=== PATIENT | female | born 1965 | race Caucasian/White ===

== ENCOUNTER 2018-12-22 01:48 | Emergency (ER) | payer OTHER ==
[~2018-12-22] VITALS: Ht 162.6 cm; Wt 115.7 kg
[~2018-12-22 01:48] MED LIST: ALLOPURINOL300 MG PO; AMLODIPINE BESY10 MG PO; BACLOFEN10 MG PO; BUSPIRONE HCL30 MG PO; CLONAZEPAM0.5 MG PO; CLONIDINE HCL0.1 MG PO; COLCHICINE0.6 M1 PO; DOXEPIN HCL100 MG PO; ELIQUIS5 MG PO; ESCITALOPRAM OX10 MG PO; FOLIC ACID1 MG PO; FUROSEMIDE20 MG PO; FUROSEMIDE40 MG PO; GABAPENTIN100 MG PO; HYDROXYZINE HCL25 MG PO; INDOMETHACIN50 MG PO; LIPITOR40 MG PO; MAGNESIUM OXID400 MG PO; MECLIZINE HCL25 MG PO; METOPROLOL SUCC25 MG PO; METOPROLOL TART25 MG PO; MINIPRESS1 MG PO; MINIPRESS2 MG PO; MIRTAZAPINE15 MG PO; NEURONTIN300 MG PO; OMEPRAZOLE20 MG PO; POTASSIUM CHLO20 ME1 PO; REGLAN10 MG; ROBAXIN-750750 MG PO; SERTRALINE HCL100 MG PO; SERTRALINE HCL50 MG PO; SYNTHROID75 MCG PO; VENTOLIN HFA18 GM INH; ZYRTEC10 M3 PO; [UNRECOGNIZED DRUG - OTHER] PO
--- NOTE | 2018-12-22 08:01 | EKG ---
[facility] [address] [place] [address] Signed Normal sinus rhythm Possible Left atrial enlargement ST \T\ T wave abnormality, consider lateral ischemia Abnormal ECG When compared with ECG of 18-OCT-2018 23:33, Criteria for Septal infarct are no longer present ST no longer depressed in Inferior leads T wave inversion no longer evident in Inferior leads Confirmed by JEREMI VASQUEZ MD ([id number]) on 12/22/2018 8:01:42 AM Electronically Signed By: JEREMI VASQUEZ MD 12/22/18 0801 PATIENT NAME: WALTER CALVERT Electrocardiogram DATE OF : 63 PHYSICIAN: JEREMI VASQUEZ MD REPORT #: [id number] REPORT IS CONFIDENTIAL AND NOT TO BE RELEASED WITHOUT AUTHORIZATION
== END 2018-12-22 05:30 | disposition home or self-care (01) ==
LOC: ED 01:48
DX: R07.9 Chest pain, unspecified (principal); I48.91 Unspecified atrial fibrillation; I10 Essential (primary) hypertension; F32.9 Major depressive disorder, single episode, unspecified; F41.9 Anxiety disorder, unspecified; E78.00 Pure hypercholesterolemia, unspecified; E03.9 Hypothyroidism, unspecified; Z87.891 Personal history of nicotine dependence; Z88.0 Allergy status to penicillin; Z79.899 Other long term (current) drug therapy
CPT/HCPCS: 71045; 80053; 84484; 85025; 93005; 93010; 99285-25

== ENCOUNTER 2019-02-15 13:40 | Emergency (ER) | payer OTHER ==
[~2019-02-15] VITALS: Ht 162.6 cm; Wt 115.7 kg
--- OUTSIDE RECORDS SUMMARY | ~2019-02-15 | XMS | Encounter Summary ---
Demographics + + + | Address | [address] | | | [place] [address] | + + + | Home Phone | | + + + | Preferred Language | Unknown | + + + | Marital Status | Single | + + + | Shinto Affiliation | Unknown | + + + | Race | Unknown | + + + | Ethnic Group | Unknown | + + + Author + + + | Author | [facility] | | | and Saúlana | + + + | Organization | [facility] | | | and Saúlana | + + + | Address | Unknown | + + + | Phone | Unavailable | + + + Support + + +---------+ + | Name | Relationship | Address | Phone | + + +---------+ + | Raghu,Aaron | ECON | Unknown | | + + +---------+ + Care Team Providers + +------+ + | Care General Pediatrician Name | Role | Phone | + +------+ + | August Sanford | PCP | | + +------+ + Reason for Referral Diagnostic/Screening (Routine) + +--------+ + + + + | Status | Reason | Specialty | Diagnoses / | Referred By | Referred To | | | | | Procedures | Contact | Contact | + +--------+ + + + + | Authorized | | Radiology | Diagnoses | Rosy | [facility] | | | | | Chest pain, | MD Claudine | [address] | | | | | unspecified | [address] | [place], | | | | | type | [address] | [place] | | | | | Procedures | [place], | [address] | | | | | [place] | [place] [address] | Phone: | | | | | Stress Test | Phone: | [phone] | | | | | (Vasodilator | [phone] | Fax: | | | | | ) [place] | Fax: | [phone] | | | | | Nuclear | [phone] | | | | | | Stress Test | | | | | | | (Exercise) | | | + +--------+ + + + + Encounter Details +--------+ + + + + | Date | Type | Department | Care Team | Description | +--------+ + + + + | 12/26/ | Ancillary | [facility] [place] | Claudine Gallegos, | Chest pain, | | 2019 | Orders | CARDIOLOGY [address] | unspecified type | | | | [address] [place], | [place], | | | | | [place] [address] | [place] [address] | | | | | [phone] | [phone] | | | | | | | | +--------+ + + + + Social History + +-------+ +--------+------+ | Tobacco Use | Types | Packs/Day | Years | Date | | | | | Used | | + +-------+ +--------+------+ | Former Smoker | | | | | + +-------+ +--------+------+ + +---+---+---+ | Smokeless Tobacco: | | | | | Never Used | | | | + +---+---+---+ + + +---------+ + | Alcohol Use | Drinks/We | oz/Week | Comments | | | ek | | | + + +---------+ + | No | | | | + + +---------+ + + + + | Sex Assigned at | Date Recorded | | | | + + + | Not on file | | + + + as of this encounter Plan of Treatment +--------+---------+ + + + | Date | Type | Specialty | Care Team | Description | +--------+---------+ + + + | 06/23/ | Office | Cardiology | Claudine Gallegos, | | | 2018 | Visit | | [address] | | | | | | [place], | | | | | | [place] [address] | | | | | | [phone] | | | | | | | | +--------+---------+ + + + as of this encounter Results [place] Nuclear Stress Test (Vasodilator) (12/26/2018 1433) + +--------+ + + | Component | Value | Ref Range | Performed At | + +--------+ + + | BASELINE HEART RATE | 75 | bpm | [facility] | + +--------+ + + | BASELINE BLOOD | 192/87 | mmHg | [facility] | | PRESSURE | | | | + +--------+ + + | PEAK HEART RATE | 80 | | [facility] | + +--------+ + + | PEAK BLOOD PRESSURE | 192/87 | mmHG | [facility] | + +--------+ + + | Target HR | 141 | | [facility] | + +--------+ + + | Percent HR | 48 | | [facility] | + +--------+ + + | LVEF-SPECT NUCLEAR | 61 | % | [facility] | | STRESS/VIABILITY | | | | + +--------+ + + | ST Elevation (mm) | 0.0 | mm | [facility] | + +--------+ + + + + + | Narrative | Performed At | + + + | | [facility] | | 1. Persantine EKG is negative.2. Normal Persantine sestamibi | | | myocardial perfusion imaging study. Normal left ventricular size, | | | wall thickness and motion. Preserved left ventricular systolic | | | function. LVEF is 61%. Evidence of breast/anterior wall soft | | | tissue attenuation. | | + + + + +---------+ + + | Performing | Address | City/State/Zipcode | Phone Number | | Organization | | | | + +---------+ + + | [facility] | | | | + +---------+ + + in this encounter Visit Diagnoses + + | Diagnosis | + + | Chest pain, unspecified type | + +"
--- OUTSIDE RECORDS SUMMARY | ~2019-02-15 | XMS | Encounter Summary ---
Demographics + + + | Address | [address] | | | [place] [address] | + + + | Home Phone | | + + + | Preferred Language | Unknown | + + + | Marital Status | Single | + + + | Pentecostal Affiliation | Unknown | + + + | Race | Unknown | + + + | Ethnic Group | Unknown | + + + Author + + + | Author | [facility] | | | and Saúlana | + + + | Organization | [facility] | | | and Saúlana | [...] Team Providers + +------+ + | Care Purification Director Name | Role | Phone | + +------+ + | August Sanford | PCP | | + +------+ + Reason for Visit Evaluate & Treat (Routine) +--------+--------+ + + + + | Status | Reason | Specialty | Diagnoses / | Referred By | Referred To | | | | | Procedures | Contact | Contact | +--------+--------+ + + + + | Closed | | Cardiology | Diagnoses | Steve Sanford [place] | | | | | History of | FRANCO Koch | Cardiology | | | | | [place] | [address] | | | | | (myocardial | [place] | [place], | | | | | infarction) | [address] | [place] | | | | | Syncope | [place], | [address] | | | | | Presence of | [place] [address] | Phone: | | | | | other | Phone: | [phone] | | | | | cardiac | [phone] | Fax: | | | | | implants and | Fax: | [phone] | | | | | grafts | [phone] | | | | | | Procedures | | | | | | | CARE PROGRAM RESIDENT - NEEDS | | | | | | | IC/THR APPT | | | +--------+--------+ + + + + Encounter Details +--------+---------+ + + + | Date | Type | Department | Care Team | Description | +--------+---------+ + + + | 12/16/ | Office | [facility] | Dionisio Gallegos, | Encounter for loop | | 2019 | Visit | CARDIOLOGY [address] | [address] | recorder check | | | | [place], | [place], | (Primary Dx); S/P | | | | [place] [address] | [place] [address] | implantable loop | | | | [phone] | [phone] | recorder Medtronic | | | | | | 05/04/2016 Dr Duque | | | | | | Tommy; Syncope, | | | | | | unspecified syncope | | | | | | type; PVC (premature | | | | | | ventricular | | | | | | contraction) | +--------+---------+ + + + Social History + +-------+ [...] + + + as of this encounter Last Filed Vital Signs + + + + | Vital Sign | Reading | Time Taken | + + + + | Blood Pressure | 130/72 | 12/16/20181513 PST | + + + + | Pulse | 74 | 12/16/20181513 PST | + + + + | Temperature | - | - | + + + + | Respiratory Rate | 18 | 12/16/20181513 PST | + + + + | Oxygen Saturation | - | - | + + + + | Inhaled Oxygen | - | - | | Concentration | | | + + + + | Weight | 115.9 kg (255 lb 8.2 | 12/16/20181513 PST | | | oz) | | + + + + | Height | 162.6 cm (5' 4") | 12/16/20181513 PST | + + + + | Body Mass Index | 43.86 | 12/16/2018 1514 PST | + + + + in this encounter Progress Notes Dionisio Gallegos MD - 12/16/2018 1430 PSTFormatting of this note may be different from dev bell. PATIENT NAME: Gris Krishnamurthy : 1965: AGE: 53 y.o. REFERRED BY: August Sanford PRIMARY CARE: FRANCO Fernandes NEW PATIENT OFFICE VISIT Date of Service: 12/16/18 HISTORY OF PRESENT ILLNESS: Gris Krishnamurthy is a 53 y.o. female with a history of paroxysmal atrial fibrillation, PVD, hyp ertension, hyperlipidemia, and obstructive sleep apnea. She is being seen today for chest p ain and to establish care. She claims that she has a history of a heart attack back in 2004. On 07/2009, patient report s of having servere chest pains at her home in [place]. She mentions her nonexertional, no n-radiating sharp chest pains episode would happen constantly. Patient reports having cindy re chest pains on November 29, , and of this year. Patient describes her sharp chest pain as, " an arrow shooting right through her right sided shoulder" that usually happens when s he laid down the left side. Patient recently moved to [place] on 06/25/2018. Today, patient complains of occasional palpitations. Patient is physically inactive due kn ee pain. Patient denies breathlessness. There is no dizziness or lightheadedness. There is no ankle or leg swelling. Patient can sleep on one pillow at night without difficulty br eathing. CURRENT PROBLEMS Patient Active Problem List Diagnosis S/P implantable loop recorder Medtronic 05/04/2016 Dr Neto Sanders Syncope Encounter for loop recorder check Hypothyroid PVC (premature ventricular contraction) Past heart attack Hypertension Hyperlipidemia MEDICAL, SURGICAL, AND PERSONAL HISTORY Past Surgical History: Procedure Laterality Date LOOP RECORDER PLACEMENT Left 05/04/[address] Duque [facility] SYNCOPE Family History Problem Relation Age of Onset Pacemaker Father Family Status Relation Status Father (Not Specified) Social History Social History Marital status: Single Spouse name: N/A Number of children: N/A Years of education: N/A Social History Main Topics Smoking status: Former Smoker Smokeless tobacco: Never Used Alcohol use No Drug use: No Sexual activity: Not Asked Other Topics Concern None Social History Narrative None CURRENT MEDICATIONS Current Outpatient Prescriptions Medication Sig Dispense Refill albuterol (PROAIR HFA) 90 mcg/puff inhaler Inhale 2 puffs into the lungs every 6 hours as needed for Wheezing. allopurinol (ZYLOPRIM) 300 mg tablet Take 300 mg by mouth Daily. atorvaSTATin (LIPITOR) 40 mg tablet Take 40 mg by mouth nightly. busPIRone (BUSPAR) 30 MG tablet take 1 tablet by mouth twice a day 0 ELIQUIS 5 MG tablet 0 folic acid 1 mg tablet Take 1 mg by mouth Daily. furosemide (LASIX) 40 mg tablet take 1 tablet by mouth twice a day for HEART FAILURE; T O BE TAKEN... (REFER TO PRESCRIPTION NOTES). 0 gabapentin (NEURONTIN) 300 mg capsule Take 300 mg by mouth 2 times daily. levothyroxine (SYNTHROID) 75 MCG tablet take 1 tablet by mouth every morning ON AN EMPT Y STOMACH 0 magnesium oxide (MAG-OX) 400 mg tablet take 1 tablet by mouth once daily NO REFILLS FRO M THIS PROVIDER 0 MAPAP 500 MG tablet take 1 tablet by mouth every 3 to 6 hours 0 meclizine (ANTIVERT) 25 mg tablet Take 25 mg by mouth 3 times daily as needed. metoprolol tartrate (LOPRESSOR) 25 mg tablet 0 potassium chloride (KLOR-CON M20) 20 mEq ER tablet take 1 tablet by mouth twice a day w ith food 0 prazosin (MINIPRESS) 2 MG capsule take 1 capsule by mouth at bedtime MAY INCREASE TO 2 capsules at bedtime 0 sertraline (ZOLOFT) 100 mg tablet take 1 tablet by mouth once daily 0 zolpidem (AMBIEN) 5 mg tablet take 1 tablet by mouth at bedtime if needed for insomnia (USE SPARINGLY) 0 No current facility-administered medications for this visit. ALLERGIES No Known Allergies ROS Review of Systems Constitutional: Negative for chills, diaphoresis, fever, malaise/fatigue and weight loss. HENT: Negative for congestion, hearing loss, nosebleeds and tinnitus. Dental Problems = No Eyes: Negative for blurred vision and double vision. Respiratory: Positive for shortness of breath. Cardiovascular: Positive for chest pain, palpitations and leg swelling. Gastrointestinal: Negative for blood in stool, constipation, diarrhea, nausea and vomiting. Genitourinary: Negative for dysuria, frequency, hematuria and urgency. Musculoskeletal: Positive for back pain, joint pain and neck pain. Negative for falls and m yalgias. Gait Problems = No Skin: Negative for itching and rash. Neurological: Positive for dizziness. Negative for tingling, tremors, speech change, seizur es, loss of consciousness and weakness. Lightheaded = No Endo/Heme/Allergies: Bruises/bleeds easily. Psychiatric/Behavioral: Negative for memory loss. The patient is nervous/anxious and has in somnia. OBJECTIVE: PHYSICAL EXAM BP 130/72 | Pulse 74 | Resp 18 | Ht 1.626 m (5' 4") | Wt 115.9 kg (255 lb 8.2 oz) | BM I 43.86 kg/m Physical Exam Constitutional: She appears well-developed and well-nourished. No distress. Female individual, with no acute distress. Neck: Normal carotid pulses, no hepatojugular reflux and no JVD present. Carotid bruit is n ot present. Cardiovascular: Normal rate, regular rhythm, S1 normal, S2 normal, intact distal pulses and normal pulses. PMI is not displaced. Exam reveals no gallop, no S3, no S4 and no friction rub. Murmur heard. Systolic murmur is present with a grade of 2/6 at the upper left sternal border Pulses: Carotid pulses are 2+ on the right side, and 2+ on the left side. Dorsalis pedis pulses are 2+ on the right side, and 2+ on the left side. Pulmonary/Chest: Effort normal and breath sounds normal. No accessory muscle usage. No resp iratory distress. She has no wheezes. She has no rhonchi. She has no rales. Abdominal: Normal appearance, normal aorta and bowel sounds are normal. She exhibits no abd ominal bruit. There is no hepatosplenomegaly. There is no tenderness. Musculoskeletal: She exhibits no edema. Neurological: She is alert. Gait normal. Skin: Skin is warm and dry. Psychiatric: She has a normal mood and affect. Her mood appears not anxious. She does not e xhibit a depressed mood. ECG: Normal sinus rhythm. Possible left atrial enlargement. LAB RESULTS: LIPID Lab Results Component Value Date LDLEX 50 08/19/2018 HDLEX 44.1 08/19/2018 TRIGEX 252 08/19/2018 CHOLEX 246 08/19/2018 CHEMISTRY Lab Results Component Value Date NAEX 141 08/19/2018 KEX 4.7 08/19/2018 CLEX 102 08/19/2018 CO2EX 25 08/19/2018 ASTEX 14 08/19/2018 ALTEX 15 08/19/2018 EGFREX 63 08/19/2018 CREEX 0.93 08/19/2018 HEMATOLOGY Lab Results Component Value Date WBCEX 5.7 08/19/2018 HGBEX 14.5 08/19/2018 HCTEX 45.8 (A) 08/19/2018 PLTEX 169 08/19/2018 I reviewed records from August Sanford PA-C for office visit on 09/16/18. Referred to card iologist. ASSESSMENT: 1. History of atrial fibrillation, bradycardia A. 24 holter monitor on 05/02/16 shows, underlying rhythm is sinus rhythm with average heart rate of 55 beats per minute ( minimum heart rate was 44 beats per minutes and maximum heart rate 73 beats per minute), rare PVCs and PAcs were noted, no ventricular or supraventricula r dysrhythmias were noted, no pauses or bradyarrythmias were noted other than sinus bradycar samuel, no diary was submitted, clinical correlation is advised. By Tommy Duque MD B. Successful loop recorder implantation on 05/04/16 at [facility]. . Today, patient complains of occasional palpitations. Patient is physically inactive du e knee pain. There is no signs and symptoms of overt congestive heart failure. She is in a class I of [place] [employer] functional class. There is no fluid retention on phys ical examination. Loop recorder reveals a normal stable functioning device. Her risks for stroke include: 0, Congestive Heart Failure/LV dysfunction (1), Hx of HTN (1 ), Age >/= 75 y.o.(2), Diabetes (1), Stroke/TIA/Thrombo-embolism (2), Vascular disease (1 ), Age 65 to 74 (1) and Female Gender (1). Her [id number]-RWMk score is 0 risk of stroke per ye ar in atrial fibrillation. Her bleeding risks include: ETOH (1). Her HASBLED score is 0-1, which confers a low risk (1-3.4%) risk of bleed per year. She was put on Eliquis by her c ardiologist in [place]. I didn't think that she needs long-term use oral anticoagulant rob use she has no risk factors. Furthermore, there is no evidence of atrial fibrillation on to day's loop recorder implantation. 2. PVD A. Carotid imaging on 05/02/16 shows 0-39% stenosis of right ICA, 0-39% stenosis of left ICA . By Mike Downey MD. 3. Hypertension A. Patient is on metoprolol 25 mg once a day. 4. Hyperlipidemia A. Lipid panel on 08/19/18 shows high triglyceride. B. She is on atorvastatin 40 mg once a day. 5. Hypothyroid A. Patient is on levothyroxine 75 mcg once a day. 6. Obstructive sleep apnea A. Patient can not uses CPAP mask. She reports of feeling claustrophobic. PLAN: 1. I spend time at length talking about natural course, treatment and prognosis of history of paroxysmal atrial fibrillation. 2. I recommend a therapeutic lifestyle change including walking 30 minutes a day, choosing healthy choices of diet , including DASH diet, weight reduction and 7 hours of high quality sleep a night. 3. I recommend flu and pneumonia vaccine. Patient is up to date on flu vaccine. 4. Loop recorder shows a normal sinus rhythm with bradycardia. However, there was no sympt om reported during bradycardia episode. 5. Obtain echo report from [facility] in [place] which was done in September,. 6. Follow up in six months for OC/thresh to discuss stopping Eliquis if there is no eviden ce of further atrial fibrillation. I, Madelin Valera, am acting as a scribe on behalf of, and in the presence of Dionisio medina MD. I have reviewed and edited this note. Madelin Valera, Front Desk Person 12/16/2018 I, Dioniiso Gallegos MD, personally performed the services described in this documentation, as scribed in my presence and it is both accurate and complete. Madelin Valera, Front Desk Person 15:23 Electronically signed by: Dionisio Gallegos MD [facility] 12/16/2018 Portions of this chart may have been created with [employer] voice recognition software. Occasi onal wrong-word or sound-alike substitutions may have occurred due to the inherent ryan itations of voice recognition software. Please read the chart carefully and recognize, using context, where these substitutions have occurred. in this encounter Plan of Treatment +--------+---------+ + + + | Date | Type | Specialty | Care Team | Description | +--------+---------+ + + + | 06/23/ | Office | Cardiology | Dionisio Gallegos, | | | 2018 | Visit | | MD [address] | | | | | | [place], | | | | | | [place] [address] | | | | | | [phone] | | | | | | | | +--------+---------+ + + + as of this encounter Procedures + +--------+ + + + | Procedure Name | Priori | Date/Time | Associated Diagnosis | Comments | | | ty | | | | + +--------+ + + + | ECG 12 LEAD | Routin | 12/16/2018 | PVC (premature | Results for this | | | e | 1519 PST | ventricular | procedure are in the | | | | | contraction) | results section. | + +--------+ + + + | DEVICE INTERROGATION | Routin | 12/16/2018 | Encounter for loop | Results for this | | | e | 1430 PST | recorder check S/P | procedure are in the | | | | | implantable loop | results section. | | | | | recorder Medtronic | | | | | | 05/04/2016 Dr uDque | | | | | | Tommy Syncope, | | | | | | unspecified syncope | | | | | | type | | + +--------+ + + + in this encounter Results ECG 12 lead (12/16/2018 1519) + + + + + | Component | Value | Ref Range | Performed At | + + + + + | VENTRICULAR RATE EKG | 74 | BPM | [facility] | + + + + + | ATRIAL RATE | 74 | BPM | [facility] | + + + + + | P-R INTERVAL | 150 | ms | [facility] | + + + + + | QRS DURATION | 90 | ms | [facility] | + + + + + | Q-T INTERVAL | 388 | ms | [facility] | + + + + + | Q-T INTERVAL | 430 | ms | [facility] | | (CORRECTED) | | | | + + + + + | P WAVE AXIS | 67 | degrees | [facility] | + + + + + | QRS AXIS | 75 | degrees | [facility] | + + + + + | T AXIS | -135 | degrees | [facility] | + + + + + | INTERPRETATION TEXT | Normal sinus | | [facility] | | | rhythmPossible Left | | | | | atrial enlargementST & T | | | | | wave abnormality, | | | | | consider inferolateral | | | | | ischemiaAbnormal ECGNo | | | | | previous ECGs | | | | | availableConfirmed by | | | | | DIONISIO GALLEGOS MD | | | | | ([id number]) on 12/16/2018 | | | | | 4:37:50 PM | | | + + + + + + + + | Narrative | Performed At | + + + | | | + + + + +---------+ + + | Performing | Address | City/State/Zipcode | Phone Number | | Organization | | | | + +---------+ + + | [facility] | | | | + +---------+ + + Device Interrogation (12/16/2018 1430) + + + | Narrative | Performed At | + + + | Dionisio | REBEKAH | | MD Rosy 12/16/2018 16:12 PATIENT NAME: Gris | | | Krishnamurthy : 1965: AGE: 53 y.o. Loop Recorder | | | Evaluation Report December 16, 2018 Reason for evaluation: | | | routineIndication for loop recorder: Encounter for loop recorder check | | | (Z45.09, V53.39); Status post placement of implantable loop recorder | | | (Z95.818, V45.09); Syncope, unspecified syncope type (R55, 780.2) | | | Patient was seated and reclined and device was interrogated. Loop | | | recorder parameters, battery status and significant arrhythmias were | | | reviewed. Heart rate histograms were assessed for adequate heart rate | | | response and any alerts reviewed. Please see the scanned [facility] | | | report and device PDF for further details. Data collected by Manda Medina | | | BONNIE Seaman Presenting rhythm: sinus rhythm at 80 with PVCs.105 Symptom | | | Episodes 443 occurred 12-12-18 at 5:01 AM. EGM is consistent with | | | sinus rhythm 60-70 beats. Patient reports pain into Left arm. 442 | | | occurred 12-08-18 at 11:19 PM. EGM is consistent with sinus rhythm | | | 60-70 beats. 441 occurred 12-08-18 at 9:03 PM. EGM is consistent with | | | sinus rhythm in the 60s. 440 occurred 11-29-18 at 2:42 AM. EGM is | | | consistent with sinus rhythm in the 60s. 0 Tachy Episodes 1 Pause | | | Episodes #388 occurred 08/25/18 at 4:42 PM for 4 seconds. EGM is | | | consistent with sinus bradycardia 35-56 with a 4 second pause.0 Murphy | | | Episodes 0 AT Episodes 0 AF Episodes % of time in AT/AF 0.0 | | | %Histogram good with bradycardia noted . Battery ok.Apparent normal | | | and stable function.Device interrogation due in office in 1 year. | | |Presenting rhythm: sinus rhythm at 80 with PVCs. | | |105 Symptom Episodes | | |443 occurred 12-12-18 at 5:01 AM. EGM is consistent with sinus | | |rhythm 60-70 beats. Patient reports pain into Left arm. | | |442 occurred 12-08-18 at 11:19 PM. EGM is consistent with sinus | | |rhythm 60-70 beats. | | |441 occurred 12-08-18 at 9:03 PM. EGM is consistent with sinus | | |rhythm in the 60s. | | |440 occurred 11-29-18 at 2:42 AM. EGM is consistent with sinus | | |rhythm in the 60s. | | |0 Tachy Episodes | | |1 Pause Episodes | | |#388 occurred 08/25/18 at 4:42 PM for 4 seconds. EGM is consistent | | |with sinus bradycardia 35-56 with a 4 second pause. | | |0 Murphy Episodes | | |0 AT Episodes | | |0 AF Episodes | | |% of time in AT/AF 0.0 % | | |Histogram good with bradycardia noted . Battery ok. | | |Apparent normal and stable function. | | |Device interrogation due in office in 1 year. | | | | | + + + + +---------+ + + | Performing | Address | City/State/Zipcode | Phone Number | | Organization | | | | + +---------+ + + | [facility] | | | | + +---------+ + + in this encounter Visit Diagnoses + + | Diagnosis | + + | Encounter for loop recorder check - Primary | + + | S/P implantable loop recorder Medtronic 05/04/2016 Dr Neto Sanders | + + | Syncope, unspecified syncope type | + + | PVC (premature ventricular contraction) | + + | Other premature beats | + +
--- OUTSIDE RECORDS SUMMARY | ~2019-02-15 | XMS | Encounter Summary ---
Demographics + + + | Address | [address] | | | [place] [address] | + + + | Home Phone | | + + + | Preferred Language | Unknown | + + + | Marital Status | Single | + + + | Jainism Affiliation | Unknown | + + + | Race | Unknown | + + + | Ethnic Group | Unknown | + + + Author + + + | Author | [facility] | | | and Saúlana | + + + | Organization | [facility] | | | and [...] Team Providers + +------+ + | Care Lab Pack Chemist Name | Role | Phone | + +------+ + PCP | Unavailable | + +------+ + Reason for Visit + + + | Reason | Comments | + + + | Device Check | N/C | | (Remote) | | + + + Encounter Details +--------+ + + + + | Date | Type | Department | Care Team | Description | +--------+ + + + + | 01/22/ | Implant | [facility] | [facility]ig[facility], | Remote Device | | 2019 | Monitor | CARDIOLOGY [address] | Interrogation | | | | [place], | [place], | (Primary Dx); S/P | | | | [place] [address] | [place] [address] | implantable loop | | | | [phone] | recorder Medtronic | | | | [...] | | 2019 | Visit | | [address] | | | | | | [place], | | | | | | [place] [address] | | | | | | [phone] | | | | | | | | +--------+---------+ + + + as of this encounter Procedures + +--------+ + + + | Procedure Name | Priori | Date/Time | Associated Diagnosis | Comments | | | ty | | | | + +--------+ + + + | DEVICE | Routin | 01/22/2019 | Remote Device | Results for this | | INTERROGATION- | e | 2359 PST | Interrogation S/P | procedure are in the | | REMOTE | | | implantable loop | results section. | | | | | recorder Medtronic | | | | | | 05/04/2016 Dr Duque | | | | | | Tommy Syncope, | | | | | | unspecified syncope | | | | | | type | | + +--------+ + + + in this encounter Results Device Interrogation - Remote (01/22/2019 6259) + + + | Narrative | Performed At | + + + | Claudine | REBEKAH | | MD Rosy 01/15/2019 12:06Date of Remote Interrogation: | | | 01/05/2019 Refer to [employer] documentation and remote PDF scanned into | | | GoPro for remote interrogation results. Data collected by Harmony Nolen | | | BONNIE Padilla Presenting rhythm: sinus bradycardia with rate 51-52 | | | beats. 6 Symptom Episodes #451 occurred 01/01/2019 at 10:21 PM. EGM is | | | consistent with sinus bradycardia to sinus rhythm rate 52-62 beats | | | with occasional PACs and artifact. #449 occurred 12/31/2018 at 8:10 AM. | | | EGM is consistent with sinus bradycardia rate 47-61 with brief | | | paroxysmal atrial tachycardia rate 98-125 beats. #447 occurred | | | 12/23/2018 at 1:31 PM. EGM is consistent with sinus tachycardia rate | | | 140-165 beats with frequent PVCs. #446 occurred 12/22/2018 at 1:30 | | | AM. EGM is consistent with sinus rhythm rate 72-92 beats with rare | | | PVC.0 Tachy Episodes0 Pause Episodes 4 Murphy Episodes the longest | | | occurred 01/03/2019 at 7:59 AM for 1 minute 6 seconds. EGM is consistent | | | with sinus rhythm to sinus bradycardia rate 57-66 beats and under | | | sensing of the QRS. 0 AT Episodes 0 AF Episodes % of time in AT/AF | | | 0.0 %Histogram unavailable. Battery ok.Apparent normal and stable | | | function.Device interrogation done in office in 01/06/2019. | | |rhythm rate 72-92 beats with rare PVC. | | |0 Tachy Episodes | | |0 Pause Episodes | | |4 Murphy Episodes the longest occurred 01/03/2019 at 7:59 AM for 1 | | |minute 6 seconds. EGM is consistent with sinus rhythm to sinus | | |bradycardia rate 57-66 beats and under sensing of the QRS. | | |0 AT Episodes | | |0 AF Episodes | | |% of time in AT/AF 0.0 % | | |Histogram unavailable. Battery ok. | | |Apparent normal and stable function. | | |Device interrogation done in office in 01/06/2019. | | + + + + +---------+ [...] | Syncope, unspecified syncope type | + +"
--- OUTSIDE RECORDS SUMMARY | ~2019-02-15 | XMS | Encounter Summary ---
Demographics + + + | Address | [address] | | | [place] [address] | + + + | Home Phone | | + + + | Preferred Language | Unknown | + + + | Marital Status | Single | + + + | Nondenominational Affiliation | Unknown | + + + | Race | Unknown | + + + | Ethnic Group | Unknown | + + + Author + + + | Author | [facility] | | | and Saúlana | + + + | Organization | [facility] | | | and Saúlana [...] Team Providers + +------+ + | Care Diesel Retrofit Installer Name | Role | Phone | + +------+ + | August Sanford | PCP | | + +------+ + Reason for Visit +--------+ + | Reason | Comments | +--------+ + | Other | ED visit | +--------+ + Encounter Details +--------+ + + + + | Date | Type | Department | Care Team | Description | +--------+ + + + + | 12/23/ | Telephone | [facility] | Claudine Gallegos, | Other (ED visit) | | 2019 | | CARDIOLOGY [address] | MD [address] | | | | | [place], | [place], | | | | | [place] [address] | [place] [address] | | | | | [phone] | [phone] | | | | | | | [...] [place], | | | | | | [place] [address] | | | | | | [phone] | | | | | | | | +--------+---------+ + + + as of this encounter Visit Diagnoses + + | Diagnosis | + + | Chest pain, unspecified type - Primary | + +"
--- OUTSIDE RECORDS SUMMARY | ~2019-02-15 | XMS | Clinical Summary ---
Demographics + + + | Address | [address] | | | [place] [address] | + + + | Home Phone | | + + + | Preferred Language | Unknown | + + + | Marital Status | Single | + + + | Quaker Affiliation | Unknown | + + + | Race | Unknown | + + + | Ethnic Group | Unknown | + + + Author + + + | Author | [facility] | | | and Saúlana | + + + | Organization | [facility] | | | and Saúlana [...] Team Providers + +------+ + | Care Surveying Or Spatial Science Technician Name | Role | Phone | + +------+ + | August Sanford | PP | | + +------+ + Allergies No Known Allergies Current Medications + + +--------+---------+------+------+-------+ | Prescription | Sig. | Disp. | Refills | Star | End | Statu | | | | | | t | Date | s | | | | | | Date | | | + + +--------+---------+------+------+-------+ | allopurinol | Take 300 mg by mouth | | | | | Activ | | (ZYLOPRIM) 300 mg | Daily. | | | | | e | | tablet | | | | | | | + + +--------+---------+------+------+-------+ | atorvaSTATin | Take 40 mg by mouth | | | | | Activ | | (LIPITOR) 40 mg | nightly. | | | | | e | | tablet | | | | | | | + + +--------+---------+------+------+-------+ | folic acid 1 mg | Take 1 mg by mouth | | | | | Activ | | tablet | Daily. | | | | | e | + + +--------+---------+------+------+-------+ | meclizine | Take 25 mg by mouth | | | | | Activ | | (ANTIVERT) 25 mg | 3 times daily as | | | | | e | | tablet | needed. | | | | | | + + +--------+---------+------+------+-------+ | albuterol (PROAIR | Inhale 2 puffs into | | | | | Activ | | HFA) 90 mcg/puff | the lungs every 6 | | | | | e | | inhaler | hours as needed for | | | | | | | | Wheezing. | | | | | | + + +--------+---------+------+------+-------+ | gabapentin | Take 300 mg by mouth | | | | | Activ | | (NEURONTIN) 300 mg | 2 times daily. | | | | | e | | capsule | | | | | | | + + +--------+---------+------+------+-------+ | metoprolol | | | 0 | 01/1 | | Activ | | tartrate (LOPRESSOR) | | | | 05/14 | | e | | 25 mg tablet | | | | 19 | | | + + +--------+---------+------+------+-------+ | sertraline | take 1 tablet by | | 0 | 12/2 | | Activ | | (ZOLOFT) 100 mg | mouth once daily | | | 06/13 | | e | | tablet | | | | 18 | | | + + +--------+---------+------+------+-------+ | levothyroxine | take 1 tablet by | | 0 | 01/2 | | Activ | | (SYNTHROID) 75 MCG | mouth every morning | | | 12/14 | | e | | tablet | ON AN EMPTY STOMACH | | | 19 | | | + + +--------+---------+------+------+-------+ | ELIQUIS 5 MG | | | 0 | /2 | | Activ | | tablet | | | | 020 | | e | | | | | | 19 | | | + + +--------+---------+------+------+-------+ | furosemide (LASIX) | take 1 tablet by | | 0 | /2 | | Activ | | 40 mg tablet | mouth twice a day | | | 06/13 | | e | | | for HEART FAILURE; | | | 18 | | | | | TO BE TAKEN... | | | | | | | | (REFER TO | | | | | | | | PRESCRIPTION NOTES). | | | | | | + + +--------+---------+------+------+-------+ | busPIRone (BUSPAR) | take 1 tablet by | | 0 | 12/2 | | Activ | | 30 MG tablet | mouth twice a day | | | 7/20 | | e | | | | | | 18 | | | + + +--------+---------+------+------+-------+ | prazosin | take 1 capsule by | | 0 | 12/2 | | Activ | | (MINIPRESS) 2 MG | mouth at bedtime MAY | | | 06/13 | | e | | capsule | INCREASE TO 2 | | | 18 | | | | | capsules at bedtime | | | | | | + + +--------+---------+------+------+-------+ | potassium chloride | take 1 tablet by | | 0 | 12/2 | | Activ | | (KLOR-CON M20) 20 | mouth twice a day | | | 06/13 | | e | | mEq ER tablet | with food | | | 18 | | | + + +--------+---------+------+------+-------+ | magnesium oxide | take 1 tablet by | | 0 | 11/2 | | Activ | | (MAG-OX) 400 mg | mouth once daily NO | | | 06/13 | | e | | tablet | REFILLS FROM THIS | | | 18 | | | | | PROVIDER | | | | | | + + +--------+---------+------+------+-------+ | zolpidem (AMBIEN) | take 1 tablet by | | 0 | 12/2 | | Activ | | 5 mg tablet | mouth at bedtime if | | | 7/20 | | e | | | needed for insomnia | | | 18 | | | | | (USE SPARINGLY) | | | | | | + + +--------+---------+------+------+-------+ | MAPAP 500 MG | take 1 tablet by | | 0 | 12/2 | | Activ | | tablet | mouth every 3 to 6 | | | 7/20 | | e | | | hours | | | 18 | | | + + +--------+---------+------+------+-------+ | nitroglycerin | Place 1 tablet under | 25 | 5 | 01/2 | | Activ | | (NITROSTAT) 0.4 mg | the tongue every 5 | tablet | | 9/20 | | e | | SL tablet | minutes as needed | | | 19 | | | | | for Chest pain. | | | | | | + + +--------+---------+------+------+-------+ Active Problems + + + | Problem | Noted Date | + + + | Chest pain, unspecified | 12/23/2018 | + + + + + | Overview: Normal Persantine Sestamibi myocardial perfusion | | imaging study on 12/26/18 showing normal left ventricular size, | | wall thickness and motion. Preserved left ventricular systolic | | function. LVEF is 61%. Evidence of breast/anterior wall soft | | tissue attenuation. | + + + + + | Paroxysmal atrial fibrillation (HCC) | 12/18/2018 | + + + + + | Overview: Echocardiogram on 10/20/18 shows, left ventricular | | systolic function is hyperdynamic with an estimated EF of >70%, | | pseudonormal LV diastolic filling pattern, consistent with | | elevated LA pressure and moderate dysfunction ( Grade II), the | | right ventricle is normal in size and function, there is mild | | bi-atrial enlargement, moderate to severe mitral regurgitation is | | present, there is mild pulmonary hypertension, the right | | ventricular systolic pressure ( pulmonary artery systolic | | pressure) as measured by Doppler, is 43 mmHg. By Joe Amaya, | | MD. | + + + + + | Hypothyroid | 12/15/2018 | + + + | PVC (premature ventricular contraction) | 12/15/2018 | + + + | Past heart attack | 12/15/2018 | + + + | Essential hypertension | 12/15/2018 | + + + | Mixed hyperlipidemia | 12/15/2018 | + + + | S/P implantable loop recorder Medtronic 05/04/2016 Dr Duque | 09/30/2018 | | Tommy | | + + + + + | Overview: Medtronic Reveal LINQ Model # [id number] Serial # | | [id number]: syncope | + + +---------+ + | Syncope | 09/30/2018 | +---------+ + + + | Overview: 24 holter monitor on 05/02/16 shows, underlying | | rhythm is sinus rhythm with average heart rate of 55 beats per | | minute ( minimum heart rate was 44 beats per minutes and maximum | | heart rate 73 beats per minute), rare PVCs and PAcs were noted, | | no ventricular or supraventricular dysrhythmias were noted, no | | pauses or bradyarrythmias were noted other than sinus | | bradycardia, no diary was submitted, clinical correlation is | | advised. By Tommy Duque MD Carotid imaging on 05/02/16 shows | | 0-39% stenosis of right ICA, 0-39% stenosis of left ICA. By | | Mike Downey MD. Successful pacemaker implantation on | | 05/04/16. | + + + + + | Encounter for loop recorder check | 09/30/2018 | + + + Encounters +--------+ + + + + | Date | Type | Specialty | Care Team | Description | +--------+ + + + + | 01/22/ | Implant | | Dionisio Gallegos, | Remote Device | | 2018 | Monitor | | MD | Interrogation | | | | | | (Primary Dx); S/P | | | | | | implantable loop | | | | | | recorder Medtronic | | | | | | 05/04/2016 Dr Duque | | | | | | Tommy; Syncope, | | | | | | unspecified syncope | | | | | | type | +--------+ + + + + | 01/06/ | Office | | Jenna Samaniego, | Paroxysmal atrial | | 2019 | Visit | | MICROSCOPIST | fibrillation (HCC) | | | | | | (Primary Dx); PVC | | | | | | (premature | | | | | | ventricular | | | | | | contraction); S/P | | | | | | implantable loop | | | | | | recorder Medtronic | | | | | | 05/04/2016 Dr Duque | | | | | | Tommy; Encounter | | | | | | for loop recorder | | | | | | check; FANG | | | | | | (obstructive sleep | | | | | | apnea) | +--------+ + + + + | 12/31/ | Abstract | | Jenna Samaniego, | | | 2018 | | | MICROSCOPIST | | +--------+ + + + + | 12/26/ | Hospital | | Dionisio Gallegos, | Chest pain, | 2018 | Encounter | | Machine Mover, | unspecified type | | | | | [facility] | | +--------+ + + + + | 12/26/ | Hospital | | Dionisio Gallegos, | Chest pain, | 2018 | Encounter | | | unspecified type | +--------+ + + + + | 12/26/ | Ancillary | | Dionisio Gallegos, | Chest pain, | | 2018 | Orders | | | unspecified type | +--------+ + + + + | 12/23/ | Telephone | | Dionisio Gallegos, | Other (ED visit) | | 2018 | | | MD | | +--------+ + + + + | 12/18/ | Abstract | | Provider, | Paroxysmal atrial | | 2018 | | | MD Jenny | fibrillation (HCC) | +--------+ + + + + | 12/16/ | Office | | Dionisio Gallegos, | Encounter for loop | | 2018 | Visit | | MD | recorder check | | | | | | (Primary Dx); S/P | | | | | | implantable loop | | | | | | recorder Medtronic | | | | | | 05/04/2016 Dr Duque | | | | | | Tommy; Syncope, | | | | | | unspecified syncope | | | | | | type; PVC (premature | | | | | | ventricular | | | | | | contraction) | +--------+ + + + + | 12/16/ | Abstract | | Provider, | | | 2018 | | | MD Jenny | | +--------+ + + + + | 12/15/ | Abstract | | Provider, | Hypothyroidism, | | 2018 | | | MD Jenny | unspecified type; | | | | | | PVC (premature | | | | | | ventricular | | | | | | contraction); Past | | | | | | heart attack; | | | | | | Syncope, unspecified | | | | | | syncope type; | | | | | | Hypertension, | | | | | | unspecified type; | | | | | | Hyperlipidemia, | | | | | | unspecified | | | | | | hyperlipidemia type | +--------+ + + + + | 12/15/ | Abstract | | Dionisio Gallegos, | | | 2018 | | | MD | | +--------+ + + + + from Last 3 Months Family History + + +------+ + | Medical History | Relation | Name | Comments | + + +------+ + | Pacemaker | Father | | | + + +------+ + | Heart disease | Mother | | | + + +------+ + + +------+ + + | Relation | Name | Status | Comments | + +------+ + + | Brother | | Alive | | + +------+ + + | Brother | | Alive | | + +------+ + + | Father | | | | + +------+ + + | Mother | | | | + +------+ + + | Sister | | Alive | | + +------+ + + Social History + +-------+ +--------+------+ [...] on file | | + + + Last Filed Vital Signs + + + + | Vital Sign | Reading | Time Taken | + + + + | Blood Pressure | 106/64 | 01/06/2019 1051 PST | + + + + | Pulse | 64 | 01/06/20191050 PST | + + + + | Temperature | - | - | + + + + | Respiratory Rate | 18 | 01/06/20191050 PST | + + + + | Oxygen Saturation | - | - | + + + + | Inhaled Oxygen | - | - | | Concentration | | | + + + + | Weight | 119.9 kg (264 lb 5.3 | 01/06/20191050 PST | | | oz) | | + + + + | Height | 162.6 cm (5' 4") | 01/06/20191050 PST | + + + + | Body Mass Index | 45.37 | 01/06/20191050 PST | + + + + Plan of Treatment +--------+---------+ + + + | Date | Type | Specialty | Care Team | Description | +--------+---------+ + + + | 06/23/ | Office | | Dionisio Gallegos, | | | 2019 | Visit | | [address] | | | | | | [place], | | | | | | [place] [address] | | | | | | [phone] | | | | | | | | +--------+---------+ + + + + + + + + | Health Maintenance | Due Date | Last Done | Comments | + + + + + | Hepatitis C | | | | | Screening | 4 | | | + + + + + | Vaccine: | | | | | Dtap/Tdap/Td (1 - | 3 | | | | Tdap) | | | | + + + + + | Vaccine: | | | | | Pneumococcal 19-64 | 3 | | | | (PPSV23 only) Medium | | | | | Risk (1 of 1 - | | | | | PPSV23) | | | | + + + + + | Cervical Cancer | | | | | Screening (Pap) | 4 | | | + + + + + | BREAST CANCER | | | | | SCREENING (MAMM Q2 | 4 | | | | YEARS 50-74) | | | | + + + + + | Colorectal Cancer | | | | | Screening | 4 | | | | (Colonoscopy) | | | | + + + + + | Vaccine: Zoster (1 | | | | | of 2) | 4 | | | + + + + + | Vaccine: Influenza | Completed | 08/27/2018 | | + + + + + Implants + +--------+--------+ +--------+--------+--------+ | Implanted | Type | Area | Manufacture | Device | Expira | Model | | | | | r | | tion | / | | | | | | Identi | Date | Serial | | | | | | fier | | / Lot | + +--------+--------+ +--------+--------+--------+ | Implantable Loop | Implan | Left: | MEDTRONIC - | | | [id number] | | Recorder-05/04/2016Implanted: | table | Chest | MEDT | | | | | Qty: 1 on 05/04/2016 | Loop | Wall | | | | REVEAL | | | Record | | | | | LINQ | | | er | | | | | [id number] | | | | | | | | [id number] | | | | | | | | / | + +--------+--------+ +--------+--------+--------+ Procedures + +--------+ + + + | [...] Duque | | | | | | Salman Syncope, | | | | | | unspecified syncope | | | | | | type | | + +--------+ + + + | DEVICE INTERROGATION | Routin | 01/06/2019 | Paroxysmal atrial | Results for this | | | e | 0000 PST | fibrillation (HCC) | procedure are in the | | | | | S/P implantable loop | results section. | | | | | recorder Medtronic | | | | | | 05/04/2016 Dr Duque | | | | | | Tommy Encounter | | | | | | for loop recorder | | | | | | check | | + +--------+ + + + | NM NUCLEAR STRESS | Routin | 12/26/2018 | Chest pain, | Results for this | | TEST (PHARMACOLOGIC | e | 1433 PST | unspecified type | procedure are in the | | - VASODILATOR) | | | | results section. | + +--------+ + + + | LABS - EXTERNAL SCAN | | 12/22/2018 | | Results for this | | | | 0000 PST | | procedure are in the | | | | | | results section. | + +--------+ + + + | COMPREHENSIVE | Routin | 12/22/2018 | | Results for this | | METABOLIC PANEL | e | 0000 PST | | procedure are in the | | | | | | results section. | + +--------+ + + + | EXTERNAL LAB: | Routin | 12/22/2018 | | Results for this | | GLUCOSE | e | 0000 PST | | procedure are in the | | | | | | results section. | + +--------+ + + + | EXTERNAL LAB: ALT | Routin | 12/22/2018 | | Results for this | | | e | 0000 PST | | procedure are in the | | | | | | results section. | + +--------+ + + + | EXTERNAL LAB: AST | Routin | 12/22/2018 | | Results for this | | | e | 0000 PST | | procedure are in the | | | | | | results section. | + +--------+ + + + | EXTERNAL LAB: | Routin | 12/22/2018 | | Results for this | | ALKALINE PHOSPHATASE | e | 0000 PST | | procedure are in the | | | | | | results section. | + +--------+ + + + | EXTERNAL LAB: | Routin | 12/22/2018 | | Results for this | | BILIRUBIN, TOTAL | e | 0000 PST | | procedure are in the | | | | | | results section. | + +--------+ + + + | EXTERNAL LAB: | Routin | 12/22/2018 | | Results for this | | ALBUMIN | e | 0000 PST | | procedure are in the | | | | | | results section. | + +--------+ + + + | EXTERNAL LAB: | Routin | 12/22/2018 | | Results for this | | PROTEIN, TOTAL | e | 0000 PST | | procedure are in the | | | | | | results section. | + +--------+ + + + | EXTERNAL LAB: | Routin | 12/22/2018 | | Results for this | | CALCIUM | e | 0000 PST | | procedure are in the | | | | | | results section. | + +--------+ + + + | EXTERNAL LAB: CARBON | Routin | 12/22/2018 | | Results for this | | DIOXIDE | e | 0000 PST | | procedure are in the | | | | | | results section. | + +--------+ + + + | EXTERNAL LAB: | Routin | 12/22/2018 | | Results for this | | CHLORIDE | e | 0000 PST | | procedure are in the | | | | | | results section. | + +--------+ + + + | EXTERNAL LAB: CBC | Routin | 12/22/2018 | | Results for this | | | e | 0000 PST | | procedure are in the | | | | | | results section. | + +--------+ + + + | EXTERNAL LAB: EGFR | Routin | 12/22/2018 | | Results for this | | | e | 0000 PST | | procedure are in the | | | | | | results section. | + +--------+ + + + | EXTERNAL LAB: | Routin | 12/22/2018 | | Results for this | | CREATININE | e | 0000 PST | | procedure are in the | | | | | | results section. | + +--------+ + + + | EXTERNAL LAB: | Routin | 12/22/2018 | | Results for this | | POTASSIUM | e | 0000 PST | | procedure are in the | | | | | | results section. | + +--------+ + + + | EXTERNAL LAB: SODIUM | Routin | 12/22/2018 | | Results for this | | | e | 0000 PST | | procedure are in the | | | | | | results section. | + +--------+ + [...] Duque | | | | | | Salman Syncope, | | | | | | unspecified syncope | | | | | | type | | + +--------+ + + + from Last 3 Months Results Device Interrogation - Remote (01/22/2019 2692) + + + | Narrative | Performed At | + + + | Dionisio | [facility] | | MD Rosy 01/15/2019 12:06Date of Remote Interrogation: | | | 01/05/2019 Refer to [facility] documentation and remote PDF scanned into | | | [facility] for remote interrogation results. Data collected by [...] | + +---------+ + + Device Interrogation (01/06/2019)Only the most recent of 2 results within the time period i s included. + + + | Narrative | Performed At | + + + | Jenna Samaniego, | [facility] | | MICROSCOPIST 01/06/2019 12:00 PATIENT NAME: Gris Calvert : | | | 1965: AGE: 53 y.o. Device In-office Evaluation | | | Report 01/06/2019 Reason for evaluation: routineIndication for | | | device:Paroxysmal atrial fibrillation (HCC) (I48.0, 427.31); Encounter | | | for loop recorder check (Z45.09, V53.39); Status post placement of | | | implantable loop recorder (Z95.818, V45.09) Patient was seated and | | | device was interrogated (with programming changes made). Test was | | | performed and interpreted by me. Device parameters, battery status, | | | percentages pacing and significant arrhythmias were reviewed. Heart | | | rate histograms were assessed for adequate heart rate response and any | | | alerts reviewed. Appropriate lead impedance testing was performed. | | | Pacing impedances were reviewed for any significant changes. Sensing | | | tests were performed by decreasing LRL. Adequacy of pacing thresholds | | | were tested by increasing LRL for each lead and recorded for loss of | | | capture. Final outputs were assessed for adequate safety margins. | | | Summary of findings:Events: No new events since last [facility] download | | | 01/05/19. 6 symptom recording is with most recent on 01/01/19 showing | | | sinus rhythm with premature atrial contractions and runs of premature | | | atrial contractions. The longest episode was 12/23/18 at 1331 | | | showing sinus tachycardia with rate of 135 bpm with premature | | | ventricular contractions.4 bradycardia episodes with recent longest | | | event on 01/03/19 lasting 1 minute and 6 seconds showing under sensing, | | | which is consistent with all of the bradycardia events.Heart rate | | | histogram shows good distribution. Battery status: "Good"Current | | | underlying rhythm: Sinus bradycardia 54-56 beats per minute. Please | | | see the scanned [facility] report and device PDF for further details. | | | | | |Summary of findings: | | |Events: No new events since last [facility] download 01/05/19. 6 | | |symptom recording is with most recent on 01/01/19 showing sinus | | |rhythm with premature atrial contractions and runs of premature | | |atrial contractions. The longest episode was 12/23/18 at 1331 | | |showing sinus tachycardia with rate of 135 bpm with premature | | |ventricular contractions. | | |4 bradycardia episodes with recent longest event on 01/03/19 | | |lasting 1 minute and 6 seconds showing under sensing, which is | | |consistent with all of the bradycardia events. | | |Heart rate histogram shows good distribution. | | |Battery status: "Good" | | |Current underlying rhythm: Sinus bradycardia 54-56 beats per | | |minute. | | |Please see the scanned [facility] report and device PDF for further | | |details. | | + + + + + | Procedure Note | + + | Jenna SamaniegoTOOTIE - 01/06/2019 1030 PST PATIENT NAME: Gris Calvert : | | 1965: AGE: 53 y.o.Device In-office Evaluation Report01/06/2019 Reason for | | evaluation: routineIndication for device:Paroxysmal atrial fibrillation (HCC) (I48.0, | | 427.31); Encounter for loop recorder check (Z45.09, V53.39); Status post placement of | | implantable loop recorder (Z95.818, V45.09) Patient was seated and device was | | interrogated (with programming changes made). Test was performed and interpreted by me. | | Device parameters, battery status, percentages pacing and significant arrhythmias were | | reviewed. Heart rate histograms were assessed for adequate heart rate response and any | | alerts reviewed. Appropriate lead impedance testing was performed. Pacing impedances | | were reviewed for any significant changes. Sensing tests were performed by decreasing | | LRL. Adequacy of pacing thresholds were tested by increasing LRL for each lead and | | recorded for loss of capture. Final outputs were assessed for adequate safety | | margins.Summary of findings:Events: No new events since last [facility] download 01/05/19. | | 6 symptom recording is with most recent on 01/01/19 showing sinus rhythm with premature | | atrial contractions and runs of premature atrial contractions. The longest episode was | | 12/23/18 at 1331 showing sinus tachycardia with rate of 135 bpm with premature | | ventricular contractions.4 bradycardia episodes with recent longest event on 01/03/19 | | lasting 1 minute and 6 seconds showing under sensing, which is consistent with all of | | the bradycardia events.Heart rate histogram shows good distribution. Battery status: | | "Good"Current underlying rhythm: Sinus bradycardia 54-56 beats per minute. Please see | | the scanned [facility] report and device PDF for further details. | |Heart rate histogram shows good distribution. | |Battery status: "Good" | |Current underlying rhythm: Sinus bradycardia 54-56 beats per minute. | |Please see the scanned [facility] report and device PDF for further details. | + + + +---------+ + + | Performing | Address | City/State/Zipcode | Phone Number | | Organization | | | | + +---------+ + + | [facility] | | | | + +---------+ + + [place] Nuclear Stress Test (Vasodilator) (12/26/2018 1433) [...] | | | + +---------+ + + External Lab: Glucose (12/22/2018) + +---------+ + + | Component | Value | Ref Range | Performed At | + +---------+ + + | Glucose, External | 124 (A) | 70 - 100 | | + +---------+ + + External Lab: ALT (12/22/2018) + +-------+ + + | Component | Value | Ref Range | Performed At | + +-------+ + + | ALT, External | 21 | 7 - 52 | | + +-------+ + + External Lab: AST (12/22/2018) + +-------+ + + | Component | Value | Ref Range | Performed At | + +-------+ + + | AST, External | 17 | 13 - 39 | | + +-------+ + + External Lab: Alkaline Phosphatase (12/22/2018) + +-------+ + + | Component | Value | Ref Range | Performed At | + +-------+ + + | ALP, External | 113 | 31 - 130 | | + +-------+ + + External Lab: Bilirubin, Total (12/22/2018) + +-------+ + + | Component | Value | Ref Range | Performed At | + +-------+ + + | Bilirubin, Total, | 0.3 | 0 - 1.2 | | | External | | | | + +-------+ + + External Lab: Albumin (12/22/2018) + +-------+ + + | Component | Value | Ref Range | Performed At | + +-------+ + + | Albumin, External | 4.1 | 3.5 - 5 | | + +-------+ + + External Lab: Protein, Total (12/22/2018) + +---------+ + + | Component | Value | Ref Range | Performed At | + +---------+ + + | Protein, Total, | 6.6 (A) | 6 - 6.3 | | | External | | | | + +---------+ + + External Lab: Calcium (12/22/2018) + +-------+ + + | Component | Value | Ref Range | Performed At | + +-------+ + + | Calcium, External | 9.2 | 6.5 - 10.3 | | + +-------+ + + External Lab: Carbon Dioxide (12/22/2018) + +-------+ + + | Component | Value | Ref Range | Performed At | + +-------+ + + | Carbon Dioxide, | 24 | 19 - 31 | | | External | | | | + +-------+ + + External Lab: Chloride (12/22/2018) + +-------+ + + | Component | Value | Ref Range | Performed At | + +-------+ + + | Chloride, External | 104 | 95 - 112 | | + +-------+ + + External Lab: Potassium (12/22/2018) + +-------+ + + | Component | Value | Ref Range | Performed At | + +-------+ + + | Potassium, External | 3.8 | 3.6 - 5.1 | | + +-------+ + + External Lab: Sodium (12/22/2018) + +-------+ + + | Component | Value | Ref Range | Performed At | + +-------+ + + | Sodium, External | 136 | 132 - 143 | | + +-------+ + + External Lab: CBC (12/22/2018) + + + + + | Component | Value | Ref Range | Performed At | + + + + + | WBC, External | 6.8 | 4.5 - 11 | | + + + + + | HGB, External | 11.2 (A) | 12 - 16 | | + + + + + | HCT, External | 36.7 | 35 - 45 | | + + + + + | PLT, External | 238 | 140 - 440 | | + + + + + | Neutrophils, | 55.0 | 39 - 80 | | | Absolute, External | | | | + + + + + | Lymphocytes, | 33.3 | 24 - 44 | | | Absolute, External | | | | + + + + + | Monocytes, Absolute, | 8.5 | 0 - 12 | | | External | | | | + + + + + | Eosinophils, | 1.8 | 0 - 8 | | | Absolute | | | | + + + + + | Basophils, Absolute | 1.4 | 0 - 2 | | + + + + + | RBC, External | 4.42 | 3.6 - 5.1 | | + + + + + | MCV, External | 83 (A) | 91 - 99 | | + + + + + | RDW, External | 16.4 (A) | 10.5 - 15 | | + + + + + External Lab: eGFR (12/22/2018) + +-------+ + + | Component | Value | Ref Range | Performed At | + +-------+ + + | eGFR, External | 67 | | | + +-------+ + + + + | Specimen | + + | Blood | + + External Lab: Creatinine (12/22/2018) + +-------+ + + | Component | Value | Ref Range | Performed At | + +-------+ + + | Creatinine, External | 0.88 | 0.7 - 1.33 | | + +-------+ + + + + | Specimen | + + | Blood | + + LABS - EXTERNAL SCAN (12/22/2018) + + + | Narrative | Performed At | + + + | Ordered by an | | | unspecified provider. | | + + + Comprehensive Metabolic Panel (12/22/2018) + + + + + | Component | Value | Ref Range | Performed At | + + + + + | BUN/Creatinine Ratio | 17.0 | 6.0 - 26.6 | | + + + + + | Globulin | 2.7 | 1.8 - 3.5 | | + + + + + | MCH | 25.0 (A) | 27.0 - 33.0 pg | | + + + + + | MCHC | 31.0 | 30.0 - 36.0 % | | + + + + + + + | Specimen | + + | Blood | + + ECG 12 lead (12/16/2018 1519) + + + + + | Component | Value | Ref Range | Performed At | + + + + + | VENTRICULAR RATE EKG | 74 | BPM | [facility] | + + + + + | ATRIAL RATE | 74 | BPM | [facility] | + + + + + | P-R INTERVAL | 150 | ms | [facility] | + + + + + | QRS DURATION | 90 | ms | [facility] | + + + + + [...] GALLEGOS MD | | | | | ([id number]) on 12/16/2018 | | | | | [...] | | | + +---------+ + + from Last 3 Months Insurance + +--------+ +--------+ +---------+ | Payer | Benefi | Subscriber | Type | Phone | Address | | | t Plan | ID | | | | | | / | | | | | | | Group | | | | | + +--------+ +--------+ +---------+ | [employer] | [employer] | [id number] | Medica | [phone] | | MEDICAID HMO | HEALTH | | id | [id number] | | | | MDCD | | | | | | | [place]MO [place] | | | | | + +--------+ +--------+ +---------+ + +--------+ +--------+ + + | Guarantor Name | Accoun | Relation to | Date | Phone | Billing Address | | | t Type | Patient | of | | | | | | | | | | + +--------+ +--------+ + + | GRIS CALVERT | Person | Self [birth year] Home: | [address] | | | al/Fam | | 1965 | [phone] [place] | | | deepak | | | [phone] | + +--------+ +--------+ + +
--- OUTSIDE RECORDS SUMMARY | ~2019-02-15 | XMS | Encounter Summary ---
Demographics + + + | Address | [address] | | | [place] [address] | + + + | Home Phone | | + + + | Preferred Language | Unknown | + + + | Marital Status | Single | + + + | Presybeterian Affiliation | Unknown | + + + | Race | Unknown | + + + | Ethnic Group | Unknown | + + + Author + + + | Author | [facility] | | | and Saúlana | + + + | Organization | [facility] | | | and Saúlana [...] Team Providers + +------+ + | Care Manufacturing Operator Name | Role | Phone | + [...] | CARDIOLOGY [address] | Interrogation | | | | [place], | [place], | (Primary Dx); S/P | | | | [place] [id number] | [place] [address] | implantable loop | | | | [phone] | [phone] | recorder Med[employer] | | | | [...] | 2019 | Visit | | [address] | | | | | | [place], | | | | | | [place] [address] | | | | | | [phone] | | | | | | | [...] encounter Results Device Interrogation - Remote (01/22/2019 8399) + + + | Narrative | Performed At | + + + | Claudine | REBEKAH | | MD Rosy 01/15/2019 12:06Date of Remote Interrogation: | | | 01/05/2019 Refer to Paceart documentation and remote PDF scanned into | | | [facility] for remote interrogation results. Data collected by [...]
--- OUTSIDE RECORDS SUMMARY | ~2019-02-15 | XMS | Encounter Summary ---
Demographics + + + | Address | [address] | | | [place] [address] | + + + | Home Phone | | + + + | Preferred Language | Unknown | + + + | Marital Status | Single | + + + | Roman Catholic Affiliation | Unknown | + + + | Race | Unknown | + + + | Ethnic Group | Unknown | + + + Author + + + | Author | [facility] | | | and Saúlana | + + + | Organization | [facility] | | | and Saúlana [...] Team Providers + +------+ + | Care Manager Research Name | Role | Phone | + +------+ + | August Sanford | PCP | | + +------+ + Encounter Details +--------+ + + + + | Date | Type | Department | Care Team | Description | +--------+ + + + + | 12/16/ | Abstract | [facility] | Provider, | | | 2019 | | CARDIOLOGY [address] | [address] | | | | | [place] | [place] | | | | | [place] [address] | [place] [address] | | | | | [phone] | | | +--------+ + + + [...] [place], | | | | | | [place] [address] | | | | | | [phone] | | | | | | | | +--------+---------+ + + + as of this encounter Procedures + +--------+ + + + | Procedure Name | Priori | Date/Time | Associated Diagnosis | Comments | | | ty | | | | + +--------+ + + + | EXTERNAL LAB: KIRK | Routin | 08/19/2018 | | Results for this | | | e | 0000 PDT | | procedure are in the | | | | | | results section. | + +--------+ + + + | EXTERNAL LAB: [facility] | Routin | 08/19/2018 | | Results for this | | | e | 0000 PDT | | procedure are in the | | | | | | results section. | + +--------+ + + + | EXTERNAL LAB: [facility] | Routin | 08/19/2018 | | Results for this | | | e | 0000 PDT | | procedure are in the | | | | | | results section. | + +--------+ + + + | EXTERNAL LAB: | Routin | 08/19/2018 | | Results for this | | ALKALINE PHOSPHATASE | e | 0000 PDT | | procedure are in the | | | | | | results section. | + +--------+ + + + | EXTERNAL LAB: | Routin | 08/19/2018 | | Results for this | | BILIRUBIN, TOTAL | e | 0000 PDT | | procedure are in the | | | | | | results section. | + +--------+ + + + | EXTERNAL LAB: | Routin | 08/19/2018 | | Results for this | | ALBUMIN | e | 0000 PDT | | procedure are in the | | | | | | results section. | + +--------+ + + + | EXTERNAL LAB: | Routin | 08/19/2018 | | Results for this | | PROTEIN, TOTAL | e | 0000 PDT | | procedure are in the | | | | | | results section. | + +--------+ + + + | EXTERNAL LAB: | Routin | 08/19/2018 | | Results for this | | CALCIUM | e | 0000 PDT | | procedure are in the | | | | | | results section. | + +--------+ + + + | EXTERNAL LAB: CARBON | Routin | 08/19/2018 | | Results for this | | DIOXIDE | e | 0000 PDT | | procedure are in the | | | | | | results section. | + +--------+ + + + | EXTERNAL LAB: | Routin | 08/19/2018 | | Results for this | | CHLORIDE | e | 0000 PDT | | procedure are in the | | | | | | results section. | + +--------+ + + + | EXTERNAL LAB: | Routin | 08/19/2018 | | Results for this | | POTASSIUM | e | 0000 PDT | | procedure are in the | | | | | | results section. | + +--------+ + + + | EXTERNAL LAB: SODIUM | Routin | 08/19/2018 | | Results for this | | | e | 0000 PDT | | procedure are in the | | | | | | results section. | + +--------+ + + + | EXTERNAL LAB: CBC | Routin | 08/19/2018 | | Results for this | | | e | 0000 PDT | | procedure are in the | | | | | | results section. | + +--------+ + + + | EXTERNAL LAB: | Routin | 08/19/2018 | | Results for this | | TRIGLYCERIDES | e | 0000 PDT | | procedure are in the | | | | | | results section. | + +--------+ + + + | EXTERNAL LAB: | Routin | 08/19/2018 | | Results for this | | CHOLESTEROL, HDL | e | 0000 PDT | | procedure are in the | | | | | | results section. | + +--------+ + + + | EXTERNAL LAB: | Routin | 08/19/2018 | | Results for this | | CHOLESTEROL, TOTAL | e | 0000 PDT | | procedure are in the | | | | | | results section. | + +--------+ + + + | EXTERNAL LAB: | Routin | 08/19/2018 | | Results for this | | CHOLESTEROL, LDL | e | 0000 PDT | | procedure are in the | | | | | | results section. | + +--------+ + + + | EXTERNAL LAB: EGFR | Routin | 08/19/2018 | | Results for this | | | e | 0000 PDT | | procedure are in the | | | | | | results section. | + +--------+ + + + | EXTERNAL LAB: | Routin | 08/19/2018 | | Results for this | | CREATININE | e | 0000 PDT | | procedure are in the | | | | | | results section. | + +--------+ + + + in this encounter Results External Lab: BUN (08/19/2018) + +-------+ + + | Component | Value | Ref Range | Performed At | + +-------+ + + | KIRK External | 20 | 6 - 23 | | + +-------+ + + External Lab: ALT (08/19/2018) + +-------+ + + | Component | Value | Ref Range | Performed At | + +-------+ + + | ALT, External | 15 | 7 - 52 | | + +-------+ + + External Lab: AST (08/19/2018) + +-------+ + + | Component | Value | Ref Range | Performed At | + +-------+ + + | AST, External | 14 | 13 - 39 | | + +-------+ + + External Lab: Alkaline Phosphatase (08/19/2018) + +-------+ + + | Component | Value | Ref Range | Performed At | + +-------+ + + | ALP, External | 110 | 31 - 130 | | + +-------+ + + External Lab: Bilirubin, Total (08/19/2018) + +-------+ + + | Component | Value | Ref Range | Performed At | + +-------+ + + | Bilirubin, Total, | 0.4 | 0 - 1.2 | | | External | | | | + +-------+ + + External Lab: Albumin (08/19/2018) + +-------+ + + | Component | Value | Ref Range | Performed At | + +-------+ + + | Albumin, External | 4.1 | 3.5 - 5 | | + +-------+ + + External Lab: Protein, Total (08/19/2018) + +-------+ + + | Component | Value | Ref Range | Performed At | + +-------+ + + | Protein, Total, | 6.7 | 6 - 8.3 | | | External | | | | + +-------+ + + External Lab: Calcium (08/19/2018) + +-------+ + + | Component | Value | Ref Range | Performed At | + +-------+ + + | Calcium, External | 9.7 | 8.5 - 10.3 | | + +-------+ + + External Lab: Carbon Dioxide (08/19/2018) + +-------+ + + | Component | Value | Ref Range | Performed At | + +-------+ + + | Carbon Dioxide, | 25 | 19 - 31 | | | External | | | | + +-------+ + + External Lab: Chloride (08/19/2018) + +-------+ + + | Component | Value | Ref Range | Performed At | + +-------+ + + | Chloride, External | 102 | 95 - 112 | | + +-------+ + + External Lab: Potassium (08/19/2018) + +-------+ + + | Component | Value | Ref Range | Performed At | + +-------+ + + | Potassium, External | 4.7 | 3.6 - 5.1 | | + +-------+ + + External Lab: Sodium (08/19/2018) + +-------+ + + | Component | Value | Ref Range | Performed At | + +-------+ + + | Sodium, External | 141 | 132 - 143 | | + +-------+ + + External Lab: CBC (08/19/2018) + + + + + | Component | Value | Ref Range | Performed At | + + + + + | WBC, External | 5.7 | 4.5 - 11 | | + + + + + | HGB, External | 14.5 | 12 - 16 | | + + + + + | HCT, External | 45.8 (A) | 35 - 45 | | + + + + + | PLT, External | 169 | 140 - 440 | | + + + + + | RBC, External | 5.02 | 3.8 - 5.1 | | + + + + + | MCV, External | 91 | 81 - 99 | | + + + + + | RDW, External | 14.8 | 10.5 - 15 | | + + + + + External Lab: Triglycerides (08/19/2018) + +-------+ + + | Component | Value | Ref Range | Performed At | + +-------+ + + | Triglycerides, | 252 | | | | External | | | | + +-------+ + + + + | Specimen | + + | Blood | + + External Lab: Cholesterol, HDL (08/19/2018) + +-------+ + + | Component | Value | Ref Range | Performed At | + +-------+ + + | HDL Cholesterol, | 44.1 | mg/dl | | | External | | | | + +-------+ + + + + | Specimen | + + | Blood | + + External Lab: Cholesterol, Total (08/19/2018) + +-------+ + + | Component | Value | Ref Range | Performed At | + +-------+ + + | Cholesterol, Total, | 246 | mg/dl | | | External | | | | + +-------+ + + + + | Specimen | + + | Blood | + + External Lab: Cholesterol, LDL (08/19/2018) + +-------+ + + | Component | Value | Ref Range | Performed At | + +-------+ + + | LDL Cholesterol, | 50 | | | | External | | | | + +-------+ + + + + | Specimen | + + | Blood | + + External Lab: eGFR (08/19/2018) + +-------+ + + | Component | Value | Ref Range | Performed At | + +-------+ + + | eGFR, External | 63 | | | + +-------+ + + + + | Specimen | + + | Blood | + + External Lab: Creatinine (08/19/2018) + +-------+ + + | Component | Value | Ref Range | Performed At | + +-------+ + + | Creatinine, External | 0.93 | 0.7 - 1.33 | | + +-------+ + + + + | Specimen | + + | Blood | + + in this encounter Visit Diagnoses Not on filein this encounter"
--- OUTSIDE RECORDS SUMMARY | ~2019-02-15 | XMS | Encounter Summary ---
Demographics + + + | Address | [address] | | | [place] [address] | + + + | Home Phone | | + + + | Preferred Language | Unknown | + + + | Marital Status | Single | + + + | Jewish Affiliation | Unknown | + + + | Race | Unknown | + + + | Ethnic Group | Unknown | + + + Author + + + | Author | [facility] | | | and Saúlana | + + + | Organization | [facility] | | | and Saúlana [...] Team Providers + +------+ + | Care Self Contained Behavior Unit Teacher Name | Role | Phone | + +------+ + | August Sanford | PCP | | + +------+ + Encounter Details +--------+ + + + + | Date | Type | Department | Care Team | Description | +--------+ + + + + | 12/15/ | Abstract | [facility] | Provider, | Hypothyroidism, | | 2019 | | CARDIOLOGY [address] | [address] | unspecified type; | | | | [place], | [address] | PVC (premature | | | | [place] [address] | [place] [address] | ventricular | | | | [phone] | | contraction); Past | | | [...] Used | | + +-------+ +--------+------+ | Never Assessed | | | | | + +-------+ +--------+------+ + + + | Sex Assigned at [...] | | | | | | [place] [address] | | | | | | [phone] | | | | | | | | +--------+---------+ + + + as of this encounter Visit Diagnoses + + | Diagnosis | + + | Hypothyroidism, unspecified type | + + | PVC (premature ventricular contraction) | + + | Other premature beats | + + | Past heart attack | + + | Old myocardial infarction | + + | Syncope, unspecified syncope type | + + | Hypertension, unspecified type | + + | Hyperlipidemia, unspecified hyperlipidemia type | + +"
--- OUTSIDE RECORDS SUMMARY | ~2019-02-15 | XMS | Encounter Summary ---
Demographics + + + | Address | [address] | | | [place] [address] | + + + | Home Phone | | + + + | Preferred Language | Unknown | + + + | Marital Status | Single | + + + | Congregation Affiliation | Unknown | + + + | Race | Unknown | + + + | Ethnic Group | Unknown | + + + Author + + + | Author | [facility] | | | and Saúlana | + + + | Organization | [facility] | | [...] Team Providers + +------+ + | Care Top Cleaner Name | Role | Phone | + +------+ + | August Sanford | PCP | | + +------+ + Encounter Details +--------+ + + + + | Date | Type | Department | Care Team | Description | +--------+ + + + + | 12/18/ | Abstract | [facility] | Provider, | Paroxysmal atrial | | 2019 | | CARDIOLOGY [address] | [address] | fibrillation (HCC) | | | | [place], | [place] | | | | | [place] [address] | [place] [address] | | | | | [phone] | | | +--------+ + + + [...] | | | | | | [place] [address] | | | | | | [phone] | | | | | | | | +--------+---------+ + + + as of this encounter Visit Diagnoses + + | Diagnosis | + + | Paroxysmal atrial fibrillation (HCC) | + + | Atrial fibrillation | + +"
--- OUTSIDE RECORDS SUMMARY | ~2019-02-15 | XMS | Encounter Summary ---
Demographics + + + | Address | [address] | | | [place] [address] | + + + | Home Phone | | + + + | Preferred Language | Unknown | + + + | Marital Status | Single | + + + | Mormonism Affiliation | Unknown | + + + | Race | Unknown | + + + | Ethnic Group | Unknown | + + + Author + + + | Author | [facility] | | | and Saúlana | + + + | Organization | [facility] | | | and [...] Team Providers + +------+ + | Care Storeroom Attendant Name | Role | Phone | + [...] | CARDIOLOGY [address] | [address] | unspecified type; | | | | [place], | [address] | PVC (premature | | | | [place] [address] | [place] [address] | ventricular | | | | [phone] | | contraction); Past | | | [...] | | | | | | [place] [address] | | | | | | [phone] | | | | | | | [...]
--- OUTSIDE RECORDS SUMMARY | ~2019-02-15 | XMS | Encounter Summary ---
Demographics + + + | Address | [address] | | | [place] [address] | + + + | Home Phone | | + + + | Preferred Language | Unknown | + + + | Marital Status | Single | + + + | Anabaptism Affiliation | Unknown | + + + | Race | Unknown | + + + | Ethnic Group | Unknown | + + + Author + + + | Author | [facility] | | | and Saúlana | + + + | Organization | [facility] | | | and Saúlana [...] Team Providers + +------+ + | Care R D Internship Name | Role | Phone | + [...] + + | 12/26/ | Hospital | [facility] | Claudine Gallegos, | Chest pain, | | 2019 | Encounter | [facility] | [place] [address] [place] | unspecified type | | | | MEDICINE [address] | [place], | | | | | [place], | [place] [address] | | | | | [place] [address] | [phone] | | | | | [phone] | | | +--------+ + + + [...] + + + as of this encounter Medications at Time of Discharge + + +--------+---------+ + + | Medication | Sig. | Disp. | Refills | Start | End Date | | | | | | Date | | + + +--------+---------+ + + | albuterol (PROAIR | Inhale 2 puffs into | | | | | | HFA) 90 mcg/puff | the lungs every 6 | | | | | | inhaler | hours as needed for | | | | | | | Wheezing. | | | | | + + +--------+---------+ + + | allopurinol | Take 300 mg by mouth | | | | | | (ZYLOPRIM) 300 mg | Daily. | | | | | | tablet | | | | | | + + +--------+---------+ + + | atorvaSTATin | Take 40 mg by mouth | | | | | | (LIPITOR) 40 mg | nightly. | | | | | | tablet | | | | | | + + +--------+---------+ + + | busPIRone (BUSPAR) | take 1 tablet by | | 0 | 11/20/20 | | | 30 MG tablet | mouth twice a day | | | 18 | | + + +--------+---------+ + + | ELIQUIS 5 MG | | | 0 | 12/14/19 | | | tablet | | | | 19 | | + + +--------+---------+ + + | folic acid 1 mg | Take 1 mg by mouth | | | | | | tablet | Daily. | | | | | + + +--------+---------+ + + | furosemide (LASIX) | take [...] | | | | | + + +--------+---------+ + + | gabapentin | Take 300 mg by mouth | | | | | | (NEURONTIN) 300 mg | 2 times daily. | | | | | | capsule | | | | | | + + +--------+---------+ + + | levothyroxine | take 1 tablet by | | 0 | 12/15/19 | | | (SYNTHROID) 75 MCG | mouth every morning | | | 19 | | | tablet | ON AN EMPTY STOMACH | | | | | + + +--------+---------+ + + | magnesium oxide | take 1 tablet by | | 0 | 10/21/20 | | | (MAG-OX) 400 mg | mouth once daily NO | | | 18 | | | tablet | REFILLS FROM THIS | | | | | | | PROVIDER | | | | | + + +--------+---------+ + + | MAPAP 500 MG | take 1 tablet by | | 0 | 11/20/20 | | | tablet | mouth every 3 to 6 | | | 18 | | | | hours | | | | | + + +--------+---------+ + + | meclizine | Take 25 mg by mouth | | | | | | (ANTIVERT) 25 mg | 3 times daily as | | | | | | tablet | needed. | | | | | + + +--------+---------+ + + | metoprolol | | | 0 | 12/10/19 | | | tartrate (LOPRESSOR) | | | | 19 | | | 25 mg tablet | | | | | | + + +--------+---------+ + + | nitroglycerin | Place 1 tablet under | 25 | 5 | 12/23/19 | | | (NITROSTAT) 0.4 mg | the tongue every 5 | tablet | | 19 | | | SL tablet | minutes as needed | | | | | | | for Chest pain. | | | | | + + +--------+---------+ + + | potassium chloride | take 1 tablet by | | 0 | 11/20/20 | | | (KLOR-CON M20) 20 | mouth twice a day | | | 18 | | | mEq ER tablet | with food | | | | | + + +--------+---------+ + + | prazosin | take 1 capsule by | | 0 | 11/20/20 | | | (MINIPRESS) 2 MG | mouth at bedtime MAY | | | 18 | | | capsule | INCREASE TO 2 | | | | | | | capsules at bedtime | | | | | + + +--------+---------+ + + | sertraline | take 1 tablet by | | 0 | 11/20/20 | | | (ZOLOFT) 100 mg | mouth once daily | | | 18 | | | tablet | | | | | | + + +--------+---------+ + + | zolpidem (AMBIEN) | take 1 tablet by | | 0 | 11/20/20 | | | 5 mg tablet | mouth at bedtime if | | | 18 | | | | needed for insomnia | | | | | | | (USE SPARINGLY) | | | | | + + +--------+---------+ + + as of this encounter Plan of Treatment +--------+---------+ + + + | Date | Type | Specialty | Care Team | Description | +--------+---------+ + + + | 06/23/ | Office | Cardiology | Claudine Gallegos, | | | 2018 | Visit | | [address] [facility] [address] [facility] | | | | | | [place], | | | | | | [place] [address] | | | | | | [phone] | | | | | | | [...] +--------+ + + + in this encounter Visit Diagnoses + + | Diagnosis | + + | Chest pain, unspecified type | + + Administered Medications + +--------+ + +------+------+ | Medication Order | MAR | Action | Dose | Rate | Site | | | Action | Date | | | | + +--------+ + +------+------+ | technetium TC-99M sestamibi | Given | 12/26/2018 | 10.7 | | | | (CARDIOLITE) injection 10.7 | | 9:27 | millicur | | | | millicurie 10.7 millicurie, | | PST | ies | | | | Intravenous, ONCE PRN, Other, | | | | | | | Starting 12/26/18 at 0927, For | | | | | | | 1 dose, Nuclear Medicine | | | | | | + +--------+ + +------+------+ +---+---+ | | | +---+---+ in this encounter"
--- OUTSIDE RECORDS SUMMARY | ~2019-02-15 | XMS | Encounter Summary ---
Demographics + + + | Address | [address] | | | [place] [address] | + + + | Home Phone | | + + + | Preferred Language | Unknown | + + + | Marital Status | Single | + + + | Islam Affiliation | Unknown | + + + | Race | Unknown | + + + | Ethnic Group | Unknown | + + + Author + + + | Author | [facility] | | | and Saúlana | + + + | Organization | [facility] | | | and Saúlana [...] Team Providers + +------+ + | Care Leak Detection Engineer Name | Role | Phone | + +------+ + | August Sanford | PCP | | + +------+ + Reason for Referral Evaluate & Treat (Routine) +--------+ + + + + + | Status | Reason | Specialty | Diagnoses / | Referred By | Referred To | | | | | Procedures | Contact | Contact | +--------+ + + + + + | Closed | Specialty | Sleep | Diagnoses | [place], | [facility] | | | Services | Medicine | Paroxysmal | Jenna, MANAGER OCCUPATIONAL | [facility] | | | Required | | atrial | [address] | Disorder [address] | | | | | fibrillation | [address] [place] | [address] | | | | | ([facility]) PVC | [place], [place] | [place], | | | | | (premature | [address] | [place] [address] | | | | | ventricular | Phone: | Phone: | | | | | contraction) | [phone] | [phone] | | | | | Status | Fax: | Fax: | | | | | post | [phone] | [phone] | | | | | placement of | | | | | | | implantable | | | | | | | loop | | | | | | | recorder | | | | | | | Encounter | | | | | | | for loop | | | | | | | recorder | | | | | | | check FANG | | | | | | | (obstructive | | | | | | | sleep | | | | | | | apnea) | | | +--------+ + + + + + Reason for Visit + + + | Reason | Comments | + + + | Follow-up | | + + + | Bradycardia | | + + + | Atrial Fibrillation | | + + + Evaluate & Treat (Routine) +--------+--------+ + + + + | Status | Reason | Specialty | Diagnoses / | Referred By | Referred To | | | | | Procedures | Contact | Contact | +--------+--------+ + + + + | Closed | | Cardiology | Diagnoses | Juvenal, | [facility] | | | | | History of | [facility]AN[facility] Koch | Cardiology | | | | | [place] | [address] | [address] | | | | | (myocardial | [place] | [place], | | | | | infarction) | [address] | [place] | | | | | Syncope | [place], | [address] | | | | | Presence of | [place] [address] | Phone: | | | | | other | Phone: | [phone] | | | | | cardiac | [phone] | Fax: | | | | | implants and | Fax: | [phone] | | | | | grafts | [phone] | | | | | | Procedures | | | | | | | DREDGE DECKHAND - NEEDS | | | | | | | IC/THR APPT | | | +--------+--------+ + + + + Encounter Details +--------+---------+ + + + | Date | Type | Department | Care Team | Description | +--------+---------+ + + + | 01/06/ | Office | [facility] | Jenna Samaniego, | Paroxysmal atrial | | 2019 | Visit | CARDIOLOGY [address] | MANAGER OCCUPATIONAL [address] | fibrillation (HCC) | | | | [address] [place], | [place] | (Primary Dx); PVC | | | | [place] [address] | [address] | (premature | | | | [phone] | | ventricular | | | | [...] | | | | | apnea) | +--------+---------+ + + + Social History [...] + + | Pulse | 64 | 01/06/2019 1051 PST | + + + + | Temperature | - | - | + + + + | Respiratory Rate | 18 | 01/06/2019 1051 PST | + + + + | Oxygen Saturation | - | - | + + + + | Inhaled Oxygen | - | - | | Concentration | | | + + + + | Weight | 119.9 kg (264 lb 5.3 | 01/06/2019 1051 PST | | | oz) | | + + + + | Height | 162.6 cm (5' 4") | 01/06/2019 1051 PST | + + + + | Body Mass Index | 45.37 | 01/06/2019 1051 PST | + + + + in this encounter Instructions Patient Instructions - Jenna Samaniego ARNP - 01/06/2019 1030 PST 1. We will refer you to sleep center for consultation. 2. Let us know when you find out what facility your last sleep study was done in. 3. Please follow up in May as scheduled for office visit, or sooner with concerns. Lifestyle changes to improve your overall health and cardiovascular risk: 1. Work on increasing activity with a goal of at least 150 minutes per week (300 minutes is better) of moderate aerobic exercise (moderate exercise would generally make you a little s weaty, and a little winded, but you should still be able to talk). You can break up the daniel e into as small as 10 minute increments and still get the health benefits. 2. Add in strengthening exercises for about 20 minutes 2 to 3 times per week, such as resis tance or weight training, as well as stretching exercises. Yoga can be helpful in meeting t his goal. If you are not interested in a class, there are free resources online, such as You Tube channels like "Yoga with Cici" (https://www.[employer].com/user/yogawithadriene). 3. Try to incorporate healthful eating habits, such as the principles of the Mediterranean Diet or plant based diet into your meals - it is effective at improving blood pressure and c holesterol and reducing the risk of heart disease, and are the only styles of eating that grande ve been consistently proven to provide this benefit. A good resource for this is www.nutrit ionfacts.org.You do NOT need to buy a Mediterranean Diet cookbook, just try to make sure y our meals incorporate some of the basic components: - Eating primarily plant-based foods, such as fruits and vegetables, legumes and nuts ( ~1 handful of unsalted, uncandied nuts several days per week) - Aim for at least 1-2 servings of seafood per week (ideally fish not shellfish) - use olive oil instead of butter, and limit use of oil overall - limit cheese/butter/red meat/processed foods/fast foods - limit wine to no more than 5 ounces daily for women of all ages and men older than age 6 5 and no more than 10 ounces daily for younger men. More than this may increase the risk of health problems, including increased risk of certain types of cancer. If you have a persona l or family history of alcohol abuse, or if you have heart or liver disease, refrain from dr inking wine or any other alcohol. in this encounter Progress Notes Jenna Samaniego ARNP - 01/06/2019 1030 PSTFormatting of this note may be different from the original. PATIENT NAME: Gris Krishnamurthy : 1965: AGE: 53 y.o. PRIMARY CARE: FRANCO Fernandes CC: OUTPATIENT FOLLOW UP VISIT Date of Service: 01/06/2019 HISTORY OF PRESENT ILLNESS: Gris Krishnamurthy is a 53 y.o. female with a history of paroxysmal atrial fibrillation, PVD, hyp ertension, hyperlipidemia, and obstructive sleep apnea. She is being seen today for follow up and device interrogation. She was last seen 12/16/18 at which time she was recommended therapeutic lifestyle changes a nd to follow-up in 6 months to discuss option of stopping Eliquis if there was no evidence o f recurrent atrial fibrillation. Since that time, she was seen in the emergency department at [facility] on 12/22/18 for chest pain, shortness of breath. She started to have chest pain symptoms on 12/18/18. They gave her nitroglycerin sublingual and the emergency departme nt and her chest pain resolved. She was given a prescription for this and asked her to foll ow-up with cardiology. They did not want to let her leave the emergency department until gaby scheduled a stress test. This was done on 12/26/18 at [facility] sh[facility] a normal myocardial perfusion imaging study. She has had a poor energy level. She tries to stay active. [facility] [place] for PT for her knee, and she does walking, and the seated stepper and does 1500 steps in 15 minutes. She has no symptoms other than right knee pain during that activity. She enjoys drawing, word puzzles and crocheting in her spare time. She has had chest discomfort that feels like a "Zig Zag" feeling in her chest. When she was in the emergency department it wa s a sharp pain, "like being poked with a dagger", constantly. She eventually went to the [facility] department as she was having numbness down her left arm. Since she has been home, she hasn't had that time of discomfort again. She still has the "zig zag lightening discomfort" that lasts just one or two seconds, which she has had for a long time, and it hasn't change d. This can happen any time and was not related to activity. She has had shortness of breath with exertion of just walking or doing stairs, her breath will return to normal within ishaan shanthi after resting. She has lightheadedness with standing or walking, she took her blood pres sure and it read 84/50 at 3 AM this morning. She has noticed brief palpitations that have no associated symptoms and are unchanged in frequency and duration from her norm. She has not had leg swelling. She sleeps with head elevated with 4 pillows to help her breath at night . She is suppose to sleep with CPAP machine, she states that with her clostephobia , she co uld not find a mask that would work, this was at least a year ago. MEDICAL, SURGICAL, AND PERSONAL HISTORY Past Medical, Surgical, Family, and Social History are reviewed in EPIC. CURRENT PROBLEMS Patient Active Problem List Diagnosis S/P implantable loop recorder Medtronic 05/04/2016 Dr Neto Sanders Syncope Encounter for loop recorder check Hypothyroid PVC (premature ventricular contraction) Past heart attack Essential hypertension Mixed hyperlipidemia Paroxysmal atrial fibrillation Chest pain, unspecified CURRENT MEDICATIONS Current Outpatient Prescriptions Medication Sig [...] metoprolol tartrate (LOPRESSOR) 25 mg tablet 0 nitroglycerin (NITROSTAT) 0.[address] 1 tablet under the tongue every 5 ishaan shanthi as needed for Chest pain. 25 tablet 5 potassium chloride (KLOR-CON M20) 20 mEq ER [...] Known Allergies ROS Review of Systems Constitutional: Positive for malaise/fatigue. HENT: Negative for nosebleeds. Respiratory: Positive for shortness of breath. Cardiovascular: Positive for chest pain, palpitations and leg swelling. Gastrointestinal: Positive for heartburn. Neurological: Positive for dizziness and weakness. Endo/Heme/Allergies: Bruises/bleeds easily. Psychiatric/Behavioral: The patient is nervous/anxious. OBJECTIVE: PHYSICAL EXAM BP 106/64 | Pulse 64 Comment: regular | Resp 18 | Ht 1.626 m (5' 4") | Wt 119.9 kg (264 lb 5.3 oz) | BMI 45.37 kg/m Physical Exam Constitutional: She is oriented to person, place, and time. She appears well-developed and well-nourished. Adult female in no acute distress, arrives alone Neck: Normal carotid pulses and no JVD present. Carotid bruit is not present. Cardiovascular: Normal rate, regular rhythm, S1 normal, S2 normal and intact distal pulses. PMI is not displaced. Exam reveals no gallop and no friction rub. Murmur heard. Holosystolic murmur is present with a grade of 1/6 at the apex Pulses: Carotid pulses are 2+ on the right side, and 2+ on the left side. Posterior tibial pulses are 2+ on the right side, and 2+ on the left side. Pulmonary/Chest: Effort normal and breath sounds normal. No accessory muscle usage. No resp iratory distress. She has no wheezes. She has no rhonchi. She has no rales. Abdominal: Soft. Normal appearance and normal aorta. She exhibits no abdominal bruit. There is no hepatosplenomegaly. There is no tenderness. Musculoskeletal: She exhibits edema (trace bilaterally at sock line). Neurological: She is alert and oriented to person, place, and time. Gait normal. Skin: Skin is warm and dry. No cyanosis. Nails show no clubbing. Psychiatric: She has a normal mood and affect. Her mood appears not anxious. She does not e xhibit a depressed mood. ECG: I personally independently reviewed ECG tracing during this visit (interpreted and aki led by another provider): Results for orders placed or performed in visit on 12/16/18 ECG 12 lead Result Value Ref Range INTERPRETATION TEXT Normal sinus rhythm Possible Left atrial enlargement ST & T wave abnormality, consider inferolateral ischemia Abnormal ECG No previous ECGs available Confirmed by DIONISIO GALLEGOS MD ([id number]) on 12/16/2018 4:37:50 PM LAB RESULTS reviewed during visit today primarily from [facility]: LIPID Lab Results Component Value Date LDLEX 50 08/19/2018 HDLEX 44.1 08/19/2018 TRIGEX 252 08/19/2018 CHOLEX 246 08/19/2018 CHEMISTRY Lab Results Component Value Date GLUEX 124 (A) 12/22/2018 NAEX 136 12/22/2018 KEX 3.8 12/22/2018 CLEX 104 12/22/2018 CO2EX 24 12/22/2018 ASTEX 17 12/22/2018 ALTEX 21 12/22/2018 EGFREX 67 12/22/2018 CREEX 0.88 12/22/2018 HEMATOLOGY Lab Results Component Value Date WBCEX 6.8 12/22/2018 HGBEX 11.2 (A) 12/22/2018 HCTEX 36.7 12/22/2018 PLTEX 238 12/22/2018 No results found for: TSH, TSHEX, BNP, BNPEX, NTPROBNP Will obtain records from [facility] hospital emergency department visit from 12/22/18 . RESULTS- I reviewed reports from [facility]: Persantine nuclear medicine stress test 12/26/18 shows Persantine EKG is negative. Normal Per santine sestamibi myocardial perfusion imaging study. Normal left ventricular size, wall th ickness and motion. Preserved left ventricular systolic function. LVEF is 61%. Evidence o f breast/anterior wall soft tissue attenuation. Also reviewed echocardiogram from [facility] read by [facility] on 10/20/18 showing left ventricular systolic function is hyperdynamic with estimated EF of >7 0%. Pseudo-normal LV diastolic filling pattern, consistent with elevated left atrial pressu re and moderate dysfunction (grade 2). The right ventricle is normal in size and function. There is some mild biatrial enlargement. Moderate to severe mitral regurgitation is presen t. There is mild pulmonary hypertension. The right ventricular systolic pressure (pulmonar y artery systolic pressure), as measured by doppler is 43 mmHg. DEVICE INTERROGATION Device interrogation is ordered and performed during this visit. Refer to scanned [employer] documentation and device PDF in [employer] for interrogation (without programming changes) perform ed during visit today. Events: No new events since last [facility] download 01/05/19. 6 symptom recording is with mo st recent on 01/01/19 showing sinus rhythm with premature atrial contractions and runs of kyleigh ature atrial contractions. The longest episode was 12/23/18 at 1331 showing sinus tachycardi a with rate of 135 bpm with premature ventricular contractions. 4 bradycardia episodes with recent longest event on 01/03/19 lasting 1 minute and 6 seconds s howing under sensing, which is consistent with all of the bradycardia events. Heart rate histogram shows good distribution. Battery status: "Good" Current underlying rhythm: Sinus bradycardia 54-56 beats per minute. Above data and testing is reviewed this visit; testing below is historical data unless othe rwise specified. ASSESSMENT: 1. Chest pain: A. She was seen in the emergency department at [facility] on 12/22/18 for chest pain, sh ortness of breath. She started to have chest pain symptoms on 12/18/18. They gave her nitro glycerin sublingual and the emergency department and her chest pain resolved. She was given a prescription for this and asked her to follow-up with cardiology. They did not want to l et her leave the emergency department until she scheduled a stress test. This was done on at [facility] showing a normal myocardial perfusion imaging study. B. Persantine nuclear medicine stress test 12/26/18 shows Persantine EKG is negative. Normal Persantine sestamibi myocardial perfusion imaging study. Normal left ventricular size, wal l thickness and motion. Preserved left ventricular systolic function. LVEF is 61%. Eviden ce of breast/anterior wall soft tissue attenuation. C. Today, 01/06/2019, she denies recurrent discomfort like that. She still has her atypica l symptoms that have been a time and can last 1-2 seconds and feel like a "lightening zigzag " discomfort. She has had that for a long time and hasn't changed. No recurrent discomfort like she had in the emergency department. She also is able to exert herself at the gym wit hout any symptoms of discomfort. 2. Paroxysmal atrial fibrillation, bradycardia: A. 24 Holter monitor on 05/02/16 shows, underlying rhythm is sinus rhythm with av erage heart rate of 55 beats per minute ( minimum heart rate was 44 beats per minutes and ma ximum heart rate 73 beats per minute), rare PVCs and PACs were noted, no ventricular or supr aventricular dysrhythmias were noted, no pauses or bradyarrhythmias were noted other than si nus bradycardia, no diary was submitted, clinical correlation is advised. By Tommy Duque MD B. Successful loop recorder implantation on 05/04/[address] [facility]. Her risks for stroke include: 0, Congestive Heart Failure/LV dysfunction (1) , Hx of HTN (1), Age >/= 75 Y.O.(2), Diabetes (1), Stroke/TIA/Thrombo-embolism (2), Vascular disease (1), Age 65 to 74 (1) and Female Gender (1). Her [id number] score is [address] roke per year in atrial fibrillation. Her bleeding risks include: ETOH (1). Her HASBLED sc ore is 0-1, which confers a low risk (1-3.4%) risk of bleed per year. She was put on Eliqu is by her systems architecture analyst in [place]. I didn't think that she needs long-term use oral anticoa gulant because she has no risk factors. Furthermore, there is no evidence of atrial fibrill ation on today's loop recorder implantation. Today, 01/06/2019, she is on rate control with metoprolol. Her atrial fibrillation is well controlled and does not require medication adjustment. No true atrial fibrillation is noted on her device. 3. Hypertension, essential: A. Today, 01/06/2019, her blood pressure is well controlled. She does not requir e medication adjustment.. 4. Hyperlipidemia, mixed: A. Lipid panel on 08/19/18 shows high triglyceride. B. Today, 01/06/2019, she remains on atorvastatin. 5. Pulmonary hypertension, and mitral regurgitation: A. Echocardiogram from [facility]' read by [facility] on 10/20/18 denise wing left ventricular systolic function is hyperdynamic with estimated EF of >70%. Pseudo-n ormal LV diastolic filling pattern, consistent with elevated left atrial pressure and modera te dysfunction (grade 2). The right ventricle is normal in size and function. There is joselito e mild biatrial enlargement. Moderate to severe mitral regurgitation is present. There is mild pulmonary hypertension. The right ventricular systolic pressure (pulmonary artery syst olic pressure), as measured by doppler is 43 mmHg. B. Today, 01/06/2019, discussed with her that she should follow up on re-evaluation of her obstructive sleep apnea and treatment options. 6. PAD, carotid stenosis: Not otherwise addressed today 01/06/2019. A. Carotid imaging on 05/02/16 shows 0-39% stenosis of right ICA, 0-39% stenosis of left ICA. By Mike Downey MD. 6. Hypothyroid. Not otherwise addressed today 01/06/2019. A. Patient is on levothyroxine 75 mcg once a day. 7. Obstructive sleep apnea. Not otherwise addressed today 01/06/2019. A. Diagnosed in [place] in 2017. She tried 3 different masks, at least a m onth each. She believes she only had 90 minutes of sleep. Patient can not uses CPAP mask. Sh e reports of feeling claustrophobic. PLAN: 1. She will be referred to sleep medicine for consultation evaluation and treatment of her obstructive sleep apnea. 2. She will let us know the name of the facility she had her 2017 sleep study so we can obt ain a copy. 3. She will follow up in May as scheduled for office visit, or sooner with concerns. LAURA Berry CMA am acting as a scribe on behalf of, and in the presence of TOOTIE Rubalcava. - LAURA DUONG CMA 01/06/2019 11:02 Jenna Berry ARNP, personally performed the services described in this documentation, as scribed in my presence and it is both accurate and complete. JennaTOOTIE Morton 9 Portions of this chart may have been created with [employer] voice recognition software. Occasi onal wrong-word or [...] [place], | | | | | | [place] [address] | | | | | | [phone] | | | | | | | | +--------+---------+ + + + + +--------+ + + | Name | Priori | Associated Diagnoses | Order Schedule | | | ty | | | + +--------+ + + | Device Interrogation | Routin | Paroxysmal atrial | 10 Occurrences | | | e | fibrillation (HCC) | starting 01/06/2019 | | | | S/P implantable loop | until 01/06/2020, 1 | | | | recorder Medtronic | completed | | | | 05/04/2016 Dr Duque | | | | | Tommy Encounter | | | | | for loop recorder | | | | | check | | + +--------+ + + + +--------+ + + | Name | Priori | Associated Diagnoses | Order Schedule | | | ty | | | + +--------+ + + | Sleep medicine consultation | Routin | Paroxysmal atrial | Ordered: 01/06/2019 | | | e | fibrillation (HCC) | | | | | PVC (premature | | | | | ventricular | | | | | contraction) S/P | | | | | implantable loop | | | | | recorder Medtronic | | | | | 05/04/2016 Dr Duque | | | | | Tommy Encounter | | | | | for loop recorder | | | | | check FANG | | | | | (obstructive sleep | | | | | apnea) | | + +--------+ + + as of this encounter Procedures [...] + in this encounter Results Device Interrogation (01/06/2019) + + + | Narrative | Performed At | + + + | Jenna Samaniego, | [facility] | | MANAGER OCCUPATIONAL 01/06/2019 12:00 PATIENT NAME: Gris Krishnamurthy : | | | 1965: AGE: 53 [...] Procedure Note | + + | Jenna Samaniego ARNP - 01/06/2019 1030 PST PATIENT NAME: Gris Krishnamurthy : | | 1965: AGE: 53 y.o.Device [...] + + | Paroxysmal atrial fibrillation (HCC) - Primary | + + | Atrial fibrillation | + + | PVC (premature ventricular contraction) | + + | Other premature beats | + + | S/P implantable loop recorder Medtronic 05/04/2016 Dr Neto Sanders | + + | Encounter for loop recorder check | + + | FANG (obstructive sleep apnea) | + + | Obstructive sleep apnea (adult) (pediatric) | + +
--- OUTSIDE RECORDS SUMMARY | ~2019-02-15 | XMS | Encounter Summary ---
Demographics + + + | Address | [address] | | | [place] [address] | + + + | Home Phone | | + + + | Preferred Language | Unknown | + + + | Marital Status | Single | + + + | Anabaptism Affiliation | Unknown | + + + | Race | Unknown | + + + | Ethnic Group | Unknown | + + + Author + + + | Author | [facility] | | | and Salúana | + + + | Organization | [facility] | | | and Saúlana [...] Team Providers + +------+ + | Care Powerhouse Operator Name | Role | Phone | [...] + + | 12/26/ | Hospital | [facility] | Claudine Gallegos, | Chest pain, | | 2019 | Encounter | MED CTR NUCLEAR | [place] [address] [facility] | unspecified type | | | | MEDICINE [address] [place], | | | | | [place] | [place] [address] | | | | | [place] [address] | [phone] | | | | | [phone] | | | | | | | [place] | | +--------+ + + + + [...] + + + | Blood Pressure | - | - | + + + + | Pulse | - | - | + + + + | Temperature | - | - | + + + + | Respiratory Rate | - | - | + + + + | Oxygen Saturation | - | - | + + + + | Inhaled Oxygen | - | - | | Concentration | | | + + + + | Weight | 115.7 kg (255 lb) | 12/26/20181399 PST | + + + + | Height | - | - | + + + + | Body Mass Index | 43.77 | 12/26/20181399 PST | + + + + in this encounter Medications at Time of Discharge [...] | | | | | | [place] [address] | | | | | | [phone] | | | | | | | [...] + + + in this encounter Results [place] Nuclear Stress Test (Vasodilator) (12/26/20181432) + +--------+ + + | Component | [...] | + + Administered Medications + +--------+ +-------+------+------+ | Medication Order | MAR | Action | Dose | Rate | Site | | | Action | Date | | | | + +--------+ +-------+------+------+ | aminophylline injection 75 mg | Given | 12/26/2018 | 75 mg | | | | 75 mg, Intravenous, ONCE PRN, | | 14:01 | | | | | protocol, Starting 12/26/18 at | | PST | | | | | 1400, For 1 dose, Nuclear | | | | | | | Medicine | | | | | | + +--------+ +-------+------+------+ +---+---+ | | | +---+---+ + +-------+ + +--------+---+ | dipyridamole (PERSANTINE) 60mg | Given | 12/26/2018 | 16.4294 | 657.2 | | | in 40 mL NS syringe 0.142 | | 14:30 | mg/min | mL/hr | | | mg/kg/min | | PST | | | | | 115.7 kg (657.176 mL/hr, rounded | | | | | | | to 657.2 mL/hr), Intravenous, | | | | | | | Administer over 4 Minutes, ONCE, | | | | | | | 12/26/18 at 1430, For 1 dose, | | | | | | | Nuclear Medicine | | | | | | + +-------+ + +--------+---+ +---+---+ | | | +---+---+ + +-------+ + +---+---+ | technetium TC-99M sestamibi | Given | 12/26/2018 | 32.3 | | | | (CARDIOLITE) injection 32.3 | | 14:01 | millicur | | | | millicurie 32.3 millicurie, | | PST | ies | | | | Intravenous, ONCE PRN, Other, | | | | | | | Starting 12/26/18 at 1400, For | | | | | | | 1 dose, Nuclear Medicine | | | | | | + +-------+ + +---+---+ +---+---+ | | | +---+---+ in this encounter"
--- OUTSIDE RECORDS SUMMARY | ~2019-02-15 | XMS | Encounter Summary ---
Demographics + + + | Address | [address] | | | [place] [address] | + + + | Home Phone | | + + + | Preferred Language | Unknown | + + + | Marital Status | Single | + + + | Restorationism Affiliation | Unknown | + + + | Race | Unknown | + + + | Ethnic Group | Unknown | + + + Author + + + | Author | [facility] | | | and Saúlana | + + + | Organization | [facility] | | | and Saúlana [...] Team Providers + +------+ + | Care Child Nutrition Manager Name | Role | Phone | + [...] Services | Medicine | Paroxysmal | Jenna, INVESTIGATIVE AGENT | [facility] | | | Required | | atrial | [address] | Disorder [address] | | | | | fibrillation | [address] [place] | [address] | | | | | ([facility]) PVC | [place], [place] | [place], | | | | | (premature | [address] | [place] [address] | | | | | ventricular | Phone: | Phone: | | | | | contraction) | [phone] | [phone] | | | | | Status | Fax: | Fax: | | | | | post | [phone] | [phone] | | | | | placement of [...] | Cardiology | | | | | [place] | [address] | [address] | | | | | (myocardial | [place] | [place], | | | | | infarction) | [address] | [place] | | | | | Syncope | [place], | [address] | | | | | Presence [place] | [place] [address] | Phone: | | | | | other | Phone: | [phone] | | | | | cardiac | [phone] | Fax: | | | | | implants and | Fax: | [phone] | | | | | grafts | [phone] | | | | | | Procedures | | | | | | | APPRENTICE MACHINIST OUTSIDE - NEEDS | | | | | [...] | Visit | CARDIOLOGY [address] | INVESTIGATIVE AGENT [address] | fibrillation (HCC) | | | | [place], | [place] | (Primary Dx); PVC | | | | [place] [address] | [address] | (premature | | | | [phone] | | ventricular | | | | [...] to talk). You can break up the dainel e into as small as 10 minute [...] You Tube channels like "Yoga with Cici" (https://[email or web address].[email or web address]). 3. Try to incorporate healthful eating habits, [...] was seen in the emergency department at [facility] on 12/22/18 for chest pain, shortness of [...] test. This was done on 12/26/18 at [facility] a normal myocardial perfusion imaging study. She has had a poor energy level. She tries to stay active. [facility] for PT for her knee, and she [...] dagger", constantly. She eventually [facility] department as she was having numbness down [...] ECGs available Confirmed by DIONISIO GALLEGOS MD ([id number]) on 12/16/2018 4:37:50 PM LAB RESULTS reviewed during visit today primarily from [facility]: LIPID Lab Results Component Value Date LDLEX [...] BNP, BNPEX, NTPROBNP Will obtain records from [facility] emergency department visit from 12/22/18 . RESULTS- I reviewed reports from [facility]: Persantine nuclear medicine stress test 12/26/18 shows Persantine EKG is negative. Normal Per santine sestamibi myocardial perfusion imaging study. Normal left ventricular size, wall th ickness and motion. Preserved left ventricular systolic function. LVEF is 61%. Evidence o f breast/anterior wall soft tissue attenuation. Also reviewed echocardiogram from [facility] read by [facility] on 10/20/18 showing left ventricular systolic [...] scanned Paceart documentation and device PDF in [email or web address] for interrogation (without programming changes) perform ed [...] was seen in the emergency department at [facility] on 12/22/18 for chest pain, sh ortness [...] stress test. This was done on at [facility] showing a normal myocardial perfusion imaging [...] recorder implantation on 05/04/16 at [facility]. Her risks for stroke include: 0, Congestive Heart Failure/LV dysfunction (1) , Hx of HTN (1), Age >/= 75 Y.O.(2), Diabetes (1), Stroke/TIA/Thrombo-embolism (2), Vascular disease (1), Age 65 to 74 (1) and Female Gender (1). Her SIK9CH6-LRYm score is [address] per year in atrial fibrillation. Her bleeding risks include: ETOH (1). Her HASBLED sc ore is 0-1, which confers a low risk (1-3.4%) risk of bleed per year. She was put on Eliqu is by her mortician supplies sales representative in [place]. I didn't think that she needs long-term [...] hypertension, and mitral regurgitation: A. Echocardiogram from [facility] read by [facility] on 10/20/18 denise wing left ventricular [...] otherwise addressed today 01/06/2019. A. Diagnosed in [place] in 2017. She tried 3 different masks, [...] it is both accurate and complete. JennaTOOTIE Mortno 9 Portions of this chart may have been created with Dibspace voice recognition software. Occasi onal wrong-word or [...] [place], | | | | | | [place] [address] | | | | | | [phone] | | | | | | | [...] recorder | | | | | check FAGN | | | | | (obstructive sleep [...] | Jenna Samaniego, | PACEART | | INVESTIGATIVE AGENT 01/06/2019 12:00 PATIENT NAME: Gris Krishnamurthy : [...] | Procedure Note | + + | Jenan Samaniego ARNP - 01/06/2019 1030 PST PATIENT [...]
--- OUTSIDE RECORDS SUMMARY | ~2019-02-15 | XMS | Encounter Summary ---
Demographics + + + | Address | [address] | | | [place] [address] | + + + | Home Phone | | + + + | Preferred Language | Unknown | + + + | Marital Status | Single | + + + | Anglican Affiliation | Unknown | + + + | Race | Unknown | + + + | Ethnic Group | Unknown | + + + Author + + + | Author | [facility] | | | and Saúlana | + + + | Organization | [facility] | | | and Saúlana | + + + | Address | Unknown | + + + | Phone | Unavailable | + + + Support + + +---------+ + | Name | Relationship | Address | Phone | + + +---------+ + | Raghu,Aaorn | ECON | Unknown | | + + +---------+ + Care Team Providers + +------+ + | Care Corn Press Operator Name | Role | Phone | + +------+ + | August Sanford | PCP | | + +------+ + Encounter Details +--------+ + + + + | Date | Type | Department | Care Team | Description | +--------+ + + + + | 12/31/ | Abstract | [facility] [place] | Jenna Samaniego, | | | 2019 | | CARDIOLOGY [address] | GENERATING STATION MECHANIC [address] | | | | | [place], | [place] | | | | | [place] [address] | [address] | | | | | [phone] | | | +--------+ + + + [...] | | | | | | [place] [address] | | | | | | [phone] | | | | | | | [...] + + + in this encounter Results Comprehensive Metabolic Panel [...] 143 | | + +-------+ + + in this encounter Visit Diagnoses Not on filein this encounter"
--- OUTSIDE RECORDS SUMMARY | ~2019-02-15 | XMS | Encounter Summary ---
Demographics + + + | Address | [address] | | | [place] [address] | + + + | Home Phone | | + + + | Preferred Language | Unknown | + + + | Marital Status | Single | + + + | Sikhism Affiliation | Unknown | + + + | Race | Unknown | + + + | Ethnic Group | Unknown | + + + Author + + + | Author | [facility] | | | and Saúlana | + + + | Organization | [facility] | | | and Saúlana [...] Team Providers + +------+ + | Care Personal Counselor Name | Role | Phone | + +------+ + | August Sanford | PCP | | + +------+ + Encounter Details +--------+ + + + + | Date | Type | Department | Care Team | Description | +--------+ + + + + | 12/15/ | Abstract | [facility] [place] | Claudine Gallegos, | | | 2018 | | CARDIOLOGY [address] | [address] | | | | | [place], | [place], | | | | | [place] [address] | [place] [address] | | | | | [phone] | [phone] | | | | | | | [...] [place], | | | | | | [place] [address] | | | | | | [phone] | | | | | | | | +--------+---------+ + + + as of this encounter Visit Diagnoses Not on filein this encounter"
--- OUTSIDE RECORDS SUMMARY | ~2019-02-15 | XMS | Encounter Summary ---
Demographics + + + | Address | [address] | | | [place] [address] | + + + | Home Phone | | + + + | Preferred Language | Unknown | + + + | Marital Status | Single | + + + | Latter Day Affiliation | Unknown | + + + | Race | Unknown | + + + | Ethnic Group | Unknown | + + + Author + + + | Author | [facility] | | | and Saúlana | + + + | Organization | [facility] | | | and Saúlana [...] Team Providers + +------+ + | Care Bellows Charger Assembler Name | Role | Phone | [...] pain, | MD Claudine | [address] | | | | | unspecified | [address] | [place], | | | | | type | [address] | [place] | | | | | Procedures | [place], | [address] | | | | | [place] Nuclear | [place] [address] | Phone: | | | | | Stress Test | Phone: | [phone] | | | | | (Vasodilator | [phone] | Fax: | | | | | ) [place] | Fax: | [phone] | | | | | Nuclear | [phone] | | | | | | Stress [...] | CARDIOLOGY [address] | [address] | unspecified type | | | | [place], | [place], | | | | | [place] [address] | [place] [address] | | | | | [phone] | [phone] | | | | | | | [...] | | | | | | [place] [address] | | | | | | [phone] | | | | | | | [...]
--- OUTSIDE RECORDS SUMMARY | ~2019-02-15 | XMS | Encounter Summary ---
Demographics + + + | Address | [address] | | | [place] [address] | + + + | Home Phone | | + + + | Preferred Language | Unknown | + + + | Marital Status | Single | + + + | Mosque Affiliation | Unknown | + + + | Race | Unknown | + + + | Ethnic Group | Unknown | + + + Author + + + | Author | [facility] | | | and Saúlana | + + + | Organization | [facility] | | | and Saúlana [...] Team Providers + +------+ + | Care Contract Coordinator Name | Role | Phone | + [...] | CARDIOLOGY [address] | MD [address] [place] | | | | | [place], | [place], | | | | | [place] [address] | [place] [address] | | | | | [phone] | [phone] | | | | | | | [...] | | | | | | [place] [address] | | | | | | [phone] | | | | | | | | +--------+---------+ + + + as of this encounter Visit Diagnoses + + | Diagnosis | + + | Chest pain, unspecified type - Primary | + +"
--- OUTSIDE RECORDS SUMMARY | ~2019-02-15 | XMS | Encounter Summary ---
Demographics + + + | Address | [address] | | | [place] [address] | + + + | Home Phone | | + + + | Preferred Language | Unknown | + + + | Marital Status | Single | + + + | Confucianism Affiliation | Unknown | + + + | Race | Unknown | + + + | Ethnic Group | Unknown | + + + Author + + + | Author | [facility] | | | and Saúlana | + + + | Organization | [facility] | | | and Saúlana [...] Team Providers + +------+ + | Care Engine Generator Assembler Name | Role | Phone | [...] + + | 12/26/ | Hospital | [facility] | Claudine Gallegos, | Chest pain, | | 2019 | Encounter | MED CTR NUCLEAR | [place] [address] [place] | unspecified type | | | | MEDICINE [address] [place], | | | | | [place], | [place] [address] | | | | | [place] [address] | [phone] | | | | | [phone] | | | +--------+ + + + [...] | 2018 | Visit | | [address] [facility] | | | | | | [address], | | | | | | [place] [address] | | | | | | [phone] | | | | | | | [...]
--- OUTSIDE RECORDS SUMMARY | ~2019-02-15 | XMS | Encounter Summary ---
Demographics + + + | Address | [address] | | | [place] [address] | + + + | Home Phone | | + + + | Preferred Language | Unknown | + + + | Marital Status | Single | + + + | Holiness Affiliation | Unknown | + + + | Race | Unknown | + + + | Ethnic Group | Unknown | + + + Author + + + | Author | [facility] | | | and Saúlana | + + + | Organization | [facility] | | | and Saúlana | [...] Team Providers + +------+ + | Care Improvement Spec Name | Role | Phone | + [...] 2019 | | CARDIOLOGY [address] | CELL TESTER [address] | | | | | [place], | [place] | | | | | [place] [address] | [address] | | | | | [phone] | | | +--------+ + + + [...] | | | | | | [place] [address] | | | | | | [phone] | | | | | | | [...]
--- OUTSIDE RECORDS SUMMARY | ~2019-02-15 | XMS | Encounter Summary ---
Demographics + + + | Address | [address] | | | [place] [address] | + + + | Home Phone | | + + + | Preferred Language | Unknown | + + + | Marital Status | Single | + + + | Yarsanism Affiliation | Unknown | + + + | Race | Unknown | + + + | Ethnic Group | Unknown | + + + Author + + + | Author | [facility] | | | and Saúlana | + + + | Organization | [facility] | | [...] Team Providers + +------+ + | Care Job Coach Name | Role | Phone | + [...] [place] | | | | | [place] [address] | [place] [address] | | | | | [phone] | | | +--------+ + + + [...] [place], | | | | | | [place] [address] | | | | | | [phone] | | | | | | | [...]
--- OUTSIDE RECORDS SUMMARY | ~2019-02-15 | XMS | Encounter Summary ---
Demographics + + + | Address | [address] | | | [place] [address] | + + + | Home Phone | | + + + | Preferred Language | Unknown | + + + | Marital Status | Single | + + + | Anabaptist Affiliation | Unknown | + + + | Race | Unknown | + + + | Ethnic Group | Unknown | + + + Author + + + | Author | [facility] | | | and Saúlana | + + + | Organization | [facility] | | | and Saúlana [...] Team Providers + +------+ + | Care Pipe Coverer Name | Role | Phone | + [...] | CARDIOLOGY [address] | MD [address] | fibrillation (HCC) | | | | [place], | [place] | | | | | [place] [address] | [place] [address] | | | | | [phone] | | | +--------+ + + + [...] | | | | | | [place] [address] | | | | | | [phone] | | | | | | | | +--------+---------+ + + + as of this encounter Visit Diagnoses + + | Diagnosis | + + | Paroxysmal atrial fibrillation (HCC) | + + | Atrial fibrillation | + +"
--- OUTSIDE RECORDS SUMMARY | ~2019-02-15 | XMS | Clinical Summary ---
Demographics + + + | Address | [address] | | | [place] [address] | + + + | Home Phone | | + + + | Preferred Language | Unknown | + + + | Marital Status | Single | + + + | Scientology Affiliation | Unknown | + + + | Race | Unknown | + + + | Ethnic Group | Unknown | + + + Author + + + | Author | [facility] | | | and Saúlana | + + + | Organization | [facility] | | | and Saúlana [...] Providers + +------+ + | Care Sap Ppm Consultant Name | Role | Phone | [...] Model # [id number] Serial # | | [id number]: syncope | + + +---------+ + | [...] | | 2019 | Visit | | HANDICAPPED TEACHER | fibrillation (HCC) | | | | [...] | | | 2018 | | | HANDICAPPED TEACHER | | +--------+ + + + + | 12/26/ | Hospital | | Dionisio Gallegos, | Chest pain, | 2018 | Encounter | | Punch Operator, | unspecified type | | | | [...] [address] | | | | | | [place], | | | | | | [place] [address] | | | | | | [phone] | | | | | | | [...] | | | | | | | [id number] | | | | | | | [...] Months Results Device Interrogation - Remote (01/22/2019 7064) + + + | Narrative | Performed At | + + + | Dionisio | [facility] | | MD Rosy 01/15/2019 12:06Date of Remote Interrogation: | | | 01/05/2019 Refer to Paceart documentation and remote PDF scanned into | | | Jampp for remote interrogation results. Data collected by [...] | Jenna Samaniego, | PACEART | | HANDICAPPED TEACHER 01/06/2019 12:00 PATIENT NAME: Gris Calvert : [...] GALLEGOS MD | | | | | ([id number]) on 12/16/2018 | | | | | [...] | [employer] | MOD[employer] | [id number] | Medica | [phone] | | | MEDICAID HMO | HEALTH [...] | | al/Fam | | 1965 | [phone] | [place] | | | deepak | | | [birth year] | [address] | + +--------+ +--------+ + +
--- OUTSIDE RECORDS SUMMARY | ~2019-02-15 | XMS | Encounter Summary ---
Demographics + + + | Address | [address] | | | [place] [address] | + + + | Home Phone | | + + + | Preferred Language | Unknown | + + + | Marital Status | Single | + + + | Confucianism Affiliation | Unknown | + + + | Race | Unknown | + + + | Ethnic Group | Unknown | + + + Author + + + | Author | [facility] | | | and Saúlana | + + + | Organization | [facility] | | | and Saúlana | [...] Team Providers + +------+ + | Care Industrial Custodian Name | Role | Phone | + [...] | Cardiology | | | | | [place] | [address] | | | | | (myocardial | [place] | [place], | | | | | infarction) | [address] | [place] | | | | | Syncope | [place], | [address] | | | | | Presence of | [place] [address] | Phone: | | | | | other | Phone: | [phone] | | | | | cardiac | [phone] | Fax: | | | | | implants and | Fax: | [phone] | | | | | grafts | [phone] | | | | | | Procedures | | | | | | | DATA WAREHOUSING MANAGER - NEEDS | | | | | | | IC/THR APPT | | | +--------+--------+ + + + + Encounter Details +--------+---------+ + + + | Date | Type | Department | Care Team | Description | +--------+---------+ + + + | 12/16/ | Office | [facility] | Dionisio Gallegos, | Encounter for loop | | 2019 | Visit | CARDIOLOGY [address] | [address] | recorder check | | | | [place], | [place], | (Primary Dx); [place]/P | | | | [place] [address] | [place] [address] | implantable loop | | | | [phone] | [phone] | recorder Medtronic | | | | [...] servere chest pains at her home in [place]. She mentions her nonexertional, no n-radiating sharp chest pains episode would happen constantly. Patient reports having cindy re chest pains on November 29, , and of this year. Patient describes her sharp chest pain as, " an arrow shooting right through her right sided shoulder" that usually happens when s he laid down the left side. Patient recently moved to [place] on 06/25/2018. Today, patient complains of occasional [...] 05/04/[address] [facility] SYNCOPE Family History Problem Relation Age of [...] Successful loop recorder implantation on 05/04/[address] [facility]. . Today, patient complains of occasional palpitations. [...] 73 (1) and Female Gender (1). Her JYO5PM2-BMIj score is 0 risk of stroke per ye ar in atrial fibrillation. Her bleeding risks include: ETOH (1). Her HASBLED score is 0-1, which confers a low risk (1-3.4%) risk of bleed per year. She was put on Eliquis by her c ardiologist in [place]. I didn't think that she needs long-term [...] bradycardia episode. 5. Obtain echo report from [facility] in [place] which was done in September,. 6. Follow up in six months for OC/thresh to discuss stopping Eliquis if there is no eviden ce of further atrial fibrillation. I, Madelin Valera, am acting as a scribe on behalf of, and in the presence of Dionisio medina MD. I have reviewed and edited this note. Madelin Valera, Steak Sauce Maker 12/16/2018 I, Dionisio Gallegos MD, personally performed the services described in this documentation, as scribed in my presence and it is both accurate and complete. Madelin Valera, Steak Sauce Maker 15:23 Electronically signed by: Dionisio Gallegos MD [facility] 12/16/2018 Portions of this chart may have been created with FlatClub voice recognition software. Occasi onal wrong-word or [...] | | | | | | [place] [address] | | | | | | [phone] | | | | | | | [...] GALLEGOS MD | | | | | ([id number]) on 12/16/2018 | | | | | [...]
--- OUTSIDE RECORDS SUMMARY | ~2019-02-15 | XMS | Encounter Summary ---
Demographics + + + | Address | [address] | | | [place] [address] | + + + | Home Phone | | + + + | Preferred Language | Unknown | + + + | Marital Status | Single | + + + | Cheondoism Affiliation | Unknown | + + + | Race | Unknown | + + + | Ethnic Group | Unknown | + + + Author + + + | Author | [facility] | | | and Saúlana | + + + | Organization | [facility] | | | and [...] Team Providers + +------+ + | Care Energy Economist Name | Role | Phone | + [...] | | CARDIOLOGY [address] | | | | | [place], | [place], | | | | | [place] [address] | [place] [address] | | | | | [phone] | [phone] | | | | | | | [...] | | | | | | [place] [address] | | | | | | [phone] | | | | | | | | +--------+---------+ + + + as of this encounter Visit Diagnoses Not on filein this encounter"
--- OUTSIDE RECORDS SUMMARY | ~2019-02-15 | XMS | Encounter Summary ---
Demographics + + + | Address | [address] | | | [place] [address] | + + + | Home Phone | | + + + | Preferred Language | Unknown | + + + | Marital Status | Single | + + + | Uatsdin Affiliation | Unknown | + + + | Race | Unknown | + + + | Ethnic Group | Unknown | + + + Author + + + | Author | [facility] | | | and Saúlana | + + + | Organization | [facility] | | | and Saúlana [...] Team Providers + +------+ + | Care It Business Process Architect Name | Role | Phone | + [...] + + | 12/26/ | Hospital | [facility] | Claudine Gallegos, | Chest pain, | | 2019 | Encounter | MED CTR NUCLEAR | [place] [address] [facility] | unspecified type | | | | MEDICINE [address] [place], | | | | | [place], | [place] [address] | | | | | [place] [address] | [phone] | | | | | [phone] | | | | | | | Manager [employer] | | +--------+ + + + + [...] [place], | | | | | | [place] [address] | | | | | | [phone] | | | | | | | [...]
[2019-02-15] MEDS ORDERED: CLONAZEPAM0.5 MG PO (15:09)
[2019-02-15] MEDS ORDERED: ZOLPIDEM TARTRAT5 MG PO (15:12)
[2019-02-15] MEDS ORDERED: NITROGLYCERIN0.4 MG SL (15:14)
[2019-02-15] MEDS ORDERED: ZALEPLON10 MG PO (15:15)
--- NOTE | 2019-02-16 23:22 | EKG ---
[facility] [address] [facility] [place] [address] \T\ T wave abnormality, consider lateral ischemia Abnormal ECG When compared with ECG of 22-DEC-2018 01:54, Vent. rate has decreased BY 44 BPM T wave inversion more evident in Lateral leads Confirmed by IVELISSE KELLY MD ([id number]) on 02/16/2019 11:22:02 PM Electronically Signed By: IVELISSE KELLY MD 02/16/19 2322 PATIENT NAME: WALTER CALVERT Electrocardiogram DATE OF : 63 PHYSICIAN: IVELISSE KELLY MD REPORT #: [id number] REPORT IS CONFIDENTIAL AND NOT TO BE RELEASED WITHOUT AUTHORIZATION
== END 2019-02-15 16:15 | disposition home or self-care (01) ==
LOC: ED 13:40
DX: I49.3 Ventricular premature depolarization (principal); I42.9 Cardiomyopathy, unspecified; I48.91 Unspecified atrial fibrillation; I10 Essential (primary) hypertension; F41.9 Anxiety disorder, unspecified; F32.9 Major depressive disorder, single episode, unspecified; E78.00 Pure hypercholesterolemia, unspecified; E03.9 Hypothyroidism, unspecified; Z88.0 Allergy status to penicillin; Z79.899 Other long term (current) drug therapy
CPT/HCPCS: 80053; 84484; 85025; 93005; 93010; 99285-25

== ENCOUNTER 2020-03-13 00:26 | Emergency (ER) | payer OTHER ==
[~2020-03-13] VITALS: Ht 162.6 cm; Wt 94.3 kg
[~2020-03-13 00:26] MED LIST changes: +GABAPENTIN300 MG PO; +NITROGLYCERIN0.4 MG SL; +OXYCODONE HCL5 MG PO; +SENNA LAX8.6 MG PO; +ZALEPLON10 MG PO; +ZOLPIDEM TARTRAT5 MG PO
--- OUTSIDE RECORDS SUMMARY | 2020-03-13 00:28 | XMS ---
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 No recent Security Events currently on file CRITERIA MET - [facility] - Has Care Guidelines - PDMP CARE PROVIDERS JoelMercy Jewelry Manager/Tool Machinist 07/26/2019-Current PHONE: [phone] VANIA LEE Physician Program Attendant 06/15/2019-Current PHONE: [phone] Guidelines Source[facility] Guidelines Date: 06/12/2019 Care Coordination: Mental health services are being provided by [employer].\T\nbsp; Please contact [employer] with mental health concerns.\T\nbsp; Pamela/Curt Cummings: [phone]\T\nbsp; Rut: [phone]. Care History Medical/Surgical 07/08/2019 [facility] RECEIVING HOME HEALTH THROUGH [facility].\T\nbsp; [phone]. 06/15/2019 [facility] - [place] REFERRAL MADE- DUE TO CONCERNS OF FALLS AT HOME. Jerome VISIT COUNT (12 MO.) 3 ZOEY Estes TOTAL 3 NOTE: Visits indicate total known visits. ED/UCC VISIT TRACKING (12 MO.) 03/13/2020 00:26 [facility] Baker [place] TYPE: Emergency COMPLAINT: - FALL 06/13/2019 08:18 [facility] [place] TYPE: Emergency COMPLAINT: - RIGHT ANKLE INJURY DIAGNOSES: - Allergy status to penicillin - Anxiety disorder, unspecified - Major depressive disorder, single episode, unspecified - Other care home (current) drug therapy - Unspecified atrial fibrillation - Unspecified injury of right ankle, initial encounter - Displaced trimalleolar fracture of right lower leg, initial e - Hypothyroidism, unspecified - Fall on same level, unspecified, initial encounter - Essential (primary) hypertension 06/10/2019 03:03 [facility] Baker [place] TYPE: Emergency COMPLAINT: - INJURIES FROM FALL DIAGNOSES: - Contusion of unspecified part of head, initial encounter - Unspecified atrial fibrillation - Hypothyroidism, unspecified - Major depressive disorder, single episode, unspecified - Essential (primary) hypertension - Fall on same level from slipping, tripping and stumbling with - Dizziness and giddiness - Allergy status to penicillin - Repeated falls - Anxiety disorder, unspecified - Other care home (current) drug therapy INPATIENT VISIT TRACKING (12 MO.) 09/30/2019 07:[address] Nadine MAN TYPE: Surgical Services DIAGNOSES: - Sick sinus syndrome - Conduction disorder, unspecified - tachybrady syndrome, loop recorder explantation, Dual chamber St Jerry PM implantation, Mateo (REP) [email or web address]
[2020-03-13] MEDS ORDERED: LORAZEPAM0.5 MG PO (00:36)
[2020-03-13] MEDS ORDERED: DICLOFENAC SODI75 MG PO (00:36)
[2020-03-13] MEDS ORDERED: MELOXICAM7.5 MG PO (00:37)
[2020-03-13] MEDS ORDERED: DOXEPIN HCL3 MG PO (00:39)
[2020-03-13] MEDS ORDERED: NORCO 5-325 TA1 EACH PO (01:01)
--- NOTE | 2020-03-13 13:30 | EKG ---
[facility] [address] [facility] [place] [address] Signed Sinus rhythm with premature supraventricular complexes Marked ST abnormality, possible lateral subendocardial injury Abnormal ECG When compared with ECG of 06-JUL-2019 09:54, premature supraventricular complexes are now present T wave inversion no longer evident in Inferior leads T wave inversion more evident in Lateral leads Confirmed by FRANKIE PILLAI DO ([id number]) on 03/13/2020 1:30:13 PM Electronically Signed By: FRANKIE PILLAI DO 03/13/20 1330 PATIENT NAME: WALTER CALVERT Electrocardiogram DATE OF : 63 PHYSICIAN: FRANKIE PILLAI DO REPORT #: [id number] REPORT IS CONFIDENTIAL AND NOT TO BE RELEASED WITHOUT AUTHORIZATION
== END 2020-03-13 01:24 | disposition home or self-care (01) ==
LOC: ED 00:26
DX: S82.52XA Displaced fracture of medial malleolus of left tibia, initial encounter for closed fracture (principal); I48.91 Unspecified atrial fibrillation; I10 Essential (primary) hypertension; F41.9 Anxiety disorder, unspecified; F32.9 Major depressive disorder, single episode, unspecified; E78.00 Pure hypercholesterolemia, unspecified; E03.9 Hypothyroidism, unspecified; Z88.0 Allergy status to penicillin; Z79.899 Other long term (current) drug therapy; W18.30XA Fall on same level, unspecified, initial encounter
CPT/HCPCS: 73610; 93005; 93010; 99284-25

== ENCOUNTER 2020-05-04 14:40 | Emergency (ER) | payer OTHER ==
[~2020-05-04] VITALS: Ht 162.6 cm; Wt 94.3 kg
[~2020-05-04 14:40] MED LIST changes: +DICLOFENAC SODI75 MG PO; +DOXEPIN HCL3 MG PO; +LORAZEPAM0.5 MG PO; +MELOXICAM7.5 MG PO; +NORCO 5-325 TA1 EACH PO
--- OUTSIDE RECORDS SUMMARY | 2020-05-04 14:44 | XMS ---
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 No recent Security Events currently on file CRITERIA MET - [facility] - Has Care Guidelines - PDMP CARE PROVIDERS [employer]cy Flow Coordinator/Cigarette Filter Inspector 07/26/2019-Current PHONE: [phone] VANIA LEE Physician Cyanide Pot Hardener 06/15/2019-Current PHONE: [phone] Guidelines [facility]: [facility] Guidelines Date: 06/12/2019 Care Coordination: Mental health services are being provided by [employer].\T\nbsp; Please contact [employer] with mental health concerns.\T\nbsp; Pamela/Curt Cummings: [phone]\T\nbsp; Rut: [phone]. Care History Medical/Surgical 03/14/2020 [facility] - PATIENT HAS A NEUROLOGIST DR MATTHEW INGRAM-NEUROLOGIST AT [facility]- - PATIENT WAS LAST SEEN BY NEUROLOGIST ON 01/27/2020 AND FOLLOW UP APT WILL BE ON 04/04/2020. 07/08/2019 [facility] RECEIVING HOME HEALTH THROUGH [facility].\T\[facility]; [phone]. 06/15/2019 [facility] - [place] REFERRAL MADE- DUE TO CONCERNS OF FALLS AT HOME. [place] VISIT COUNT (12 MO.) [facility] T[facility] NOTE: Visits indicate total known visits. ED/UCC VISIT TRACKING (12 MO.) 05/04/2020 14:41 [facility] [place] [facility]: Emergency COMPLAINT: - FELL, HURT BOTH LEGS 03/13/2020 00:26 [facility] Baker [place] TYPE: Emergency COMPLAINT: - FALL DIAGNOSES: - Essential (primary) hypertension - Pure hypercholesterolemia, unspecified - Unspecified atrial fibrillation - Anxiety disorder, unspecified - Hypothyroidism, unspecified - Pain in left ankle and joints of left foot - Fall on same level, unspecified, initial encounter - Allergy status to penicillin - Displaced fracture of medial malleolus of left tibia, initial - Other emt intermediate (current) drug therapy - Major depressive disorder, single episode, unspecified 06/13/2019 08:18 [facility]OE[facility] Baker [place] TYPE: Emergency COMPLAINT: - RIGHT ANKLE INJURY DIAGNOSES: - Allergy status to penicillin - Anxiety disorder, unspecified - Major depressive disorder, single episode, unspecified - Other retirement (current) drug therapy - Unspecified atrial fibrillation [...] falls - Anxiety disorder, unspecified - Other retirement (current) drug therapy INPATIENT VISIT TRACKING (12 MO.) 04[facility]26/2020 [facility] DIAGNOSES: - flecainide initiation 09/30/2019 07:35 [facility] DIAGNOSES: - Sick sinus syndrome - Conduction disorder, unspecified - tachybrady syndrome, loop recorder explantation, Dual chamber St Jerry PM implantationMateo (REP) [email or web address]
== END 2020-05-04 16:03 | disposition home or self-care (01) ==
LOC: ED 14:40
DX: S93.402A Sprain of unspecified ligament of left ankle, initial encounter (principal); S70.311A Abrasion, right thigh, initial encounter; I48.91 Unspecified atrial fibrillation; I10 Essential (primary) hypertension; F41.9 Anxiety disorder, unspecified; F32.9 Major depressive disorder, single episode, unspecified; E03.9 Hypothyroidism, unspecified; Z87.891 Personal history of nicotine dependence; Z88.0 Allergy status to penicillin; Z79.899 Other long term (current) drug therapy; Z79.01 Long term (current) use of anticoagulants; W19.XXXA Unspecified fall, initial encounter
CPT/HCPCS: 73552; 73610; 99283-25; A9270

== ENCOUNTER 2020-09-13 21:04 | Emergency (ER) | payer OTHER ==
[~2020-09-13] VITALS: Ht 162.6 cm; Wt 99.8 kg
--- OUTSIDE RECORDS SUMMARY | ~2020-09-13 | XMS | Encounter Summary ---
Demographics + + + | Address | [address] | | | [place] [address] | + + + | Home Phone | | + + + | Preferred Language | Unknown | + + + | Marital Status | Single | + + + | Restorationist Affiliation | [id number] | + + + | Race | White | + + + | Ethnic Group | Not or | + + + Author + + + | Author | [facility] | | | and [place] | + + + | Organization | [facility] | | | and [place] | + + + | Address | Unknown | + + + | Phone | Unavailable | + + + Support + + +---------+ + | Name | Relationship | Address | Phone | + + +---------+ + | Aaron Krishnamurthy | ECON | Unknown | | + + +---------+ + Care Team Providers + +------+ + | Care Distribution Dispatcher Name | Role | Phone | + +------+ + | August Sanford | PCP | | + +------+ + Reason for Visit + + + | Reason | Comments | + + + | Device Check | Monthly | | (Remote) | | + + + Encounter Details +--------+ + + + + | Date | Type | Department | Care Team | Description | +--------+ + + + + | 02/22/ | Implant | [facility] [place] | Claudine Gallegos, | Remote Device | | 2019 | Monitor | CARDIOLOGY [address] | MD [address] | Interrogation | | | | [place], | [place], | (Primary Dx); S/P | | | | [place] [address] | [place] [address] | implantable loop | | | | [phone] | [phone] | recorder Medtronic | | | | | | 05/04/2016 Dr Duque | | | | | | Tommy; Syncope, | | | | | | unspecified syncope | | | | | | type | +--------+ + + + + Social [...] + +---------+ + | Alcohol Use | Drinks/Week | oz/Week | Comments | + + +---------+ + | No | | | | + + +---------+ + + + + | Sex Assigned at | Date Recorded | | | | + + + | Not on file | | + + + documented as of this encounter Procedure Notes Claudine Gallegos MD - 02/22/2019 11:59 PM PDTAssociated Order(s): DEVICE INTERROGATION- R EMOTEProcedure(s): DEVICE INTERROGATION- REMOTEPre-Procedure Diagnose(s): Encounter for loop recorder check; Status post placement of implantable loop recorder; Syncope, unspecified sy ncope typeDate of Remote Interrogation: 02/15/19 Refer to [facility] documentation and remote PDF scanned into [email or web address] for remote interrogation re sults. Data collected by Manda N Repoff, RN Presenting rhythm: sinus bradycardia 53-58 beats. 7 Symptom Episodes #468 occurred 02/15/19 at 8:04 AM. EGM is consistent with sinus bradycardia to sinus rhythm with frequent PVCs 57-80 beats. Patient reports she went to be seen at [facility] ED afte r this episode due to double vision, nausea, and a sinking or slowing feeling in her chest f ollowed by a pounding burst. She was up all night with this between 02/14 and 02/15. #467 occurred 02/12/19 at 11:21 AM. EGM is consistent with sinus rhythm 62-72 beats with slava quent PVCs and PACs. #466 occurred 02/10/19 at 11:39 AM. EGM is consistent with sinus bradycardia to sinus tachyc ardia then back to sinus bradycardia with rate 36-125 beats. Patient reports feeling palpita tions. #465 occurred 02/09/19 at 11:15 AM. EGM is consistent with sinus bradycardia to sinus rhythm 54-70 beats. #464 occurred 01/29/19 at 7:02 Am. No available EGM. Patient reports a sharp zig zag pain thr ough her chest. #463 occurred 01/28/19 at 2:17 PM. No available EGM. Patient reports being dizzy with weak le gs and nearly passing out. #456 occurred 01/09/19 at 9:06 AM. No available EGM. Patient reports chest tightness and denise rtness of breath. 0 Tachy Episodes 1 Pause Episodes the longest occurred 01/12/19 at 9:54 PM for 4 seconds. EGM is consistent w ith sinus rhythm in the 70s to 90s with intermittent and sustained loss of sensing noted. No true pause. 7 Murphy Episodes the longest occurred 01/07/19 at 11:33 for 34 seconds. All available EGMs a re consistent with sinus rhythm with loss of sensing noted. 0 AT Episodes 0 AF Episodes % of time in AT/AF 0.0% Histogram unavailable. Battery ok. Loss of sensing noted intermittently on most EGMs. Device interrogation due in office in May 2019. Patient notified and advised to contact office with acute symptoms such as chest pain or pa ssing out rather than waiting for scheduled reports to be sent. Patient is further advised t o contact our office if she is symptomatic again and we will move up her May visit. documented in this encounter Plan of Treatment +--------+ + + + + | Date | Type | Specialty | Care Team | Description | +--------+ + + + + | 10/10/ | Office | Cardiology | Claudine Gallegos, | | | 2019 | Visit | | MD Mark Garcia | | | | | | [facility] [place], | | | | | | [place] [address] | | | | | | [phone] | | | | | | | | +--------+ + + + + | 11/23/ | Implant | Cardiology | Claudine Gallegos, | Pacemaker | | 2019 | Monitor | | MD Mark Garcia | reprogramming/check | | | | | [place], | (Primary Dx); | | | | | [place] [address] | Tachycardia-bradycar | | | | | [phone] | samuel (HCC); | | | | | | Pacemaker, Dual | | | | | | Chamber, St Jerry, | | | | | | MRI Capable, 09/30/19 | | | | | | Jacquiadam | +--------+ + + + + | 03/08/ | Office | Neurology | Amarjit Fisher MD [address] | | | 2020 | Visit | | [address] | | | | | | [address] [place], | | | | | | [place] [address] | | | | | | [phone] | | | | | | | | +--------+ + + + + documented as of this encounter Procedures + +--------+ + + + | Procedure Name | Priori | Date/Time | Associated Diagnosis | Comments | | | ty | | | | + +--------+ + + + | DEVICE | Routin | 02/16/2019 | Remote Device | Results for this | | INTERROGATION- | e | 12:00 AM | Interrogation S/P | procedure are in the | | REMOTE | | PDT | implantable loop | results section. | | | | | recorder Medtronic | | | | | | 05/04/2016 Dr Duque | | | | | | Mikiman Syncope, | | | | | | unspecified syncope | | | | | | type | | + +--------+ + + + documented in this encounter Results Device Interrogation - Remote (02/16/2019 12:00 AM PDT) + + + | Narrative | Performed At | + + + | Claudine | REBEKAH | | MD Rosy 02/16/2019 15:38Date of Remote Interrogation: | | | 02/15/19 Refer to [facility] documentation and remote PDF scanned into | | | [email or web address] for remote interrogation results. Data collected by Manda Segundo | | | BONNIE Seaman Presenting rhythm: sinus bradycardia 53-58 beats.7 Symptom | | | Episodes #468 occurred 02/15/19 at 8:04 AM. EGM is consistent with | | | sinus bradycardia to sinus rhythm with frequent PVCs 57-80 beats. | | | Patient reports she went to be seen at [facility] ED after this | | | episode due to double vision, nausea, and a sinking or slowing feeling | | | in her chest followed by a pounding burst. She was up all night with | | | this between 02/14 and 02/15.#467 occurred 02/12/19 at 11:21 AM. EGM is | | | consistent with sinus rhythm 62-72 beats with frequent PVCs and PACs. | | | #466 occurred 02/10/19 at 11:39 AM. EGM is consistent with sinus | | | bradycardia to sinus tachycardia then back to sinus bradycardia with | | | rate 36-125 beats. Patient reports feeling palpitations.#465 occurred | | | 02/09/19 at 11:15 AM. EGM is consistent with sinus bradycardia to sinus | | | rhythm 54-70 beats. #464 occurred 01/29/19 at 7:02 Am. No available | | | EGM. Patient reports a sharp zig zag pain through her chest. #463 | | | occurred 01/28/19 at 2:17 PM. No available EGM. Patient reports being | | | dizzy with weak legs and nearly passing out.#456 occurred 01/09/19 at | | | 9:06 AM. No available EGM. Patient reports chest tightness and | | | shortness of breath.0 Tachy Episodes 1 Pause Episodes the longest | | | occurred 01/12/19 at 9:54 PM for 4 seconds. EGM is consistent with | | | sinus rhythm in the 70s to 90s with intermittent and sustained loss of | | | sensing noted. No true pause.7 Murphy Episodes the longest occurred | | | 01/07/19 at 11:33 for 34 seconds. All available EGMs are consistent | | | with sinus rhythm with loss of sensing noted.0 AT Episodes 0 AF | | | Episodes % of time in AT/AF 0.0%Histogram unavailable. Battery | | | ok.Loss of sensing noted intermittently on most EGMs.Device | | | interrogation due in office in May 2019.Patient notified and advised | | | to contact office with acute symptoms such as chest pain or passing | | | out rather than waiting for scheduled reports to be sent. Patient is | | | further advised to contact our office if she is symptomatic again and | | | we will move up her Sabi visit. | | |seconds. All available EGMs are consistent with sinus rhythm with | | |loss of sensing noted. | | |0 AT Episodes | | |0 AF Episodes | | |% of time in AT/AF 0.0% | | |Histogram unavailable. Battery ok. | | |Loss of sensing noted intermittently on most EGMs. | | |Device interrogation due in office in May 2019. | | |Patient notified and advised to contact office with acute | | |symptoms such as chest pain or passing out rather than waiting | | |for scheduled reports to be sent. Patient is further advised to | | |contact our office if she is symptomatic again and we will move | | |up her May visit. | | | | | + + + + + | Procedure Note | + + | Claudine Gallegos MD - 02/22/2019 11:59 PM PDT Date of Remote Interrogation: | | 02/15/19Refer to [employer] documentation and remote PDF scanned into [email or web address] for remote | | interrogation results. Data collected by JL Newmanresenting rhythm: sinus | | bradycardia 53-58 beats.7 Symptom Episodes #468 occurred 02/15/19 at 8:04 AM. EGM is | | consistent with sinus bradycardia to sinus rhythm with frequent PVCs 57-80 beats. | | Patient reports she went to be seen at [facility] ED after this episode due to double | | vision, nausea, and a sinking or slowing feeling in her chest followed by a pounding | | burst. She was up all night with this between 02/14 and 02/15.#467 occurred 02/12/19 at | | 11:21 AM. EGM is consistent with sinus rhythm 62-72 beats with frequent PVCs and PACs. | | #466 occurred 02/10/19 at 11:39 AM. EGM is consistent with sinus bradycardia to sinus | | tachycardia then back to sinus bradycardia with rate 36-125 beats. Patient reports | | feeling palpitations.#465 occurred 02/09/19 at 11:15 AM. EGM is consistent with sinus | | bradycardia to sinus rhythm 54-70 beats. #464 occurred 01/29/19 at 7:02 Am. No available | | EGM. Patient reports a sharp zig zag pain through her chest. #463 occurred 01/28/19 at | | 2:17 PM. No available EGM. Patient reports being dizzy with weak legs and nearly passing | | out.#456 occurred 01/09/19 at 9:06 AM. No available EGM. Patient reports chest tightness | | and shortness of breath.0 Tachy Episodes 1 Pause Episodes the longest occurred 01/12/19 | | at 9:54 PM for 4 seconds. EGM is consistent with sinus rhythm in the 70s to 90s with | | intermittent and sustained loss of sensing noted. No true pause.7 Murphy Episodes the | | longest occurred 01/07/19 at 11:33 for 34 seconds. All available EGMs are consistent with | | sinus rhythm with loss of sensing noted.0 AT Episodes 0 AF Episodes % of time in | | AT/AF 0.0%Histogram unavailable. Battery ok.Loss of sensing noted intermittently on | | most EGMs.Device interrogation due in office in May 2019.Patient notified and advised | | to contact office with acute symptoms such as chest pain or passing out rather than | | waiting for scheduled reports to be sent. Patient is further advised to contact our | | office if she is symptomatic again and we will move up her May visit. | + + + +---------+ + + | Performing | Address | City/State/Zipcode | Phone Number | | Organization | | | | + +---------+ + + | [facility] | | | | + +---------+ + + documented in this encounter Visit Diagnoses + + | Diagnosis | + + | Remote Device Interrogation - Primary | + + | S/P implantable loop recorder Medtronic 05/04/2016 Dr Neto Sanders | + + | Syncope, unspecified syncope type | + + | Pacemaker reprogramming/check - Primary Fitting and adjustment of cardiac pacemaker | + + | Tachycardia-bradycardia (HCC) Sinoatrial node dysfunction | + + | Pacemaker, Dual Chamber, St Jerry, MRI Capable, 09/30/19 Rosy Cardiac pacemaker in | | situ | + + documented in this encounter"
--- OUTSIDE RECORDS SUMMARY | ~2020-09-13 | XMS | Encounter Summary ---
Demographics + + + | Address | [address] | | | [place] [address] | + + + | Home Phone | | + + + | Preferred Language | Unknown | + + + | Marital Status | Single | + + + | Episcopal Affiliation | 1073 | + + + | Race | White | + + + | Ethnic Group | Not or | + + + Author + + + | Author | [facility] | | | and [place] | + + + | Organization | [facility] | | | and [...] Team Providers + +------+ + | Care First Grade Teacher Name | Role | Phone | + +------+ + | August Sanford | PCP | | + +------+ + Reason for Visit +---------+--------+ + | Reason | Onset | Comments | | | Date | | +---------+--------+ + | Results | 09/02/ | Aamir | | | 2020 | | +---------+--------+ + Encounter Details +--------+ + + + + | Date | Type | Department | Care Team | Description | +--------+ + + + + | 09/02/ | Telephone | [facility] | Eddiegelaadam[place]an[place], | Results ([place]) | | 2020 | | CARDIOLOGY [address] | MD [address] | | | | | [place], | [place], | | | | | [place] [address] | [place] [address] | | | | | [phone] | [phone] | | | | | | | | +--------+ + + + + Social History + +-------+ +--------+ + | Tobacco Use | Types | Packs/Day | Years | Date | | | | | Used | | + +-------+ +--------+ + | Former Smoker | | | | Quit: 11/25/2015 | + +-------+ +--------+ + + +---+---+---+ | Smokeless Tobacco: | | | | | Never Used | | | | + +---+---+---+ + + +---------+ + | Alcohol Use | Drinks/Week | oz/Week | Comments | + + +---------+ + | Not Currently | | | | + + +---------+ + + + + | Sex Assigned at | Date Recorded | | | | + + + | Not on file | | + + + documented as of this encounter Functional Status + + + + | Functional Status | Response | Date of Assessment | + + + + | Are you deaf or do you have serious | No | 04/27/2020 | | difficulty hearing? | | | + + + + | Are you blind or do you have serious | No | 04/27/2020 | | difficulty seeing, even when wearing | | | | glasses? | | | + + + + | Do you have serious difficulty walking or | Yes | 04/27/2020 | | climbing stairs? (5 years old or older) | | | + + + + | Do you have difficulty dressing or bathing? | No | 04/27/2020 | | (5 years old or older) | | | + + + + | Because of a physical, mental, or emotional | No | 04/27/2020 | | condition, do you have difficulty doing | | | | errands alone such as visiting a doctor's | | | | office or shopping? [15 years old or | | | | older)] | | | + + + + + + + + | Cognitive Status | Response | Date of Assessment | + + + + | Because of a physical, mental, or emotional | No | 04/27/2020 | | condition, do you have serious difficulty | | | | concentrating, remembering, or making | | | | decisions? (5 years old or older) | | | + + + + documented as of this encounter Miscellaneous Notes Telephone Encounter - Manda Seaman RN - 09/06/2020 3:34 PM PDTPatient is scheduled for 12/10/2019. Electronically signed by: Manda Seaman RN 09/06/2020 3:35 PM PDTElectronically s igned by Manda Seaman RN at 09/06/2020 3:35 PM PDTTelephone Encounter - Manda Seaman RN - 09/02/2020 12:03 PM PDTCalled patient to give her results of Aamir report 08/30/2020. She advised she has been having trouble with shortness of breath and fatigue with walking to the bathroom about 15 feet. She does not currently have rate response but histogram looks good. Advised her we could trial adding rate response but she would need to come in for a visit f or reprogramming. Will ask PSRs to call patient to reschedule Wang OC/THR visit sooner. Elec tronically signed by: Manda Seaman RN 09/02/2020 12:05 PM PDT documented in this encounter Plan of Treatment +--------+ + + + + | Date | Type | Specialty | Care Team | Description | +--------+ + + + + | 10/10/ | Office | Cardiology | Claudine Gallegos, | | 2019 | Visit | | MD Mark Garcia | | | | | | [place], | | | | | | [place] [address] | | | | | | [phone] | | | | | | | | +--------+ + + + + | 11/23/ | Implant | Cardiology | Claudine Gallegos, | Pacemaker | | 2019 | Monitor | | [address] [facility] | reprogramming/check | | | | | [place], | (Primary Dx); | | | | | [place] [address] | Tachycardia-bradycar | | | | | [phone] | samuel (HCC); | | | | | | Pacemaker, Dual | | | | | | Chamber, [address], | | | | | | MRI Capable, 09/30/19 | | | | | | Rosy | +--------+ + + + + | 03/08/ | Office | Neurology | Amarjit Fisher MD [address] | | | 2020 | Visit | | [address] | | | | | | [place], | | | | | | [place] [address] | | | | | | [phone] | | | | | | | | +--------+ + + + + documented as of this encounter Visit Diagnoses Not on filedocumented in this encounter"
--- OUTSIDE RECORDS SUMMARY | ~2020-09-13 | XMS | Encounter Summary ---
Demographics + + + | Address | [address] | | | [place] [address] | + + + | Home Phone | | + + + | Preferred Language | Unknown | + + + | Marital Status | Single | + + + | Oriental Orthodox Affiliation | 1073 | + + + | Race | White | + + + | Ethnic Group | Not or | + + + Author + + + | Author | [facility] | | | and [place] | + + + | Organization | [facility] | | | and [...] Team Providers + +------+ + | Care Forming Fixer Name | Role | Phone | + +------+ + | August Sanford | PCP | | + +------+ + Encounter Details +--------+ + + + + | Date | Type | Department | Care Team | Description | +--------+ + + + + | 08/31/ | Abstract | [facility] | Yazmin, | | | 2019 | | CARDIOLOGY [address] | MD [address] | | | | | [place], | [place] | | | | | [place] [address] | [place] [address] | | | | | [phone] | | | +--------+ + + + [...] do you have serious | No | 06/14/2019 | | difficulty hearing? | | | + + + + | Are you blind or do you have serious | No | 06/14/2019 | | difficulty seeing, even when wearing | | | | glasses? | | | + + + + | Do you have serious difficulty walking or | Yes | 06/14/2019 | | climbing stairs? (5 years old or older) | | | + + + + | Do you have difficulty dressing or bathing? | No | 06/14/2019 | | (5 years old or older) | | | + + + + | Because of a physical, mental, or emotional | No | 06/14/2019 | | condition, do you have difficulty [...] physical, mental, or emotional | No | 06/14/2019 | | condition, do you have serious difficulty | | | | concentrating, remembering, or making | | | | decisions? (5 years old or older) | | | + + + + documented as of this encounter Plan of Treatment +--------+ + + + + | Date | Type | Specialty | Care Team | Description | +--------+ + + + + | 10/10/ | Office | Cardiology | Claudine Gallegos, | | | 2019 | Visit | | MD Mark Garcia | | | | | | [place], | | | | | | [place] [address] | | | | | | [phone] | | | | | | | | +--------+ + + + + | 11/23/ | Implant | Cardiology | Claudine Gallegos, | Pacemaker | | 2019 | Monitor | | [address] [facility] | reprogramming/check | | | | | [place], | (Primary Dx); | | | | | [place] [address] | Tachycardia-bradycar | | | | | [phone] | samuel (HCC); | | | | | | Pacemaker, Dual | | | | | | Chamber, [address], | | | | | | MRI Capable, 09/30/19 | | | | | | Rosy | +--------+ + + + + | 03/08/ | Office | Neurology | Amarjit Fisher MD [address] | | | 2020 | Visit | | [address] | | | | | | [address] [place], | | | | | | [place] [address] | | | | | | [phone] | | | | | | | | +--------+ + + + + documented as of this encounter Procedures + +--------+ + + + | Procedure Name | Priori | Date/Time | Associated Diagnosis | Comments | | | ty | | | | + +--------+ + + + | EXTERNAL LAB: | Routin | 08/27/2019 | | Results for this | | TRIGLYCERIDES | e | | | procedure are in the | | | | | | results section. | + +--------+ + + + | EXTERNAL LAB: | Routin | 08/27/2019 | | Results for this | | CHOLESTEROL, HDL | e | | | procedure are in the | | | | | | results section. | + +--------+ + + + | EXTERNAL LAB: | Routin | 08/27/2019 | | Results for this | | CHOLESTEROL, TOTAL | e | | | procedure are in the | | | | | | results section. | + +--------+ + + + | EXTERNAL LAB: | Routin | 08/27/2019 | | Results for this | | CHOLESTEROL, LDL | e | | | procedure are in the | | DIRECT | | | | results section. | + +--------+ + + + | LIPID PANEL | Routin | 08/27/2019 | | Results for this | | | e | | | procedure are in the | | | | | | results section. | + +--------+ + + + | LIPID PANEL | Routin | 08/27/2019 | | | | | e | | | | + +--------+ + + + documented in this encounter Results Lipid Panel (08/27/2019) + +-------+ + + + | Component | Value | Ref Range | Performed | Pathologist | | | | | At | Signature | + +-------+ + + + | VLDL | 18 | 4 - 40 | | | | Cholesterol | | | | | | Stephen | | | | | + +-------+ + + + | Chol/HDL | 3.0 | 4.4 | | | | Ratio | | | | | + +-------+ + + + | Non HDL | 91 | 130 | | | | Chol. | | | | | | (LDL+VLDL) | | | | | + +-------+ + + + + + | Specimen | + + | Blood | + + Lipid Panel (08/27/2019) + + | Specimen | + + | Blood | + + External Lab: Triglycerides (08/27/2019) + +-------+ + + + | Component | Value | Ref Range | Performed | Pathologist | | | | | At | Signature | + +-------+ + + + | Triglycerid | 90 | 30 - 150 | EXTERNAL | | | es, | | | LAB | | | External | | | | | + +-------+ + + + + + | Specimen | + + | Blood | + + + + | Resulting Agency Comment | + + | [facility] | + + + +---------+ + + | Performing | Address | City/State/Zipcode | Phone Number | | Organization | | | | + +---------+ + + | EXTERNAL LAB | | | | + +---------+ + + External Lab: Cholesterol, HDL (08/27/2019) + +-------+ + + + | Component | Value | Ref Range | Performed | Pathologist | | | | | At | Signature | + +-------+ + + + | HDL | 45.7 | 40 mg/dl | EXTERNAL | | | Cholesterol | | | LAB | | | , External | | | | | + +-------+ + + + + + | Specimen | + + | Blood | + + + + | Resulting Agency Comment | + + | [facility] | + + + +---------+ + + | Performing | Address | City/State/Zipcode | Phone Number | | Organization | | | | + +---------+ + + | EXTERNAL LAB | | | | + +---------+ + + External Lab: Cholesterol, Total (08/27/2019) + +-------+ + + + | Component | Value | Ref Range | Performed | Pathologist | | | | | At | Signature | + +-------+ + + + | Cholesterol | 137 | 200 mg/dl | EXTERNAL | | | , Total, | | | LAB | | | External | | | | | + +-------+ + + + + + | Specimen | + + | Blood | + + + + | Resulting Agency Comment | + + | [facility] | + + + +---------+ + + | Performing | Address | City/State/Zipcode | Phone Number | | Organization | | | | + +---------+ + + | EXTERNAL LAB | | | | + +---------+ + + External Lab: Cholesterol, LDL Direct (08/27/2019) + +-------+ + + + | Component | Value | Ref Range | Performed | Pathologist | | | | | At | Signature | + +-------+ + + + | LDL | 73 | 100 | EXTERNAL | | | Cholesterol | | | LAB | | | , Direct, | | | | | | External | | | | | + +-------+ + + + + + | Specimen | + + | Blood | + + + + | Resulting Agency Comment | + + | [facility] | + + + +---------+ + + | Performing | Address | City/State/Zipcode | Phone Number | | Organization | | | | + +---------+ + + | EXTERNAL LAB | | | | + +---------+ + + documented in this encounter Visit Diagnoses Not on filedocumented in this encounter"
--- OUTSIDE RECORDS SUMMARY | ~2020-09-13 | XMS | Encounter Summary ---
Demographics + + + | Address | [address] | | | [place] [address] | + + + | Home Phone | | + + + | Preferred Language | Unknown | + + + | Marital Status | Single | + + + | Baptist Affiliation | 1073 | + + + | Race | White | + + + | Ethnic Group | Not or | + + + Author + + + | Author | [facility] | | | and [place] | + + + | Organization | [facility] | | | [...] Team Providers + +------+ + | Care Gun Examiner Name | Role | Phone | + +------+ + | August Sanford | PCP | | + +------+ + Encounter Details +--------+ + + + + | Date | Type | Department | Care Team | Description | +--------+ + + + + | 06/30/ | Imaging | [facility] | Provider, | | | 2019 | Exam | [facility] | MD [address] | | | | | IMAGING [address] | [place] | | | | | [address] | [place] [address] | | | | | [place] [address] | | | | | | [phone] | | | +--------+ + + + [...] [place], | | | | | | [place] [address] | | | | | | [phone] | | | | | | | | +--------+ + + + + | 11/23/ | Implant | Cardiology | JacquiadamClaudine, | Pacemaker | | 2019 | Monitor | | [address] [facility] | reprogramming/check | | | | | [place], | (Primary Dx); | | | | | [place] [address] | Tachycardia-bradycar | | | | | [phone] | samuel (HCC); | | | | | | Pacemaker, Dual | | | | | | Chamber, [address], | | | | | | MRI Capable, 09/30/19 | | | | | | [place]y | +--------+ + + + + | 03/08/ | Office | Neurology | Amarjit Fisher MD [address] | | | 2020 | Visit | | [address] | | | | | | [address] [place], | | | | | | [place] [address] | | | | | | [phone] | | | | | | | | +--------+ + + + + documented as of this encounter Procedures + +--------+ + + + | Procedure Name | Priori | Date/Time | Associated Diagnosis | Comments | | | ty | | | | + +--------+ + + + | XR ANKLE RIGHT 3 + | Routin | 06/13/2019 | | Results for this | | VW | e | 12:00 AM | | procedure are in the | | | | PDT | | results section. | + +--------+ + + + documented in this encounter Results XR Ankle Right 3 + Vw (06/13/2019 12:00 AM PDT) + + | Specimen | + + | | + + + + + | Narrative | Performed At | + + + | External films for comparison only | [facility] | | | | | No results will be in the chart. | | + + + + +---------+ + + | Performing | Address | City/State/Zipcode | Phone Number | | Organization | | | | + +---------+ + + | [facility] | | | | + +---------+ + + documented in this encounter Visit Diagnoses Not on filedocumented in this encounter"
--- OUTSIDE RECORDS SUMMARY | ~2020-09-13 | XMS | Encounter Summary ---
Demographics + + + | Address | [address] | | | [place] [address] | + + + | Home Phone | | + + + | Preferred Language | Unknown | + + + | Marital Status | Single | + + + | Confucianist Affiliation | 1073 | + + + | Race | White | + + + | Ethnic Group | Not or | + + + Author + + + | Author | [facility] | | | and [place] | + + + | Organization | [facility] | | | [...] Team Providers + +------+ + | Care Decontamination Worker Name | Role | Phone | + +------+ + | August Sanford | PCP | | + +------+ + Reason for Visit + +--------+ + | Reason | Onset | Comments | | | Date | | + +--------+ + | Appointment | 03/31/ | 04/04/20 | | | 2020 | | + +--------+ + Encounter Details +--------+ + + + + | Date | Type | Department | Care Team | Description | +--------+ + + + + | 03/31/ | Telephone | [facility] | Amarjit Fisher MD [address] | Appointment (04/04/20 | | 2020 | | NEUROLOGY [address] | [address] | ) | | | | [place] | [address] [place], | | | | | [place], [place] | [place] [address] | | | | | [address] | [phone] | | | | | [phone] | | | +--------+ + + + [...] this encounter Miscellaneous Notes Telephone Encounter - Chelsy Mo I - 04/01/2020 12:00 PM Yordan, is calling again for Appointment (04/04/20 ) and would like a call back. Additional Call Details: States her MRI is scheduled on 04/14 - requesting sooner follow u p appointment. Call back on home number listed. elephone Encounter - Marvin Wynn, Bar Steward - 04/01/2020 8:57 AM PDTReturned patient phone call, darvin jovani stated she has no completed imaging. Patient was rescheduled for a later date and verbali zed understanding. elephone Encounter - Molly Young - 03/31/2020 10:40 AM PDTSusan, is calling regarding Appointment (04/04/20 ) and would like a call back. Additional Call Details: Calling to reschedule 04/04/20 appointment. Has not been able to grande ve her MRI done. Please call Gris back at home number in chart. If this is a symptom based call, was patient offered triage? Not Applicable If this is a symptom based call and you were unable to immediately transfer the call to a p rovider mortar carrier was caller made aware that if at any time she feels it is an emergency they sh ould call 911 or go to the nearest emergency room? not applicable documented in this encounter Plan of Treatment [...] [place], | | | | | | [place] [address] | | | | | | [phone] | | | | | | | | +--------+ + + + + | 11/23/ | Implant | Cardiology | Claudine Gallegos, | Pacemaker | | 2019 | Monitor | | MD Mark Garcia | reprogramming/check | | | | | [address] [place], | (Primary Dx); | | | | | [place] [address] | Tachycardia-bradycar | | | | | [phone] | samuel (HCC); | | | | | | Pacemaker, Dual | | | | | | Chamber, [address], | | | | | | MRI Capable, 09/30/19 | | | | | | [place] | +--------+ + + + + | 03/08/ | Office | Neurology | Amarjit Fisher MD [address] | | | 2020 | Visit | | [address] | | | | | | [place], | | | | | | [place] [address] | | | | | | [phone] | | | | | | | | +--------+ + + + + documented as of this encounter Visit Diagnoses Not on filedocumented in this encounter"
--- OUTSIDE RECORDS SUMMARY | ~2020-09-13 | XMS | Encounter Summary ---
Demographics + + + | Address | [address] | | | [place] [address] | + + + | Home Phone | | + + + | Preferred Language | Unknown | + + + | Marital Status | Single | + + + | Jehovah'S Witness Affiliation | 1073 | + + + | Race | White | + + + | Ethnic Group | Not or | + + + Author + + + | Author | [facility] | | | and [place] | + + + | Organization | [facility] | | | [...] Providers + +------+ + | Care Diesel Engine Ii Pipe Fitter Name | Role | Phone | + +------+ + | August Sanford | PCP | | + +------+ + Reason for Visit Auth/Cert +--------+--------+ + + + + | Status | Reason | Specialty | Diagnoses / | Referred By | Referred To | | | | | Procedures | Contact | Contact | +--------+--------+ + + + + | | | | | | | +--------+--------+ + + + + Encounter Details +--------+ + + + + | Date | Type | Department | Care Team | Description | +--------+ + + + + | 06/13/ | Anesthesia | [facility] | Adalid Oconnor MD | | | 2019 | Event | [facility] | [address] | | | | | [address] | [place] | | | | | [place] | [address] | | | | | [address] | [phone] | | | | | [phone] | | | +--------+ + + + + Anesthesia Record + + + + + | Procedure Name | Responsible | Anesthesia Start | Anesthesia Stop Time | | | Anesthesiologist | Time | | + + + + + | CLOSED REDUCTION AND | Adalid Oconnor MD | 06/13/19 1405 | 06/13/19 1458 | | SPLINTING OF RIGHT | | | | | ANKLE FRACTURE | | | | | (Right Ankle) | | | | + + + + + +----+---+ + + | Da | T | Event | Comment | | te | i | | | | | m | | | | | e | | | +----+---+ + + | 07 | 1 | An Checkout | Pre-use anesthesia machine/equipment checkout. | | /2 | 4 | | | | 0/ | 0 | | | | 20 | 4 | | | | 19 | | | | +----+---+ + + | | 1 | An Start | Reassessment prior to anesthesia induction/procedure. | | | 4 | | | | | 0 | | | | | 5 | | | +----+---+ + + | | 1 | | | | | 4 | | | | | 0 | | | | | 6 | | | +----+---+ + + | | 1 | An Start | | | | 4 | Data | | | | 0 | | | | | 6 | | | +----+---+ + + | | 1 | Preoxygenat | | | | 4 | ed | | | | 1 | | | | | 0 | | | +----+---+ + + | | 1 | An | | | | 4 | Induction | | | | 1 | | | | | 1 | | | +----+---+ + + | | 1 | An | | | | 4 | Intubation | | | | 1 | | | | | 2 | | | +----+---+ + + | | 1 | First | | | | 4 | Inc/Proc St | | | | 1 | | | | | 4 | | | +----+---+ + + | | 1 | Pre-Procedu | | | | 4 | ral Timeout | | | | 1 | Completed | | | | 5 | | | +----+---+ + + | | 1 | Breathing | | | | 4 | Spontaneous | | | | 4 | ly | | | | 9 | | | +----+---+ + + | | 1 | Extubation/ | | | | 4 | Airway LDA | | | | 4 | Removal | | | | 9 | | | +----+---+ + + | | 1 | an stop | | | | 4 | data | | | | 4 | | | | | 9 | | | +----+---+ + + | | 1 | An Stop | Patient handed off to recovery nurse. | | | 5 | | | | | 8 | | | +----+---+ + + +------+ | Meds | +------+ + +--------+ | Name | Total | + +--------+ | propofol | 100 mg | + +--------+ | lidocaine 2% | 100 mg | + +--------+ | ropivacaine (NAROPIN) 5 mg/mL | 20 mL | | (0.5%) Perineural | | + +--------+ | LR (Infusion) | 500 mL | + +--------+ + + | Name | + + | N2O Flow Rate (L/Min) | + + | O2 Flow Rate (L/Min) | + + | Insp O2 | + + | Exp SEV | + + | Air Flow Rate (L/Min) | + + + + | No blood administrations on file. | + + +--------+ + + + | Type | Details | Placement | Removal | +--------+ + + + | Periph | 06/13/19; 1255; yes; Right; | 06/13/19 1255 by | 06/14/19 1400 by | | eral | Antecubital; 18 gauge; | Danii Murphy | Kristina Jain, | | IV | catheter/device intact; short | BONNIE Davison | RN | | | term use; 06/14/19; 1400 | | | +--------+ + + + | Urethr | 06/13/19; 1352; indicated due to | 06/13/19 1352 by | 06/14/19 1230 by | | al | specific surgical procedure; All | Danii Murphy | Kristina Jain, | | Cathet | elements; All elements; All | BONNIE Davison | RN | | er | elements; indwelling double lumen | | | | | catheter; 100% silicone; 14; | | | | | None; 2; 10; 10; none; drainage | | | | | bag to dependent drainage; short | | | | | term use; 06/14/19; 1230 | | | +--------+ + + + | Airway | Placement Date: 06/13/19; | 06/13/19 1406 by | 06/13/19 1449 by | | | Placement Time: 1406; Removal | Adalid Oconnor MD | Adalid Oconnor MD | | | Date: 06/13/19; Removal Time: | | | | | 1449 | | | +--------+ + + + | Airway | Placement Date: 06/13/19; | 06/13/19 1412 by | 06/13/19 1449 by | | | Placement Time: 1412; Airway | Adalid Oconnor MD | Adalid Oconnor MD | | | Type: oral, laryngeal mask, | | | | | cuffed; Size: 3; Tube Reference | | | | | Point: secure and patent; Trauma: | | | | | none; Placement Check: bilateral | | | | | chest rise, exhaled CO2 | | | | | detection device; Removal Date: | | | | | 06/13/19; Removal Time: 1449 | | | +--------+ + + + | Wound | 06/13/19; 1425; Incision; Right; | 06/13/191425 by | 06/13/191921 by | | | foot; Other (incision not present | Hina Arthur RN | Bárbara Delgado RN | | | on arrival ); 06/13/19; 1921 | | | +--------+ + + + documented in this encounter Social History + +-------+ +--------+------+ | Tobacco [...] + + documented as of this encounter OR Notes Anesthesia Postprocedure Evaluation - Adalid Oconnor MD - 06/13/2019 3:20 PM Eli copeland of this note might be different from the original. ANESTHESIA POSTANESTHESIA EVALUATION Gris Krishnamurthy 53 y.o. female 1965 [id number] Procedure(s) CLOSED REDUCTION AND SPLINTING OF RIGHT ANKLE FRACTURE (Right Ankle) Cooperates? Yes Mental Status Performs simple tasks. Respiratory Satisfactory - Airway patent (self maintained). Cardiovascular Satisfactory - Blood pressure and heart rate acceptable Temperature Satisfactory Pain Satisfactory N/V Control Satisfactory Hydration Satisfactory - No signs of dehydration Vitals Value Taken Time Temp 36.7 C (98.1 F) 06/13/2019 14:57 Pulse 107 06/13/2019 15:08 Resp 15 06/13/2019 15:08 BP 143/72 06/13/2019 15:05 Arterial Line BP Arterial Line BP 2 SpO2 99 % 06/13/2019 15:08 Vitals shown include unvalidated device data. Electronically signed by Adalid Oconnor MD 06/13/2019 15:20 [facility] signed by Adalid Oconnor MD at 06/13 3:20 PM PDTAnesthesia Procedure Notes - Adalid Oconnor MD - 06/13/2019 2:39 PM PDTA ssociated Order(s): Nerve BlockPerineural Procedure Note 06/13/2019 14:37 Nerve block: popliteal sciatic Laterality: right Continuous block with catheter: No Provider requested procedure: Dr. Mckenzie Indication: postoperative analgesia and acute pain management Preprocedure check: patient identified, preevaluation including airway assessment complete, consent obtained, reassessment prior to procedure, monitors applied, timeout performed, ris ks/benefits discussed and procedure and rescue equipment checked Patient position: supine Preparation: chlorhexidine/isopropyl alcohol, 1% lidocaine infiltration Introducer used: no Local anesthetic infiltration volume in ml: 0 mL Technique: ultrasound Radiology image stored in patient's chart: ultrasound Needle: echogenic Needle size: 21 g Needle length: 4 in Depth of nerve/plexus: 10 cm Catheter depth at skin: 10 cm Medication administered through: needle Negative findings: no blood aspirated and no CSF Test response dose: negative Total volume of local anesthetic solution administered: 20 mL Attempts: 1 Ease of procedure: easy Comments: Peripheral nerve block offered at the request of the attending surgeon. Patient ID and surgical laterality confirmed. Pre-procedure pause completed. Patient placed on monitors. Patient positioned supine and area of skin surrounding site of needle entry wa s cleaned with chloroprep solution and allowed to dry. Patient under LMA anesthesia. (1) Under ultrasound guidance, a 21 gauge needle was inserted and placed in close proximity to the sciatic nerve in the popliteal fossa. (2) Ultrasound was also used to visualize the spread of the anesthetic in close proximity to the nerves being blocked. (3) The nerve appe ared anatomically normal, and (4) there were no apparent abnormal pathological findings. (5) A permanent ultrasound image was saved in the patient's record. Medication dosing recorded in anesthesia record. Patient tolerated procedure well, conversant throughout with sedation. Please see anesthesia record or flowsheet for vital sign documentation and see anesthesia r ecord or MAR for all medication documentation. Medications Administered Ropivacaine (NAROPIN) 5 mg/mL (0.5%) Perineural, 20 mL Date/Time: 06/13/2019 14:37 Please see anesthesia record or flowsheet for vital sign documentation and see anesthesia r ecord or MAR for additional medication documentation. Performing provider: Adalid Oconnor MD nesthesia Procedure N otes - Adalid Oconnor MD - 06/13/2019 2:39 PM PDTAssociated Order(s): NeuraxialDocument Bl ocks and LDA Procedures nesthesia Preprocedur e Evaluation - Adalid Oconnor MD - 06/13/2019 2:02 PM PDT ANESTHESIA PREANESTHESIA EVALUATION Gris Krishnamurthy 53 y.o. female 1965 [id number] Procedure(s): ORIF RIGHT ANKLE FRACTURE (Right Ankle) Medical,anesthesia, drug, allergy histories reviewed, NPO status verified. . Review of Systems / Med History Anesthesia History (+) previous surgery or anesthesia Cardiovascular (+) Dysrhythmias: (+) atrial fibrillation, (+) essential hypertension, (+) valvular proble ms/murmurs : MVP . . Gastrointestinal/Hepatic (+) acid reflux. Endocrine (+) hypothyroidism. Neuromuscular (+) arthritis. Physical Exam Airway MP II, TM >3 FB, Mouth opening >2 FB. Neck: full ROM, extends <30 degrees. Jaw protrus ion limited. Dental ; (+) dentures-lower and dentures-upper. CV Rhythm regular. Rate Normal. Neuro Grossly normal. (+) weakness. Anesthesia Plan ASA 3 ([id number])E Type: General, regional. Induction: Intravenous. Potential problems: None anticipated. Monitors: Standard ASA monitors. Consent statement:Anesthetic plan, alternatives, risks and benefits discussed with patient and family. . Consenting person understands and agrees to proceed . documented in this enc ounter Miscellaneous Notes Anesthesia Post-op Handoff - Adalid Oconnor MD - 06/13/2019 3:01 PM PDT ANESTHESIA HANDOFF NOTE Gris Krishnamurthy 53 y.o. female 1965 [id number] The following were completed during the transfer of care: 1. Identification of patient 2. Identification of responsible practitioner (primary service) 3. Discussion of pertinent medical history 4. Discussion of the surgical/procedure course (procedure, reason for surgery, procedure pe rformed) 5. Intraoperative anesthetic management and issues/concerns 6. Expectations/plans for the early post-procedure period 7. Opportunity for questions and acknowledgement of understanding of report from receiving team Procedure(s): CLOSED REDUCTION AND SPLINTING OF RIGHT ANKLE FRACTURE Patient Location: Phase I Handoff Protocol Used: post-procedure handoff checklist completed Condition: awake and responds to stimuli Airway/O2: nasal cannula with O2 Multimodal analgesia: multimodal analgesia used between 6 hours prior to anesthesia start t o PACU discharge The significant anesthesia concerns and VS in Epic were reviewed with the receiving team. Adalid Oconnor MD 06/13/2019 15:01 [facility] signed by Adalid Oconnor MD at 06/13 3:02 PM PDTdocumented in this encounter Plan of Treatment +--------+ + + + + | Date | Type | Specialty | Care Team | Description | +--------+ + + + + | 10/10/ | Office | Cardiology | Claudine Gallegos, | | | 2019 | Visit | | MD [facility] [place], [place] | | | | | | [facility] [place] [place], | | | | | | [place] [address] | | | | | | [phone] | | | | | | | | +--------+ + + + + | 11/23/ | Implant | Cardiology | Claudine Gallegos, | Pacemaker | | 2019 | Monitor | | MD Mark Garcia | reprogramming/check | | | | | [facility] [place], | (Primary Dx); | | | | | [place] [address] | Tachycardia-bradycar | | | | | [phone] | samuel (HCC); | | | | | | Pacemaker, Dual | | | | | | Chamber, [facility], | | | | | | MRI Capable, 09/30/19 | | | | | | Rosy | +--------+ + + + + | 03/08/ | Office | Neurology | Amarjit Fisher MD [address] | | | 2020 | Visit | | [facility] | | | | | | [place], | | | | | | [place] [address] | | | | | | [phone] | | | | | | | | +--------+ + + + + documented as of this encounter Procedures + +--------+ + + + | Procedure Name | Priori | Date/Time | Associated Diagnosis | Comments | | | ty | | | | + +--------+ + + + | ANE NERVE BLOCK | Routin | 06/13/2019 | | Results for this | | CATHETER NOTE | e | 2:39 PM | | procedure are in the | | | | PDT | | results section. | + +--------+ + + + | ANE EPIDURAL NOTE | Routin | 06/13/2019 | | Results for this | | | e | 2:39 PM | | procedure are in the | | | | PDT | | results section. | + +--------+ + + + documented in this encounter Results Nerve Block (06/13/2019 2:39 PM PDT) + + + | Narrative | Performed At | + + + | Adalid Oconnor MD 06/13/2019 14:42 Perineural Procedure Note | | | 06/13/2019 14:37 Nerve block: popliteal sciatic Laterality: right | | | Continuous block with catheter: No Provider requested procedure: | | | Magaly Indication: postoperative analgesia and acute pain | | | management Preprocedure check: patient identified, preevaluation | | | including airway assessment complete, consent obtained, reassessment | | | prior to procedure, monitors applied, timeout performed, | | | risks/benefits discussed and procedure and rescue equipment checked | | | Patient position: supine Preparation: chlorhexidine/isopropyl | | | alcohol, 1% lidocaine infiltration Introducer used: no Local | | | anesthetic infiltration volume in ml: 0 mL Technique: ultrasound | | | Radiology image stored in patient's chart: ultrasound Needle: | | | echogenic Needle size: 21 g Needle length: 4 in Depth of | | | nerve/plexus: 10 cm Catheter depth at skin: 10 cm Medication | | | administered through: needle Negative findings: no blood aspirated | | | and no CSF Test response dose: negative Total volume of local | | | anesthetic solution administered: 20 mL Attempts: 1 Ease of | | | procedure: easy Comments: Peripheral nerve block offered at the | | | request of the attending surgeon. Patient ID and surgical | | | laterality confirmed. Pre-procedure pause completed. Patient placed | | | on monitors. Patient positioned supine and area of skin surrounding | | | site of needle entry was cleaned with chloroprep solution and | | | allowed to dry. Patient under LMA anesthesia. (1) Under ultrasound | | | guidance, a 21 gauge needle was inserted and placed in close | | | proximity to the sciatic nerve in the popliteal fossa. (2) | | | Ultrasound was also used to visualize the spread of the anesthetic in | | | close proximity to the nerves being blocked. (3) The nerve appeared | | | anatomically normal, and (4) there were no apparent abnormal | | | pathological findings. (5) A permanent ultrasound image was saved in | | | the patient's record. Medication dosing recorded in anesthesia | | | record. Patient tolerated procedure well, conversant throughout | | | with sedation. Please see anesthesia record or flowsheet for | | | vital sign documentation and see anesthesia record or MAR for all | | | medication documentation. Medications Administered | | | Ropivacaine (NAROPIN) 5 mg/mL (0.5%) Perineural, 20 mL Date/Time: | | | 06/13/2019 14:37 Please see anesthesia record or flowsheet for | | | vital sign documentation and see anesthesia record or MAR for | | | additional medication documentation. Performing provider: | | | Adalid Oconnor MD | | + + + + + | Procedure Note | + + | Adalid Oconnor MD - 06/13/2019 2:39 PM PDT Perineural Procedure Note06/13/2019 | | 14:37Nerve block: popliteal sciaticLaterality: rightContinuous block with catheter: | | NoProvider requested procedure: Dr. MckenzieIndication: postoperative analgesia and | | acute pain managementPreprocedure check: patient identified, preevaluation including | | airway assessment complete, consent obtained, reassessment prior to procedure, monitors | | applied, timeout performed, risks/benefits discussed and procedure and rescue equipment | | checkedPatient position: supinePreparation: chlorhexidine/isopropyl alcohol, 1% | | lidocaine infiltrationIntroducer used: noLocal anesthetic infiltration volume in ml: 0 | | mLTechnique: ultrasoundRadiology image stored in patient's chart: ultrasoundNeedle: | | echogenicNeedle size: 21 gNeedle length: 4 inDepth of nerve/plexus: 10 cmCatheter depth | | at skin: 10 cmMedication administered through: needleNegative findings: no blood | | aspirated and no CSFTest response dose: negativeTotal volume of local anesthetic | | solution administered: 20 mLAttempts: 1Ease of procedure: easyComments: Peripheral nerve | | block offered at the request of the attending surgeon.Patient ID and surgical | | laterality confirmed. Pre-procedure pause completed. Patient placed on monitors. Patient | | positioned supine and area of skin surrounding site of needle entry was cleaned with | | chloroprep solution and allowed to dry. Patient under LMA anesthesia.(1) Under | | ultrasound guidance, a 21 gauge needle was inserted and placed in close proximity to the | | sciatic nerve in the popliteal fossa. (2) Ultrasound was also used to visualize the | | spread of the anesthetic in close proximity to the nerves being blocked. (3) The nerve | | appeared anatomically normal, and (4) there were no apparent abnormal pathological | | findings. (5) A permanent ultrasound image was saved in the patient's record. Medication | | dosing recorded in anesthesia record.Patient tolerated procedure well, conversant | | throughout with sedation. Please see anesthesia record or flowsheet for vital sign | | documentation and see anesthesia record or MAR for all medication | | documentation. Medications AdministeredRopivacaine (NAROPIN) 5 mg/mL (0.5%) Perineural, | | 20 mLDate/Time: 06/13/2019 14:37Please see anesthesia record or flowsheet for vital sign | | documentation and see anesthesia record or MAR for additional medication | | documentation.Performing provider: Adalid Oconnor MD | |Patient ID and surgical laterality confirmed. Pre-procedure pause completed. Patient placed on monitors. Patient positioned supine and area of skin surrounding site of needle entry wa s cleaned with chloroprep | |solution and allowed to dry. Patient under LMA anesthesia. | | | |(1) Under ultrasound guidance, a 21 gauge needle was inserted and placed in close proximity to the sciatic nerve in the popliteal fossa. (2) Ultrasound was also used to visualize the spread of the anesthetic in | |close proximity to the nerves being blocked. (3) The nerve appeared anatomically normal, an d (4) there were no apparent abnormal pathological findings. (5) A permanent ultrasound imag e was saved in the patient's record. | | | |Medication dosing recorded in anesthesia record. | | | |Patient tolerated procedure well, conversant throughout with sedation. | | | |Please see anesthesia record or flowsheet for vital sign documentation and see anesthesia r ecord or MAR for all medication documentation. | | | | | | | | | |Medications Administered | |Ropivacaine (NAROPIN) 5 mg/mL (0.5%) Perineural, 20 mL | |Date/Time: 06/13/2019 14:37 | | | | | |Please see anesthesia record or flowsheet for vital sign documentation and see anesthesia r ecord or MAR for additional medication documentation. | | | | | |Performing provider: Adalid Oconnor MD | + + Neuraxial (06/13/2019 2:39 PM PDT) + + + | Narrative | Performed At | + + + | Adalid Oconnor MD 06/13/2019 14:39 Document Blocks and LDA | | | Procedures | | + + + + + | Procedure Note | + + | Adalid Oconnor MD - 06/13/2019 2:39 PM PDT Document Blocks and LDA Procedures | + + documented in this encounter Visit Diagnoses Not on filedocumented in this encounter Administered Medications + +---------+ +------+------+------+ | Medication Order | MAR | Action | Dose | Rate | Site | | | Action | Date | | | | + +---------+ +------+------+------+ | lactated ringers (LR) infusion | New Bag | 06/13/20 | | | | | Intravenous, CONTINUOUS PRN, | | 19 2:04 | | | | | Starting 06/13/19 at 1404, | | PM PDT | | | | | Anesthesia Intra-op | | | | | | + +---------+ +------+------+------+ +---+---+ | | | +---+---+ + +-------+ +--------+---+---+ | lidocaine (PF) 2% injection | Given | 06/13/20 | 100 mg | | | | Intravenous, PRN, Starting Sat | | 19 2:11 | | | | | 06/13/19 at 1411, Anesthesia | | PM PDT | | | | | Intra-op | | | | | | + +-------+ +--------+---+---+ +---+---+ | | | +---+---+ + +-------+ +--------+---+---+ | propofol (DIPRIVAN) injection | Given | 06/13/20 | 100 mg | | | | Intravenous, PRN, Starting Sat | | 19 2:11 | | | | | 06/13/19 at 1411, Anesthesia | | PM PDT | | | | | Intra-op | | | | | | + +-------+ +--------+---+---+ +---+---+ | | | +---+---+ + +-------+ +--------+---+---+ | ropivacaine (NAROPIN) 5 mg/mL | Given | 06/13/20 | 20 mLs | | | | (0.5%) injection PERINEURAL, | | 19 2:37 | | | | | Starting 06/13/19 at 1437, | | PM PDT | | | | | Anesthesia Intra-op | | | | | | + +-------+ +--------+---+---+ +---+---+ | | | +---+---+ documented in this encounter"
--- OUTSIDE RECORDS SUMMARY | ~2020-09-13 | XMS | Encounter Summary ---
Demographics + + + | Address | [address] | | | [place] [address] | + + + | Home Phone | | + + + | Preferred Language | Unknown | + + + | Marital Status | Single | + + + | Jain Affiliation | 1073 | + + + | Race | White | + + + | Ethnic Group | Not or | + + + Author + + + | Author | [facility] | | | and [place] | + + + | Organization | [facility] | | | [...] Team Providers + +------+ + | Care Pool Nurse Name | Role | Phone | + +------+ + | August Sanford | PCP | | + +------+ + Reason for Visit +--------+--------+ + | Reason | Onset | Comments | | | Date | | +--------+--------+ + | Other | 10/01/ | Pacemaker implantation precaution review. | | | 2018 | | +--------+--------+ + Encounter Details +--------+ + + + + | Date | Type | Department | Care Team | Description | +--------+ + + + + | 10/01/ | Telephone | [facility] | Claudine Gallegos, | Other (Pacemaker | | 2019 | | CARDIOLOGY [address] | implantation | | | | [place], | [place], | precaution review.) | | | | [place] [address] | [place] [address] | | | | | [phone] | [phone] | | | | | | | [...] Telephone Encounter - Manda Seaman RN - 10/01/2019 11:40 AM PSTSpoke to Gris, Precaution s are reviewed including the use of canes/crutches/walkers in regards to weight bearing due to her broken leg. She is advised to maintain precautions until 10/21. She advised she has a wound check with her PCP next week. Discussed [place] set up. Electronically signed by: Manda Seaman RN 10/01/2019 11:42 elephone Encounter - Manda Seaman RN - 10/01/2019 11:27 AM PST2nd attempt, message le ft for patient to call back. Electronically signed by: Manda Seaman RN 10/01/2019 11:27Elect ronically signed by Manda Seaman RN at 10/01/2019 11:29 AM PSTTelephone Encounter - Manda Seaman RN - 10/01/2019 8:26 AM PSTCalled to review precautions with patient S/P pacemaker implantation. No answer. Electronically signed by: Manda Seaman RN 10/01/2019 8:27Electronic ally signed by Manda Seaman RN at 10/01/2019 8:27 AM PSTdocumented in this encounter Plan of Treatment +--------+ + + + + | Date | Type | Specialty | Care Team | Description | +--------+ + + + + | 10/10/ | Office | Cardiology | Claudine Gallegos, | | | 2019 | Visit | | MD Mark [address] | | | | | | [place], | | | | | | [place] [address] | | | | | | [phone] | | | | | | | | +--------+ + + + + | 11/23/ | Implant | Cardiology | Claudine Gallegos, | Pacemaker | | 2019 | Monitor | | MD Mark Garcia | reprogramming/check | | | | | [place], | (Primary Dx); | | | | | [place] [address] | Tachycardia-bradycar | | | | | [phone] | samuel (HCC); | | | | [...] [place], | | | | | | [place] [address] | | | | | | [phone] | | | | | | | | +--------+ + + + + documented as of this encounter Visit Diagnoses Not on filedocumented in this encounter"
--- OUTSIDE RECORDS SUMMARY | ~2020-09-13 | XMS | Encounter Summary ---
Demographics + + + | Address | [address] | | | [place] [address] | + + + | Home Phone | | + + + | Preferred Language | Unknown | + + + | Marital Status | Single | + + + | Tenriism Affiliation | 1073 | + + + [...] Team Providers + +------+ + | Care Trust Vault Clerk Name | Role | Phone | + +------+ + | August Sanford | PCP | | + +------+ + Encounter Details +--------+ + + + + | Date | Type | Department | Care Team | Description | +--------+ + + + + | 12/16/ | Abstract | [facility] | Yazmin, | | | 2019 | | CARDIOLOGY [address] | [address] | | | | | [place], | [place] | | | | | [place] [address] | [place] [address] | | | | | [phone] | | | +--------+ + + + [...] Cardiology | Claudine Gallegos, | | | 2020 | Visit | | [address] | | | | | | [place], | | | | | | [place] [address] | | | | | | [phone] | | | | | | | | +--------+ + + + + | 11/23/ | Implant | Cardiology | Claudine Gallegos, | Pacemaker | | 2019 | Monitor | | [address] | reprogramming/check | | | | | 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 | samuel (HCC); | | | | | | Pacemaker, Dual | | | | | | [place], [address] [place], | | | | | | MRI Capable, 09/30/19 | | | | | | Rosy | +--------+ + + + + | 03/08/ | Office | Neurology | Amarjit Fisher MD [address] | | | 2020 | Visit | | [employer] | | | | | | [address] [place], | | | | | | [place] [address] | | | | | | [phone] | | | | | | | | +--------+ + + + + documented as of this encounter Procedures + +--------+ + + + | Procedure Name | Priori | Date/Time | Associated Diagnosis | Comments | | | ty | | | | + +--------+ + + + | EXTERNAL LAB: BUN | Routin | 08/19/2018 | | Results for this | | | e | | | procedure are in the | | | | | | results section. | + +--------+ + + + | EXTERNAL LAB: SHANNON | Gunnar | 08/19/2018 | | Results for this | | | e | | | procedure are in the | | | | | | results section. | + +--------+ + + + | EXTERNAL LAB: [facility] | Gunnar | 08/19/2018 | | Results for this | | | e | | | procedure are in the | | | | | | results section. | + +--------+ + + + | EXTERNAL LAB: | Routin | 08/19/2018 | | Results for this | | ALKALINE PHOSPHATASE | e | | | procedure are in the | | | | | | results section. | + +--------+ + + + | EXTERNAL LAB: | Routin | 08/19/2018 | | Results for this | | BILIRUBIN, TOTAL | e | | | procedure are in the | | | | | | results section. | + +--------+ + + + | EXTERNAL LAB: | Routin | 08/19/2018 | | Results for this | | ALBUMIN | e | | | procedure are in the | | | | | | results section. | + +--------+ + + + | EXTERNAL LAB: | Routin | 08/19/2018 | | Results for this | | PROTEIN, TOTAL | e | | | procedure are in the | | | | | | results section. | + +--------+ + + + | EXTERNAL LAB: | Routin | 08/19/2018 | | Results for this | | CALCIUM | e | | | procedure are in the | | | | | | results section. | + +--------+ + + + | EXTERNAL LAB: [facility] | Routin | 08/19/2018 | | Results for this | | DIOXIDE | e | | | procedure are in the | | | | | | results section. | + +--------+ + + + | EXTERNAL LAB: | Routin | 08/19/2018 | | Results for this | | CHLORIDE | e | | | procedure are in the | | | | | | results section. | + +--------+ + + + | EXTERNAL LAB: | Routin | 08/19/2018 | | Results for this | | POTASSIUM | e | | | procedure are [...] this | | CREATININE | e | | | procedure are in the | | | | | | results section. | + +--------+ + + + documented in this encounter Results External Lab: KIRK (08/19/2018) + +-------+ + + + | Component | Value | Ref Range | Performed | Pathologist | | | | | At | Signature | + +-------+ + + + | KIRK, | 20 | 6 - 23 | | | | External | | | | | + +-------+ + + + External Lab: SHANNON (08/19/2018) + +-------+ + + + | Component | Value | Ref Range | Performed | Pathologist | | | | | At | Signature | + +-------+ + + + | SHANNON, | 15 | 7 - 52 | | | | External | | | | | + +-------+ + + + External Lab: AST (08/19/2018) + +-------+ + + + | Component | Value | Ref Range | Performed | Pathologist | | | | | At | Signature | + +-------+ + + + | AST, | 14 | 13 - 39 | | | | External | | | | | + +-------+ + + + External Lab: Alkaline Phosphatase (08/19/2018) + +-------+ + + + | Component | Value | Ref Range | Performed | Pathologist | | | | | At | Signature | + +-------+ + + + | ALP, | 110 | 31 - 130 | | | | External | | | | | + +-------+ + + + External Lab: Bilirubin, Total (08/19/2018) + +-------+ + + + | Component | Value | Ref Range | Performed | Pathologist | | | | | At | Signature | + +-------+ + + + | Bilirubin, | 0.4 | 0 - 1.2 | | | | Total, | | | | | | External | | | | | + +-------+ + + + External Lab: Albumin (08/19/2018) + +-------+ + + + | Component | Value | Ref Range | Performed | Pathologist | | | | | At | Signature | + +-------+ + + + | Albumin, | 4.1 | 3.5 - 5 | | | | External | | | | | + +-------+ + + + External Lab: Protein, Total (08/19/2018) + +-------+ + + + | Component | Value | Ref Range | Performed | Pathologist | | | | | At | Signature | + +-------+ + + + | Protein, | 6.7 | 6 - 8.3 | | | | Total, | | | | | | External | | | | | + +-------+ + + + External Lab: Calcium (08/19/2018) + +-------+ + + + | Component | Value | Ref Range | Performed | Pathologist | | | | | At | Signature | + +-------+ + + + | Calcium, | 9.7 | 8.5 - 10.3 | | | | External | | | | | + +-------+ + + + External Lab: Carbon Dioxide (08/19/2018) + +-------+ + + + | Component | Value | Ref Range | Performed | Pathologist | | | | | At | Signature | + +-------+ + + + | Carbon | 25 | 19 - 31 | | | | Dioxide, | | | | | | External | | | | | + +-------+ + + + External Lab: Chloride (08/19/2018) + +-------+ + + + | Component | Value | Ref Range | Performed | Pathologist | | | | | At | Signature | + +-------+ + + + | Chloride, | 102 | 95 - 112 | | | | External | | | | | + +-------+ + + + External Lab: Potassium (08/19/2018) + +-------+ + + + | Component | Value | Ref Range | Performed | Pathologist | | | | | At | Signature | + +-------+ + + + | Potassium, | 4.7 | 3.6 - 5.1 | | | | External | | | | | + +-------+ + + + External Lab: Sodium (08/19/2018) + +-------+ + + + | Component | Value | Ref Range | Performed | Pathologist | | | | | At | Signature | + +-------+ + + + | Sodium, | 141 | 132 - 143 | | | | External | | | | | + +-------+ + + + External Lab: CBC (08/19/2018) + + + + + + | Component | Value | Ref Range | Performed | Pathologist | | | | | At | Signature | + + + + + + | WBC, | 5.7 | 4.5 - 11 | | | | External | | | | | + + + + + + | HGB, | 14.5 | 12 - 16 | | | | External | | | | | + + + + + + | HCT, | 45.8 (A) | 35 - 45 | | | | External | | | | | + + + + + + | PLT, | 169 | 140 - 440 | | | | External | | | | | + + + + + + | RBC, | 5.02 | 3.8 - 5.1 | | | | External | | | | | + + + + + + | MCV, | 91 | 81 - 99 | | | | External | | | | | + + + + + + | RDW, | 14.8 | 10.5 - 15 | | | | External | | | | | + + + + + + External Lab: Triglycerides (08/19/2018) + +-------+ + + + | Component | Value | Ref Range | Performed | Pathologist | | | | | At | Signature | + +-------+ + + + | Triglycerid | 252 | | | | | es, | | | | | | External | | | | | + +-------+ + + + + + | Specimen | + + | Blood | + + External Lab: Cholesterol, HDL (08/19/2018) + +-------+ + + + | Component | Value | Ref Range | Performed | Pathologist | | | | | At | Signature | + +-------+ + + + | HDL | 44.1 | mg/dl | | | | Cholesterol | | | | | | , External | | | | | + +-------+ + + + + + | Specimen | + + | Blood | + + External Lab: Cholesterol, Total (08/19/2018) + +-------+ + + + | Component | Value | Ref Range | Performed | Pathologist | | | | | At | Signature | + +-------+ + + + | Cholesterol | 246 | mg/dl | | | | , Total, | | | | | | External | | | | | + +-------+ + + + + + | Specimen | + + | Blood | + + External Lab: Cholesterol, LDL (08/19/2018) + +-------+ + + + | Component | Value | Ref Range | Performed | Pathologist | | | | | At | Signature | + +-------+ + + + | LDL | 50 | | | | | Cholesterol | | | | | | , Direct, | | | | | | External | | | | | + +-------+ + + + + + | Specimen | + + | Blood | + + External Lab: eGFR (08/19/2018) + +-------+ + + + | Component | Value | Ref Range | Performed | Pathologist | | | | | At | Signature | + +-------+ + + + | eGFR, | 63 | | | | | External | | | | | + +-------+ + + + + + | Specimen | + + | Blood | + + External Lab: Creatinine (08/19/2018) + +-------+ + + + | Component | Value | Ref Range | Performed | Pathologist | | | | | At | Signature | + +-------+ + + + | Creatinine, | 0.93 | 0.7 - 1.33 | | | | External | | | | | + +-------+ + + + + + | Specimen | + + | Blood | + + documented in this encounter Visit Diagnoses Not on filedocumented in this encounter"
--- OUTSIDE RECORDS SUMMARY | ~2020-09-13 | XMS | Encounter Summary ---
Demographics + + + | Address | [address] | | | [place] [address] | + + + | Home Phone [...] Author + + + | Author | [facility] | | | and [place] | + + + | Organization | [facility] | | [...] Team Providers + +------+ + | Care Product Marketing Specialist Name | Role | Phone | + +------+ + | August Sanford | PCP | | + +------+ + Reason for Visit Auth/Cert +--------+--------+ + + + + | Status | Reason | Specialty | Diagnoses / | Referred By | Referred To | | | | | Procedures | Contact | Contact | +--------+--------+ + + + + | | | | Diagnoses | | | | | | | flecainide | | | | | | | initiation | | | +--------+--------+ + + + + Encounter Details +--------+ + + + + | Date | Type | Department | Care Team | Description | +--------+ + + + + | 04/26/ | Hospital | [facility] | Dionisio Gallegos, | Paroxysmal atrial | | 2020 - | Encounter | [facility] | MD [address] | fibrillation (HCC) | | | | [address] | [place], | | | 04/27/ | | [place] [address] | [place] [address] | | | 2019 | | [phone] | [phone] | | | | | | | [...] + + documented as of this encounter Last Filed Vital Signs + + + + + | Vital Sign | Reading | Time Taken | Comments | + + + + + | Blood Pressure | 111/60 | 04/27/2020 11:30 AM | | | | | PDT | | + + + + + | Pulse | 59 | 04/27/2020 11:30 AM | | | | | PDT | | + + + + + | Temperature | 36.7 C (98.1 F) | 04/27/2020 11:30 AM | | | | | PDT | | + + + + + | Respiratory Rate | 18 | 04/27/2020 11:30 AM | | | | | PDT | | + + + + + | Oxygen Saturation | 97% | 04/27/2020 11:30 AM | | | | | PDT | | + + + + + | Inhaled Oxygen | - | - | | | Concentration | | | | + + + + + | Weight | 96.6 kg (212 lb 15.4 | 04/26/2020 11:07 AM | | | | oz) | PDT | | + + + + + | Height | 162.6 cm (5' 4.02") | 04/26/2020 7:17 AM | | | | | PDT | | + + + + + | Body Mass Index | 36.54 | 04/26/2020 7:17 AM | | | | | PDT | | + + + + + documented in this encounter Functional Status + + + [...] + + documented as of this encounter Medications at Time of Discharge + + + +---------+ + + | Medication | Sig | Dispensed | Refills | Start | End Date | | | | | | Date | | + + + +---------+ + + | allopurinol | Take 300 mg by mouth | | 0 | | | | (ZYLOPRIM) 300 mg | Daily. | | | | | | tablet | | | | | | + + + +---------+ + + | atorvaSTATin | Take 40 mg by mouth | | 0 | | | | (LIPITOR) 40 mg | nightly. | | | | | | tablet | | | | | | + + + +---------+ + + | busPIRone (BUSPAR) | take 1 tablet by | | 0 | 11/20/20 | | | 30 MG tablet | mouth twice a day | | | 18 | | + + + +---------+ + + | colchicine 0.6 mg | Take 0.6 mg by mouth | | 0 | | | | tablet | as needed. | | | | | + + + +---------+ + + | diclofenac | Take 75 mg by mouth | | 0 | 08/18/20 | | | (VOLTAREN) 75 mg EC | 2 times daily. 1 | | | 19 | | | tablet | tablet by mouth two | | | | | | | times daily | | | | | + + + +---------+ + + | ELIQUIS 5 MG | 5 mg 2 times daily. | | 0 | 12/14/19 | | | tablet | | | | 19 | | + + + +---------+ + + | flecainide | Take 1 tablet by | 60 | 3 | /02/11 | | | (TAMBOCOR) 100 mg | mouth every 12 | tablet | | 20 | | | tablet | hours. | | | | | + + + +---------+ + + | folic acid 1 mg | Take 1 mg by mouth | | 0 | | | | tablet | Daily. | | | | | + + + +---------+ + + | furosemide (LASIX) | take 1 tablet by | | 0 | 10/21/20 | | | 40 mg tablet | mouth twice a day | | | 18 | | | | for HEART FAILURE; | | | | | | | TO BE TAKEN... | | | | | | | (REFER TO | | | | | | | PRESCRIPTION NOTES). | | | | | + + + +---------+ + + | levothyroxine | take 1 tablet by | | 0 | 12/15/19 | | | (SYNTHROID) 75 MCG | mouth every morning | | | 19 | | | tablet | ON AN EMPTY STOMACH | | | | | + + + +---------+ + + | LORazepam (ATIVAN) | take 1 tablet by | | 0 | 07/29/20 | | | 0.5 mg tablet | mouth twice a day if | | | 19 | | | | needed for anxiety | | | | | + + + +---------+ + + | magnesium oxide | take 1 tablet by | | 0 | 10/21/20 | | | (MAG-OX) 400 mg | mouth once daily NO | | | 18 | | | tablet | REFILLS FROM THIS | | | | | | | PROVIDER | | | | | + + + +---------+ + + | meclizine | Take 25 mg by mouth | | 0 | | | | (ANTIVERT) 25 mg | 3 times daily as | | | | | | tablet | needed. | | | | | + + + +---------+ + + | metoprolol | 25 mg 2 times daily. | | 0 | 12/10/19 | | | tartrate (LOPRESSOR) | | | | 19 | | | 25 mg tablet | | | | | | + + + +---------+ + + | potassium chloride | take 1 tablet by | | 0 | 11/20/20 | | | (MEMOOR-CON M20) 20 | mouth twice a day | | | 18 | | | mEq ER tablet | with food | | | | | + + + +---------+ + + | prazosin | take 1 capsule by | | 0 | 11/20/20 | | | (MINIPRESS) 2 MG | mouth at bedtime MAY | | | 18 | | | capsule | INCREASE TO 2 | | | | | | | capsules at bedtime | | | | | + + + +---------+ + + | sertraline | take 1 tablet by | | 0 | 11/20/20 | | | (ZOLOFT) 100 mg | mouth once daily | | | 18 | | | tablet | | | | | | + + + +---------+ + + | zaleplon (SONATA) | Take 10 mg by mouth | | 0 | | | | 10 MG capsule | nightly. | | | | | + + + +---------+ + + | gabapentin | Take 300 mg by mouth | | 0 | | | | (NEURONTIN) 300 mg | 2 times daily. | | | | 0 | | capsule | | | | | | + + + +---------+ + + documented as of this encounter Progress Notes Dionisio Gallegos MD - 04/27/2020 6:00 AM PDTFormatting of this note might be different f rom the original. PATIENT NAME: Gris Krishnamurthy : 1965: AGE: 54 y.o. ADMISSION DATE: 04/26/2020 HOSPITAL DAY NUMBER: 1 PRIMARY CARE: FRANCO Fernandes CONSULTING PROVIDER: Dionisio Gallegos MD CARDIOLOGY PROGRESS NOTE DATE OF SERVICE: 04/27/20 SUBJECTIVE: Yesterday, patient was initiated with flecainide 100 mg twice a day to suppress PSVT. She became nauseated after second dose of flecainide. This morning, patient is feeling good and no longer feels nauseous. She also denies palpitations. There is no chest pain or chest di scomfort both at rest and on exertion. Patient denies breathlessness. There is no dizzines s or lightheadedness. There is no ankle or leg swelling. Patient can sleep on one pillow a t night without difficulty breathing. Telemetry shows 100% A-paced. PAC's with heart rate of 60-70. CURRENT SCHEDULED MEDS: allopurinol 300 mg Oral Daily apixaban 5 mg Oral BID atorvaSTATin 40 mg Oral Nightly busPIRone 30 mg Oral BID diclofenac 75 mg Oral BID flecainide 100 mg Oral 2 times per day folic acid 1 mg Oral Daily furosemide 40 mg Oral Daily gabapentin 300 mg Oral BID levothyroxine 75 mcg Oral QAM AC meclizine 25 mg Oral TID metoprolol tartrate 25 mg Oral BID pharmacy consult - other medications/reasons Other Pharmacy Consult potassium chloride 20 mEq Oral Daily prazosin 2 mg Oral Nightly sertraline 100 mg Oral Nightly acetaminophen, calcium carbonate, colchicine, docusate sodium, LORazepam, ondansetron IV INFUSIONS: OBJECTIVE: PHYSICAL EXAM Latest VS: BP 100/52 | Pulse 59 | Temp 35.7 C (96.3 F) (Oral) | Resp 17 | Ht 1.626 m (5' 4.02") | Wt 96.6 kg (212 lb 15.4 oz) | LMP 08/29/2007 | SpO2 98% | No | BMI 36.54 kg/m Admit Weight: Weight: 96.6 kg (212 lb 15.4 oz) Current weight: Weight: 96.6 kg (212 lb 15.4 oz) Vital sign ranges for last 24hrs: Input and output for last 24hrs: Temp: [35.7 C (96.3 F)-36.8 C (98.2 F)] 35.7 C (96.3 F) Pulse: [58-63] 59 Resp: [17-18] 17 BP: (92-135)/(52-85) 100/52 SpO2 Av.2 % Min: 94 % Max: 98 % 04/25 701 - 04/26 1900 In: 2035 [P.O.:2035] Out: 775 [Urine:775] Constitutional General appearance: Female individual, well developed, well nourished, well groomed, n o acute distress Cardiovascular Palp/Percussion: PMI in 5th ICS at MCL; no lifts, thrills, palp S3 or S4. Auscultation: normal S1 S2; no gallop or rub or click Murmur: none Carotid arteries: pulses 2+, symmetric, no bruits Abdominal aorta: no enlargement or bruits Pedal pulses: pulses 2+, symmetric Peripheral circulation: no cyanosis, clubbing, edema, or varicosities Gastrointestinal Abdomen: soft, non-tender Liver and spleen: no enlargement Mental Status/Neurological Orientation: oriented to time, place, and person Affect/Mood: no depression, anxiety, or agitation Respiratory Respiratory effort: no intercostal retractions or use of accessory muscles Auscultation: no rales, rhonchi, or wheezes LABS Recent Results (from the past 24 hour(s)) Basic Metabolic Panel Collection Time: 04/26/20 7:52 AM Result Value Ref Range Na 144 136 - 145 mmol/L K 3.4 3.4 - 5.1 mmol/L Cl 106 98 - 107 mmol/L CO2 31 20 - 31 mmol/L Anion Gap 7 3 - 16 mmol/L Glucose 93 60 - 106 mg/dL BUN 12 9 - 23 mg/dL Creatinine 0.82 0.55 - 1.02 mg/dL eGFR if not >60 >=60 mL/min/1.73m2 Calcium 8.8 8.7 - 10.4 mg/dL BUN/Creatinine Ratio 14.6 Extra Lavender Top Tube Collection Time: 04/26/20 7:52 AM Result Value Ref Range Extra Lavender Top Tube Done ECG 12 lead Collection Time: 04/26/20 8:26 AM Result Value Ref Range VENTRICULAR RATE EKG 60 BPM ATRIAL RATE 60 BPM P-R INTERVAL 186 ms QRS DURATION 84 ms Q-T INTERVAL 438 ms Q-T INTERVAL (CORRECTED) 438 ms P WAVE AXIS 4 degrees QRS AXIS 49 degrees T AXIS 151 degrees INTERPRETATION TEXT Atrial-paced rhythm ST & T wave abnormality, consider inferolateral ischemia Abnormal ECG When compared with ECG of 30-SEP-2019 11:09, Electronic atrial pacemaker has replaced Electronic ventricular pacemaker Confirmed by DIONISIO GALLEGOS MD ([id number]) on 04/26/2020 12:51:02 PM ECG: I personally independently reviewed ECG tracing during this visit (interpreted and aki led by another provider): Results for orders placed or performed during the hospital encounter of 04/26/20 ECG 12 lead Result Value Ref Range INTERPRETATION TEXT Atrial-paced rhythm ST & T wave abnormality, consider inferolateral ischemia Abnormal ECG When compared with ECG of 30-SEP-2019 11:09, Electronic atrial pacemaker has replaced Electronic ventricular pacemaker Confirmed by DIONISIO GALLEGOS MD ([id number]) on 04/26/2020 12:51:02 PM PRODUCTION SCHEDULER/METROLOGIST: 100% A-paced. PAC's with heart rate of 60-70. ASSESSMENT: 1.Symptomatic paroxsymal supraventricular tachycardia A.She was last seen for a virtual visit on 04/19/2020. At that daniel e, patient complained of palpitations through out the day and kept her from sleeping. Pacema ker remote download documented PSVT and heart rate of 135-185 bpm. Plan was to admit patient for flecainide initiation 100 mg twice a day to suppress PSVT. B. Yesterday, patient was initiated with flecainide 100 mg twice a day to suppr ess PSVT. She became nauseated after second dose of flecainide. This morning, patient is f eeling good and no longer feels nauseous. She also denies palpitations.. There is no signs and symptoms of overt congestive heart failure. She is in a class I of [facility] functional class. There is no fluid retention on physical examination. 2.Paroxysmal atrial fibrillation, symptomatic tachycardia/bradycardia syndrome: A. 24 Holter monitor on 05/02/16 shows, underlying rhythm is sinus rh ythm with average heart rate of 55 beats per minute ( minimum heart rate was 44 beats per mi nutes and maximum heart rate 73 beats per minute), rare PVCs and PACs were noted, no ventric ular or supraventricular dysrhythmias were noted, no pauses or bradyarrhythmias were noted o ther than sinus bradycardia, no diary was submitted, clinical correlation is advised. By MD Mihai Vargas. Successful loop recorderimplantation on 05/04/16at elin IrvinSuccessful permanentpacemakerimplantation and loop recorder explantation on09/30/2019 by Dionisio Gallegos MD Her risks for stroke include: 0, Congestive Heart Failure/LV dysfun ction (1), Hx of HTN (1), Age >/= 75 Y.O.(2), Diabetes (1), Stroke/TIA/Thrombo-embolism (2), Vascular disease (1), Age 65 to 74 (1) and Female Gender (1). [id number] is 0 risk of stroke per year in atrial fibrillation. Herbleeding risks include: ETOH (1). HerHASBLED score is 0-1, which confers a low risk (1-3.4%) risk of bleed per year. Rema griffin was put on Eliquis by her truck mechanic in [place]. I didn't think that she needs long-te rm use oral anticoagulant because she has no risk factors. 3. Noncardiac chest pain: A. She was seen in the emergency department at [facility] on 11/26 07/13 for chest pain, shortness of breath. She started to have chest pain symptoms on . They gave her nitroglycerin sublingual and the emergency department and her chest pain resolved. She was given a prescription for this and asked her to follow-up with cardiolog y. They did not want to let her leave the emergency department until she scheduled a stres s test. This was done on 12/26/18 at [facility] showing a normal myocard ial perfusion imaging study. B. Persantine nuclear medicine stress test12/26/18 shows Persantine EKG is negative. Normal Persantine sestamibi myocardial perfusion imaging study. Normal l eft ventricular size, wall thickness and motion. Preserved left ventricular systolic funct ion. LVEF is 61%. Evidence of breast/anterior wall soft tissue attenuation. C. Today, patient denies chest pain. 4. Hypertension, essential: A.Today her blood pressure is well controlled. 5. Hyperlipidemia, mixed: Not addressed today 04/27/20. A.Patient is taking atorvastatin 40 mg. 6. Pulmonary hypertension, and mitral regurgitation: Not addressed today 04/27/20. A. Echocardiogram from [facility] read by [facility] on 10/20/18 showing left ventricular systolic function is hyperdynamic with estimate d EF of >70%. Pseudo-normal LV diastolic filling pattern, consistent with elevated left at rial pressure and moderate dysfunction (grade 2). The right ventricle is normal in size an d function. There is some mild biatrial enlargement. Moderate to severe mitral regurgita tion is present. There is mild pulmonary hypertension. The right ventricular systolic pr essure (pulmonary artery systolic pressure), as measured by doppler is 43 mmHg. B. Patient is scheduled with sleep specialist at [facility]. 7. PAD, carotid stenosis: Not addressed today 04/27/20. . A. Carotid imaging on 05/02/16 shows 0-39% stenosis of right ICA, 0-3 9% stenosis of left ICA. By Mike Downey MD. 8. Hypothyroid. Not addressed today 04/27/20. A. She is on thyroid supplement. 9. Obstructive sleep apnea. Not addressed today 04/27/20. A. Diagnosed in [place] in 2017. She tried 3 different masks, at least a month each. She believes she only had 90 minutes of sleep. Patient can not uses C PAP mask. She reports of feeling claustrophobic. PLAN: 1. Today, patient is doing well from cardiac standpoint. I will continue with current medi marquis regimen. 2. Patient will be discharged today. 3. Follow-up in 1 to 2 months. adelin, am acting as a scribe on behalf of, and in the presence of Dionisio medina MD. I have reviewed and edited this note. Madelin Valera CMA 04/27/2020 IDionisio MD, personally performed the services described in this documentation, as scribed in my presence and it is both accurate and complete. Dionisio Gallegos MD [facility] 04/27/2020 6:00 AM Portions of this chart may have been created with [employer] voice recognition software. Occasi onal wrong-word or sound-alike substitutions may have occurred due to the inherent ryna itations of voice recognition software. Please read the chart carefully and recognize, using context, where these substitutions have occurred. documented in this encounter H&P Notes Dionisio Gallegos MD - 04/26/2020 7:06 AM PDTFormatting of this note might be different f rom the original. PATIENT NAME: Gris Krishnamurthy : 1965: AGE: 54 y.o. ADMISSION DATE: 04/26/2020 HOSPITAL DAY NUMBER: 1 PRIMARY CARE: FRANCO Fernandes CONSULTING PROVIDER: Dionisio Gallegos MD CARDIOLOGY CONSULTATION DATE OF ADMISSION: 04/26/20 REASON FOR ADMISSION: Paroxsymal supraventricular tachycardia HISTORY OF PRESENT ILLNESS: Gris Krishnamurthy is a 54 y.o. female with a history of paroxysmal atrial fibrillation, PV D, hypertension, hyperlipidemia, and obstructive sleep apnea. She was admitted to [facility] on 04/26/2020 for flecainide initiation. She was last seen for a virtual visit on 04/19/2020. At that time, patient complained of pal pitations through out the day and kept her from sleeping. Pacemaker remote download document ed PSVT and heart rate of 135-185 bpm. Plan was to admit patient for flecainide initiation 1 00 mg twice a day to suppress PSVT. Today, patient reports having an epsode of palpitatnoins last night that lasted for about 1 0 minutes. There is no chest pain or chest discomfort both at rest and on exertion. Patient denies breathlessness. There is no dizziness or lightheadedness. There is no ankle or leg swelling. Patient can sleep on one pillow at night without difficulty breathing. PAST MEDICAL HISTORY Past Medical History: Diagnosis Date Anxiety Arthritis Atrial fibrillation (HCC) Cardiomyopathy (HCC) Gout Hypercholesterolemia Hyperlipidemia 12/15/2018 Hypertension 12/15/2018 Hypothyroid 12/15/2018 Mitral valve prolapse Past heart attack 12/15/2018 PVC (premature ventricular contraction) 12/15/2018 Sleep apnea; no cPAP use at this time Wears dentures; full Wears glasses CURRENT PROBLEMS Active Problems: * No active hospital problems. * PAST SURGICAL HISTORY (INCLUDING PROCEDURES) Past Surgical History: Procedure Laterality Date ANKLE FRACTURE SURGERY Right 06/13/2019 Procedure: CLOSED REDUCTION AND SPLINTING OF RIGHT ANKLE FRACTURE; Surgeon: Adelfo baires DO; Location: [facility] MAIN OR intestinal perforation LOOP RECORDER PLACEMENT Left 05/04/[address] [employer] [address] [address] [facility] SYNCOPE PACEMAKER INSERTION N/A 09/30/2019 Procedure: CV EP PPM SYSTEM IMPLANT; Surgeon: Dionisio Gallegos MD; Location: [facility] CV LAB PACEMAKER INSERTION N/A 09/30/2019 Procedure: CV EP LOOP RECORDER PROCEDURE; Surgeon: Dionisio Gallegos MD; Location: [facility] C V LAB FAMILY HISTORY Family History Problem Relation Age of Onset Pacemaker Father Heart disease Mother SOCIAL HISTORY Social History Socioeconomic History Marital status: Single Spouse name: Not on file Number of children: Not on file Years of education: Not on file Highest education level: Not on file Occupational History Comment: Retired Social Needs Financial resource strain: Not on file Food insecurity: Worry: Not on file Inability: Not on file Transportation needs: Medical: Not on file Non-medical: Not on file Tobacco Use Smoking status: Former Smoker Last attempt to quit: 11/25/2015 Years since quittin.4 Smokeless tobacco: Never Used Substance and Sexual Activity Alcohol use: Not Currently Drug use: Never Comment: tried marijuana once for broken ankle pain 08/2019 Sexual activity: Not on file Lifestyle Physical activity: Days per week: Not on file Minutes per session: Not on file Stress: Not on file Relationships Social connections: Talks on phone: Not on file Gets together: Not on file Attends orthodox service: Not on file Active member of club or organization: Not on file Attends meetings of clubs or organizations: Not on file Relationship status: Not on file Intimate partner violence: Fear of current or ex partner: Not on file Emotionally abused: Not on file Physically abused: Not on file Forced sexual activity: Not on file Other Topics Concern Not on file Social History Narrative Exercise: physical therapy twice weekly for right knee Caffeine: 2 coffee and 2 diet pepsi Living situation: Lives in own place, brother also lives in same home OUTPATIENT MEDICATIONS Medications Prior to Admission Medication Sig Dispense Refill allopurinol (ZYLOPRIM) 300 mg tablet Take 300 mg by mouth Daily. atorvaSTATin (LIPITOR) 40 mg tablet Take 40 mg by mouth nightly. busPIRone (BUSPAR) 30 MG tablet take 1 tablet by mouth twice a day 0 colchicine 0.6 mg tablet Take 0.6 mg by mouth as needed. diclofenac (VOLTAREN) 75 mg EC tablet Take 75 mg by mouth 2 times daily. 1 tablet by mo [facility] two times daily ELIQUIS 5 MG tablet 5 mg 2 times daily. 0 folic acid 1 mg tablet Take [...] morning ON AN EMPT Y STOMACH 0 LORazepam (ATIVAN) 0.5 mg tablet take 1 tablet by mouth twice a day if needed for anxie ty 0 magnesium oxide (MAG-OX) 400 mg tablet take 1 tablet by mouth once daily NO REFILLS FRO M THIS PROVIDER 0 meclizine (ANTIVERT) 25 mg tablet Take 25 mg by mouth 3 times daily as needed. metoprolol tartrate (LOPRESSOR) 25 mg tablet 25 mg 2 times daily. 0 potassium chloride (KLOR-CON M20) 20 mEq ER tablet take 1 tablet by mouth twice a day w ith food 0 prazosin (MINIPRESS) 2 MG capsule take 1 capsule by mouth at bedtime MAY INCREASE TO 2 capsules at bedtime 0 sertraline (ZOLOFT) 100 mg tablet take 1 tablet by mouth once daily 0 zaleplon (SONATA) 10 MG capsule Take 10 mg by mouth nightly. CURRENT SCHEDULED MEDS: IV INFUSIONS: ALLERGIES Allergies Allergen Reactions Penicillins Hives REVIEW OF SYSTEMS Constitutional: Denies fever, chills, fatigue, weight loss, sudden weight gain. Eyes: Denies double vision, sudden vision loss. Ears/Nose/Throat: Denies tinnitus, decreased hearing, nosebleeds. Cardiovascular: Palpitations. Denies chest pains, syncope, presyncope, dizziness, orthopnea , PND, peripheral edema. Respiratory: Denies cough, dyspnea with exertion, dyspnea at rest, wheezing, sleep apnea, s noring. Gastrointestinal: Denies nausea, vomiting, diarrhea, abdominal pain. Genitourinary: Denies dysuria, increased urinary frequency, nocturia. Musculoskeletal: Denies back pain, arthritis, muscle weakness, myalgias. Skin: Denies rash, itching, suspicious lesions. Neurologic: Denies transient paralysis, paresthesias, seizures, tremors, memory impairment, depression, sciatica, balance problems, headache, anxiety. Heme/Lymphatic: Denies abnormal bruising, bleeding, enlarged lymph nodes. Endocrine: Denies cold intolerance, heat intolerance, polydipsia, polyuria. PHYSICAL EXAM Latest VS: BP 135/83 | Pulse 60 | Temp 35.7 C (96.3 F) (Oral) | Resp 18 | Wt 96.6 kg (212 lb 15.4 oz) | LMP 08/29/2007 | SpO2 94% | BMI 36.56 kg/m Vital sign ranges for last 24hrs: Input and output for last 24hrs: Temp: [35.7 C (96.3 F)] 35.7 C (96.3 F) Pulse: [60] 60 Resp: [18] 18 BP: (135)/(83) 135/83 SpO2 Av % Min: 94 % Max: 94 % No intake/output data recorded. Body mass index is 36.56 kg/m.; Body surface area is 2.09 meters squared. Constitutional General appearance: Female individual, well developed, well nourished, well groomed, no acute distress Cardiovascular NYHA Class: I- No symptoms; no limitations of activities Palp/Percussion: PMI in 5th ICS at MCL; no lifts, thrills, palp S3 or S4. Auscultation: normal S1 S2; no gallop or rub or click Murmur: none Carotid arteries: pulses 2+, symmetric, no bruits Abdominal aorta: no enlargement or bruits Femoral arteries: pulses 2+, symmetric Pedal pulses: pulses 2+, symmetric Peripheral circulation: no cyanosis, clubbing, edema, or varicosities Gastrointestinal Abdomen: soft, non-tender, no masses Liver and spleen: no enlargement Mental Status/Neurological Orientation: oriented to time, place, and person Affect/Mood: no depression, anxiety, or agitation Respiratory Respiratory effort: no intercostal retractions or use of accessory muscles Auscultation: no rales, rhonchi, or wheezes Eyes Conjunctiva & lids: conjunctiva and lids normal Ears, Nose and Throat Lips: no pallor or cyanosis Neck Jugular veins: no significant JVD; no a, v or tran waves Musculoskeletal Gait and station: normal without ataxia Extremities Digits and nails: no clubbing, cyanosis, or petechiae Skin Inspection: no visible rashes, lesions, or ulcerations LABS Recent Results (from the past 24 hour(s)) Basic Metabolic Panel Collection Time: 04/26/20 7:52 AM Result Value Ref Range Na 144 136 - 145 mmol/L K 3.4 3.4 - 5.1 mmol/L Cl 106 98 - 107 mmol/L CO2 31 20 - 31 mmol/L Anion Gap 7 3 - 16 mmol/L Glucose 93 60 - 106 mg/dL BUN 12 9 - 23 mg/dL Creatinine 0.82 0.55 - 1.02 mg/dL eGFR if not >60 >=60 mL/min/1.73m2 Calcium 8.8 8.7 - 10.4 mg/dL BUN/Creatinine Ratio 14.6 Extra Lavender Top Tube Collection Time: 04/26/20 7:52 AM Result Value Ref Range Extra Lavender Top Tube Done ECG 12 lead Collection Time: 04/26/20 8:26 AM Result Value Ref Range INTERPRETATION TEXT Not Confirmed IMAGING Mri Cervical Spine W Wo Contrast Result Date: 04/15/2020 MRI CERVICAL SPINE WITHOUT AND WITH CONTRAST CLINICAL INFORMATION: Neck pain, abnormal neur o exam, myelopathy COMPARISON: None PROCEDURE: Sagittal T2, axial T2, sagittal T1, axial T1, sagittal STIR, axial T1 enhanced, and sagittal T1 enhanced sequences. Contrast: 9 ml gadav ist IV. FINDINGS: Alignment: There is reversal of the cervical lordosis from C3 through C7. 3 mm anterior subluxations of C3 on C4 and C4 on C5 are noted. Alignment is normal at the o ther levels. Vertebrae and vertebral marrow signal: Mixed Modic type 1 and type 2 endplate c hanges are seen at C5-6 and C6-7. There is mild degenerative enhancement of the endplates a t these 2 levels. No focal bone marrow lesions are noted. Cervicomedullary junction and cer vical cord: The visualized structures in the posterior fossa are normal. The cord is normal in signal intensity and morphology and shows no areas of syrinx, hydromyelia or abnormal en hancement. Due to the reversal of the cervical lordosis the cord is slightly indented anter iorly at C4-5, C5-6 and C6-7. The canal remains patent however. Cervical disc levels: C2-C3 : Disc is normal in height. Posterior contour is normal. Canal and neural foramina are pat ent. Right-sided facet is normal. Left-sided facet shows moderate hypertrophy. C3-C4: Moder ate disc space narrowing. 3 mm anterior subluxation noted. Canal and neural foramina are pa tent. Right-sided facet is normal. Left-sided facet shows moderate hypertrophy. C4-C5: Mode rate disc space narrowing. 3 mm anterior subluxation noted. The right neural foramen is pat ent. The left neural foramen shows mild narrowing. The right-sided facet is normal. The l eft-sided facet shows moderate hypertrophy. C5-C6: Moderate disc space narrowing. Small jennifer tral disc bulge noted which abuts the anterior cord causing minimal indentation. Uncovertebr al joint osteophytes cause mild foraminal narrowing without compression of the C6 nerve root s. The right-sided facet is normal. The left-sided facet shows mild hypertrophy. C6-C7: Mod erate disc space narrowing and chronic endplate degeneration. Small posterior disc bulge not ed which abuts the cord without causing indentation. Uncovertebral joint osteophytes cause mild foraminal narrowing without compression of the C7 nerve roots. The facet joints are no rmal. C7-T1: Mild disc space narrowing and small central disc protrusion seen which indents the thecal sac but does not abut or indent the cord. The canal and neural foramina are jaimes nt. The facet joints are normal. Paraspinal musculature and paravertebral soft tissues: Nor mal. 1. Multilevel cervical degenerative disc disease with moderate disc space narrowing seen fr om C3-4 through C6-7. Degenerative endplate changes are seen at C5-6 and C6-7. 2. Reversed cervical lordosis noted from C3 through C7 with 3 mm anterior subluxations of C3 on C4 and C 4 on C5. 3. Cord is draped over the posterior margin of the C5 vertebral body with slight in dentation of the anterior cord seen at the C4-5 and C5-6 levels without significant canal st enosis, cord signal change, syrinx or hydromyelia noted. There is no evidence of cervical m yelopathy. 4. Mild multilevel foraminal narrowing without compression of the exiting nerve r oots. 5. Moderate left-sided facet hypertrophy seen from C2-3 through C4-5. Signed by: Keri brothers D.O., Edward Sign Date/Time: 04/15/2020 8:35 AM Mri Thoracic Spine W Wo Contrast Result Date: 04/15/2020 MRI THORACIC SPINE WITHOUT AND WITH CONTRAST CLINICAL INFORMATION: Myelopathy. Frequent fa lls. Romero sign. COMPARISON: None PROCEDURE: Sagittal T2, axial T2, sagittal T1, axial T1 , sagittal STIR, axial T1 enhanced, and sagittal T1 enhanced sequences. Contrast: 9 ml gada vist IV. FINDINGS: Alignment: Slightly increased thoracic kyphosis is noted centered at the T6-7 level. Vertebrae and vertebral marrow signal: Normal. Thoracic cord: The thoracic cord is normal in size and signal intensity showing no evidence of myelopathy. No areas of abnor mal enhancement are seen in the cord or exiting nerve roots. There is no evidence of syrinx or hydromyelia. The thoracic spinal canal is patent at all levels. Thoracic disc levels: T he thoracic discs show mild narrowing at T6-7, T7-8. The posterior contours of these discs show minimal bulges. Due to the mild kyphosis, the cord is draped over the posterior margin s of the T6 and T7 vertebral bodies allowing these minimal disc bulges to slightly indent th e anterior cord at these levels without cord signal change or significant canal stenosis. A 2 x 4 mm right paramidline disc protrusion is seen at T9-10 which does not abut or indent t he cord, image 8 series 12, image 6 series 6. The neural foramina are patent at all levels in the thoracic spine. The facet joints are normal at all levels. Paraspinal musculature an d paravertebral soft tissues: Normal. The coronal T2 series shows a normal appearance of the heart, lungs, liver, spleen, adrenal glands. The kidneys demonstrate a simple 9 mm cyst in the right kidney and extrarenal pelves bilaterally. 1. Thoracic spinal cord is normal in signal intensity and morphology with no evidence of my elopathy, syrinx or hydromyelia. 2. Slightly increased thoracic kyphosis noted centered at t he T6-7 level. As a result the cord is draped over the posterior margins of T6 and T7. Tin y disc bulges at these levels abut the anterior cord perhaps causing minimal indentation wit hout canal stenosis. 3. A 2 x 4 mm right paramidline disc protrusion is seen at T9-10 which does not abut or indent the cord. Signed by: Erica Guadarrama Edward Sign Date/Time: 0 8:14 AM Mri Ankle Right Wo Contrast Result Date: 04/14/2020 MRI RIGHT ANKLE WITHOUT CONTRAST CLINICAL INFORMATION: Closed displaced trimalleolar fractu re of right lower leg with routine healing COMPARISON: None PROCEDURE: Sagittal T1 and STIR. Axial T2 and PD. Coronal T2. Sedation: None. FINDINGS: There is metallic surgical fixation of the distal tibia and fibula with associated susceptibility artifact causing limitation at the distal tibiofibular syndesmosis and the ankle joint. Distal tibial fracture line is par tially visualized on the sagittal images. Joint Spaces: Small ankle joint effusion. Articula r Cartilage: No full-thickness chondral loss of the hindfoot or midfoot. Cartilage at the a nkle joint is difficult to evaluate due to susceptibility artifact. Extensor Tendons: Tibial is anterior, extensor digitorum longus, and extensor hallucis longus tendons are intact Magi adama Tendons: Peroneus longus and peroneal brevis tendons are intact. Medial Flexor Tendons: Tibialis posterior, flexor digitorum longus, and flexor hallucis longus tendons are intact Achilles Tendon: Intact Deltoid Ligament Complex: Not well evaluated due to susceptibility a rtifact. Lateral Ligament Complex: Not well evaluated due to susceptibility artifact. Sinus Tarsi: Nonspecific edema of the sinus tarsi. Tarsal Tunnel: Tibial nerve normal. Posterior t ibial vessels normal. No mass. Miscellaneous: Plantar fascia is intact. 1. Extensor, flexor and peroneal tendons are intact. Achilles tendon is intact. 2. Surgica l fixation hardware of the distal tibia and fibula causing significant susceptibility artifa ct, limiting evaluation at the ankle joint and distal tibiofibular syndesmosis. 3. Normal al ignment of the hindfoot and midfoot. 4. Other findings as above. Signed by: Eugene Vicente Camila ac Sign Date/Time: 04/14/2020 3:50 PM ECG: Atrial paced rhythm, ST & T wave abnormality. ASSESSMENT: 1. Symptomatic paroxsymal supraventricular tachycardia A. She was last seen for a virtual visit on 04/19/2020. At that time, patient co mplained of palpitations through out the day and kept her from sleeping. Pacemaker remote do wnload documented PSVT and heart rate of 135-185 bpm. Plan was to admit patient for flecaini de initiation 100 mg twice a day to suppress PSVT. Today, patient reports having an epsode of palpitatnoins last night that lasted for about 10 minutes. There is no signs and symptoms of overt congestive heart failure. She is in a cl ass I of [place] [employer] functional class. There is no fluid retention on physic al examination. 2. Paroxysmal atrial fibrillation, symptomatic tachycardia/bradycardia syndrome: A. 24 Holter monitor on 05/02/16 shows, underlying rhythm is sinus rh ythm with average heart rate of 55 beats per minute ( minimum heart rate was 44 beats per mi nutes and maximum heart rate 73 beats per minute), rare PVCs and PACs were noted, no ventric ular or supraventricular dysrhythmias were noted, no pauses or bradyarrhythmias were noted o ther than sinus bradycardia, no diary was submitted, clinical correlation is advised. By MD Mihai Vargas. Successful loop recorderimplantation on 05/04/16at elin Irvin Successful permanent pacemaker implantation and loop recorder ex plantation on 09/30/2019 by Dionisio Gallegos MD Her risks for stroke include: 0, Congestive Heart Failure/LV dysfunction (1), H x of HTN (1), Age >/= 75 Y.O.(2), Diabetes (1), Stroke/TIA/Thrombo-embolism (2), Vascular di sease (1), Age 65 to 74 (1) and Female Gender (1). [id number] is 0risk of st roke per year in atrial fibrillation. Herbleeding risks include: ETOH (1). HerHASBLE D score is 0-1, which confers a low risk (1-3.4%) risk of bleed per year. She was put on Eliquis by her truck mechanic in [place]. I didn't think that she needs long-term use oral anticoagulant because she has no risk factors. 3. Noncardiac chest pain: A. She was seen in the emergency department at [facility] on 12/22/[address] pain, shortness of breath. She started to have chest pain symptoms on 12/18/18. They gav e her nitroglycerin sublingual and the emergency department and her chest pain resolved. Rema griffin was given a prescription for this and asked her to follow-up with cardiology. They did no t want to let her leave the emergency department until she scheduled a stress test. This wa s done on 12/26/18 at [facility] showing a normal myocardial perfusion minda ging study. B. Persantine nuclear medicine stress test 12/26/18 shows Persantine EKG is negat marva. Normal Persantine sestamibi myocardial perfusion imaging study. Normal left ventricula r size, wall thickness and motion. Preserved left ventricular systolic function. LVEF is 6 1%. Evidence of breast/anterior wall soft tissue attenuation. C. Today, she is asymptomatic. 4. Hypertension, essential: A. Today, her blood pressure is good. 5. Hyperlipidemia, mixed: Not addressed today. A. Patient is taking atorvastatin 40 mg. 6. Pulmonary hypertension, and mitral regurgitation: Not addressed today. A. Echocardiogram from [facility] read by [facility] on 12/20/17 showing left ventricular systolic function is hyperdynamic with estimated EF of >70% . Pseudo-normal LV diastolic filling pattern, consistent with elevated left atrial pressure and moderate dysfunction (grade 2). The right ventricle is normal in size and function. T here is some mild biatrial enlargement. Moderate to severe mitral regurgitation is present. There is mild pulmonary hypertension. The right ventricular systolic pressure (pulmonary artery systolic pressure), as measured by doppler is 43 mmHg. B. Patient is scheduled with sleep specialist at [place] [facility]. 7. PAD, carotid stenosis: Not addressed today. A. Carotid imaging on 05/02/16 shows 0-39% stenosis of right ICA, 0-3 9% stenosis of left ICA. By Mike Downey MD. 8. Hypothyroid. Not addressed today. A. She is on thyroid supplement. 9. Obstructive sleep apnea. Not addressed today. A. Diagnosed in [place] in 2017. She tried 3 different masks, at least a month each. She believes she only had 90 minutes of sleep. Patient can not uses C PAP mask. She reports of feeling claustrophobic. PLAN: 1. Proceed with flecainide initiation 100 mg twice a day to suppress PSVT. 2. Monitor telemetry. I, Diana Noe, am acting as a scribe on behalf of, and in the presence of Dionisio land MD. I have reviewed and edited this note. Diana Noe, Hand Shoe Cutter 04/26/2020 I, Dionisio Gallegos MD, personally performed the services described in this documentation, as scribed in my presence and it is both accurate and complete. Diana Noe Hand Shoe Cutter 04/26/2020 10:20 AM Thank you for including me in the care of this patient. Electronically signed by: Dionisio Gallegos MD [facility] 04/26/2020 documented in this encounter Miscellaneous Notes Plan of Care - Willie Gamboa RN - 04/27/2020 4:24 AM PDTPt is A&O x4, she is independent in room, BP was 92/56 at midnight but then stable, call light within reach, calls appropriet ly, no reports of pain or falls, will continue to monitor. lan of Care - Gris Larsen RN - 04/26/2020 6:36 PM P DTPt is alert and oriented, pleasant lady that came in for flecainide initiation. Pt has do ne well. No ectopy, no c/o chest pain or discomfort. Pt did report some nausea this afternoo n and some dizziness but medications helped. RN will continue to monitor.Electronically sig andres by Gris Larsen RN at 04/26/2020 6:38 PM PDTPlan of Care - Maria D Biggs RN - 12/2019 2:58 PM PDTCase Management Assessment: CM to patient room for initial assessment. Patient alert and oriented x 4 and resting comfortably in bed. Patient does endorse intermittent nausea and dizziness, but is agreeab le to complete assessment. CM informed direct patient care RN of patient's symptoms. Demog raphics, PCP (Jose Sanford), and Pharmacy ([facility] in [place]) verified. Discharge Planning: Gris is an independent 54 y.o. that lives at home with her brother and his in a single level home in [place]. Gris utilizes a 4ww with seat and brakes to assist with a mbulation, and denies that she own or utilizes any additional DME. Patient is independent w ith ADL's, manages her own medications, and is independent with ADL's at baseline. Options for discharge discussed. Patient denies need for home health services. Pollo flanagan states that the cardiology office has already been in contact with her insurance for prior authorization for Flecainide and denies need for further assistance. Gris denies any questions, concerns, or needs regarding anticipated plan to return home wh en medically stable. Patient's brother Aaron ([phone]) will provide transportation home and be able to assist in the home as needed after discharge. Disposition: Plan A: Home with family support, no identified unmet needs. Electronically signed by: Maria D Biggs RN 04/26/2020 3:00 PM documented in this en counter Plan of Treatment +--------+ + + + + | Date | Type | Specialty | Care Team | Description | +--------+ + + + + | 10/10/ | Office | Cardiology | Dionisio Gallegos, | | | 2019 | Visit | | MD Mark Garcia | | | | | | [facility] [place], | | | | | | [place] [address] | | | | | | [phone] | | | | | | | | +--------+ + + + + | 11/23/ | Implant | Cardiology | Dionisio Gallegos, | Pacemaker | | 2019 | Monitor | | MD Mark Garcia | reprogramming/check | | | | | [place], | (Primary Dx); | | | | | [place] [address] | Tachycardia-bradycar | | | | | [phone] | samuel (HCC); | | | | | | Pacemaker, Dual | | | | | | Chamber, [facility], | | | | | | MRI Capable, 09/30/19 | | | | | | Rosy | +--------+ + + + + | 03/08/ | Office | Neurology | Amarjit Fisher MD [address] | | | 2020 | Visit | | [address] | | | | | | [place], | | | | | | [place] [address] | | | | | | [phone] | | | | | | | | +--------+ + + + + documented as of this encounter Procedures + +--------+ + + + | Procedure Name | Priori | Date/Time | Associated Diagnosis | Comments | | | ty | | | | + +--------+ + + + | ECG 12 LEAD | Routin | 04/27/2020 | | Results for this | | | e | 11:05 AM | | procedure are in the | | | | PDT | | results section. | + +--------+ + + + | ECG 12 LEAD | Routin | 04/26/2020 | | Results for this | | | e | 8:26 AM | | procedure are in the | | | | PDT | | results section. | + +--------+ + + + | EXTRA LAVENDER TOP | Routin | 04/26/2020 | | Results for this | | TUBE | e | 7:52 AM | | procedure are in the | | | | PDT | | results section. | + +--------+ + + + | BASIC METABOLIC | Routin | 04/26/2020 | | Results for this | | PANEL | e | 7:52 AM | | procedure are in the | | | | PDT | | results section. | + +--------+ + + + documented in this encounter Results ECG 12 lead (04/27/2020 11:05 AM PDT) + + + + + + | Component | Value | Ref Range | Performed | Pathologist | | | | | At | Signature | + + + + + + | VENTRICULAR | 60 | BPM | [facility] | | | RATE EKG | | | | | + + + + + + | ATRIAL RATE | 60 | BPM | [facility] | | + + + + + + | P-R | 242 | ms | [facility] | | | INTERVAL | | | | | + + + + + + | QRS | 106 | ms | [facility] | | | DURATION | | | | | + + + + + + | Q-T | 408 | ms | [facility] | | | INTERVAL | | | | | + + + + + + | Q-T | 408 | ms | [facility] | | | INTERVAL | | | | | | (CORRECTED) | | | | | + + + + + + | P WAVE AXIS | 25 | degrees | [facility] | | + + + + + + | QRS AXIS | 63 | degrees | [facility] | | + + + + + + | T AXIS | 134 | degrees | [facility] | | + + + + + + | INTERPRETAT | Atrial-paced rhythm with | | [facility] | | | ION TEXT | prolonged AV | | | | | | conductionST & T wave | | | | | | abnormality, consider | | | | | | lateral ischemiaAbnormal | | | | | | ECGWhen compared with | | | | | | ECG of 26-APR-2020 | | | | | | 08:26,No significant | | | | | | change was | | | | | | foundConfirmed by | | | | | | DIONISIO GALLEGOS MD | | | | | | ([id number]) on 04/27/2020 | | | | | | 12:31:00 PM | | | | + + + [...] | | | + +---------+ + + ECG 12 lead (04/26/2020 8:26 AM PDT) + + + + + + | Component | Value | Ref Range | Performed | Pathologist | | | | | At | Signature | + + + + + + | VENTRICULAR | 60 | BPM | [facility] | | | RATE EKG | | | | | + + + + + + | ATRIAL RATE | 60 | BPM | [facility] | | + + + + + + | P-R | 186 | ms | [facility] | | | INTERVAL | | | | | + + + + + + | QRS | 84 | ms | [facility] | | | DURATION | | | | | + + + + + + | Q-T | 438 | ms | [facility] | | | INTERVAL | | | | | + + + + + + | Q-T | 438 | ms | [facility] | | | INTERVAL | | | | | | (CORRECTED) | | | | | + + + + + + | P WAVE AXIS | 4 | degrees | [facility] | | + + + + + + | QRS AXIS | 49 | degrees | [facility] | | + + + + + + | T AXIS | 151 | degrees | [facility] | | + + + + + + | INTERPRETAT | Atrial-paced rhythmST & | | [facility] | | | ION TEXT | T wave abnormality, | | | | | | consider inferolateral | | | | | | ischemiaAbnormal ECGWhen | | | | | | compared with ECG of | | | | | | 30-SEP-2019 | | | | | | 11:09,Electronic atrial | | | | | | pacemaker has replaced | | | | | | Electronic ventricular | | | | | | pacemakerConfirmed by | | | | | | ROSY RUSH, DIONISIO | | | | | | ([id number]) on 04/26/2020 | | | | | | 12:51:02 PM | | | | + + + [...] | | | + +---------+ + + Extra Lavender Top Tube (04/26/2020 7:52 AM PDT) + +-------+ + + + | Component | Value | Ref Range | Performed | Pathologist | | | | | At | Signature | + +-------+ + + + | Extra | Done | | [facility] | | | Lavender | | | [facility] | | | Top Tube | | | [facility] | | | | | | CENTER - | | | | | | LABORATORY | | + +-------+ + + + + + | Specimen | + + | Blood | + + + + + + + | Performing | Address | City/State/Zipcode | Phone Number | | Organization | | | | + + + + + | [facility] | [address] | [place] | [phone] | | [facility] | | [address] | | | - LABORATORY | | | | + + + + + Basic Metabolic Panel (04/26/2020 7:52 AM PDT) + + + + + + | Component | Value | Ref Range | Performed | Pathologist | | | | | At | Signature | + + + + + + | Na | 144 | 136 - 145 | [facility] | | | | | mmol/L | [facility] | | | | | | MEDICAL | | | | | | CENTER - | | | | | | LABORATORY | | + + + + + + | K | 3.4 | 3.4 - 5.1 | [facility] | | | | | mmol/L | [facility] | | | | | | [facility] | | | | | | CENTER - | | | | | | LABORATORY | | + + + + + + | Cl | 106 | 98 - 107 mmol/L | [facility] | | | | | | [facility] | | | | | | [facility] | | | | | | CENTER - | | | | | | LABORATORY | | + + + + + + | CO2 | 31 | 20 - 31 mmol/L | [facility] | | | | | | [facility] | | | | | | [facility] | | | | | | CENTER - | | | | | | LABORATORY | | + + + + + + | Anion Gap | 7 | 3 - 16 mmol/L | [facility] | | | | | | [facility] | | | | | | [facility] | | | | | | C[facility] - | | | | | | LABORATORY | | + + + + + + | Glucose | 93 | 60 - 106 mg/dL | [facility] | | | | | | [facility] | | | [facility] | | [facility] | | | | | | CENTER - | | | | | | LABORATORY | | + + + + + + | BUN | 12 | 9 - 23 mg/dL | [facility] | | | | | | [facility] | | | | | | [facility] | | | | | | CENTER - | | | | | | LABORATORY | | + + + + + + | Creatinine | 0.82 | 0.55 - 1.02 | [facility] | | | | | mg/dL | [facility] | | | | | | MEDICAL | | | | | | CENTER - | | | | | | LABORATORY | | + + + + + + | eGFR, | >60Comment: GLOMERULAR | >=60 | [facility] | | | non- | FILTRATION | mL/min/1.73m2 | [facility] | | | [place] | RATE,ESTIMATED | | MEDICAL | | | | mL/min/1.95i7Rqih than | | CENTER - | | | | 60 Chronic kidney | | LABORATORY | | | | disease,if found over a | | | | | | 3-month period.Less than | | | | | | 15 Kidney failureFor | | | | | | | | | | | | Americans,multiply the | | | | | | calculated GFR by 1.21. | | | | | | | | | | + + + + + + | Calcium | 8.8 | 8.7 - 10.4 | [facility] | | | | | mg/dL | [facility] | | | | | | MEDICAL | | | | | | CENTER - | | | | | | LABORATORY | | + + + + + + | BUN/Creatin | 14.6 | | [facility] | | | ine Ratio | | | [facility] | | | | | | MEDICAL | | | | | | CENTER - | | | | | | LABORATORY | | + + + + + + + + | Specimen | + + | Blood | + + + + + + + | Performing | Address | City/State/Zipcode | Phone Number | | Organization | | | | + + + + + | [facility] | [address] | [place] | [phone] | | [facility] | | [address] | | | - LABORATORY | | | | + + + + + documented in this encounter Visit Diagnoses + + | Diagnosis | + + | Paroxysmal atrial fibrillation (HCC) Atrial fibrillation | + + | Pacemaker reprogramming/check - Primary Fitting and adjustment of cardiac pacemaker | + + | Tachycardia-bradycardia (HCC) Sinoatrial node dysfunction | + + | Pacemaker, Dual Chamber, [employer], MRI Capable, 09/30/19 Ros[facility] Cardiac pacemaker in | | situ | + + documented in this encounter Administered Medications + +--------+ +--------+------+------+ | Medication Order | MAR | Action | Dose | Rate | Site | | | Action | Date | | | | + +--------+ +--------+------+------+ | acetaminophen (TYLENOL) tablet | Given | 04/26/20 | 650 mg | | | | 650 mg 650 mg, Oral, EVERY 4 | | 20 11:11 | | | | | HOURS PRN, Pain, or fever >= 38.6 | | AM PDT | | | | | C (101.5 F), Starting 04/26/20 | | | | | | | at 0742 | | | | | | + +--------+ +--------+------+------+ +---+---+ | | | +---+---+ + +-------+ +--------+---+---+ | allopurinol (ZYLOPRIM) tablet | Given | 04/27/20 | 300 mg | | | | 300 mg 300 mg, Oral, DAILY, | | 20 8:50 | | | | | First dose on Sat04/26/20 at 0930 | | AM PDT | | | | + +-------+ +--------+---+---+ +---+---+ | | | +---+---+ + +-------+ +------+---+---+ | apixaban (ELIQUIS) tablet 5 mg | Given | 04/27/20 | 5 mg | | | | 5 mg, Oral, 2 TIMES DAILY, First | | 20 8:50 | | | | | dose on Sat04/26/20 at 0930 | | AM PDT | | | | + +-------+ +------+---+---+ +-------+ +------+---+---+ | Given | 04/26/20 | 5 mg | | | | | 20 9:44 | | | | | | PM PDT | | | | +-------+ +------+---+---+ +---+---+ | | | +---+---+ + +-------+ +-------+---+---+ | atorvaSTATin (LIPITOR) tablet | Given | 04/26/20 | 40 mg | | | | 40 mg 40 mg, Oral, NIGHTLY, | | 20 9:44 | | | | | First dose on Sat04/26/20 at 2100 | | PM PDT | | | | + +-------+ +-------+---+---+ +---+---+ | | | +---+---+ + +-------+ +-------+---+---+ | busPIRone (BUSPAR) tablet 30 mg | Given | 04/27/20 | 30 mg | | | | 30 mg, Oral, 2 TIMES DAILY, | | 20 8:50 | | | | | First dose on Sat04/26/20 at 0930 | | AM PDT | | | | + +-------+ +-------+---+---+ +-------+ +-------+---+---+ | Given | 04/26/20 | 30 mg | | | | | 20 9:42 | | | | | | PM PDT | | | | +-------+ +-------+---+---+ + +---+ | | | + +---+ | calcium carbonate (TUMS) | | | chewable tablet 1,000 mg 1,000 | | | mg, Oral, EVERY 4 HOURS PRN, | | | Indigestion, Starting Sat04/26/20 | | | at 0742 | | + +---+ | | | + +---+ + +-------+ +-------+---+---+ | diclofenac (VOLTAREN) EC tablet | Given | 04/27/20 | 75 mg | | | | 75 mg 75 mg, Oral, 2 TIMES | | 20 8:51 | | | | | DAILY, First dose on Sat04/26/20 | | AM PDT | | | | | at 0930, Do not cut or crush., | | | | | | + +-------+ +-------+---+---+ +-------+ +-------+---+---+ | Given | 04/26/20 | 75 mg | | | | | 20 9:43 | | | | | | PM PDT | | | | +-------+ +-------+---+---+ | Given | 04/26/20 | 75 mg | | | | | 20 10:00 | | | | | | AM PDT | | | | +-------+ +-------+---+---+ + +---+ | | | + +---+ | docusate sodium (COLACE) | | | capsule 100 mg 100 mg, Oral, 2 | | | TIMES DAILY PRN, Constipation, | | | Starting 04/26/20 at 0742, 1st | | | line agent for constipation | | | relief., | | + +---+ | | | + +---+ + +-------+ +--------+---+---+ | flecainide (TAMBOCOR) tablet | Given | 04/27/20 | 100 mg | | | | 100 mg 100 mg, Oral, EVERY 12 | | 20 8:51 | | | | | HOURS (2 times per day), First | | AM PDT | | | | | dose on Sat04/26/20 at 0930 | | | | | | + +-------+ +--------+---+---+ +-------+ +--------+---+---+ | Given | 04/26/20 | 100 mg | | | | | 20 9:44 | | | | | | PM PDT | | | | +-------+ +--------+---+---+ | Given | 04/26/20 | 100 mg | | | | | 20 11:02 | | | | | | AM PDT | | | | +-------+ +--------+---+---+ +---+---+ | | | +---+---+ + +-------+ +------+---+---+ | folic acid tablet 1 mg 1 mg, | Given | 04/27/20 | 1 mg | | | | Oral, DAILY, First dose on Sat | | 20 8:50 | | | | | 04/26/20 at 0930 | | AM PDT | | | | + +-------+ +------+---+---+ +---+---+ | | | +---+---+ + +-------+ +-------+---+---+ | furosemide (LASIX) tablet 40 mg | Given | 04/27/20 | 40 mg | | | | 40 mg, Oral, DAILY, First dose | | 20 8:51 | | | | | on Sat04/26/20 at 0930 | | AM PDT | | | | + +-------+ +-------+---+---+ +-------+ +-------+---+---+ | Given | 04/26/20 | 40 mg | | | | | 20 10:00 | | | | | | AM PDT | | | | +-------+ +-------+---+---+ +---+---+ | | | +---+---+ + +-------+ +--------+---+---+ | gabapentin (NEURONTIN) capsule | Given | 04/27/20 | 300 mg | | | | 300 mg 300 mg, Oral, 2 TIMES | | 20 8:50 | | | | | DAILY, First dose on Sat04/26/20 | | AM PDT | | | | | at 0930 | | | | | | + +-------+ +--------+---+---+ +-------+ +--------+---+---+ | Given | 04/26/20 | 300 mg | | | | | 20 9:42 | | | | | | PM PDT | | | | +-------+ +--------+---+---+ | Given | 04/26/20 | 300 mg | | | | | 20 10:00 | | | | | | AM PDT | | | | +-------+ +--------+---+---+ +---+---+ | | | +---+---+ + +-------+ +--------+---+---+ | levothyroxine (SYNTHROID) | Given | 04/27/20 | 75 mcg | | | | tablet 75 mcg 75 mcg, Oral, | | 20 6:13 | | | | | DAILY BEFORE BREAKFAST, First | | AM PDT | | | | | dose on Sat04/26/20 at 0930, Give | | | | | | | before breakfast., | | | | | | + +-------+ +--------+---+---+ +---+---+ | | | +---+---+ + +-------+ +-------+---+---+ | meclizine (ANTIVERT) tablet 25 | Given | 04/27/20 | 25 mg | | | | mg 25 mg, Oral, 3 TIMES DAILY, | | 20 8:51 | | | | | First dose on Sat04/26/20 at 0930 | | AM PDT | | | | + +-------+ +-------+---+---+ +-------+ +-------+---+---+ | Given | 04/26/20 | 25 mg | | | | | 20 9:43 | | | | | | PM PDT | | | | +-------+ +-------+---+---+ | Given | 04/26/20 | 25 mg | | | | | 20 1:58 | | | | | | PM PDT | | | | +-------+ +-------+---+---+ +---+---+ | | | +---+---+ + +-------+ +-------+---+---+ | metoprolol tartrate (LOPRESSOR) | Given | 04/27/20 | 25 mg | | | | tablet 25 mg 25 mg, Oral, 2 | | 20 8:49 | | | | | TIMES DAILY, First dose on Sat | | AM PDT | | | | | 04/26/20 at 0930 | | | | | | + +-------+ +-------+---+---+ +-------+ +-------+---+---+ | Given | 04/26/20 | 25 mg | | | | | 20 9:43 | | | | | | PM PDT | | | | +-------+ +-------+---+---+ +---+---+ | | | +---+---+ + +-------+ +------+---+---+ | ondansetron (ZOFRAN ODT) | Given | 04/26/20 | 4 mg | | | | disintegrating tablet 4 mg 4 mg, | | 20 1:58 | | | | | Oral, EVERY 6 HOURS PRN, Nausea, | | PM PDT | | | | | Vomiting, Starting Sat04/26/20 at | | | | | | | 0742, First line agent, | | | | | | + +-------+ +------+---+---+ + +---+ | | | + +---+ | Pharmacy consult - flecainide | | | PHARMACY CONSULT, Starting Sat | | | 04/26/20 at 0742, Pharmacy to | | | consult for another reason? | | | Provide flecainide counseling to | | | patient prior to discharge. | | + +---+ | | | + +---+ + +-------+ +--------+---+---+ | potassium chloride (Klor-Con | Given | 04/27/20 | 20 mEq | | | | M20) ER tablet 20 mEq 20 mEq, | | 20 8:50 | | | | | Oral, DAILY, First dose on Sat | | AM PDT | | | | | 04/26/20 at 0930, Tablet may be cut | | | | | | | where scored but do not crush., | | | | | | + +-------+ +--------+---+---+ +---+---+ | | | +---+---+ + +-------+ +------+---+---+ | prazosin (MINIPRESS) capsule 2 | Given | 04/26/20 | 2 mg | | | | mg 2 mg, Oral, NIGHTLY, First | | 20 9:42 | | | | | dose on Sat04/26/20 at 2100 | | PM PDT | | | | + +-------+ +------+---+---+ +---+---+ | | | +---+---+ + +-------+ +--------+---+---+ | sertraline (ZOLOFT) tablet 100 | Given | 04/26/20 | 100 mg | | | | mg 100 mg, Oral, NIGHTLY, First | | 20 9:43 | | | | | dose on Sat04/26/20 at 2100 | | PM PDT | | | | + +-------+ +--------+---+---+ +---+---+ | | | +---+---+ documented in this encounter
--- OUTSIDE RECORDS SUMMARY | ~2020-09-13 | XMS | Encounter Summary ---
Demographics + + + | Address | [address] | | | [place] [address] | + + + | Home Phone | | + + + | Preferred Language | Unknown | + + + | Marital Status | Single | + + + | Anabaptism Affiliation | 1073 | + + + | Race | White | + + + | Ethnic Group | Not or | + + + Author + + + | Author | [facility] | | | and [place] | + + + | Organization | [facility] | | | [...] Team Providers + +------+ + | Care Consulting Sme Name | Role | Phone | + +------+ + | August Sanford | PCP | | + +------+ + Encounter Details +--------+ + + + + | Date | Type | Department | Care Team | Description | +--------+ + + + + | 09/30/ | Abstract | [facility] | Provider, | Status post | | 2018 | | CARDIOLOGY [address] | MD [address] | placement of | | | | [place], | [place] | implantable loop | | | | [place] [address] | [place] [address] | recorder; Encounter | | | | [phone] | | for loop recorder | | | | | | check | +--------+ + + + + Social [...] | | | | | | [place] [address] | | | | | | [phone] | | | | | | | | +--------+ + + + + | 11/23/ | Implant | Cardiology | Claudine Gallegos, | Pacemaker | | 2020 | Monitor | | MD Mark Garcia | reprogramming/check | | | | | [place], | (Primary Dx); | | | | | [place] [address] | Tachycardia-bradycar | | | | | [phone] | samuel (HCC); | | | | [...] | | | | | | [place], | | | | | | [place] [address] | | | | | | [phone] | | | | | | | | +--------+ + + + + documented as of this encounter Visit Diagnoses + + | Diagnosis | + + | Status post placement of implantable loop recorder | + + | Encounter for loop recorder check | + + | Pacemaker reprogramming/check - Primary Fitting and adjustment of cardiac pacemaker | + + | Tachycardia-bradycardia (HCC) Sinoatrial node dysfunction | + + | Pacemaker, Dual Chamber, [employer], MRI Capable, 09/30/19 Rosy Cardiac pacemaker in | | situ | + + documented in this encounter"
--- OUTSIDE RECORDS SUMMARY | ~2020-09-13 | XMS | Encounter Summary ---
Demographics + + + | Address | [address] | | | [place] [address] | + + + | Home Phone | | + + + | Preferred Language | Unknown | + + + | Marital Status | Single | + + + | Hindu Affiliation | 1073 | + + + | Race | White | + + + | Ethnic Group | Not or | + + + Author + + + | Author | [facility] | | | and [place] | + + + | Organization | [facility] | | | and [...] Team Providers + +------+ + | Care Sheet Metal Pattern Cutter Name | Role | Phone | + [...] Claudine Gallegos, | Remote Device | | 2018 | Monitor | CARDIOLOGY [address] | MD [address] | Interrogation | | | | [place], | [place], | (Primary Dx); S/P | | | | [place] [address] | [place] [address] | implantable loop | | | | [phone] | [phone] | recorder Medtronic | | | | [...] encounter Procedure Notes Claudine Gallegos MD - 01/22/2019 11:59 PM PSTAssociated Order(s): DEVICE INTERROGATION- R EMOTEProcedure(s): DEVICE INTERROGATION- REMOTEPre-Procedure Diagnose(s): Encounter for loop recorder check; Status post placement of implantable loop recorder; Syncope, unspecified sy ncope typeDate of Remote Interrogation: 01/05/2019 Refer to [facility] documentation and remote PDF scanned into [facility] for remote interrogation re sults. Data collected by Harmony Padilla RN Presenting rhythm: sinus bradycardia with rate 51-52 beats. 6 Symptom Episodes #451 occurred 01/01/2019 at 10:21 PM. EGM is consistent with sinus bradycardia to sinus rhyth m rate 52-62 beats with occasional PACs and artifact. #449 occurred 12/31/2018 at 8:10 AM. EGM is consistent with sinus bradycardia rate 47-61 with brief paroxysmal atrial tachycardia rate 98-125 beats. #447 occurred 12/23/2018 at 1:31 PM. EGM is consistent with sinus tachycardia rate 140-165 b eats with frequent PVCs. #446 occurred 12/22/2018 at 1:30 AM. EGM is consistent with sinus rhythm rate 72-92 beats w ith rare PVC. 0 Tachy Episodes 0 Pause Episodes 4 Murphy Episodes the longest occurred 01/03/2019 at 7:59 AM for 1 minute 6 seconds. EGM is co nsistent with sinus rhythm to sinus bradycardia rate 57-66 beats and under sensing of the QR S. 0 AT Episodes 0 AF Episodes % of time in AT/AF 0.0 % Histogram unavailable. Battery ok. Apparent normal and stable function. Device interrogation done in office in 01/06/2019. documented in this encounter Plan of Treatment +--------+ + + + + | Date | Type | Specialty | Care Team | Description | +--------+ + + + + | 10/10/ | Office | Cardiology | Claudine Gallegos, | | | 2019 | Visit | | [address] [place] [address] | | | | | | [place], | | | | | | [place] [address] | | | | | | [phone] | | | | | | | | +--------+ + + + + | 11/23/ | Implant | Cardiology | Claudine Gallegos, | Pacemaker | | 2019 | Monitor | | [address] | reprogramming/check | | | | | [place], | (Primary Dx); | | | | | [place] [address] | Tachycardia-bradycar | | | | | [phone] | samuel (HCC); | | | | | | Pacemaker, Dual | | | | | | Chamber, [address] [place], | | | | | | MRI Capable, 09/30/19 | | | | | | [place] | +--------+ + + + + | 03/08/ | Office | Neurology | Amarjit Fisher MD [address] | | | 2020 | Visit | | [address] | | | | | | [place], | | | | | | [place] [address] | | | | | | [phone] | | | | | | | [...] this | | INTERROGATION- | e | 11:59 PM | Interrogation S/P | procedure are in the | | REMOTE | | PST | implantable loop | results section. | | | | | recorder Medtronic | | | | | | 05/04/2016 Dr Duque | | | | | | Tommy Syncope, | | | | | | unspecified syncope | | | | | | type | | + +--------+ + + + documented in this encounter Results Device Interrogation - Remote (01/22/2019 11:59 PM PST) + + + | Narrative | Performed At | + + + | Claudine | [facility] | | MD Rosy 01/15/2019 12:06Date of Remote Interrogation: | | | 01/05/2019 Refer to [facility] documentation and remote PDF scanned into | | | [facility] for remote interrogation results. Data collected by [...] frequent PVCs. #446 occurred 12/22/2018 at 1:30 AM. | | | EGM is consistent with sinus rhythm rate 72-92 beats with rare PVC.0 | | | Tachy Episodes0 Pause Episodes 4 Murphy Episodes the longest occurred | | | 01/03/2019 at 7:59 AM for 1 minute 6 seconds. EGM is consistent with | | | sinus rhythm to sinus bradycardia rate 57-66 beats and under sensing | | | of the QRS. 0 AT Episodes 0 AF Episodes % of time in AT/AF 0.0 | | | %Histogram unavailable. Battery ok.Apparent normal and stable [...]
--- OUTSIDE RECORDS SUMMARY | ~2020-09-13 | XMS | Encounter Summary ---
Demographics + + + | Address | [address] | | | [place] [address] | + + + | Home Phone | | + + + | Preferred Language | Unknown | + + + | Marital Status | Single | + + + | Judaism Affiliation | 1073 | + + + | Race | White | + + + | Ethnic Group | Not or | + + + Author + + + | Author | [facility] | | | and [place] | + + + | Organization | [facility] | | [...] Team Providers + +------+ + | Care Fiber Locking Supervisor Name | Role | Phone | + +------+ + | August Sanford | PCP | | + +------+ + Reason for Visit + +--------+ + | Reason | Onset | Comments | | | Date | | + +--------+ + | Follow-up | 08/29/ | change to phone appointment | | | 2020 | | + +--------+ + Encounter Details +--------+ + + + + | Date | Type | Department | Care Team | Description | +--------+ + + + + | 08/29/ | Telephone | [facility] | Amarjit Fisher MD [address] | Follow-up (change to | | 2019 | | NEUROLOGY [address] | phone appointment) | | | | [address] | [address] [place], | | | | | [place], [place] | [place] [address] | | | | | [address] | [phone] | | | | | [phone] | | | +--------+ + + + [...] this encounter Miscellaneous Notes Telephone Encounter - Donnie Klein, Log Sorter - 08/29/2020 1:38 PM PDTCalled spoke with patient confirmed in office appointment elephone Encounter - Lilly Almaguer - 2019 11:35 AM PDTSusan, is calling regarding Follow-up (change to phone appointment) and would like a call back. Additional Call Details: Would like to change 08/31 appointment to a phone appointment. Would like a call back to confirm has been changed. Home number If this is a symptom based call, was patient offered triage? Not Applicable If this is a symptom based call and you were unable to immediately transfer the call to a p aramis director medical safety was caller made aware that if at [...] | 10/10/ | Office | Cardiology | Dorcasquentinadam Claudine, | | | 2019 | Visit | | MD Mark Garcia | | | | | | [place], | | | | | | [place] [address] | | | | | | [phone] | | | | | | | | +--------+ + + + + | 11/23/ | Implant | Cardiology | EddieClaudine hughes, | Pacemaker | | 2019 | Monitor | | MD Mark Garcia | reprogramming/check | | | | | [place], | (Primary Dx); | | | | | [place] [address] | Tachycardia-bradycar | | | | | [phone] | samuel (HCC); | | | | [...] [place], | | | | | | [place] [address] | | | | | | [phone] | | | | | | | | +--------+ + + + + documented as of this encounter Visit Diagnoses Not on filedocumented in this encounter"
--- OUTSIDE RECORDS SUMMARY | ~2020-09-13 | XMS | Encounter Summary ---
Demographics + + + | Address | [address] | | | [place] [address] | + + + | Home Phone | | + + + | Preferred Language | Unknown | + + + | Marital Status | Single | + + + | Temple Affiliation | 1073 | + + + | Race | White | + + + | Ethnic Group | Not or | + + + Author + + + | Author | [facility] | | | and [place] | + + + | Organization | [facility] | | | and [...] Team Providers + +------+ + | Care Soil Tester Name | Role | Phone | + +------+ + | August Sanford | PCP | | + +------+ + Reason for Visit +--------+--------+ + | Reason | Onset | Comments | | | Date | | +--------+--------+ + | Other | 12/23/ | ED visit | | | 2019 | | +--------+--------+ + Encounter Details +--------+ + + + + | Date | Type | Department | Care Team | Description | +--------+ + + + + | 12/23/ | Telephone | [facility] | Claudine Gallegos, | Other (ED visit) | | 2018 | | CARDIOLOGY [address] | MD [address] | | | | | [place], | [place], | | | | | [place] [address] | [place] [address] | | | | | [phone] | [phone] | | | | | | | [...] this encounter Miscellaneous Notes Telephone Encounter - Humera Beverly RN - 12/23/2018 2:41 PM PSTPatient notified and instructions given ..........................................Humera Beverly RN on 11/26 08/13 at 14:47 elephone Encount er - Humera Beverly RN - 12/23/2018 11:[address] Morgan, order exercise myoview to be done sooner than 01/05/19 ..........................................Tamanna Salvador on 12/23/18 at 11:54 Stress test scheduled for 12/26/18 check in at 0915 for resting part, 145 for exercise part i n cardiology. Left message on voicemail to return call ..................................... .....Humera Beverly RN on 12/23/18 at 12:00 Exercise Myoview Date: 12/26/18 Check-in Time: 1:45 Where to Check In: Cardiology Instructions 1. Nothing to eat or drink anything 4 hours prior to test 2. DO NOT drink caffeine 12 hours prior to the test. 3. DO NOT take any Metoprolol or Nitro SL the night before or the morning of the test. 4. You can take all other medications the morning of the test with a small sip of water. 5. Please bring a list of your current medications with you. 6. Exercise Myoview: wear comfortable clothes and walking shoes. Resting Portion of test: Date: 12/26/18 Check-in Time: 0915 Where to Check In: admitting elephone [facility] - Humera Beverly RN - 12/23/2018 10:44 AM PSTPatient called, she went to ED last ni t at [facility] for chest pain and shortness of breath. She started having chest pain on 12/18/18. She denies lightheadedness or dizziness. She was given a nitroglycerin 0.4 mg sl i n the ED, chest pain stopped. She was given a prescription for nitroglycerin. They would not let her leave the ED until she schedule a stress test. She would like to have it done her w ith Dr Morgan, if he will order it. She will request the medical records be sent to Dr Morgan. S he made a follow up appointment with Dr Morgan. I informed her that I would consult with Dr Gaviota rivera and return her call ..........................................Humera Beverly RN on 0 12/23/18 at 11:06 documented in thi s encounter Plan of Treatment +--------+ + + + + | Date | Type | Specialty | Care Team | Description | +--------+ + + + + | 10/10/ | Office | Cardiology | Claudine Gallegos, | | | 2019 | Visit | | MD Mark Garcia | | | | | | [place], | | | | | | [place] [address] | | | | | | [phone] | | | | | | | | +--------+ + + + + | 11/23/ | Implant | Cardiology | Claudine Gallegos, | Pacemaker | | 2019 | Monitor | | MD Mark Garcia | reprogramming/check | | | | | [place], | (Primary Dx); | | | | | [place] [address] | Tachycardia-bradycar | | | | | [phone] | samuel (HCC); | | | | [...] [place], | | | | | | [place] [address] | | | | | | [phone] | | | | | | | | +--------+ + + + + documented as of this encounter Visit Diagnoses + + | Diagnosis | + + | Chest pain, unspecified type - Primary | + + | Pacemaker reprogramming/check - Primary Fitting and adjustment of cardiac pacemaker | + + | Tachycardia-bradycardia (HCC) Sinoatrial node dysfunction | + + | Pacemaker, Dual Chamber, St Jerry, MRI Capable, 09/30/19 Rosy Cardiac pacemaker in | | situ | + + documented in this encounter"
--- OUTSIDE RECORDS SUMMARY | ~2020-09-13 | XMS | Encounter Summary ---
Demographics + + + | Address | [address] | | | [place] [address] | + + + | Home Phone | | + + + | Preferred Language | Unknown | + + + | Marital Status | Single | + + + | Restorationism Affiliation | [id number] | + + + [...] Team Providers + +------+ + | Care Raimann Machine Operator Name | Role | Phone | + +------+ + | August Sanford | PCP | | + +------+ + Reason for Referral Diagnostic/Screening (Routine) +--------+--------+ + + + + | Status | Reason | Specialty | Diagnoses / | Referred By | Referred To | | | | | Procedures | Contact | Contact | +--------+--------+ + + + + | Closed | | Radiology | Diagnoses | Phillip, Amarjit, | [facility] | | | | | Myelopathy | MD [address] | [address] | | | | | ([facility]) | [address] | [address] | | | | | Frequent | [address] | [address] | | | | | falls | D | [place], [place] | | | | | Romero sign | [place], | [address] | | | | | present | [place] [address] | Phone: | | | | | Procedures | Phone: | [phone] | | | | | MRI Cervical | [phone] | Fax: | | | | | Spine w wo | Fax: | [phone] | | | | | Contrast | [phone] | | +--------+--------+ + + + + Reason for Visit Diagnostic/Screening (Routine) +--------+--------+ + + + + | Status | Reason | Specialty | Diagnoses / | Referred By | Referred To | | | | | Procedures | Contact | Contact | +--------+--------+ + + + + | Closed | | Radiology | Diagnoses | Fisher, Amarjit, | [facility] | | | | | Myelopathy | MD [address] | [address] | | | | | (HCC) | [address] | [address] | | | | | Frequent | [address] | [address] | | | | | falls | D | [place], [place] | | | | | Romero sign | [place], | [address] | | | | | present | [place] [address] | Phone: | | | | | Procedures | Phone: | [phone] | | | | | MRI Cervical | [phone] | Fax: | | | | | Spine w wo | Fax: | [phone] | | | | | Contrast | [phone] | | +--------+--------+ + + + + Encounter Details +--------+ + + + + | Date | Type | Department | Care Team | Description | +--------+ + + + + | 04/14/ | Hospital | [facility] | Amarjit Fishre MD [address] | Myelopathy (HCC); | | 2019 | Encounter | [facility] | [address] | Frequent falls; | | | | [address] | [address] [place], | Heather sign present | | | | [place] | [place] [address] | | | | | [address] | [phone] | | | | | [phone] | | | +--------+ + + + [...] + + + +---------+ + + | traMADol (ULTRAM) | | | 0 | 08/28/20 | | | 50 mg tablet | | | | 19 | 0 | + + + +---------+ + + [...] | | | | | | [place] [address] | | | | | | [phone] | | | | | | | | +--------+ + + + + | 11/23/ | Implant | Cardiology | Claudine Gallegos, | Pacemaker | | 2019 | Monitor | | MD Mark Garcia | reprogramming/check | | | | | [facility] [place], | (Primary Dx); | | | | | [place] [address] | Tachycardia-bradycar | | | | | [phone] | samuel ([facility]); | | | | | | Pacemaker, Dual | | | | | | St Jerry Garcia, | | | | | | MRI Capable, 09/30/19 | | | | | | Rosy | +--------+ + + + + | 03/08/ | Office | Neurology | Amarjit Fisher MD [address] | | | 2020 | Visit | | [address] | | | | | | [place], | | | | | | [place] [address] | | | | | | [phone] | | | | | | | | +--------+ + + + + documented as of this encounter Procedures + +--------+ + + + | Procedure Name | Priori | Date/Time | Associated Diagnosis | Comments | | | ty | | | | + +--------+ + + + | MRI CERVICAL SPINE W | Routin | 04/14/2020 | Myelopathy (HCC) | Results for this | | WO CONTRAST | e | 3:43 PM | Frequent falls | procedure are in the | | | | PDT | [place] sign present | results section. | + +--------+ + + + documented in this encounter Results MRI Cervical Spine w wo Contrast (04/14/2020 3:43 PM PDT) + + | Specimen | + + | | + + + + + | Impressions | Performed At | + + + | 1. Multilevel cervical degenerative disc disease with moderate disc | [facility] | | space narrowing seen from C3-4 through C6-7. Degenerative endplate | | | changes are seen at C5-6 and C6-7. 2. Reversed cervical lordosis | | | noted from C3 through C7 with 3 mm anterior subluxations of C3 on C4 | | | and C4 on C5. 3. Cord is draped over the posterior margin of the C5 | | | vertebral body with slight indentation of the anterior cord seen at | | | the C4-5 and C5-6 levels without significant canal stenosis, cord | | | signal change, syrinx or hydromyelia noted. There is no evidence of | | | cervical myelopathy. 4. Mild multilevel foraminal narrowing without | | | compression of the exiting nerve roots. 5. Moderate left-sided facet | | | hypertrophy seen from C2-3 through C4-5. Signed by: | | | Erica Guadarrama, Valentino Sign Date/Time: 04/15/2020 8:35 AM | | + + + + + + | Narrative | Performed At | + + + | MRI CERVICAL SPINE WITHOUT AND WITH CONTRAST CLINICAL | [facility] | | INFORMATION: Neck pain, abnormal neuro exam, myelopathy | | | COMPARISON: None PROCEDURE: Sagittal T2, axial T2, sagittal T1, | | | axial T1, sagittal STIR, axial T1 enhanced, and sagittal T1 enhanced | | | sequences. Contrast: 9 ml gadavist IV. FINDINGS: Alignment: | | | There is reversal of the cervical lordosis from C3 through C7. 3 | | | mm anterior subluxations of C3 on C4 and C4 on C5 are noted. | | | Alignment is normal at the other levels. Vertebrae and vertebral | | | marrow signal: Mixed Modic type 1 and type 2 endplate changes are | | | seen at C5-6 and C6-7. There is mild degenerative enhancement of | | | the endplates at these 2 levels. No focal bone marrow lesions are | | | noted. Cervicomedullary junction and cervical cord: The visualized | | | structures in the posterior fossa are normal. The cord is normal | | | in signal intensity and morphology and shows no areas of syrinx, | | | hydromyelia or abnormal enhancement. Due to the reversal of the | | | cervical lordosis the cord is slightly indented anteriorly at C4-5, | | | C5-6 and C6-7. The canal remains patent however. Cervical disc | | | levels: C2-C3: Disc is normal in height. Posterior contour is | | | normal. Canal and neural foramina are patent. Right-sided facet | | | is normal. Left-sided facet shows moderate hypertrophy. C3-C4: | | | Moderate disc space narrowing. 3 mm anterior subluxation noted. | | | Canal and neural foramina are patent. Right-sided facet is normal. | | | Left-sided facet shows moderate hypertrophy. C4-C5: Moderate disc | | | space narrowing. 3 mm anterior subluxation noted. The right neural | | | foramen is patent. The left neural foramen shows mild narrowing. | | | The right-sided facet is normal. The left-sided facet shows | | | moderate hypertrophy. C5-C6: Moderate disc space narrowing. | | | Small central disc bulge noted which abuts the anterior cord | | | causing minimal indentation. Uncovertebral joint osteophytes cause | | | mild foraminal narrowing without compression of the C6 nerve roots. | | | The right-sided facet is normal. The left-sided facet shows mild | | | hypertrophy. C6-C7: Moderate disc space narrowing and chronic | | | endplate degeneration. Small posterior disc bulge noted which abuts | | | the cord without causing indentation. Uncovertebral joint | | | osteophytes cause mild foraminal narrowing without compression of the | | | C7 nerve roots. The facet joints are normal. C7-T1: Mild disc | | | space narrowing and small central disc protrusion seen which indents | | | the thecal sac but does not abut or indent the cord. The canal and | | | neural foramina are patent. The facet joints are normal. | | | Paraspinal musculature and paravertebral soft tissues: Normal. | | + + + + + | Procedure Note | + + | Patrick, Rad Results In 04/15/2020 8:38 AM PDT | | MRI CERVICAL SPINE WITHOUT AND WITH CONTRAST | | | | CLINICAL INFORMATION: | | Neck pain, abnormal neuro exam, myelopathy | | | | COMPARISON: | | None | | | | PROCEDURE: | | Sagittal T2, axial T2, sagittal T1, axial T1, sagittal STIR, axial T1 | | enhanced, and sagittal T1 enhanced sequences. | | | | Contrast: 9 ml gadavist IV. | | | | FINDINGS: | | Alignment: There is reversal of the cervical lordosis from C3 through | | C7. 3 mm anterior subluxations of C3 on C4 and C4 on C5 are noted. | | Alignment is normal at the other levels. | | | | Vertebrae and vertebral marrow signal: Mixed Modic type 1 and type 2 | | endplate changes are seen at C5-6 and C6-7. There is mild degenerative | | enhancement of the endplates at these 2 levels. No focal bone marrow | | lesions are noted. | | | | Cervicomedullary junction and cervical cord: The visualized structures | | in the posterior fossa are normal. The cord is normal in signal | | intensity and morphology and shows no areas of syrinx, hydromyelia or | | abnormal enhancement. Due to the reversal of the cervical lordosis the | | cord is slightly indented anteriorly at C4-5, C5-6 and C6-7. The canal | | remains patent however. | | | | Cervical disc levels: | | | | C2-C3: Disc is normal in height. Posterior contour is normal. Canal | | and neural foramina are patent. Right-sided facet is normal. | | Left-sided facet shows moderate hypertrophy. | | | | C3-C4: Moderate disc space narrowing. 3 mm anterior subluxation noted. | | Canal and neural foramina are patent. Right-sided facet is normal. | | Left-sided facet shows moderate hypertrophy. | | | | C4-C5: Moderate disc space narrowing. 3 mm anterior subluxation noted. | | The right neural foramen is patent. The left neural foramen shows mild | | narrowing. The right-sided facet is normal. The left-sided facet | | shows moderate hypertrophy. | | | | C5-C6: Moderate disc space narrowing. Small central disc bulge noted | | which abuts the anterior cord causing minimal indentation. | | Uncovertebral joint osteophytes cause mild foraminal narrowing without | | compression of the C6 nerve roots. The right-sided facet is normal. | | The left-sided facet shows mild hypertrophy. | | | | C6-C7: Moderate disc space narrowing and chronic endplate degeneration. | | Small posterior disc bulge noted which abuts the cord without causing | | indentation. Uncovertebral joint osteophytes cause mild foraminal | | narrowing without compression of the C7 nerve roots. The facet joints | | are normal. | | | | C7-T1: Mild disc space narrowing and small central disc protrusion seen | | which indents the thecal sac but does not abut or indent the cord. The | | canal and neural foramina are patent. The facet joints are normal. | | | | Paraspinal musculature and paravertebral soft tissues: Normal. | | | | IMPRESSION: | | 1. Multilevel cervical degenerative disc disease with moderate disc | | space narrowing seen from C3-4 through C6-7. Degenerative endplate | | changes are seen at C5-6 and C6-7. | | 2. Reversed cervical lordosis noted from C3 through C7 with 3 mm | | anterior subluxations of C3 on C4 and C4 on C5. | | 3. Cord is draped over the posterior margin of the C5 vertebral body | | with slight indentation of the anterior cord seen at the C4-5 and C5-6 | | levels without significant canal stenosis, cord signal change, syrinx | | or hydromyelia noted. There is no evidence of cervical myelopathy. | | 4. Mild multilevel foraminal narrowing without compression of the | | exiting nerve roots. | | 5. Moderate left-sided facet hypertrophy seen from C2-3 through C4-5. | | | | | | | | | | Signed by: Erica Guadarrama Edward | | Sign Date/Time: 04/15/2020 8:35 AM | + + + +---------+ + + | Performing | Address | [facility] | Phone Number | | Organization | | | | + +---------+ + + | [facility] | | | | + +---------+ + + documented in this encounter Visit Diagnoses + + | Diagnosis | + + | Myelopathy (HCC) Unspecified disease of spinal cord | + + | Frequent falls Personal history of fall | + + | Romero sign present | + + | Pacemaker reprogramming/check - Primary Fitting and adjustment of cardiac pacemaker | + + | Tachycardia-bradycardia (HCC) Sinoatrial node dysfunction | + + | Pacemaker, Dual Chamber, St Jerry, MRI Capable, 09/30/19 Rosy Cardiac pacemaker in | | situ | + + documented in this encounter Administered Medications + +--------+ +-------+------+------+ | Medication Order | MAR | Action | Dose | Rate | Site | | | Action | Date | | | | + +--------+ +-------+------+------+ | gadobutrol (GADAVIST) injection | Given | 04/14/20 | 9 mLs | | | | 9 mL 9 mL, Intravenous, ONCE | | 20 3:29 | | | | | PRN, Other, Starting [facility] 04/14/20 | | PM PDT | | | | | at 1529, For 1 dose, MRI | | | | | | + +--------+ +-------+------+------+ +---+---+ | | | +---+---+ + +-------+ +--------+---+---+ | sodium chloride (PF) 0.9% | Given | 04/14/20 | 20 mLs | | | | injection flush 20 mL 20 mL, | | 20 3:29 | | | | | Intracatheter, ONCE PRN, Line | | PM PDT | | | | | Care, Starting [facility] 04/14/20 at | | | | | | | 1529, For 1 dose, MRI | | | | | | + +-------+ +--------+---+---+ +---+---+ | | | +---+---+ documented in this encounter"
--- OUTSIDE RECORDS SUMMARY | ~2020-09-13 | XMS | Encounter Summary ---
Demographics + + + | Address | [address] | | | [place] [address] | + + + | Home Phone | | + + + | Preferred Language | Unknown | + + + | Marital Status | Single | + + + | Methodist Affiliation | 1073 | + + + | Race | White | + + + | Ethnic Group | Not or | + + + Author + + + | Author | [facility] | | | and [place] | + + + | Organization | [facility] | | | [...] Team Providers + +------+ + | Care Movement Assembler Name | Role | Phone | + +------+ + | August Sanford | PCP | | + +------+ + Encounter Details +--------+ + + + + | Date | Type | Department | Care Team | Description | +--------+ + + + + | 07/09/ | Imaging | [facility] | Provider, | | | 2019 | Exam | [facility] | MD [address] | | | | | IMAGING [address] | [address] | | | | | [address] | [place] [address] | | | | | [place] [address] | | | | | | [phone] | | | +--------+ + + + [...] [place], | | | | | | [place] [address] | | | | | | [phone] | | | | | | | | +--------+ + + + + | 11/23/ | Implant | Cardiology | JacquiadamClaudine, | Pacemaker | | 2019 | Monitor | | [address] | reprogramming/check | | | | | [place], | (Primary Dx); | | | | | [place] [address] | Tachycardia-bradycar | | | | | [phone] | saumel (HCC); | | | | | | Pacemaker, Dual | | | | | | Chamber, [facility], | | | | | | MRI Capable, 09/30/19 | | | | | | Rosy | +--------+ + + + + | 03/08/ | Office | Neurology | Amarjit Fisher MD [address] | | | 2020 | Visit | | [address] | | | | | | [address] [place], | | | | | | [place] [address] | | | | | | [phone] | | | | | | | [...] this | | VW | e | 12:05 AM | | procedure are in the | | | | PDT | | results section. | + +--------+ + + + documented in this encounter Results XR Ankle Right 3 + Vw (06/13/2019 12:05 AM PDT) + + | Specimen | [...]
--- OUTSIDE RECORDS SUMMARY | ~2020-09-13 | XMS | Encounter Summary ---
Demographics + + + | Address | [address] | | | [place] [address] | + + + | Home Phone | | + + + | Preferred Language | Unknown | + + + | Marital Status | Single | + + + | Catholic Affiliation | 1073 | + + + | Race | White | + + + | Ethnic Group | Not or | + + + Author + + + | Author | [facility] | | | and [place] | + + + | Organization | [facility] | | | [...] Team Providers + +------+ + | Care Bundler Name | Role | Phone | + +------+ + | August Sanford | PCP | | + +------+ + Reason for Visit + + + | Reason | Comments | + + + | Device Check | | | (Remote) | | + + + Encounter Details +--------+ + + + + | Date | Type | Department | Care Team | Description | +--------+ + + + + | 02/22/ | Implant | [facility] [place] | Rosy Brigitteslade, | Encounter for loop | | 2019 | Monitor | CARDIOLOGY [address] | MD [address] | recorder check | | | | [place], | [place], | (Primary Dx); S/P | | | | [place] [address] | [place] [address] | implantable loop | | | | [phone] | [phone] | recorder [employer] | | | | [...] encounter Procedure Notes Claudine Gallegos MD - 02/23/2020 11:59 PM PDTAssociated Order(s): DEVICE INTERROGATION- R EMOTEProcedure(s): DEVICE INTERROGATION- REMOTEPre-Procedure Diagnose(s): Encounter for loop recorder check; Status post placement of implantable loop recorder; Syncope, unspecified sy ncope typeDate of Remote Interrogation: 12/01/2019 Refer to [facility] documentation and remote PDF scanned into [employer] for remote interrogation re sults. Data collected by Manda Seaman RN Presenting rhythm: sinus rhythm 60-68 beats. 1 mode switch episodes accounting for <1% of the time. The longest occurred 11/21/2020 at 2 :42 AM for 6 seconds. EGM is consistent with PSVT with atrial tachycardia 135-185 beats. 0 ventricular high rate episodes. PVC singles [id number] PVC singles 4667/month Histogram good. Battery longevity 8.9-11.1 years. R waves small at 3.4-4.3, otherwise apparent normal and stable device function. Device interrogation due in office in March 2020. Patient notified. documented in this encounter Plan of Treatment [...] | | | | | | [place] [address] | | | | | | [phone] | | | | | | | | +--------+ + + + + | 11/23/ | Implant | Cardiology | Claudine Gallegos, | Pacemaker | | 2019 | Monitor | | [address] [facility] | reprogramming/check | | | | | [place], | (Primary Dx); | | | | | [place] [address] | Tachycardia-bradycar | | | | | [phone] | samuel (HCC); | | | | [...] [place], | | | | | | [place] [address] | | | | | | [phone] | | | | | | | | +--------+ + + + + documented as of this encounter Procedures + +--------+ + + + | Procedure Name | Priori | Date/Time | Associated Diagnosis | Comments | | | ty | | | | + +--------+ + + + | DEVICE | Routin | 02/05/2020 | Encounter for loop | Results for this | | INTERROGATION- | e | 12:00 AM | recorder check S/P | procedure are [...] this encounter Results Device Interrogation - Remote (02/05/2020 12:00 AM PDT) + + + | Narrative | Performed At | + + + | Claudine | [facility] | | MD Rosy 02/05/2020 11:45 AMDate of Remote Interrogation: | | | 12/01/2019 Refer to [facility] documentation and remote PDF scanned into | | | [facility] for remote interrogation results. Data collected by Manda Segundo | | | BONNIE Seaman Presenting rhythm: sinus rhythm 60-68 beats.1 mode switch | | | episodes accounting for <1% of the time. The longest occurred | | | 11/21/2020 at 2:42 AM for 6 seconds. EGM is consistent with PSVT | | | with atrial tachycardia 135-185 beats.0 ventricular high rate | | | episodes. PVC singles [id number] PVC singles | | | 4667/monthHistogram good. Battery longevity 8.9-11.1 years.R | | | waves small at 3.4-4.3, otherwise apparent normal and stable device | | | function.Device interrogation due in office in March 2020.Patient | | | notified. | | |Histogram good. Battery longevity 8.9-11.1 years. | | |R waves small at 3.4-4.3, otherwise apparent normal and stable | | |device function. | | |Device interrogation due in office in March 2020. | | |Patient notified. | | | | | + + + + + | Procedure Note | + + | Claudine Gallegos MD - 02/23/2020 11:59 PM PDT Date of Remote Interrogation: | | 12/01/2019Refer to [employer] documentation and remote PDF scanned into [employer] for remote | | interrogation results. Data collected by Yakov Newman rhythm: sinus | | rhythm 60-68 beats.1 mode switch episodes accounting for <1% of the time. The longest | | occurred 11/21/2020 at 2:42 AM for 6 seconds. EGM is consistent with PSVT with atrial | | tachycardia 135-185 beats.0 ventricular high rate episodes. PVC singles [id number] | | PVC singles 4667/monthHistogram good. Battery longevity 8.9-11.1 years.R waves small | | at 3.4-4.3, otherwise apparent normal and stable device function.Device interrogation | | due in office in March 2020.Patient notified. | |R waves small at 3.4-4.3, otherwise apparent normal and stable device function. | |Device interrogation due in office in March 2020. | |Patient notified. | | | + + + +---------+ [...]
--- OUTSIDE RECORDS SUMMARY | ~2020-09-13 | XMS | Encounter Summary ---
Demographics + + + | Address | [address] | | | [place] [address] | + + + | Home Phone | | + + + | Preferred Language | Unknown | + + + | Marital Status | Single | + + + | Yazidi Affiliation | [id number] | + + + [...] Team Providers + +------+ + | Care Kennel Manager Dog Track Name | Role | Phone | + +------+ + | August Sanford | PCP | | + +------+ + Reason for Visit + + + | Reason | Comments | + + + | Establish Care | neck | + + + Evaluate & Treat (Routine) + + + + + + + | Status | Reason | Specialty | Diagnoses / | Referred By | Referred To | | | | | Procedures | Contact | Contact | + + + + + + + | Authorized | Specialty | Neurosurgery | Diagnoses | Amrajit Fisher, | [facility] | | | Services | | | MD [address] | Neurosurgery | | | Required | | Spondylolist | [address] | [address] | | | | | hesis of | [address]IVE [address] | [address] | | | | | cervical | D | [address] | | | | | region | [place], | [place], [place] | | | | | | [place] [address] | [address] | | | | | | Phone: | Phone: | | | | | | [phone] | [phone] | | | | | | Fax: | Fax: | | | | | | [phone] | [phone] | + + + + + + + Encounter Details +--------+---------+ + + + | Date | Type | Department | Care Team | Description | +--------+---------+ + + + | 05/13/ | Office | [facility] | Kobe Torres, | Spondylolisthesis of | | 2020 | Visit | NEUROSURGERY [address] | 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 [address] | cervical region | | | | [address] | [address] | (Primary Dx); | | | | [place], [place] | [place] [address] | Cervicalgia; | | | | [address] | [phone] | Polyneuropathy | | | | [phone] | | | +--------+---------+ + + + Social History [...] + + + | Blood Pressure | 140/92 | 05/13/2020 11:30 AM | | | | | PDT | | + + + + + | Pulse | 73 | 05/13/2020 11:30 AM | | | | | PDT | | + + + + + | Temperature | - | - | | + + + + + | Respiratory Rate | - | - | | + + + + + | Oxygen Saturation | - | - | | + + + + + | Inhaled Oxygen | - | - | | | Concentration | | | | + + + + + | Weight | 93.9 kg (207 lb) | 05/13/2020 11:30 AM | | | | | PDT | | + + + + + | Height | 162.6 cm (5' 4.02") | 05/13/2020 11:30 AM | | | | | PDT | | + + + + + | Body Mass Index | 35.51 | 05/13/2020 11:30 AM | | | | | [...] documented as of this encounter Progress Notes Kobe Torers ARNP - 05/13/2020 11:20 AM PDTFormatting of this note might be different f rom the original. Neurosurgery [address] Krishnamurthy is a 54 y.o. female seen in consultation at the request of Amarjit Fisher MD Referring Provider: Amarjit Fisher MD History Obtained from: Patient Subjective History of Present Illness: Gris Krishnamurthy is a 54 y.o. female seen in consultation at the request of Amarjit Fisher MD f or complaints of aching sensation over the posterior neck. The patient also states that she mainly has complaints of numbness over her right and left hand as well as bilateral feet. She is currently not describing any pain in the neck with any radiation into the upper extre mities at this time. Patient is being followed by Dr. Fisher, Neurology, and chart notes state that the patient had a EMG showed mild peripheral neuropathy of the lower extremities a mil d chronic right C5-6 radiculopathy. The symptoms have been worsening since August 2019. Alice cagle has been using a walker for couple years due to worsening balance. Conservative treatments tried: Conservative measures tried and did not work are physical Therapy, was apparently done and December 2019. Medications tried are Gabapenin. She has not had nerve blocks or injections for pain relief. Past Medical History: Diagnosis Date Anxiety Arthritis Atrial fibrillation (HCC) Cardiomyopathy (HCC) Gout Hypercholesterolemia Hyperlipidemia 12/15/2018 Hypertension 12/15/2018 Hypothyroid 12/15/2018 Mitral valve prolapse Past heart attack 12/15/2018 PVC (premature ventricular contraction) 12/15/2018 Sleep apnea; no cPAP use at this time Wears dentures; full Wears glasses Past Surgical History: Procedure Laterality Date ANKLE FRACTURE SURGERY Right 06/13/2019 Procedure: CLOSED REDUCTION AND SPLINTING OF RIGHT ANKLE FRACTURE; Surgeon: Adelfo baires DO; Location: [facility] MAIN OR intestinal perforation LOOP RECORDER PLACEMENT Left 05/04/[address] [employer] Duque [facility] SYNCOPE PACEMAKER INSERTION N/A 09/30/2019 Procedure: CV EP PPM SYSTEM IMPLANT; Surgeon: Claudine Gallegos MD; Location: [facility] CV LAB PACEMAKER INSERTION N/A 09/30/2019 Procedure: CV EP LOOP RECORDER PROCEDURE; Surgeon: Claudine Gallegos MD; Location: [facility] C V LAB Social History Socioeconomic History Marital status: Single Spouse name: Not on file Number of children: Not on file Years of education: Not on file Highest education level: Not on file Occupational History Comment: Retired Social Needs Financial resource strain: Not on file Food insecurity Worry: Not on file Inability: Not on file Transportation needs Medical: Not on file Non-medical: Not on file Tobacco Use Smoking status: Former Smoker Quit date: 11/25/2015 Years since quittin.4 Smokeless tobacco: Never Used Substance and Sexual Activity Alcohol use: Not Currently Drug use: Never Comment: tried marijuana once for broken ankle pain 08/2019 Sexual activity: Not on file Lifestyle Physical activity Days per week: Not on file Minutes per session: Not on file Stress: Not on file Relationships Social connections Talks on phone: Not on file Gets together: Not on file Attends zoroastrianism service: Not on file Active member of club or organization: Not on file Attends meetings of clubs or organizations: Not on file Relationship status: Not on file Intimate partner violence Fear of current or ex partner: Not on file Emotionally abused: Not on file Physically abused: Not on file Forced sexual activity: Not on file Other Topics Concern Not on file Social History Narrative Exercise: physical therapy twice weekly for right knee Caffeine: 2 coffee and 2 diet pepsi Living situation: Lives in own place, brother also lives in same home Family History Problem Relation Age of Onset Pacemaker Father Heart disease Mother Current Outpatient Medications: allopurinol (ZYLOPRIM) 300 mg tablet, Take 300 mg by mouth Daily., Disp: , Rfl: atorvaSTATin (LIPITOR) 40 mg tablet, Take 40 mg by mouth nightly., Disp: , Rfl: busPIRone (BUSPAR) 30 MG tablet, take 1 tablet by mouth twice a day, Disp: , Rfl: 0 colchicine 0.6 mg tablet, Take 0.6 mg by mouth as needed., Disp: , Rfl: diclofenac (VOLTAREN) 75 mg EC tablet, Take 75 mg by mouth 2 times daily. 1 tablet by mouth two times daily, Disp: , Rfl: ELIQUIS 5 MG tablet, 5 mg 2 times daily., Disp: , Rfl: 0 flecainide (TAMBOCOR) 100 mg tablet, Take 1 tablet by mouth every 12 hours., Disp: 60 tablet, Rfl: 3 folic acid 1 mg tablet, Take 1 mg by mouth Daily., Disp: , Rfl: furosemide (LASIX) 40 mg tablet, take 1 tablet by mouth twice a day for HEART FAILURE; TO BE TAKEN... (REFER TO PRESCRIPTION NOTES)., Disp: , Rfl: 0 gabapentin (NEURONTIN) 300 mg capsule, Take 300 mg by mouth 2 times daily., Disp: , Rf l: levothyroxine (SYNTHROID) 75 MCG tablet, take 1 tablet by mouth every morning ON AN EM PTY STOMACH, Disp: , Rfl: 0 LORazepam (ATIVAN) 0.5 mg tablet, take 1 tablet by mouth twice a day if needed for anx iety, Disp: , Rfl: 0 magnesium oxide (MAG-OX) 400 mg tablet, take 1 tablet by mouth once daily NO REFILLS F ROM THIS PROVIDER, Disp: , Rfl: 0 meclizine (ANTIVERT) 25 mg tablet, Take 25 mg by mouth 3 times daily as needed., Disp: , Rfl: metoprolol tartrate (LOPRESSOR) 25 mg tablet, 25 mg 2 times daily., Disp: , Rfl: 0 ondansetron (ZOFRAN) 4 mg tablet, Take 1 tablet by mouth Daily as needed for Nausea., Disp: 20 tablet, Rfl: 0 potassium chloride (KLOR-CON M20) 20 mEq ER tablet, take 1 tablet by mouth twice a day with food, Disp: , Rfl: 0 prazosin (MINIPRESS) 2 MG capsule, take 1 capsule by mouth at bedtime MAY INCREASE TO 2 capsules at bedtime, Disp: , Rfl: 0 sertraline (ZOLOFT) 100 mg tablet, take 1 tablet by mouth once daily, Disp: , Rfl: 0 zaleplon (SONATA) 10 MG capsule, Take 10 mg by mouth nightly., Disp: , Rfl: Allergies: Allergies Allergen Reactions Penicillins Hives Review of Systems: ROS As per HPI, otherwise a 10 point ROS was performed and was negative OBJECTIVE: PHYSICAL EXAM: Vital Signs: Vitals: 05/13/20 1130 BP: (!) 140/92 Pulse: 73 PainSc: 2 PainLoc: Neck Body mass index is 35.51 kg/m. Constitutional: Well-developed, obese, in no apparent distress, appears stated age, casual ly dressed, well-groomed Psychiatric: She has a normal mood and affect. Her behavior is normal. Thought content no rmal. HEENT: Normocephalic, atraumatic, neck supple Skin: Skin is warm and dry. No rash or acute lesions noted. She is not diaphoretic. No carin thema. No pallor. Pulmonary/Chest: Effort normal. No respiratory distress. Musculoskeletal: Normal tone, no fasciculations or atrophy, Phalen's test negative, Tinel' s sign absent, shoulder ROM normal Neck: Normal range of motion. Negative axial loading, L'Hermitte's, Spurling's Neurological: Mentation: Alert and oriented x 3, fluent speech Motor: 5/5 deltoid, biceps, triceps, WE, intrinsics, legal aid Gait: 4 wheeled walker. Sensation: LT and pin subjectively reduced in all digits of the hands as well as in bilate ral feet. Reflexes: DTRs 2+ in bilateral biceps and triceps IMAGING STUDIES: Both the films and available radiology reports are personally reviewed. Mri Cervical Spine W Wo Contrast Result Date: 04/15/2020 1. Multilevel cervical degenerative disc disease with [...] through C4-5. Signed by: Keri brothers D.O., Valentino Sign Date/Time: 04/15/2020 8:35 AM Mri Thoracic Spine W Wo Contrast Result Date: 04/15/2020 1. Thoracic spinal cord is normal in [...] or indent the cord. Signed by: Erica Guadarrama, Valentino Sign Date/Time: 0 8:14 AM Xr Cervical Spine 2 Or 3 Views Result Date: 04/29/2020 *No acute fracture. *Anterolisthesis of C2 on C3, C3 on C4 and C4 on C5, similar in flexion and extension. Limited motion of the cervical spine in flexion and extension. *Cervical sp ondylosis as detailed above. Signed by: Eugene Traylor, Pushpender Sign Date/Time: 04/29/2020 3 :31 PM ASSESSMENT and PLAN: ICD-10-CM ICD-9-CM 1. Spondylolisthesis of cervical region M43.12 738.4 2. Cervicalgia M54.2 723.1 3. Polyneuropathy G62.9 356.9 I did discuss: - The patient has complaints of aching sensation over the posterior neck. The patient als o states that she mainly has complaints of numbness over her right and left hand as well as bilateral feet. She is currently not describing any pain in the neck with any radiation int o the upper extremities at this time. Patient is being followed by Dr. Fisher, Neurology, and chart notes state that the patient had a EMG showed mild peripheral neuropathy of the lower extremities a mild chronic right C5-6 radiculopathy. The symptoms have been worsening since August 2019. Patient has been using a walker for couple years due to worsening balance. - The patient has finished physical therapy in December, however the patients this and her hands as well as feet have not significantly improved. - MRI cervical spine imaging does show multilevel cervical degenerative disc disease with moderate disc space narrowing seen from C3-4 through C6-7. Degenerative endplate changes ar e seen at C5-6 and C6-7. 2 Reversed cervical lordosis noted from C3 through C7 with 3 mm ant erior subluxations of C3 on C4 and C4 on C5. Cord is draped over the posterior margin of th e C5 vertebral body with slight indentation of the anterior cord seen at the C4-5 and C5-6 l evels without significant canal stenosis, cord signal change, syrinx or hydromyelia noted. There is no evidence of cervical myelopathy. Mild multilevel foraminal narrowing without co mpression of the exiting nerve roots. Moderate left-sided facet hypertrophy seen from C2-3 through C4-5. - Xray cervical spine imaging shows Anterolisthesis of C2 on C3, C3 on C4 and C4 on C5, si milar in flexion and extension. Limited motion of the cervical spine in flexion and extensi on. -The patient currently does not have any clear dermatomal patterns of cervical radiculopath y. Physical examination strength in upper extremities appears to be intact. MRI and cervic al x-ray imaging was reviewed and there does not appear to be a clear surgical target. Due to the lack of clear focal radicular deficits do not recommend surgical intervention at this time. The patient may benefit more with conservative forms of treatment. The patient stat ed understanding and had no further questions for me. Follow Up: as needed We discussed my clinical findings, radiographic studies, and treatment options, including t he risks and benefits in detail. I answered his/her questions. We reviewed treatment option s including, but not limited to, no treatment, continued medical treatment/conservative jad ures and surgical options. Thank you for allowing us to see Gris Krishnamurthy. Please call me at [phone] with a ny questions or concerns. Sincerely, TOOTIE Singleton Neurosurgery [facility] Note: I spent approximately 30 minutes in [id number] time of which greater than 50% was involved in counseling/coordination of care. Portions of this chart may have been created with voice recognition software. Occasional wr nhung-word or "sound-alike" substitutions may have occurred, even after review, due to the inh erent limitations of voice recognition software. Please read the chart carefully and recogni ze, using context, where these substitutions have occurred. Personal communication is reques chica for any clarifications. CC: FRANCO Fernandes documented in this encounter Plan of Treatment +--------+ + + + + | Date | Type | Specialty | Care Team | Description | +--------+ + + + + | 10/10/ | Office | Cardiology | Claudine Gallegos, | | | 2019 | Visit | | MD [address] [place] | | | | | | [place], | | | | | | [place] [address] | | | | | | [phone] | | | | | | | | +--------+ + + + + | 11/23/ | Implant | Cardiology | Claudine Gallegos, | Pacemaker | | 2019 | Monitor | | MD Mark Garcia | reprogramming/check | | | | | [place], | (Primary Dx); | | | | | [place] [address] | Tachycardia-bradycar | | | | | [phone] | samuel (HCC); | | | | | | Pacemaker, Dual | | | | | | Chamber, [address] [place], | | | | | | MRI Capable, 09/30/19 | | | | | | Rosy | +--------+ + + + + | 03/08/ | Office | Neurology | Amarjit Fisher MD [address] | | | 2020 | Visit | | [address] | | | | | | [place], | | | | | | [place] [address] | | | | | | [phone] | | | | | | | | +--------+ + + + + documented as of this encounter Visit Diagnoses + + | Diagnosis | + + | Spondylolisthesis of cervical region - Primary Acquired spondylolisthesis | + + | Cervicalgia | + + | Polyneuropathy Unspecified hereditary and idiopathic peripheral neuropathy | + + | Pacemaker reprogramming/check - Primary Fitting and adjustment of cardiac pacemaker | + + | Tachycardia-bradycardia (HCC) Sinoatrial node dysfunction | + + | Pacemaker, Dual Chamber, [address] [place], MRI Capable, 09/30/19 Rosy Cardiac pacemaker in | | situ | + + documented in this encounter
--- OUTSIDE RECORDS SUMMARY | ~2020-09-13 | XMS | Encounter Summary ---
Demographics + + + | Address | [address] | | | [place] [address] | + + + | Home Phone | | + + + | Preferred Language | Unknown | + + + | Marital Status | Single | + + + | Jewish Affiliation | 1073 | + + + | Race | White | + + + | Ethnic Group | Not or | + + + Author + + + | Author | [facility] | | | and [place] | + + + | Organization | [facility] | | [...] Team Providers + +------+ + | Care Hand Box Folder Name | Role | Phone | + [...] + + | 12/26/ | Hospital | [facility] | Claudine Gallegos, | Chest pain, | | 2018 | Encounter | [facility] | MD [address] [place] | unspecified type | | | | MEDICINE [address] [place], | | | | | [place], | [place] [address] | | | | | [place] [address] | [phone] | | | | | [phone] | | | +--------+ + + + [...] 1 tablet by | | 0 | // | | | 30 MG tablet | [...] + + + +---------+ + + | albuterol (PROAIR | Inhale 2 puffs into | | 0 | | | | HFA) 90 mcg/puff | the lungs every 6 | | | | 9 | | inhaler | hours as needed [...] + + + +---------+ + + | MAPAP 500 MG | take 1 tablet by | | 0 | 11/20/20 | | | tablet | mouth every 3 to 6 | | | 18 | 9 | | | hours; (Diclofenac) | | | | | + + + +---------+ + + | nitroglycerin | Place 1 tablet under | 25 | 5 | 12/23/19 | | | (NITROSTAT) 0.4 mg | the tongue every 5 | tablet | | 19 | 0 | | SL tablet | minutes as needed | | | | | | | for Chest pain. | | | | | + + + +---------+ + + | zolpidem (AMBIEN) | take 1 tablet by | | 0 | 11/20/20 | | | 5 mg tablet | mouth at bedtime if | | | 18 | 9 | | | needed for insomnia | [...] | | 2020 | Visit | | MD Mark Garcia | | | | | | [place], | | | | | | [place] [address] | | | | | | [phone] | | | | | | | | +--------+ + + + + | 11/23/ | Implant | Cardiology | Claudine Gallegos, | Pacemaker | | 2019 | Monitor | | [address] | reprogramming/check | | | | | [place], | (Primary Dx); | | | | | [place] [address] | Tachycardia-bradycar | | | | | [phone] | samuel (HCC); | | | | [...] [place], | | | | | | [place] [address] | | | | | | [phone] | | | | | | | [...] | | TEST (PHARMACOLOGIC | e | 2:33 PM | unspecified type | procedure are in the | | - VASODILATOR) | | PST | | results section. | + +--------+ + + + documented in this encounter Results NM Nuclear Stress Test (Vasodilator) (12/26/2018 2:33 PM PST) + +--------+ + + + | Component | Value | Ref Range | Performed | Pathologist | | | | | At | Signature | + +--------+ + + + | BASELINE | 75 | bpm | [facility] | | | HEART RATE | | | | | + +--------+ + + + | BASELINE | 192/87 | mmHg | [facility] | | | BLOOD | | | | | | PRESSURE | | | | | + +--------+ + + + | PEAK HEART | 80 | | [facility] | | | RATE | | | | | + +--------+ + + + | PEAK BLOOD | 192/87 | mmHG | [facility] | | | PRESSURE | | | | | + +--------+ + + + | Target HR | 141 | | [facility] | | + +--------+ + + + | Percent HR | 48 | | [facility] | | + +--------+ + + + | LVEF-SPECT | 61 | % | [facility] | | | NUCLEAR | | | | | | STRESS/VIAB | | | | | | ILITY | | | | | + +--------+ + + + | ST | 0.0 | mm | [facility] | | | Elevation | | | | | | (mm) | | | | | + +--------+ + + + + + | Specimen | + + | | + + + + + | Narrative | Performed At | + + + | 1. | [facility] | | Persantine EKG is negative.2. Normal Persantine sestamibi [...] Chest pain, unspecified type | + + | Pacemaker reprogramming/check - Primary Fitting and adjustment of cardiac pacemaker | + + | Tachycardia-bradycardia (HCC) Sinoatrial node dysfunction | + + | Pacemaker, Dual Chamber, [facility] [place], MRI Capable, 09/30/19 Rosy Cardiac pacemaker in | | situ | + + documented in this encounter Administered Medications + +--------+ + +------+------+ | Medication Order | MAR | Action | Dose | Rate | Site | | | Action | Date | | | | + +--------+ + +------+------+ | technetium TC-99M sestamibi | Given | 12/26/19 | 10.7 | | | | (CARDIOLITE) injection 10.7 | | 19 9:27 | millicur | | | | millicurie 10.7 millicurie, | | AM PST | ies | | | | Intravenous, ONCE PRN, Other, | | | | | | | Starting 12/26/18 at 0927, For | | | | | | | 1 dose, Nuclear Medicine | | | | | | + +--------+ + +------+------+ +---+---+ | | | +---+---+ documented in this encounter"
--- OUTSIDE RECORDS SUMMARY | ~2020-09-13 | XMS | Encounter Summary ---
Demographics + + + | Address | [address] | | | [place] [address] | + + + | Home Phone | | + + + | Preferred Language | Unknown | + + + | Marital Status | Single | + + + | Adventist Affiliation | 1073 | + + + | Race | White | + + + | Ethnic Group | Not or | + + + Author + + + | Author | [facility] | | | and [place] | + + + | Organization | [facility] | | [...] Team Providers + +------+ + | Care Tank Builder Supervisor Name | Role | Phone | + +------+ + | August Sanford | PCP | | + +------+ + Reason for Visit +---------+--------+ + | Reason | Onset | Comments | | | Date | | +---------+--------+ + | Results | 03/09/ | loop recorder | | | 2019 | | +---------+--------+ + Encounter Details +--------+ + + + + | Date | Type | Department | Care Team | Description | +--------+ + + + + | 03/09/ | Telephone | [facility] [place] | Claudine Gallegos, | Results (loop | | 2019 | | CARDIOLOGY [address] | MD [address] | recorder) | | | | [place], | [place], | | | | | [place] [address] | [place] [address] | | | | | [phone] | [phone] | | | | | | | [...] this encounter Miscellaneous Notes Telephone Encounter - Harmony Padilla RN - 03/09/2019 3:47 PM PDTCalled patient with reg arding loop recorder report from 02/24/2019. Report with 2 symptom episodes from 02/17/19 and . Recordings show sinus bradycardia to sinus rhythm with frequent PVCs. Patient rep orts sinking feeling in chest and "pop" related to the PVCs. Denies having any further doub le vision, chest pain, dizziness, shortness of breath, weakness, or near syncope that she [place] s had in the past. Patient reports having a stress test and is to be scheduled for a sleep study. Patient has a scheduled OC/THR with Dr Gallegos June 22 and feels that is appropr iate. Notified patient to please call us if she has worsening symptoms. Patient verbalized understanding. Electronically signed by: Harmony Padilla RN 03/09/2019 15:51 documented in this e ncounter Plan of Treatment +--------+ + + + + | Date | Type | Specialty | Care Team | Description | +--------+ + + + + | 10/10/ | Office | Cardiology | Claudine Gallegos, | | | 2019 | Visit | | MD [address] | | | | | | [place], | | | | | | [place] [address] | | | | | | [phone] | | | | | | | | +--------+ + + + + | 11/23/ | Implant | Cardiology | Claudine Gallegos, | Pacemaker | 2019 | Monitor | | MD Mark Garcia | reprogramming/check | | | | | [place], | (Primary Dx); | | | | | [place] [address] | Tachycardia-bradycar | | | | | [phone] | samuel ([facility]); | | | | | [...] | | | | | | [place] [address] | | | | | | [phone] | | | | | | | | +--------+ + + + + documented as of this encounter Visit Diagnoses Not on filedocumented in this encounter
--- OUTSIDE RECORDS SUMMARY | ~2020-09-13 | XMS | Encounter Summary ---
Demographics + + + | Address | [address] | | | [place] [address] | + + + | Home Phone [...] Author + + + | Author | [facility] | | | and [place] | + + + | Organization | [facility] | | | [...] Team Providers + +------+ + | Care Cementer Machine Joiner Name | Role | Phone | + +------+ + | August Sanford | PCP | | + +------+ + Reason for Visit + +--------+ + | Reason | Onset | Comments | | | Date | | + +--------+ + | Appointment | 06/06/ | | | | 2020 | | + +--------+ + Encounter Details +--------+ + + + + | Date | Type | Department | Care Team | Description | +--------+ + + + + | 06/06/ | Telephone | [facility] | Amarjit Fisher MD [address] | Appointment | | 2020 | | NEUROLOGY [address] | [address] | | | | | [place] | [address] [facility], | | | | | [place], [place] | [place] [address] | | | | | [address] | [phone] | | | | | [phone] | | | +--------+ + + + [...] encounter Miscellaneous Notes Telephone Encounter - Donnie Klein Asset Liability Analyst - 06/07/2020 3:26 PM PDTMervin ed e ferozne Encounter - Hermila Benton - 06/06/2020 1:33 PM Yordan, is calling regarding Appointment and would like a call back. Additional Call Details: Calling to schedule Follow Up Appointment. Can be reached at Home Number list in Chart If this is a symptom based call, was patient offered triage? Not Applicable If this is a symptom based call and you were unable to immediately transfer the call to a danielle self vice chancellor was caller made aware that if at [...] | | | | | | [place] [address] | | | | | | [phone] | | | | | | | | +--------+ + + + + | 11/23/ | Implant | Cardiology | JacquiadamClaudine, | Pacemaker | | 2019 | Monitor | | [address] | reprogramming/check | | | | | [place], | (Primary Dx); | | | | | [place] [address] | Tachycardia-bradycar | | | | | [phone] | samuel (HCC); | | | | [...] [place], | | | | | | [place] [address] | | | | | | [phone] | | | | | | | | +--------+ + + + + documented as of this encounter Visit Diagnoses Not on filedocumented in this encounter"
--- OUTSIDE RECORDS SUMMARY | ~2020-09-13 | XMS | Encounter Summary ---
Demographics + + + | Address | [address] | | | [place] [address] | + + + | Home Phone [...] Author + + + | Author | [facility] | | | and [place] | + + + | Organization | [facility] | | | and [...] Team Providers + +------+ + | Care Brine Plant Operator Name | Role | Phone | + +------+ + | August Sanford | PCP | | + +------+ + Reason for Visit + +--------+ + | Reason | Onset | Comments | | | Date | | + +--------+ + | Establish Care | 11/19/ | sooner appointment | | | 2019 | | + +--------+ + Encounter Details +--------+ + + + + | Date | Type | Department | Care Team | Description | +--------+ + + + + | 11/19/ | Telephone | [facility] | Amarjit Fisher MD [address] | Establish Care | | 2019 | | NEUROLOGY [address] | [address] | (sooner appointment) | | | | [place] | [address] [facility] | | | | | [place], [place] | [place] [address] | | | | | [address] | [phone] | | | | | [phone] | | | +--------+ + + + [...] this encounter Miscellaneous Notes Telephone Encounter - Hernandez Macias No - 01/06/2020 2:04 PM PSTSumanuel, is calling aga in for Establish Care (sooner appointment) and would like a call back. Additional Call Details: Calling again for a sooner appointment if available. Please call home number elephone Aracelis Flores - 2019 10:45 AM PSTSusaadam, is calling regarding Establish Care (soone r appointment) and would like a call back. Additional Call Details: Would like to know if there have been any cancellations to be see n sooner. Please call her back at home number listed. If this is a symptom based call, was patient offered triage? Not Applicable If this is a symptom based call and you were unable to immediately transfer the call to a danielle self corporate communications specialist was caller made aware that if at [...] | 10/10/ | Office | Cardiology | Jacquiadam Ashanhung, | | | 2019 | Visit | | MD Mark Garcia | | | | | | [place], | | | | | | [place] [address] | | | | | | [phone] | | | | | | | | +--------+ + + + + | 11/23/ | Implant | Cardiology | JacquiClaudine medina, | Pacemaker | | 2019 | Monitor | | MD Mark Garcia | reprogramming/check | | | | | [place], | (Primary Dx); | | | | | [place] [address] | Tachycardia-bradycar | | | | | [phone] | samuel (HCC); | | | | | | Pacemaker, Dual | | | | | | Chamber, [address] [facility], | | | | | | MRI Capable, 09/30/19 | | | | | | Roys | +--------+ + + + + | 03/08/ | Office | Neurology | Amarjit Fisher MD [address] | | | 2020 | Visit | | [address] | | | | | | [place], | | | | | | [place] [address] | | | | | | [phone] | | | | | | | | +--------+ + + + + documented as of this encounter Visit Diagnoses Not on filedocumented in this encounter"
--- OUTSIDE RECORDS SUMMARY | ~2020-09-13 | XMS | Encounter Summary ---
Demographics + + + | Address | [address] | | | [place] [address] | + + + | Home Phone | | + + + | Preferred Language | Unknown | + + + | Marital Status | Single | + + + | Episcopalian Affiliation | 1073 | + + + | Race | White | + + + | Ethnic Group | Not or | + + + Author + + + | Author | [facility] | | | and [place] | + + + | Organization | [facility] | | [...] Team Providers + +------+ + | Care Glove Stitcher Name | Role | Phone | + [...] [address] | [address] | fibrillation (HCC) | | | | [place], | [place] | | | | | [place] [address] | [place] [address] | | | | | [phone] | | | +--------+ + + + [...] | | | | | | [place] [address] | | | | | | [phone] | | | | | | | | +--------+ + + + + | 11/23/ | Implant | Cardiology | RosyBrigitteslade, | Pacemaker | | 2019 | Monitor | | [address] | reprogramming/check | | | | | [place], | (Primary Dx); | | | | | [place] [address] | Tachycardia-bradycar | | | | | [phone] | samuel (HCC); | | | | [...] [place], | | | | | | [place] [address] | | | | | | [phone] | | | | | | | [...]
--- OUTSIDE RECORDS SUMMARY | ~2020-09-13 | XMS | Encounter Summary ---
Demographics + + + | Address | [address] | | | [place] [address] | + + + | Home Phone | | + + + | Preferred Language | Unknown | + + + | Marital Status | Single | + + + | Rastafari Affiliation | 1073 | + + + | Race | White | + + + | Ethnic Group | Not or | + + + Author + + + | Author | [facility] | | | and [place] | + + + | Organization | [facility] | | [...] Team Providers + +------+ + | Care Insurance Coder Name | Role | Phone | + +------+ + | August Sanford | PCP | | + +------+ + Encounter Details +--------+ + + + + | Date | Type | Department | Care Team | Description | +--------+ + + + + | 12/15/ | Abstract | [facility] [place] | Provider, | Hypothyroidism, | | 2019 | | CARDIOLOGY [address] | [address] | unspecified type; | | | | [place], | [address] | PVC (premature | | | | [place] [address] | [place] [address] | ventricular | | | | [phone] | | contraction); Past | | | [...] | | | | | | [place] [address] | | | | | | [phone] | | | | | | | | +--------+ + + + + | 11/23/ | Implant | Cardiology | Claudine Glalegos, | Pacemaker | | 2019 | Monitor | | MD Mark Garcia | reprogramming/check | | | | | [place], | (Primary Dx); | | | | | [place] [address] | Tachycardia-bradycar | | | | | [phone] | samuel (HCC); | | | | [...] | | | | | [place], | | | | | | [place] [address] | | | | | | [phone] | | | | | | | | +--------+ + + + + documented as of this encounter Visit Diagnoses + + | Diagnosis | + + | Hypothyroidism, unspecified type | + + | PVC (premature ventricular contraction) Other premature beats | + + | Past heart attack Old myocardial infarction | + + | Syncope, unspecified syncope type | + + | Hypertension, unspecified type | + + | Hyperlipidemia, unspecified hyperlipidemia type | + + | Pacemaker reprogramming/check - Primary Fitting and adjustment of cardiac pacemaker | + + | Tachycardia-bradycardia (HCC) Sinoatrial node dysfunction | + + | Pacemaker, Dual Chamber, [address], MRI Capable, 09/30/19 Rosy Cardiac pacemaker in | | situ | + + documented in this encounter"
--- OUTSIDE RECORDS SUMMARY | ~2020-09-13 | XMS | Encounter Summary ---
Demographics + + + | Address | [address] | | | [place] [address] | + + + | Home Phone | | + + + | Preferred Language | Unknown | + + + | Marital Status | Single | + + + | Congregational Affiliation | 1073 | + + + | Race | White | + + + | Ethnic Group | Not or | + + + Author + + + | Author | [facility] | | | and [place] | + + + | Organization | [facility] | | | [...] Team Providers + +------+ + | Care Landscape Drafter Name | Role | Phone | + +------+ + | August Sanford | PCP | | + +------+ + Encounter Details +--------+ + + + + | Date | Type | Department | Care Team | Description | +--------+ + + + + | 12/31/ | Abstract | [facility] [place] | Jenna Samaniego, | | | 2019 | | CARDIOLOGY [address] | WEATHERIZATION COORDINATOR [address] | | | | | [place], | [address] [place] | | | | | [place] [address] | [address] | | | | | [phone] | | | +--------+ + + + [...] | | | | | | [place] [address] | | | | | | [phone] | | | | | | | | +--------+ + + + + | 11/23/ | Implant | Cardiology | RosyClaudine, | Pacemaker | | 2019 | Monitor | | [address] [facility] | reprogramming/check | | | | | [place], | (Primary Dx); | | | | | [place] [address] | Tachycardia-bradycar | | | | | [phone] | samuel (HCC); | | | | | | Pacemaker, Dual | | | | | | Chamber, [address], | | | | | | MRI Capable, 09/30/19 | | | | | | Rosy | +--------+ + + + + | 03/08/ | Office | Neurology | Amarjit Fisher MD [address] | | | 2020 | Visit | | [address] | | | | | | [address] [place], | | | | | | [place] [address] | | | | | | [phone] | | | | | | | [...] this | | GLUCOSE | e | | | procedure are [...] | | METABOLIC PANEL | e | | | procedure are in the | | | | | | results section. | + +--------+ + + + documented in this encounter Results Comprehensive Metabolic Panel (12/22/2018) + + + + + + | Component | Value | Ref Range | Performed | Pathologist | | | | | At | Signature | + + + + + + | BUN/Creatin | 17.0 | 6.0 - 26.6 | | | | ine Ratio | | | | | + + + + + + | Globulin | 2.7 | 1.8 - 3.5 | | | + + + + + + | MCH | 25.0 (A) | 27.0 - 33.0 pg | | | + + + + + + | MCHC | 31.0 | 30.0 - 36.0 % | | | + + + + + + + + | Specimen | + + | Blood | + + External Lab: Glucose (12/22/2018) + +---------+ + + + | Component | Value | Ref Range | Performed | Pathologist | | | | | At | Signature | + +---------+ + + + | Glucose, | 124 (A) | 70 - 100 | | | | External | | | | | + +---------+ + + + External Lab: ALT (12/22/2018) + +-------+ + + + | Component | Value | Ref Range | Performed | Pathologist | | | | | At | Signature | + +-------+ + + + | ALT, | 21 | 7 - 52 | | | | External | | | | | + +-------+ + + + External Lab: AST (12/22/2018) + +-------+ + + + | Component | Value | Ref Range | Performed | Pathologist | | | | | At | Signature | + +-------+ + + + | AST, | 17 | 13 - 39 | | | | External | | | | | + +-------+ + + + External Lab: Alkaline Phosphatase (12/22/2018) + +-------+ + + + | Component | Value | Ref Range | Performed | Pathologist | | | | | At | Signature | + +-------+ + + + | ALP, | 113 | 31 - 130 | | | | External | | | | | + +-------+ + + + External Lab: Bilirubin, Total (12/22/2018) + +-------+ + + + | Component | Value | Ref Range | Performed | Pathologist | | | | | At | Signature | + +-------+ + + + | Bilirubin, | 0.3 | 0 - 1.2 | | | | Total, | | | | | | External | | | | | + +-------+ + + + External Lab: Albumin (12/22/2018) + +-------+ + + + | Component | Value | Ref Range | Performed | Pathologist | | | | | At | Signature | + +-------+ + + + | Albumin, | 4.1 | 3.5 - 5 | | | | External | | | | | + +-------+ + + + External Lab: Protein, Total (12/22/2018) + +---------+ + + + | Component | Value | Ref Range | Performed | Pathologist | | | | | At | Signature | + +---------+ + + + | Protein, | 6.6 (A) | 6 - 6.3 | | | | Total, | | | | | | External | | | | | + +---------+ + + + External Lab: Calcium (12/22/2018) + +-------+ + + + | Component | Value | Ref Range | Performed | Pathologist | | | | | At | Signature | + +-------+ + + + | Calcium, | 9.2 | 6.5 - 10.3 | | | | External | | | | | + +-------+ + + + External Lab: Carbon Dioxide (12/22/2018) + +-------+ + + + | Component | Value | Ref Range | Performed | Pathologist | | | | | At | Signature | + +-------+ + + + | Carbon | 24 | 19 - 31 | | | | Dioxide, | | | | | | External | | | | | + +-------+ + + + External Lab: Chloride (12/22/2018) + +-------+ + + + | Component | Value | Ref Range | Performed | Pathologist | | | | | At | Signature | + +-------+ + + + | Chloride, | 104 | 95 - 112 | | | | External | | | | | + +-------+ + + + External Lab: CBC (12/22/2018) + + + + + + | Component | Value | Ref Range | Performed | Pathologist | | | | | At | Signature | + + + + + + | WBC, | 6.8 | 4.5 - 11 | | | | External | | | | | + + + + + + | HGB, | 11.2 (A) | 12 - 16 | | | | External | | | | | + + + + + + | HCT, | 36.7 | 35 - 45 | | | | External | | | | | + + + + + + | PLT, | 238 | 140 - 440 | | | | External | | | | | + + + + + + | Neutrophils | 55.0 | 39 - 80 | | | | , Absolute, | | | | | | External | | | | | + + + + + + | Lymphocytes | 33.3 | 24 - 44 | | | | , Absolute, | | | | | | External | | | | | + + + + + + | Monocytes, | 8.5 | 0 - 12 | | | | Absolute, | | | | | | External | | | | | + + + + + + | Eosinophils | 1.8 | 0 - 8 | | | | , Absolute | | | | | + + + + + + | Basophils, | 1.4 | 0 - 2 | | | | Absolute | | | | | + + + + + + | RBC, | 4.42 | 3.6 - 5.1 | | | | External | | | | | + + + + + + | MCV, | 83 (A) | 91 - 99 | | | | External | | | | | + + + + + + | RDW, | 16.4 (A) | 10.5 - 15 | | | | External | | | | | + + + + + + External Lab: eGFR (12/22/2018) + +-------+ + + + | Component | Value | Ref Range | Performed | Pathologist | | | | | At | Signature | + +-------+ + + + | eGFR, | 67 | | | | | External | | | | | + +-------+ + + + + + | Specimen | + + | Blood | + + External Lab: Creatinine (12/22/2018) + +-------+ + + + | Component | Value | Ref Range | Performed | Pathologist | | | | | At | Signature | + +-------+ + + + | Creatinine, | 0.88 | 0.7 - 1.33 | | | | External | | | | | + +-------+ + + + + + | Specimen | + + | Blood | + + External Lab: Potassium (12/22/2018) + +-------+ + + + | Component | Value | Ref Range | Performed | Pathologist | | | | | At | Signature | + +-------+ + + + | Potassium, | 3.8 | 3.6 - 5.1 | | | | External | | | | | + +-------+ + + + External Lab: Sodium (12/22/2018) + +-------+ + + + | Component | Value | Ref Range | Performed | Pathologist | | | | | At | Signature | + +-------+ + + + | Sodium, | 136 | 132 - 143 | | | | External | | | | | + +-------+ + + + documented in this encounter Visit Diagnoses Not on filedocumented in this encounter"
--- OUTSIDE RECORDS SUMMARY | ~2020-09-13 | XMS | Encounter Summary ---
Demographics + + + | Address | [address] | | | [place] [address] | + + + | Home Phone | | + + + | Preferred Language | Unknown | + + + | Marital Status | Single | + + + | Orthodox Affiliation | 1073 | + + + | Race | White | + + + | Ethnic Group | Not or | + + + Author + + + | Author | [facility] | | | and [place] | + + + | Organization | [facility] | | | [...] Team Providers + +------+ + | Care Stem Teacher Name | Role | Phone | + +------+ + | August Sanford | PCP | | + +------+ + Reason for Visit + + + | Reason | Comments | + + + | Follow-up | | + + + | Chest Pain | | + + + Follow Up (Routine) +--------+--------+ + + + + | Status | Reason | Specialty | Diagnoses / | Referred By | Referred To | | | | | Procedures | Contact | Contact | +--------+--------+ + + + + | Closed | | Cardiology | Diagnoses | [place], | [place], | | | | | Ventricular | FRANCO Koch | MD Claudine | | | | | premature | [address] | | | | | depolarizati | [facility] | [address] | | | | | on | [address] | [place], | | | | | Paroxysmal | [place], | [place] [address] | | | | | atrial | [place] [address] | Phone: | | | | | fibrillation | Phone: | [phone] | | | | | (HCC) | [phone] | Fax: | | | | | Syncope and | Fax: | [phone] | | | | | collapse | [phone] | | | | | | Presence of | | | | | | | other | | | | | | | cardiac | | | | | | | implants and | | | | | | | grafts | | | | | | | Procedures | | | | | | | FUP | | | +--------+--------+ + + + + Encounter Details +--------+---------+ + + + | Date | Type | Department | Care Team | Description | +--------+---------+ + + + | 09/03/ | Office | [facility] | Claudine Gallegos, | Encounter for loop | | 2018 | Visit | CARDIOLOGY [address] | recorder check | | | | [address], | [place], | (Primary Dx); S/P | | | | [place] [address] | [place] [address] | implantable loop | | | | [phone] | [phone] | recorder Medtronic | | | | | | 05/04/2016 Dr Duque | | | | | | Tommy; Syncope, | | | | | | unspecified syncope | | | | | | type | +--------+---------+ + + + Social History [...] + + + | Blood Pressure | 110/70 | 09/03/2019 3:32 PM | | | | | PDT | | + + + + + | Pulse | 56 | 09/03/2019 3:32 PM | | | | | PDT | | + + + + + | Temperature | - | - | | + + + + + | Respiratory Rate | 16 | 09/03/2019 3:32 PM | | | | | PDT | | + + + + + | Oxygen Saturation | - | - | | + + + + + | Inhaled Oxygen | - | - | | | Concentration | | | | + + + + + | Weight | 107.7 kg (237 lb 7 | 09/03/2019 3:32 PM | | | | oz) | PDT | | + + + + + | Height | 162.6 cm (5' 4") | 09/03/2019 3:32 PM | | | | | PDT | | + + + + + | Body Mass Index | 40.76 | 09/03/2019 3:32 PM | | | | | PDT | [...] + + documented as of this encounter Patient Instructions Patient Instructions Venus Hernandez Tarah RN - 09/03/2019 3:00 PM PDTProcedure: Pacemaker I mplantation Date: Check-In Time: 1. Check-In at [facility]. 2. Do not eat or drink anything after midnight the night prior to the procedure. 3. Please hold: Eliquis for one day prior to procedure. 4. Take all of your regular medications with a sip of water the morning of the procedure ex cept Eliquis as listed above.. 5. For Implant you will stay the night in ICU, for Battery/Generator change or Loop recorde r you will be able to go home the same day. You will need someone to drive you home. Wound Check: Nurse only - At [facility], 4th floor Cardiology Date: Check-in Time: Follow up: 3 Months Provider: Date: Check-in Time: Initial/Next Device check will be in 3 months: Provider: Claudine Gallegos MD Date: Check-In Time: documented in this encounter Progress Notes Claudine Gallegos MD - 09/03/2019 3:00 PM PDTFormatting of this note might be different f rom the original. PATIENT NAME: Gris Krishnamurthy : 1965: AGE: 53 y.o. PRIMARY CARE: FRANCO Fernandes OUTPATIENT FOLLOW UP VISIT Date of Service: 09/03/2019 HISTORY OF PRESENT ILLNESS: Gris Krishnamurthy is a 53 y.o. female with a history of paroxysmal atrial fibrillation, PVD, hyp ertension, hyperlipidemia, and obstructive sleep apnea. She is being seen today for follow up and device interrogation. She was last seen 01/06/2019 at which time patient was referred for sleep consultation. Sin ce that time, patient had an episode of passing out when she got out of bed before using the restroom. Loop recorder interrogation today reveals episode of bradycardia with heart rate in the 40s. Today, she reports feeling dizziness and lightheadedness. Patient is physicall y inactive due to broken right ankle. There is no chest pain or chest discomfort both at res t and on exertion. Patient denies breathlessness. There is no ankle or leg swelling. Patien t can sleep on one pillow at night without difficulty breathing. MEDICAL, SURGICAL, AND PERSONAL HISTORY Past Medical, Surgical, Family, and Social History are reviewed in EPIC. CURRENT PROBLEMS Patient Active Problem List Diagnosis S/P implantable loop recorder Medtronic 05/04/2016 Dr Neto Sanders Syncope Encounter for loop recorder check Hypothyroid PVC (premature ventricular contraction) Past heart attack Essential hypertension Mixed hyperlipidemia Paroxysmal atrial fibrillation Chest pain, unspecified Anticoagulated Closed fracture dislocation of ankle CURRENT MEDICATIONS Current Outpatient Medications Medication Sig Dispense Refill allopurinol (ZYLOPRIM) 300 mg tablet Take 300 mg by mouth Daily. atorvaSTATin (LIPITOR) 40 mg tablet Take 40 mg by mouth nightly. busPIRone (BUSPAR) 30 MG tablet take 1 tablet by mouth twice a day 0 colchicine 0.6 mg tablet Take 0.6 mg by mouth as needed. diclofenac (VOLTAREN) 75 mg EC tablet ELIQUIS 5 MG tablet 5 mg 2 [...] tablet 25 mg 2 times daily. 0 nitroglycerin (NITROSTAT) 0.4 mg SL tablet [...] INCREASE TO 2 capsules at bedtime 0 RA SENNA 8.6 MG tablet as needed. 0 sertraline (ZOLOFT) 100 mg tablet take 1 tablet by mouth once daily 0 traMADol (ULTRAM) 50 mg tablet zaleplon (SONATA) 10 MG capsule Take 10 mg by mouth nightly. No current facility-administered medications for this visit. ALLERGIES Allergies Allergen Reactions Penicillins Hives ROS Review of Systems Constitutional: Negative for malaise/fatigue. Respiratory: Negative for shortness of breath. Cardiovascular: Positive for chest pain, palpitations and leg swelling. Neurological: Positive for weakness. Negative for dizziness. Lightheaded = No OBJECTIVE: PHYSICAL EXAM BP 110/70 | Pulse 56 | Resp 16 | Ht 1.626 m (5' 4") | Wt 107.7 kg (237 lb 7 oz) | BMI 40.76 kg/m Physical Exam Constitutional: She is oriented to person, place, and time. She appears well-developed and well-nourished. Obese female individual, arrives with her brother and brother in law, no acute distress. Neck: Normal carotid pulses and no JVD present. Carotid bruit is not present. Cardiovascular: Normal rate, regular rhythm, S1 normal, S2 normal, normal heart sounds and intact distal pulses. PMI is not displaced. Exam reveals no gallop and no friction rub. No murmur heard. Pulses: Carotid pulses are 2+ on the [...] She exhibits no edema. Neurological: She is alert and oriented to person, place, and time. Gait normal. Skin: Skin is warm and dry. No cyanosis. Nails show no clubbing. Psychiatric: She has a normal mood and affect. Her mood appears not anxious. She does not e xhibit a depressed mood. LAB RESULTS reviewed during visit today primarily from [facility]: LIPID Lab Results Component Value Date CHOLHDL 3.0 08/27/2019 LDLEX 50 08/19/2018 HDLEX 45.7 08/27/2019 TRIGEX 90 08/27/2019 CHOLEX 137 08/27/2019 CHEMISTRY Lab Results Component Value Date GLU 98 06/14/2019 GLUEX 124 (A) 12/22/2018 NA 141 06/14/2019 NAEX 136 12/22/2018 K 3.3 (L) 06/14/2019 KEX 3.8 12/22/2018 CL 101 06/14/2019 CLEX 104 12/22/2018 CO2 31 06/14/2019 CO2EX 24 12/22/2018 CALCIUM 9.0 06/14/2019 ASTEX 17 12/22/2018 ALTEX 21 12/22/2018 CREA 0.69 06/14/2019 BUN 8 (L) 06/14/2019 EGFREX 67 12/22/2018 CREEX 0.88 12/22/2018 HEMATOLOGY Lab Results Component Value Date WBC 7.0 06/14/2019 WBCEX 6.8 12/22/2018 HGB 10.7 (L) 06/14/2019 HGBEX 11.2 (A) 12/22/2018 HCT 35.2 06/14/2019 HCTEX 36.7 12/22/2018 PLT 249 06/14/2019 PLTEX 238 12/22/2018 Above data and testing is reviewed this visit; testing below is historical data unless othe rwise specified. ASSESSMENT: 1. Paroxysmal atrial fibrillation, symptomatic tachycardia/bradycardia syndrome: A. [...] submitted, clinical correlation is advised. By MD Clarisa Coleman Successful loop recorder implantation on 05/04/16 at [facility]. . Patient had an episode of passing out when she got out of bed before using t he restroom. Today, she reports feeling dizziness and lightheadedness. Patient is physically inactive due to broken right ankle. There is no signs and symptoms of overt congestive hear t failure. She is in a class I of [place] [employer] functional class. There is no fluid retention on physical examination. Her risks for stroke include: 0, Congestive Heart Failure/LV dysfunction (1), Hx of HTN (1 ), Age >/= 75 Y.O.(2), Diabetes (1), Stroke/TIA/Thrombo-embolism (2), Vascular disease (1 ), Age 65 to 74 (1) and Female Gender (1). Her [id number] score is 0 risk of stroke per ye ar in atrial fibrillation. Her bleeding risks include: ETOH (1). Her HASBLED score is 0-1, which confers a low risk (1-3.4%) risk of bleed per year. She was put on Eliquis by her c ardiologist in [place]. I didn't think that she needs long-term use oral anticoagulant rob use she has no risk factors. Furthermore, there is no evidence of atrial fibrillation on to day's loop recorder implantation. Loop recorder reached WILLARD on 08/01/2019. Loop recorder interrogation shows evidence of symptomatic tachybradycardia syndrome. He i s now a candidate for dual-chamber permanent pacemaker implantation. 2. Noncardiac chest pain: A. She was seen in the emergency department at [facility] on 12/22/18 for chest pain, [...] stress test. This was done on at [facility] showing a normal myocardial perfusion imaging study. B. Persantine nuclear medicine stress test 12/26/18 shows Persantine EKG is negative. Normal Persantine sestamibi myocardial perfusion imaging study. Normal left ventricular size, wal l thickness and motion. Preserved left ventricular systolic function. LVEF is 61%. Eviden ce of breast/anterior wall soft tissue attenuation. C. She is asymptomatic. 3. Hypertension, essential: A. Her blood pressure in office today is good. 4. Hyperlipidemia, mixed: A. Lipid panel from 08/27/2019 shows good lipid profile. 5. Pulmonary hypertension, and mitral regurgitation: A. Echocardiogram from [facility] read by [facility] on 10/20/18 denise wing left ventricular systolic [...] Patient is scheduled with sleep specialist at [place] [facility]. 6. PAD, carotid stenosis: Not addressed today. A. Carotid imaging on 05/02/16 shows 0-39% stenosis of right ICA, 0-39% stenosis of left ICA. By Mike Downey MD. 6. Hypothyroid. A. TSH is normal from 06/13/2019. 7. Obstructive sleep apnea. A. Diagnosed in [place] in 2017. She tried 3 different masks, at least a m onth each. She believes she only had 90 minutes of sleep. Patient can not uses CPAP mask. Sh gaby reports of feeling claustrophobic. B. Patient is scheduled with sleep specialist at [place] [facility]. PLAN: 1. Schedule patient for loop recorder explantation. 2. Patient is candidate for dual chamber pacemaker implantation. The risks and benefits of the procedure including alternative treatment were discussed with the patient in length. The patient decides to proceed with the procedure. 3. I recommend a therapeutic lifestyle change including walking 30 minutes a day, choosing healthy choices of diet , including DASH diet, weight reduction and 7 hours of high quality sleep a night. 4. Loop recorder interrogation reveals a loop recorder that has reached WILLARD. 5. Follow-up in three months OC/thresh check. IDiana, am acting as a scribe on behalf of, and in the presence of Claudine land MD. I have reviewed and edited this note. Diana Noe, Wood Tank Builder 09/03/2019 I, Claudine Gallegos MD, personally performed the services described in this documentation, as scribed in my presence and it is both accurate and complete. Diana Noe, Med Ass t 09/03/2019 15:50 Electronically signed by: Claudine Gallegos MD [facility] 09/03/2019 Portions of this chart may have been created with Decurate voice recognition software. Occasi onal wrong-word or sound-alike substitutions may have occurred due to the inherent ryan itations of voice recognition software. Please read the chart carefully and recognize, using context, where these substitutions have occurred documented in this encounter Procedure Notes RepManda erickson RN - 09/03/2019 3:00 PM PDTAssociated Order(s): DEVICE INTERROGATIONProcedu re(s): DEVICE INTERROGATIONPre-Procedure Diagnose(s): Encounter for loop recorder check; Sta tus post placement of implantable loop recorder; Syncope, unspecified syncope type PATIENT NAME: Gris Krishnamurthy : 1965: AGE: 53 y.o. Loop Recorder Evaluation Report September 03, 2019 Reason for evaluation: routine Indication for loop recorder: Encounter for loop recorder check (Z45.09, V53.39); Status post placement of implantable l oop recorder (Z95.818, V45.09); Syncope, unspecified syncope type (R55, 780.2) Patient was seated and reclined and device was interrogated. Loop recorder parameters, katlyn carin status and significant arrhythmias were reviewed. Heart rate histograms were assessed fo r adequate heart rate response and any alerts reviewed. Please see the scanned Paceart report and device PDF for further details. Data collected by Manda Seaman, RN, RN Presenting rhythm: sinus bradycardia 58- sinus rhythm 63 beats 13 Symptom Episodes 3 since last carelink report 05/26/19 occurred 07/17/19 at 9:52 AM. EGM is consistent with sinus rhythm 71-85 beats. occurred 05/28/19 at 10:31 PM. EGM is consistent with sinus rhythm to sinus tachycardia 74-1 10 beats. occurred 05/26/19 at 6:04 AM. EGM is consistent with sinus rhythm 62-81 beats. 0 Tachy Episodes 3 Pause Episodes, 1 since last carelink report. the longest occurred 07/23/19 at 2:06AM for 3 seconds. EGM is consistent with sinus rhythm 73-88 beats followed by 4 PVCs then bradycard ia in the 50s to sinus rhythm in the 80s. Undersensing noted, no true pauses. 5 Murphy Episodes, 2 since last carelink report. the longest occurred 07/30/19 at 2:00 AM for 9 seconds. EGM is consistent with sinus rhythm 63-69 beats with PVCs in bigeminy and underse nsing noted. Episode 08/13/19 at 7:15 AM consistent with sinus bradycardia in the 40s to sinus rhythm in the 70s with PVCs in bigeminy. 0 AT Episodes 0 AF Episodes % of time in AT/AF 0.0% Histogram good. Battery reached end of service 08/01/19. Apparent normal and stable function. documented in this encounter Plan of Treatment [...] [place], | | | | | | [place] [address] | | | | | | [phone] | | | | | | | | +--------+ + + + + | 11/23/ | Implant | Cardiology | Claudine Gallegos, | Pacemaker | | 2019 | Monitor | | MD Mark Garcia | reprogramming/check | | | | | [facility] [place], | (Primary Dx); | | | | | [place] [address] | Tachycardia-bradycar | | | | | [phone] | samuel (HCC); | | | | | | Pacemaker, Dual | | | | | | Chamber, [facility], | | | | | | MRI Capable, 09/30/19 | | | | | | Rosy | +--------+ + + + + | 03/08/ | Office | Neurology | Amarjit Fisher MD [address] | | | 2020 | Visit | | [facility] | | | | | | [address] [place], | | | | | | [place] [address] | | | | | | [phone] | | | | | | | | +--------+ + + + + documented as of this encounter Procedures + +--------+ + + + | Procedure Name | Priori | Date/Time | Associated Diagnosis | Comments | | | ty | | | | + +--------+ + + + | DEVICE INTERROGATION | | 09/30/2019 | | Results for this | | - EXTERNAL SCAN | | 12:00 AM | | procedure are in the | | | | PST | | results section. | + +--------+ + + + | DEVICE INTERROGATION | Routin | 09/03/2019 | Encounter for loop | Results for this | | | e | 3:00 PM | recorder check S/P | procedure are in the | | | | PDT | implantable loop | results section. | | | | | recorder Medtronic | | | | | | 05/04/2016 Dr Duque | | | | | | Salman Syncope, | | | | | | unspecified syncope | | | | | | type | | + +--------+ + + + documented in this encounter Results DEVICE INTERROGATION - EXTERNAL SCAN (09/30/2019 12:00 AM PST) + + + | Narrative | Performed At | + + + | Ordered by an | | | unspecified provider. | | + + + Device Interrogation (09/03/2019 3:00 PM PDT) + + + | Narrative | Performed At | + + + | Manda Seaman, | REBEKAH | | [place] 09/03/2019 16:05 PATIENT NAME: Gris Krishnamurthy : | | | 1965: AGE: 53 y.o.Loop Recorder Evaluation Report | | | September 03, 2019 Reason for evaluation: routineIndication for loop | | | recorder: Encounter for loop recorder check (Z45.09, V53.39); Status | | | post placement of implantable loop recorder (Z95.818, V45.09); | | | Syncope, unspecified syncope type (R55, 780.2) Patient was seated and | | | reclined and device was interrogated. Loop recorder parameters, | | | battery status and significant arrhythmias were reviewed. Heart rate | | | histograms were assessed for adequate heart rate response and any | | | alerts reviewed. Please see the scanned Paceart report and device PDF | | | for further details. Data collected by Manda Seaman, RN, RN | | | Presenting rhythm: sinus bradycardia 58- sinus rhythm 63 beats13 | | | Symptom Episodes 3 since last carelink report 05/26/19 occurred 07/17/19 | | | at 9:52 AM. EGM is consistent with sinus rhythm 71-85 beats. occurred | | | 05/28/19 at 10:31 PM. EGM is consistent with sinus rhythm to sinus | | | tachycardia 74-110 beats. occurred 05/26/19 at 6:04 AM. EGM is | | | consistent with sinus rhythm 62-81 beats. 0 Tachy Episodes 3 Pause | | | Episodes, 1 since last carelink report. the longest occurred 07/23/19 | | | at 2:06AM for 3 seconds. EGM is consistent with sinus rhythm 73-88 | | | beats followed by 4 PVCs then bradycardia in the 50s to sinus rhythm | | | in the 80s. Undersensing noted, no true pauses.5 Murphy Episodes, 2 | | | since last carelink report. the longest occurred 07/30/19 at 2:00 AM for | | | 9 seconds. EGM is consistent with sinus rhythm 63-69 beats with PVCs | | | in bigeminy and undersensing noted. Episode 08/13/19 at 7:15 AM | | | consistent with sinus bradycardia in the 40s to sinus rhythm in the | | | 70s with PVCs in bigeminy.0 AT Episodes 0 AF Episodes % of time in | | | AT/AF 0.0%Histogram good. Battery reached end of service | | | 08/01/19.Apparent normal and stable function. | | |62-81 beats. | | |0 Tachy Episodes | | |3 Pause Episodes, 1 since last carelink report. the longest | | |occurred 07/23/19 at 2:06AM for 3 seconds. EGM is consistent with | | |sinus rhythm 73-88 beats followed by 4 PVCs then bradycardia in | | |the 50s to sinus rhythm in the 80s. Undersensing noted, no true | | |pauses. | | |5 Murphy Episodes, 2 since last carelink report. the longest | | |occurred 07/30/19 at 2:00 AM for 9 seconds. EGM is consistent with | | |sinus rhythm 63-69 beats with PVCs in bigeminy and undersensing | | |noted. | | |Episode 08/13/19 at 7:15 AM consistent with sinus bradycardia in | | |the 40s to sinus rhythm in the 70s with PVCs in essentia healthy. | | |0 AT Episodes | | |0 AF Episodes | | |% of time in AT/AF 0.0% | | |Histogram good. Battery reached end of service 08/01/19. | | |Apparent normal and stable function. | | + + + + +---------+ [...]
--- OUTSIDE RECORDS SUMMARY | ~2020-09-13 | XMS | Encounter Summary ---
Demographics + + + | Address | [address] | | | [place] [address] | + + + | Home Phone | | + + + | Preferred Language | Unknown | + + + | Marital Status | Single | + + + | Christianity Affiliation | 1073 | + + + | Race | White | + + + | Ethnic Group | Not or | + + + Author + + + | Author | [facility] | | | and [place] | + + + | Organization | [facility] | | | [...] Providers + +------+ + | Care Glove Sewer Name | Role | Phone | + +------+ + | August Sanford | PCP | | + +------+ + Reason for Visit + +--------+ + | Reason | Onset | Comments | | | Date | | + +--------+ + | Referral | 10/29/ | | | | 2019 | | + +--------+ + Encounter Details +--------+ + + + + | Date | Type | Department | Care Team | Description | +--------+ + + + + | 10/29/ | Telephone | [facility] | Amarjit Fisher MD [address] | Referral | | 2019 | | NEUROLOGY [address] | | | | | [place] | [address] [place], | | | | | [place], [place] | [place] [address] | | | | | [address] | [phone] | | | | | [phone] | | | +--------+ + + + [...] this encounter Miscellaneous Notes Telephone Encounter - [place], Pancho Shirley - 10/29/2019 2:18 PM Alex, is calling regarding Referral and would like a call back. Additional Call Details: Calling to schedule from new referral. Please call her back at ho ut phone listed. If this is a symptom based call, was patient offered triage? Not Applicable If this is a symptom based call and you were unable to immediately transfer the call to a danielle self forestry patrolman was caller made aware that if at [...] | | | | | | [place] [address] | | | | | | [phone] | | | | | | | | +--------+ + + + + | 11/23/ | Implant | Cardiology | Claudine Gallegos, | Pacemaker | | 2019 | Monitor | | [address] | reprogramming/check | | | | | [address] [place] [place], | (Primary Dx); | | | | | [place] [address] | Tachycardia-bradycar | | | | | [phone] | samuel (HCC); | | | | [...] | | | | | | [place] [address] | | | | | | [phone] | | | | | | | | +--------+ + + + + documented as of this encounter Visit Diagnoses Not on filedocumented in this encounter"
--- OUTSIDE RECORDS SUMMARY | ~2020-09-13 | XMS | Encounter Summary ---
Demographics + + + | Address | [address] | | | [place] [address] | + + + | Home Phone | | + + + | Preferred Language | Unknown | + + + | Marital Status | Single | + + + | Mosque Affiliation | [id number] | + + + | Race | White | + + + | Ethnic Group | Not or | + + + Author + + + | Author | [facility] | | | and [place] | + + + | Organization | [facility] | | [...] Team Providers + +------+ + | Care Hotel Desk Clerk Name | Role | Phone | + +------+ + | August Sanford | PCP | | + +------+ + Reason for Visit + + + | Reason | Comments | + + + | Device Check | Billed | | (Remote) | | + + + Encounter Details +--------+ + + + + | Date | Type | Department | Care Team | Description | +--------+ + + + + | 03/24/ | Implant | [facility] [place] | Claudine Gallegos, | Remote Device | | 2018 | Monitor | CARDIOLOGY [address] | MD [address] | Interrogation | | | | [place] | [place] | (Primary Dx); S/P | | | | [place] [id number] | [place] [phone] | implantable loop | | | | [phone] | [phone] | recorder [employer] | | | | [...] encounter Procedure Notes Claudine Gallegos MD - 03/24/2019 11:59 PM PDTAssociated Order(s): DEVICE INTERROGATION- R EMOTEProcedure(s): DEVICE INTERROGATION- REMOTEPre-Procedure Diagnose(s): Encounter for loop recorder check; Status post placement of implantable loop recorder; Syncope, unspecified sy ncope typeDate of Remote Interrogation: 02/24/2019 Refer to [employer] documentation and remote PDF scanned into [employer] for remote interrogation re sults. Data collected by Harmony Padilla RN Presenting rhythm: Sinus rhythm 67-71 beats with PVC. 2 Symptom Episodes #470 occurred 02/23/2019 at 7:25 PM. EGM is consistent with sinus bradycardia to sinus rhythm 59-74 beats with frequent uni-focal PVCs. #469 occurred 02/17/2019 at 10:58 AM. EGM is consistent with sinus bradycardia to sinus rhyt hm 41-65 beats with frequent uni-focal PVCs . 0 Tachy Episodes 0 Pause Episodes 0 Murphy Episodes 0 AT Episodes 0 AF Episodes % of time in AT/AF 0.0% Histogram good. Battery ok. Apparent normal and stable function. Device interrogation due in office in May 2019. Patient notified. Reports sinking feeling in chest and "pop" when having PVCs. documented in this encounter Plan of Treatment +--------+ + + + + | Date | Type | Specialty | Care Team | Description | +--------+ + + + + | 10/10/ | Office | Cardiology | Claudine Gallegos, | | | 2019 | Visit | | MD [facility] | | | | | | [facility] [place], | | | | | | [place] [phone] | | | | | | [phone] | | | | | | | | +--------+ + + + + | 11/23/ | Implant | Cardiology | RosyClaudine, | Pacemaker | | 2019 | Monitor | | [address] [facility] | reprogramming/check | | | | | [place], | (Primary Dx); | | | | | [place] [address] | Tachycardia-bradycar | | | | | [phone] | samuel (HCC); | | | | [...] [place], | | | | | | [place] [phone] | | | | | | [phone] | | | | | | | | +--------+ + + + + documented as of this encounter Procedures + +--------+ + + + | Procedure Name | Priori | Date/Time | Associated Diagnosis | Comments | | | ty | | | | + +--------+ + + + | DEVICE | Routin | 03/10/2019 | Remote Device | Results for this [...] this encounter Results Device Interrogation - Remote (03/10/2019 12:00 AM PDT) + + + | Narrative | Performed At | + + + | Claudine | REBEKAH | | MD Rosy 03/09/2019 16:15Date of Remote Interrogation: | | | 02/24/2019 Refer to [employer] documentation and remote PDF scanned into | | | [facility] for remote interrogation results. Data collected by Harmony Nolen | | | BONNIE Padilla Presenting rhythm: Sinus rhythm 67-71 beats with PVC.2 | | | Symptom Episodes #470 occurred 02/23/2019 at 7:25 PM. EGM is consistent | | | with sinus bradycardia to sinus rhythm 59-74 beats with frequent | | | uni-focal PVCs. #469 occurred 02/17/2019 at 10:58 AM. EGM is consistent | | | with sinus bradycardia to sinus rhythm 41-65 beats with frequent | | | uni-focal PVCs . 0 Tachy Episodes 0 Pause Episodes 0 Murphy Episodes 0 | | | AT Episodes 0 AF Episodes% of time in AT/AF 0.0%Histogram good. | | | Battery ok.Apparent normal and stable function.Device interrogation | | | due in office in May 2019.Patient notified. Reports sinking feeling | | | in chest and "pop" when having PVCs. | | |PVCs . | | |0 Tachy Episodes | | |0 Pause Episodes | | |0 Murphy Episodes | | |0 AT Episodes | | |0 AF Episodes | | |% of time in AT/AF 0.0% | | |Histogram good. Battery ok. | | |Apparent normal and stable function. | | |Device interrogation due in office in May 2019. | | |Patient notified. Reports sinking feeling in chest and "pop" when | | |having PVCs. | | | | | | | | + + + + + | Procedure Note | + + | Claudine Gallegos MD - 03/24/2019 11:59 PM PDT Date of Remote Interrogation: | | 02/24/2019Refer to [employer] documentation and remote PDF scanned into [employer] for remote | | interrogation results. Data collected by JL Rawlsresenting rhythm: Sinus | | rhythm 67-71 beats with PVC.2 Symptom Episodes #470 occurred 02/23/2019 at 7:25 PM. EGM is | | consistent with sinus bradycardia to sinus rhythm 59-74 beats with frequent uni-focal | | PVCs. #469 occurred 02/17/2019 at 10:58 AM. EGM is consistent with sinus bradycardia to | | sinus rhythm 41-65 beats with frequent uni-focal PVCs . 0 Tachy Episodes 0 Pause | | Episodes 0 Murphy Episodes 0 AT Episodes 0 AF Episodes% of time in AT/AF 0.0%Histogram | | good. Battery ok.Apparent normal and stable function.Device interrogation due in office | | in May 2019.Patient notified. Reports sinking feeling in chest and "pop" when having | | PVCs. | |0 AT Episodes | |0 AF Episodes | |% of time in AT/AF 0.0% | |Histogram good. Battery ok. | |Apparent normal and stable function. | |Device interrogation due in office in May 2019. | |Patient notified. Reports sinking feeling in chest and "pop" when having PVCs. | + + + +---------+ + + [...]
--- OUTSIDE RECORDS SUMMARY | ~2020-09-13 | XMS | Encounter Summary ---
Demographics + + + | Address | [address] | | | [place] [address] | + + + | Home Phone | | + + + | Preferred Language | Unknown | + + + | Marital Status | Single | + + + | Worship Affiliation | 1073 | + + + | Race | White | + + + | Ethnic Group | Not or | + + + Author + + + | Author | [facility] | | | and [place] | + + + | Organization | [facility] | | [...] Team Providers + +------+ + | Care Lead Performance Support Analyst Name | Role | Phone | + +------+ + | August Sanford | PCP | | + +------+ + Reason for Visit + +--------+ + | Reason | Onset | Comments | | | Date | | + +--------+ + | Follow-up | 06/01/ | appointment | | | 2020 | | + +--------+ + Encounter Details +--------+ + + + + | Date | Type | Department | Care Team | Description | +--------+ + + + + | 06/01/ | Telephone | [facility] | Amarjit Fisher MD [address] | Follow-up | | 2020 | | NEUROLOGY [address] | (appointment) | | | | [address] [place] | [address] [facility], | | | | | [place], [place] | [place] [address] | | | | | [address] | [phone] | | | | | [phone] | | | +--------+ + + + [...] | | | | | | [place], | | | | | | [place] [address] | | | | | | [phone] | | | | | | | | +--------+ + + + + | 11/23/ | Implant | Cardiology | Claudine Gallegos, | Pacemaker | | 2020 | Monitor | | MD Mark [address] | reprogramming/check | | | | | [place], | (Primary Dx); | | | | | [place] [address] | Tachycardia-bradycar | | | | | [phone] | samuel (HCC); | | | | [...] | | | | | | [address] | | | | | | [place] [address] | | | | | | [phone] | | | | | | | | +--------+ + + + + documented as of this encounter Visit Diagnoses Not on filedocumented in this encounter"
--- OUTSIDE RECORDS SUMMARY | ~2020-09-13 | XMS | Encounter Summary ---
Demographics + + + | Address | [address] | | | [place] [address] | + + + | Home Phone | | + + + | Preferred Language | Unknown | + + + | Marital Status | Single | + + + | Gnosticism Affiliation | [id number] | + + + | Race | White | + + + | Ethnic Group | Not or | + + + Author + + + | Author | [facility] | | | and [place] | + + + | Organization | [facility] | | | and [...] Team Providers + +------+ + | Care Questioned Documents Examiner Name | Role | Phone | [...] | | | | | | | tachybrady | | | | | | | syndrome, | | | | | | | loop | | | | | | | recorder | | | | | | | explantation | | | | | | | , Dual | | | | | | | chamber St | | | | | | | Jerry PM | | | | | | | implantation | | | | | | | , Mateo | | | | | | | (REP) | | | | | | | Procedures | | | | | | | CV EP PPM | | | | | | | SYSTEM | | | | | | | IMPLANT CV | | | | | | | EP LOOP | | | | | | | RECORDER | | | | | | | PROCEDURE | | | +--------+--------+ + + + + Encounter Details +--------+---------+ + + + | Date | Type | Department | Care Team | Description | +--------+---------+ + + + | 09/30/ | Surgery | [facility] | Dionisio Gallegos, | CV EP PPM SYSTEM | | 2019 | | MED CTR CV INTRA OP | MD [address] | IMPLANT | | | | [address] | [address], | | | | | [place] | [place] [address] | | | | | [address] | [phone] | | | | | [phone] | | | +--------+---------+ + + + [...] + + + | Blood Pressure | 157/88 | 09/30/2019 7:41 AM | | | | | PST | | + + + + + | Pulse | 69 | 09/30/2019 7:41 AM | | | | | PST | | + + + + + | Temperature | 36 C (96.8 F) | 09/30/2019 9:14 AM | | | | | PST | | + + + + + | Respiratory Rate | 36 | 09/30/2019 9:14 AM | | | | | PST | | + + + + + | Oxygen Saturation | 93% | 09/30/2019 7:41 AM | | | | | PST | | + + + + + | Inhaled Oxygen | - | - | | | Concentration | | | | + + + + + | Weight | 98.9 kg (218 lb) | 09/30/2019 7:41 AM | | | | | PST | | + + + + + | Height | 162.6 cm (5' 4") | 09/30/2019 7:41 AM | | | | | PST | | + + + + + | Body Mass Index | 37.42 | 09/30/2019 7:41 AM | | | | | PST | | + + + + + [...] + + documented as of this encounter Discharge Instructions Instructions Adele Oconnell RN - 09/30/2019 AttachmentsThe following attachments cannot be sent through Care Everywhere.Pacemaker Impla ntation, Discharge Instructions for (Japanese)documented in this encounter Medications at Time of [...] 1 tablet by | | 0 | 11/27/20 | | | 40 mg tablet | [...] documented as of this encounter Progress Notes Adele Oconnell RN - 09/30/2019 11:08 AM PSTReceived Pt from pathology laboratory director, telemetry applied, ekg with and without magnet done by Eli Alert and oriented, left arm in latricia chou precautions reviewed with patient, cms intact o left arm, call sweet at bedside, left upper chest incision clean and dry with slight edema and bruising. Electronically signed by: Adele Oconnell RN 09/30/2019 11:11 documented in this encounter H&P Notes Dionisio Gallegos MD - 09/30/2019 8:01 AM PSTMs. Krishnamurthy's chart was reviewed in detail, a nd no changes have occurred since the recent note. Also, she was examined by me today and t here are no changes in the heart and lung exam. Ms. Krishnamurthy is still appropriate candidate f or permanent pacemaker implantation with loop recorder explatation and we will proceed with that today. An explanation of the procedure, including the risks, benifits and alternatives to the procedure were discussed with the patient and consent has been obtained. Dionisio Waggoner MD - 09/03/2019 3:00 PM PDT PATIENT NAME: Gris Krishnamurthy : 1965: AGE: 53 y.o. PRIMARY CARE: LATRICIA Fernandes OUTPATIENT FOLLOW UP VISIT Date of [...] RESULTS reviewed during visit today primarily from [facility]: LIPID Lab Results Component Value Date CHOLHDL [...] Successful loop recorder implantation on 05/04/16 at [facility]. Patient had an episode of passing out when she got out of bed before using t he restroom. Today, she reports feeling dizziness and lightheadedness. Patient is physically inactive due to broken right ankle. There is no signs and symptoms of overt congestive hear t failure. She is in a class I of [place] [employer] functional class. There is no fluid retention on physical examination. Her risks for stroke include: 0, Congestive Heart Failure/LV dysfunction (1), Hx of HTN (1 ), Age >/= 75 Y.O.(2), Diabetes (1), Stroke/TIA/Thrombo-embolism (2), Vascular disease (1 ), Age 65 to 74 (1) and Female Gender (1). Her [id number] score is 0 risk of stroke per [...] was seen in the emergency department at [facility] on 12/22/18 for chest pain, sh ortness [...] stress test. This was done on at [facility] showing a normal myocardial perfusion imaging [...] hypertension, and mitral regurgitation: A. Echocardiogram from [facility] read by [facility] on 10/20/18 denise wing left ventricular systolic [...] Patient is scheduled with sleep specialist at [place] [facility]. 6. PAD, carotid stenosis: Not addressed today. A. Carotid imaging on 05/02/16 shows 0-39% stenosis of right ICA, 0-39% stenosis of left ICA. By Mike Downey MD. 6. Hypothyroid. A. TSH is normal from 06/13/2019. 7. Obstructive sleep apnea. A. Diagnosed in [place] in 2017. She tried 3 different masks, at least a m onth each. She believes she only had 90 minutes of sleep. Patient can not uses CPAP mask. Sh e reports of feeling claustrophobic. B. Patient is scheduled with sleep specialist at [facility]. PLAN: 1. Schedule patient for loop recorder [...] 5. Follow-up in three months OC/thresh check. I, Diana Noe, am acting as a scribe on behalf of, and in the presence of Dionisio land MD. I have reviewed and edited this note. Diana Noe [place] [employer]iver 09/03/2019 I, Dionisio Gallegos MD, personally performed the services described in this documentation, as scribed in my presence and it is both accurate and complete. Diana Noe, Med Ass t 09/03/2019 15:50 Electronically signed by: Dionisio Gallegos MD [facility] 09/03/2019 Portions of this chart may have been created with General Specific voice recognition software. Occasi onal wrong-word or sound-alike substitutions may have occurred due to the inherent ryan itations of voice recognition software. Please read the chart carefully and recognize, using context, where these substitutions have occurred documented in this encounter Miscellaneous Notes Plan of Care - Adele Oconnell, RN - 09/30/2019 4:01 PM PSTUp amb independantly, l eft arm in sling, aware of pacemaker precautions, cms wnl to rue, pacemaker incision well ap proximated with slight edema and bruising at site, reviewed dc instructions with pt with Dr. Morgan at bedside, pt verbalizes good understanding. documented in this encounter Plan of Treatment +--------+ + + + + | Date | Type | Specialty | Care Team | Description | +--------+ + + + + | 10/10/ | Office | Cardiology | Dionisio Gallegos, | | | 2019 | Visit | | [address] [place] [address] | | | | | | [place], | | | | | | [place] [address] | | | | | | [phone] | | | | | | | | +--------+ + + + + | 11/23/ | Implant | Cardiology | Dionisio Gallegos, | Pacemaker | | 2019 | Monitor | | [address] [facility] [place], [place] | reprogramming/check | | | | | [place], | (Primary Dx); | | | | | [place] [id number] | Tachycardia-bradycar | | | | | [phone] | samuel (HCC); | | | | | | Pacemaker, Dual | | | | | | Chamber, St Jerry, | | | | | | MRI Capable, 09/30/19 | | | | | | Rosy | +--------+ + + + + | 03/08/ | Office | Neurology | Amarjit Fisher MD [address] | | | 2020 | Visit | | [address] | | | | | | [address] [place], | | | | | | [place] [address] | | | | | | [phone] | | | | | | | | +--------+ + + + + documented as of this encounter Procedures + +--------+ + + + | Procedure Name | Priori | Date/Time | Associated Diagnosis | Comments | | | ty | | | | + +--------+ + + + | ECG 12 LEAD | Routin | 09/30/2019 | | Results for this | | | e | 11:09 AM | | procedure are in the | | | | PST | | results section. | + +--------+ + + + | ECG 12 LEAD | Routin | 09/30/2019 | | Results for this | | | e | 11:04 AM | | procedure are in the | | | | PST | | results section. | + +--------+ + + + | XR CHEST PA AND | Routin | 09/30/2019 | | Results for this | | LATERAL | e | 10:38 AM | | procedure are in the | | | | PST | | results section. | + +--------+ + + + | CV EP LOOP RECORDER | Routin | 09/30/2019 | | Results for this | | PROCEDURE | e | 10:30 AM | | procedure are in the | | | | PST | | results section. | + +--------+ + + + | CV EP PPM SYSTEM | Routin | 09/30/2019 | | Results for this | | IMPLANT | e | 10:30 AM | | procedure are in the | | | | PST | | results section. | + +--------+ + + + documented in this encounter Results ECG 12 lead (09/30/2019 11:09 AM PST) + + + + + + | Component | Value | Ref Range | Performed | Pathologist | | | | | At | Signature | + + + + + + | VENTRICULAR | 85 | BPM | [facility] | | | RATE EKG | | | | | + + + + + + | ATRIAL RATE | 65 | BPM | [facility] | | + + + + + + | P-R | 118 | ms | [facility] | | | INTERVAL | | | | | + + + + + + | QRS | 102 | ms | [facility] | | | DURATION | | | | | + + + + + + | Q-T | 444 | ms | [facility] | | | INTERVAL | | | | | + + + + + + | Q-T | 528 | ms | [facility] | | | INTERVAL | | | | | | (CORRECTED) | | | | | + + + + + + | P WAVE AXIS | 1 | degrees | [facility] | | + + + + + + | QRS AXIS | 49 | degrees | [facility] | | + + + + + + | T AXIS | -94 | degrees | [facility] | | + + + + + + | INTERPRETAT | Sinus rhythm with | | [facility] | | | ION TEXT | frequent AV dual-paced | | | | | | complexesPossible Left | | | | | | atrial | | | | | | enlargementInferior | | | | | | infarct , age | | | | | | undeterminedAbnormal | | | | | | ECGWhen compared with | | | | | | ECG of 30-SEP-2019 | | | | | | 11:04, | | | | | | (Unconfirmed)Electronic | | | | | | ventricular pacemaker | | | | | | has replaced Sinus | | | | | | rhythmConfirmed by | | | | | | DIONISIO GALLEGOS MD | | | | | | ([id number]) on 09/30/2019 | | | | | | 2:41:37 PM | | | | + + [...] + +---------+ + + ECG 12 lead (09/30/2019 11:04 AM PST) + + + + + + | Component | Value | Ref Range | Performed | Pathologist | | | | | At | Signature | + + + + + + | VENTRICULAR | 66 | BPM | [facility] | | | RATE EKG | | | | | + + + + + + | ATRIAL RATE | 66 | BPM | [facility] | | + + + + + + | P-R | 166 | ms | [facility] | | | INTERVAL | | | | | + + + + + + | QRS | 86 | ms | [facility] | | | DURATION | | | | | + + + + + + | Q-T | 438 | ms | [facility] | | | INTERVAL | | | | | + + + + + + | Q-T | 459 | ms | [facility] | | | INTERVAL | | | | | | (CORRECTED) | | | | | + + + + + + | P WAVE AXIS | 50 | degrees | [facility] | | + + + + + + | QRS AXIS | 49 | degrees | [facility] | | + + + + + + | T AXIS | -137 | degrees | [facility] | | + + + + + + | INTERPRETAT | Normal sinus | | [facility] | | | ION TEXT | rhythmPossible Left | | | | | | atrial enlargementST & T | | | | | | wave abnormality, | | | | | | consider inferior | | | | | | ischemiaAbnormal ECGWhen | | | | | | compared with ECG of | | | | | | 14-JUN-2019 09:22,T wave | | | | | | inversion less evident | | | | | | in Anterolateral leadsQT | | | | | | has lengthenedConfirmed | | | | | | by ROSY RUSH, DIONISIO | | | | | | ([id number]) on 09/30/2019 | | | | | | 2:41:34 PM | | | | + + [...] | | | + +---------+ + + XR Chest PA and Lateral (09/30/2019 10:38 AM PST) + + | Specimen | + + | | + + + + + | Impressions | Performed At | + + + | Cardiac pacer leads terminating in the region of the right atrium | [facility] | | and right ventricle. No postprocedural complication identified. | | | Dictated and Signed by: Gerald Farrar MD Electronically | | | signed: 09/30/2019 11:18 AM | | + + + + + + | Narrative | Performed At | + + + | XR CHEST PA AND LATERAL 09/30/2019 10:38 AM HISTORY: post cardiac | [facility] | | device procedure, document lead position and rule out pneumothorax. | | | COMPARISON: None. Findings: Cardiac pacer leads terminating in | | | the region of the right atrium and right ventricle. Heart is | | | enlarged. Aortic calcifications are present. Enlargement of the | | | central pulmonary vasculature. No evidence of pneumothorax. No acute | | | osseous findings. | | + + + + + | Procedure Note | + + | Patrick, Rad Results In - 09/30/2019 11:21 AM PST XR CHEST PA AND LATERAL 09/30/2019 10:38 | | AMHISTORY: post cardiac device procedure, document lead position and rule | | outpneumothorax.COMPARISON: None.Findings: Cardiac pacer leads terminating in the region | | of the right atrium andright ventricle. Heart is enlarged. Aortic calcifications are | | present.Enlargement of the central pulmonary vasculature. No evidence of pneumothorax.No | | acute osseous findings.IMPRESSION: Cardiac pacer leads terminating in the region of | | the right atrium and rightventricle.No postprocedural complication identified.Dictated | | and Signed by: Gerald Farrar MD Electronically signed: 09/30/2019 11:18 AM | |right ventricle. Heart is enlarged. Aortic calcifications are present. | |Enlargement of the central pulmonary vasculature. No evidence of pneumothorax. | |No acute osseous findings. | | | |IMPRESSION: | | Cardiac pacer leads terminating in the region of the right atrium and right | |ventricle. | | | |No postprocedural complication identified. | | | |Dictated and Signed by: Gerald Farrar MD | | Electronically signed: 09/30/2019 11:18 AM | + + + +---------+ + + | Performing | Address | City/State/Zipcode | Phone Number | | Organization | | | | + +---------+ + + | [facility] | | | | + +---------+ + + CV EP PROCEDURE (09/30/2019 10:30 AM PST) + + | Specimen | + + | | + + + + -+ | Narrative | Performed At | + + -+ | PERMANENT | [facility] | | PACEMAKER IMPLANTATION PATIENT NAME: Gris Krishnamurthy : | | | 1965: AGE: 53 y.o.MEDICAL RECORD NUMBER: | | | [id number] PRIMARY CARE:RITA Fernandes:Dionisio Gallegos | | | DATE OF PROCEDURE: 09/30/2019 PROCEDURES PERFORMED:1. | | | Utilization of contrast agent for left subclavian venography.2. Dual | | | chamber [employer] Jerry permanent pacemaker implantation.3. Removal of loop | | | recorder INDICATIONS: 1. 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 1 g of | | | vancomycin was given intravenously. Patient was hooked up to EKG, | | | pulse oximetry and blood pressure monitoring. All parameters were | | | kept stable during procedure. The [employer] pacemaker | | | treasury representative was present in the operating room. Patient received 6 | | | mg of Versed and 200 Mcg of fentanyl intravenously for conscious | | | sedation during the procedure. The left shoulder area was prepped and | | | draped in the standard fashion. The left subclavian venogram was | | | performed using 20 mL of Conray IV contrast. Fluoroscopy was | | | utilized during the procedure. Patient was positioned supine with | | | wedge pillow placed under bilateral lower extremities. Under sterile | | | technique, and 50 mL of 2:3 ratio of 1% lidocaine and 0.5% marcaine | | | without epinephrine injection for local anesthesia, the left | | | subclavian venous access was obtained using a thin-wall needle via | | | modified Seldinger technique. A guidewire was placed in the superior | | | vena cava and secured with a hemostat to the drape. Approximately 3 | | | cm below the lower border of left clavicle, in the mid subclavicular | | | area, a 3 to 6 cm long lateral incision was made with a #15 blade. | | | The incision was extended by cautery down to the prepectoral fascia. | | | A pocket was formed to the inferior and slightly superior by blunt | | | dissection. The bleeders were stopped with cautery. One piece of | | | gauze soaked with normal saline was used to pack the pocket. A guide | | | wire was then pulled through into the pocket. A 6 Samoan sheath was | | | placed over the guidewire and the core was removed. The additional | | | guidewires were inserted through the sheath. The sheath was then | | | removed. The guidewires were secured by hemostat, leaving one | | | guidewire to be utilized for placement of an 8 Samoan safe sheath. A | | | safe sheath core and the guidewire were removed. The ventricular | | | lead with a curved stylette was advanced into the right ventricular | | | outflow tract under fluoroscopy. The curved stylet was then | | | exchanged for a straight one. The lead was gently positioned into | | | interventricular septum and screwed into position. With partial | | | retraction of the stylette, the lead appeared to be stable. | | | Appropriate slack was applied to the lead. The lead testing | | | revealed good sensing and pacing threshold as noted below. There was | | | no evidence of diaphragmatic stimulation at 10 V output. The | | | peel-away safe sheath was removed. The lead was anchored down using | | | a 2-0 silk, suturing the sleeve to the underlying fascia. Using the | | | same technique as mentioned above, another 8 Samoan safe sheath was | | | utilized to introduce an atrial lead, except that the straight | | | stylette was utilized before the curved one. The atrial lead was | | | positioned in the right atrial appendage. At this time the stylets | | | were removed from both leads. Under fluoroscopy, atrial and | | | ventricular leads and the slack were checked one more time, confirming | | | satisfactory position. The third guidewire was then removed. Both | | | leads were checked for model and serial numbers, and connected to a | | | pacemaker generator. Set screws, both, were securely ratcheted. | | | Both leads were tight and snug. With ratcheting the ventricular | | | and atrial leads, there was evidence of ventricular and atrial | | | tracking and pacing, respectively. The leads were coiled and placed | | | behind the fascia. The pocket was flushed with normal saline. | | | Hemostasis was obtained. A two layer running closure was performed | | | with a 2-0 Vicryl for prepectoral fascia and subcutaneous fatty | | | tissue. Continuous subcuticular suturing was performed with a 4-0 | | | Vicryl. The skin sealed with a layer of Dermabond. Pacemaker | | | interrogation and programming were performed with details as mentioned | | | below. At the end of procedure, attention was switched to the loop | | | recorder area. Loop recorder was exposed and removed through | | | pacemaker incision. Estimated blood loss was 40 mL. I reviewed the | | | patient's pre-sedation assessment and vital signs, supervised and | | | directed the administration of moderate sedation with continuous | | | qtne-ov-ujkw attendance. My intra-service time was 60 minutes. See the | | | procedure log for more details. COMPLICATIONS: There were no | | | complications. The patient tolerated the procedure well. Postop | | | chest x-ray revealed that the atrial lead, ventricular lead and | | | pacemaker generator were in good position. There is no evidence of | | | pneumothorax. DEVICE INFORMATION: A. Pacemaker generator: [employer] Jerry, | | | model #: PM 2272, serial #: [id number]. B. Atrial lead: [employer] Jerry, | | | length 46 cm, model #: 2088 TC, serial #: [id number]. C. Ventricular | | | lead: [employer] Jerry, length 52 cm, model #: 2088 TC, serial #: [id number]. | | | PACEMAKER TESTING: A. Atrial lead: Sensing 5.5 mV, threshold 1 V at | | | 0.4 ms, resistance 670 ohms. B. Ventricular lead: Sensing 8.8 mV, | | | threshold 0.6 V at 0.4 ms, resistance 660 ohms. PACEMAKER TESTING: | | | Mode: DDD. Lower rate limit: 60 Ppm. Upper limit: 130 Ppm. Dionisio | | | MD Rosy09/30/2019 10:42 | | | | | |Estimated blood loss was 40 mL. I reviewed the patient's pre-sedation | | |assessment and vital signs, supervised and directed the administration of | | |moderate sedation with continuous niyx-zx-jzrw attendance. My | | |intra-service time was 60 minutes. See the procedure log for more details. | | | | | | | | |COMPLICATIONS: There were no complications. The patient tolerated the | | |procedure well. Postop chest x-ray revealed that the atrial lead, | | |ventricular lead and pacemaker generator were in good position. There is | | |no evidence of pneumothorax. | | | | | |DEVICE INFORMATION: | | |A. Pacemaker generator: [employer] Jerry, model #: PM 2272, serial #: [id number]. | | | | | |B. Atrial lead: St[employer] Jerry, length 46 cm, model #: 2088 TC, serial #: [id number] | | |[id number]. | | | | | |C. Ventricular lead: [employer] Jerry, length 52 cm, model #: 2088 TC, serial #: | | |[id number]. | | | | | |PACEMAKER TESTING: | | |A. Atrial lead: Sensing 5.5 mV, threshold 1 V at 0.4 ms, resistance 670 | | |ohms. | | | | | |B. Ventricular lead: Sensing 8.8 mV, threshold 0.6 V at 0.4 ms, | | |resistance 660 ohms. | | | | | |PACEMAKER TESTING: | | |Mode: DDD. Lower rate limit: 60 Ppm. Upper limit: 130 Ppm. | | | | | | | | |Dionisio Gallegos MD | | |09/30/2019 10:42 | | | | | | | | + + -+ + +---------+ + + | Performing | Address | City/State/Zipcode | Phone Number | | Organization | | | | + +---------+ + + | [facility] | | | | + +---------+ + + documented in this encounter Visit Diagnoses + + | Diagnosis | + + | Tachycardia-bradycardia syndrome (HCC) Sinoatrial node dysfunction | + + | Pacemaker reprogramming/check - [...] | acetaminophen (TYLENOL) tablet | Given | 09/30/20 | 650 mg | | | | 650 mg 650 mg, Oral, EVERY 6 | | 19 11:36 | | | | | HOURS PRN, Pain, Fever, Starting | | AM PST | | | | | 09/30/19 at 1044, | | | | | | | Post-op/Phase II | | | | | | + +--------+ +--------+------+------+ +---+---+ | | | +---+---+ + +-------+ +--------+---+---+ | allopurinol (ZYLOPRIM) tablet | Given | 09/30/20 | 300 mg | | | | 300 mg 300 mg, Oral, DAILY, | | 19 11:37 | | | | | First dose on Sat09/30/19 at 1115 | | AM PST | | | | + +-------+ +--------+---+---+ +---+---+ | | | +---+---+ + +-------+ +------+---+---+ | apixaban (ELIQUIS) tablet 5 mg | Given | 09/30/20 | 5 mg | | | | 5 mg, Oral, 2 TIMES DAILY, First | | 19 11:38 | | | | | dose on Sat09/30/19 at 1115 | | AM PST | | | | + +-------+ +------+---+---+ +---+---+ | | | +---+---+ + +-------+ +-------+---+---+ | busPIRone (BUSPAR) tablet 30 mg | Given | 09/30/20 | 30 mg | | | | 30 mg, Oral, 2 TIMES DAILY, | | 19 11:38 | | | | | First dose on Sat09/30/19 at 1115 | | AM PST | | | | + +-------+ +-------+---+---+ +---+---+ | | | +---+---+ + +-------+ +-------+---+---+ | diclofenac (VOLTAREN) EC tablet | Given | 09/30/20 | 75 mg | | | | 75 mg 75 mg, Oral, 2 TIMES | | 19 11:38 | | | | | DAILY, First dose on Sat09/30/19 | | AM PST | | | | | at 1115, Do not cut or crush., | | | | | | + +-------+ +-------+---+---+ +---+---+ | | | +---+---+ + +-------+ +-------+---+---+ | diphenhydrAMINE (BENADRYL) | Given | 09/30/20 | 25 mg | | | | injection ONCE PRN, Starting Wed | | 19 9:40 | | | | | 09/30/19 at 0940, Intra-op | | AM PST | | | | + +-------+ +-------+---+---+ +-------+ +-------+---+---+ | Given | 09/30/20 | 25 mg | | | | | 19 9:28 | | | | | | AM PST | | | | +-------+ +-------+---+---+ +---+---+ | | | +---+---+ + +-------+ +--------+---+---+ | fentaNYL (PF) injection ONCE | Given | 09/30/20 | 50 mcg | | | | PRN, Starting 09/30/19 at | | 19 9:57 | | | | | 0921, Intra-op | | AM PST | | | | + +-------+ +--------+---+---+ +-------+ +--------+---+---+ | Given | 09/30/20 | 25 mcg | | | | | 19 9:45 | | | | | | AM PST | | | | +-------+ +--------+---+---+ | Given | 09/30/20 | 25 mcg | | | | | 19 9:39 | | | | | | AM PST | | | | +-------+ +--------+---+---+ +---+---+ | | | +---+---+ + +-------+ +------+---+---+ | folic acid tablet 1 mg 1 mg, | Given | 09/30/20 | 1 mg | | | | Oral, DAILY, First dose on Sat | | 19 11:37 | | | | | 09/30/19 at 1115 | | AM PST | | | | + +-------+ +------+---+---+ +---+---+ | | | +---+---+ + +-------+ +-------+---+---+ | furosemide (LASIX) tablet 40 mg | Given | 09/30/20 | 40 mg | | | | 40 mg, Oral, DAILY, First dose | | 19 11:39 | | | | | on Sat09/30/19 at 1115 | | AM PST | | | | + +-------+ +-------+---+---+ +---+---+ | | | +---+---+ + +-------+ +--------+---+---+ | gabapentin (NEURONTIN) capsule | Given | 09/30/20 | 300 mg | | | | 300 mg 300 mg, Oral, 2 TIMES | | 19 11:38 | | | | | DAILY, First dose on Sat09/30/19 | | AM PST | | | | | at 1115 | | | | | | + +-------+ +--------+---+---+ +---+---+ | | | +---+---+ + +-------+ +--------+---+---+ | iohexol (OMNIPAQUE 350) 350 | Given | 09/30/20 | 20 mLs | | | | mg/mL injection ONCE PRN, | | 19 10:21 | | | | | Starting Sat09/30/19 at 0931, | | AM PST | | | | | Intra-op | | | | | | + +-------+ +--------+---+---+ +-------+ +--------+---+---+ | Given | 09/30/20 | 20 mLs | | | | | 19 9:31 | | | | | | AM PST | | | | +-------+ +--------+---+---+ +---+---+ | | | +---+---+ + +-------+ +--------+---+---+ | levothyroxine (SYNTHROID) | Given | 09/30/20 | 75 mcg | | | | tablet 75 mcg 75 mcg, Oral, | | 19 11:37 | | | | | DAILY BEFORE BREAKFAST, First | | AM PST | | | | | dose on Sat09/30/19 at 1115, Give | | | | | | | before breakfast., | | | | | | + +-------+ +--------+---+---+ +---+---+ | | | +---+---+ + +-------+ +-------+---+---+ | lidocaine 1% 30 mL in | Given | 09/30/20 | 5 mLs | | | | bupivacaine (PF) (MARCAINE) 0.5% | | 19 9:57 | | | | | 30 mL Optesia Mixture ONCE PRN, | | AM PST | | | | | Starting 09/30/19 at 0931, | | | | | | | Intra-op | | | | | | + +-------+ +-------+---+---+ +-------+ +--------+---+---+ | Given | 09/30/20 | 43 mLs | | | | | 19 9:31 | | | | | | AM PST | | | | +-------+ +--------+---+---+ +---+---+ | | | +---+---+ + +-------+ +-------+---+---+ | lidocaine buffered 0.9% | Given | 09/30/20 | 9 mLs | | | | injection ONCE PRN, Starting Wed | | 19 9:29 | | | | | 09/30/19 at 0929, Intra-op | | AM PST | | | | + +-------+ +-------+---+---+ +---+---+ | | | +---+---+ + +-------+ +-------+---+---+ | metoprolol tartrate (LOPRESSOR) | Given | 09/30/20 | 25 mg | | | | tablet 25 mg 25 mg, Oral, 2 | | 19 11:38 | | | | | TIMES DAILY, First dose on Sat | | AM PST | | | | | 09/30/19 at 1115 | | | | | | + +-------+ +-------+---+---+ +---+---+ | | | +---+---+ + +-------+ +--------+---+---+ | midazolam (VERSED) 1 mg/mL | Given | 09/30/20 | 0.5 mg | | | | injection ONCE PRN, Starting Sat | | 19 10:01 | | | | | 09/30/19 at 0921, Intra-op | | AM PST | | | | + +-------+ +--------+---+---+ +-------+ +--------+---+---+ | Given | 09/30/20 | 0.5 mg | | | | | 19 9:59 | | | | | | AM PST | | | | +-------+ +--------+---+---+ | Given | 09/30/20 | 0.5 mg | | | | | 19 9:52 | | | | | | AM PST | | | | +-------+ +--------+---+---+ + +---+ | | | + +---+ | oxyCODONE (ROXICODONE) tablet | | | 5-10 mg 5-10 mg, Oral, EVERY 4 | | | HOURS PRN, Pain, Starting Wed | | | 09/30/19 at 1044, Post-op/Phase II | | + +---+ | | | + +---+ + +-------+ +--------+---+---+ | potassium chloride (Klor-Con | Given | 09/30/20 | 20 mEq | | | | M20) ER tablet 20 mEq 20 mEq, | | 19 11:39 | | | | | Oral, DAILY, First dose on Sat | | AM PST | | | | | 09/30/19 at 1115, Tablet may be | | | | | | | cut where scored but do not | | | | | | | crush., | | | | | | + +-------+ +--------+---+---+ +---+---+ | | | +---+---+ + +---------+ +--------+-------+---+ | sodium chloride 0.9% (NS) | New Bag | 09/30/20 | 1,000 | 125 | | | infusion at 125 mL/hr, | | 19 8:43 | mLs | mL/hr | | | Intravenous, CONTINUOUS, Starting | | AM PST | | | | | 09/30/19 at 0830, For | | | | | | | procedure only, not to exceed 1 | | | | | | | liter., Pre-op | | | | | | + +---------+ +--------+-------+---+ +---+---+ | | | +---+---+ + +---------+ +-----+--------+---+ | vancomycin 1 g in sodium | New Bag | 09/30/20 | 1 g | 166.7 | | | chloride 0.9% 250 mL IVPB 1 g, | | 19 8:43 | | mL/hr | | | Intravenous, Administer over 90 | | AM PST | | | | | Minutes, Prior to Incision, | | | | | | | Starting 09/30/19 at 0810, For | | | | | | | 1 dose, Activate system and mix | | | | | | | before use., Pre-op, Indications: | | | | | | | Surgical Prophylaxis | | | | | | + +---------+ +-----+--------+---+ +---+---+ | | | +---+---+ documented in this encounter
--- OUTSIDE RECORDS SUMMARY | ~2020-09-13 | XMS | Encounter Summary ---
Demographics + + + | Address | [address] | | | [place] [address] | + + + | Home Phone | | + + + | Preferred Language | Unknown | + + + | Marital Status | Single | + + + | Protestant Affiliation | [id number] | + + + | Race | White | + + + | Ethnic Group | Not or | + + + Author + + + | Author | [facility] | | | and [place] | + + + | Organization | [facility] | | | [...] Team Providers + +------+ + | Care Sap Business Objects Consultant Name | Role | Phone | + [...] + + + + | 09/30/ | Hospital | [facility] | Dionisio Gallegos, | Kade-Bryson | | 2019 | Encounter | MED CTR SURG[facility] | [address] | syncope; | | | | [address] [place] | [place], | Tachycardia-bradycar | | | | [place] [address] | [place] [address] | samuel syndrome (HCC) | | | | [phone] | [phone] | | | | | | | [...] + + + | Blood Pressure | 128/66 | 09/30/2019 2:30 PM | | | | | PST | | + + + + + | Pulse | 60 | 09/30/2019 2:30 PM | | | | | PST | | + + + + + | Temperature | 36.9 C (98.4 F) | 09/30/2019 2:30 PM | | | | | PST | | + + + + + | Respiratory Rate | 18 | 09/30/2019 2:30 PM | | | | | PST | | + + + + + | Oxygen Saturation | 95% | 09/30/2019 2:30 PM | | | | | PST | [...] Care Everywhere.Pacemaker Impla ntation, Discharge Instructions for (Tuvaluan)documented in this encounter Medications at Time of [...] - 09/30/2019 11:08 AM PSTReceived Pt from lab animal technician, telemetry applied, ekg with and without magnet [...] RESULTS reviewed during visit today primarily from [facility]: LIPID Lab Results Component Value Date [...] clinical correlation is advised. By MD Mihai Coleman. Successful loop recorder implantation on 05/04/16 at [facility]. Patient had an episode of passing out when she got out of bed before using t he restroom. Today, she reports feeling dizziness and lightheadedness. Patient is physically inactive due to broken right ankle. There is no signs and symptoms of overt congestive hear t failure. She is in a class I of [employer] functional class. There is no fluid retention on physical examination. Her risks for stroke include: 0, Congestive Heart Failure/LV dysfunction (1), Hx of HTN (1 ), Age >/= 75 Y.O.(2), Diabetes (1), Stroke/TIA/Thrombo-embolism (2), Vascular disease (1 ), Age 65 to 74 (1) and Female Gender (1). Her [id number] score is 0 risk of stroke per ye ar in atrial fibrillation. Her bleeding risks include: ETOH (1). Her HASBLED score is 0-1, which confers a low risk (1-3.4%) risk of bleed per year. She was put on Eliquis by her c ardiologist in [place]. I didn't think that she needs long-term [...] was seen in the emergency department at [facility] on 12/22/18 for chest pain, sh [...] stress test. This was done on at [facility] showing a normal myocardial perfusion imaging study. [...] hypertension, and mitral regurgitation: A. Echocardiogram from [facility] read by [facility] on 10/20/18 denise wing left ventricular [...] Patient is scheduled with sleep specialist at [facility]. 6. PAD, carotid stenosis: Not addressed today. A. Carotid imaging on 05/02/16 shows 0-39% stenosis of right ICA, 0-39% stenosis of left ICA. By Mike Downey MD. 6. Hypothyroid. A. TSH is normal from 06/13/2019. 7. Obstructive sleep apnea. A. Diagnosed in [place] in 2017. She tried 3 different masks, at least a m onth each. She believes she only had 90 minutes of sleep. Patient can not uses CPAP mask. Sh e reports of feeling claustrophobic. B. Patient is scheduled with sleep specialist at [facility]. PLAN: 1. Schedule patient for [...] reviewed and edited this note. Diana Noe Plate Glass Polisher 09/03/2019 I, Dionisio Gallegos MD, personally performed the services described in this documentation, as scribed in my presence and it is both accurate and complete. Diana Noe Med Ass t 09/03/2019 15:50 Electronically signed by: Dionisio Gallegos MD [facility] 09/03/2019 Portions of this chart may have been created with Journeys voice recognition software. Occasi onal wrong-word or [...] | Visit | | MD [address] | | | | | | [facility], | | | | | | [place] [address] | | | | | | [phone] | | | | | | | | +--------+ + + + + | 11/23/ | Implant | Cardiology | EddiegelaadamDionisio, | Pacemaker | | 2019 | Monitor | | [address] | reprogramming/check | | | | | [place], | (Primary Dx); | | | | | [place] [address] | Tachycardia-bradycar | | | | | [phone] | samuel (HCC); | | | | | | Pacemaker, Dual | | | | | | Chamber, [employer], | | | | | | MRI Capable, 09/30/19 | | | | | | Rosy | +--------+ + + + + | 03/08/ | Office | Neurology | Amarjit Fisher MD [address] | | | 2020 | Visit | | [address] | | | | | | [address] [place], | | | | | | [place] [address] | | | | | | [phone] | | | | | | | [...] MD | | | | | | ([id number]) on 09/30/2019 | | | | | [...] DIONISIO | | | | | | ([id number]) on 09/30/2019 | | | | | [...] 53 y.o.MEDICAL RECORD NUMBER: | | | [id number] PRIMARY CARE:RITA Fernandes:Dionisio Gallegos | | | [...] obtained, the patient was taken to the lab animal technician. 1 g of | | | vancomycin was given intravenously. Patient was hooked up to EKG, | | | pulse oximetry and blood pressure monitoring. All parameters were | | | kept stable during procedure. The [employer] pacemaker | | | customer service representative teller was present in the operating room. Patient [...] pulled through into the pocket. A 6 Frisian sheath was | | | placed over the guidewire and the core was removed. The additional | | | guidewires were inserted through the sheath. The sheath was then | | | removed. The guidewires were secured by hemostat, leaving one | | | guidewire to be utilized for placement of an 8 Frisian safe sheath. A | | | safe [...] same technique as mentioned above, another 8 Frisian safe sheath was | | | utilized [...] moderate sedation with continuous | | | dmnq-nq-bgij attendance. My intra-service time was 60 minutes. [...] | model #: PM 2272, serial #: [id number]. B. Atrial lead: [employer] Jerry, | | | length 46 cm, model #: 2088 TC, serial #: [id number]. C. Ventricular | | | lead: [employer] Jerry, length 52 cm, model #: 2088 TC, serial #: [id number]. | | | PACEMAKER TESTING: A. Atrial [...] of | | |moderate sedation with continuous mdrk-ky-hcsh attendance. My | | |intra-service time was [...] Jerry, model #: PM 2272, serial #: [id number]. | | | | | |B. Atrial lead: [employer], length 46 cm, model #: 2088 TC, serial #: [id number] | | |[id number]. | | | | | |C. Ventricular lead: St[employer] Jerry, length 52 cm, model #: 2088 TC, serial #: | | |[facility] [id number]. | | | | | |PACEMAKER TESTING: [...] + | Diagnosis | + + | Braun-Massey syncope Conduction disorder, unspecified | + + | Tachycardia-bradycardia syndrome (HCC) Sinoatrial node dysfunction | + + | Pacemaker reprogramming/check - Primary Fitting and adjustment of cardiac pacemaker | + + | Tachycardia-bradycardia (HCC) Sinoatrial node dysfunction | + + | Pacemaker, Dual Chamber, [employer] Jerry, MRI Cap[facility] | situ | [...] | | TIMES DAILY, First dose on Wed | | AM PST | | | | | 09/30/19 at 1115 | | | | | | + +-------+ +-------+---+---+ + +---+ | | | [...]
--- OUTSIDE RECORDS SUMMARY | ~2020-09-13 | XMS | Encounter Summary ---
Demographics + + + | Address | [address] | | | [place] [address] | + + + | Home Phone | | + + + | Preferred Language | Unknown | + + + | Marital Status | Single | + + + | Yarsani Affiliation | [id number] | + + + [...] Team Providers + +------+ + | Care Clinical Account Specialist Name | Role | Phone | + +------+ + | August Sanford | PCP | | + +------+ + Reason for Visit + + + | Reason | Comments | + + + | Neurologic Problem | right side EMG | + + + Encounter Details +--------+ + + + + | Date | Type | Department | Care Team | Description | +--------+ + + + + | 04/20/ | Procedure | [facility] | Amarjit Fisher MD [address] | Peripheral | | 2020 | visit | NEUROLOGY [address] | polyneuropathy | | | | [place] | [address] [facility], | (Primary Dx); | | | | [place], [place] | [place] [address] | Cervical | | | | [address] | [phone] | radiculopathy; | | | | [phone] | | Bilateral hand | | | | | | numbness; Frequent | | | | | | falls | +--------+ + + + + Social [...] + + + | Blood Pressure | 180/103 | 04/20/2020 2:42 PM | | | | | PDT | | + + + + + | Pulse | 83 | 04/20/2020 2:42 PM | | | | | PDT | | + + + + + | Temperature | 36.6 C (97.9 F) | 04/20/2020 2:42 PM | | | | | PDT | | + + + + + | Respiratory Rate | - | - | | + + + + + | Oxygen Saturation | 96% | 04/20/2020 2:42 PM | | | | | PDT | | + + + + + | Inhaled Oxygen | - | - | | | Concentration | | | | + + + + + | Weight | 95.3 kg (210 lb) | 04/20/2020 2:42 PM | | | | | PDT | | + + + + + | Height | 162.6 cm (5' 4") | 04/20/2020 2:42 PM | | | | | PDT | | + + + + + | Body Mass Index | 36.05 | 04/20/2020 2:42 PM | | | | | PDT [...] of this encounter Patient Instructions Patient Instructions Donnie Klein, Sr Account Executive - 04/20/2020 2:30 PM PDTImaging Information Your provider has ordered Imaging *Please let us know if you are claustrophobic BEFORE your imaging appointment so the approp riate medication can be ordered* Depending on your insurance it may take several days for them to approve this order. Please allow 3 business days before contacting [facility] department, they will be able to let you know if your testing has been approved or denied. To schedule your appointment or if you have question about your insurance authorization or please call documented in this encounter Progress Notes Amarjit Fisher MD - 04/20/2020 2:30 PM PDTFormatting of this note might be different from the [facility] [address] [facility] [place] [address] [email or web address] Test Date: 04/20/2020 Patient: Gris Krishnamurthy : 1965 Physician: Amarjit Fisher M.D. Sex: Male Height: 5' 4" Ref Phys: August Sanford PA History: 54 y.o. female who presents with numbness of the feet and fingertips since August 2019, th at has progressive to involve more proximal lower extremities bilaterally to the umbilicus a thuan. The patient has been using a walker for couple of years for unsteady gait. She repo rts mild worsening of her balance recently. The patient has had T and C-spine MRI without clear explanation of her symptoms. There was misalignment at C3-5 with reverse curvature, m ay suggest instability of the cervical spine. There is no findings on MRI to clearly explain her symptoms. This study was requested to evaluate a possible peripheral nerve etiology. Physical Exam Motor Bulk and Tone: normal Muscle strength: full in all extremities DTR 3+ in the upper and 2+ in lower extremities. Romero's sign present bilaterally. Planta r reflexes: flexor. Sensory Reduced to sensation to pinprick, there appears to be a sensory level at T4. Nerve Conduction Studies Motor Summary Table Stim Site NR Onset (ms) Norm Onset (ms) O-P Amp (mV) Norm O-P Amp Site1 Site2 Delta-0 (ms) Dist (cm) Akhil (m/s) Norm Akhil (m/s) Left Fibular Motor (Ext Dig Brev) 30.2 C Ankle 4.1 <6.1 3.0 >2.5 Right Fibular Motor (Ext Dig Brev) 30 C Ankle 4.9 <6.1 3.1 >2.5 B Fib Ankle 7.0 31.5 45 >38 B Fib 11.9 2.7 Poplt B Fib 1.2 7.0 58 >40 Poplt 13.1 2.7 Right Median Motor (Abd Poll Brev) 30 C Wrist 3.3 <4.2 7.6 >5 Elbow Wrist 3.9 20.5 53 >50 Elbow 7.2 7.7 Right Tibial Motor (Abd Reich Brev) 30.3 C Ankle 4.0 <6.1 10.4 >3.0 Knee Ankle 8.3 36.0 43 >35 Knee 12.3 8.4 Right Ulnar Motor (Abd Dig Minimi) 29.5 C Wrist 2.4 <4.2 7.7 >3 B Elbow Wrist 3.1 18.5 60 >53 B Elbow 5.5 8.2 A Elbow B Elbow 1.8 10.5 58 >53 A Elbow 7.3 8.5 Anti Sensory Summary Table Stim Site NR Peak (ms) Norm Peak (ms) P-T Amp (V) Norm P-T Amp Site1 Site2 Delta-P (ms) Dist (cm) Akhil (m/s) Norm Akhil (m/s) Right Median Anti Sensory (2nd Digit) 29.2 C Wrist 3.6 <3.6 27.5 >10 Wrist 2nd Digit 3.6 14.0 39 Right Radial Anti Sensory (Base 1st Digit) 30 C Wrist 2.2 <3.1 15.9 15 Wrist Base 1st Digit 2.2 0.0 Left Sural Anti Sensory (Lat Mall) 30.3 C Calf *NR <4.0 >5.0 Calf Lat Mall 14.0 Site 2 *NR Site 3 *NR Right Sural Anti Sensory (Lat Mall) 30.2 C Calf *NR <4.0 >5.0 Calf Lat Mall 14.0 Site 2 *NR Site 3 *NR Right Ulnar Anti Sensory (5th Digit) 29.2 C Wrist 3.3 <3.7 33.7 >15.0 Wrist 5th Digit 3.3 14.0 42 Comparison Summary Table Stim Site NR Peak (ms) Norm Peak (ms) P-T Amp (V) Site1 Site2 Delta-P (ms) Norm Delta (m s) Right Median/Ulnar Palm Comparison (Wrist - 8cm) 29.7 C Median Palm 2.1 <2.5 38.6 Median Palm Ulnar Palm 0.1 Ulnar Palm 2.0 <2.5 16.3 EMG Side Muscle Nerve Root Ins Act Fibs Psw Amp Dur Poly Recrt Int Pat Comment Right 1stDorInt Ulnar C8-T1 Nml Nml Nml Nml Nml 0 Nml Nml Right PronatorTeres Median C6-7 Nml Nml Nml Nml Nml 0 Nml Nml Right Biceps Musculocut C5-6 Nml Nml Nml Nml Nml *1+ Nml Nml Right Triceps Radial C6-7-8 Nml Nml Nml Nml Nml 0 Nml Nml Right Deltoid Axillary C5-6 Nml Nml Nml Nml Nml *2+ Nml Nml Right AntTibialis Dp Br Fibular L4-5 Nml Nml Nml Nml Nml 0 Nml Nml Right Gastroc Tibial S1-2 Nml Nml Nml Nml Nml 0 Nml Nml Right VastusMed Femoral L2-4 Nml Nml Nml Nml Nml 0 Nml Nml NCV Findings: Evaluation of the left sural sensory and the right sural sensory nerves showed no response (Calf), no response (Site 2), and no response (Site 3). All remaining nerves (as indicated in the following tables) were within normal limits. All left vs. right side differences wer e within normal limits. EMG Findings: ? Needle evaluation of the right biceps muscle showed slightly increased polyphasic potenti als. ? The right deltoid muscle showed moderately increased polyphasic potentials. ? All remaining muscles (as indicated in the following table) showed no evidence of electri marquis instability. Impression: This is an abnormal study. 1. There is electrodiagnostic evidence of a mild, length dependent, symmetrical, primarily sensory peripheral neuropathy in the lower extremities. 2. There is additional electrical evidence suggestive of a possible mild chronic right C5- 6 radiculopathy. There was no ongoing motor axonal denervation changes to suggest an acute radiculopathy based on today's data. Clinical correlation is recommended. Recommendations: Labs were ordered for peripheral neuropathy work-up. Large, proximal stimulation were avoided due to pacemaker. Patient does have cardiology fo llow-up in a few days. Paraspinal muscles were avoided during needle exam due to patient ta king Hazel. Caution was made to apply pressure after needle exam. No active bleeding was seen at the end of the exam. 5 motor, 5 sensory, 2 mixed nerve conduction studies; right upper extremity complete needle exam, and right lower extremity limited needle exam were performed today. Thank you for allowing me to perform neurodiagnostic testing on your patient. If you have a ny further questions or comments, please do not hesitate to call. Amarjit Fisher MD Diplomate, [place] Board of Psychiatry and Neurology Diplomate, [place] Board of Clinical Neurophysiology Waveforms: documented in this encounter Plan of Treatment [...] [place], | | | | | | [place] [address] | | | | | | [phone] | | | | | | | | +--------+ + + + + | 11/23/ | Implant | Cardiology | Claudine Gallegos, | Pacemaker | | 2019 | Monitor | | MD Mark Garcia | reprogramming/check | | | | | [address] [place], | (Primary Dx); | | | | | [place] [address] | Tachycardia-bradycar | | | | | [phone] | samuel (HCC); | | | | [...] [place], | | | | | | [place] [address] | | | | | | [phone] | | | | | | | | +--------+ + + + + + +------+--------+ + + | Name | Type | Priori | Associated Diagnoses | Order Schedule | | | | ty | | | + +------+--------+ + + | Vitamin B-12 and | Lab | Routin | Peripheral | 1 Occurrences | | Folate | | e | polyneuropathy | starting 04/20/2020 | | | | | | until 04/20/2021 | + +------+--------+ + + | Immunofixation, | Lab | Routin | Peripheral | 1 Occurrences | | Serum | | e | polyneuropathy | starting 04/20/2020 | | | | | | until 04/20/2021 | + +------+--------+ + + | Protein | Lab | Routin | Peripheral | 1 Occurrences | | Electrophoresis, | | e | polyneuropathy | starting 04/20/2020 | | Serum | | | | until 04/20/2021 | + +------+--------+ + + | Heavy Metals Screen, | Lab | Routin | Peripheral | 1 Occurrences | | Blood | | e | polyneuropathy | starting 04/20/2020 | | | | | | until 04/20/2021 | + +------+--------+ + + | LAURENCE Quant, Reflex | Lab | Routin | Peripheral | 1 Occurrences | | | | e | polyneuropathy | starting 04/20/2020 | | | | | | until 04/20/2021 | + +------+--------+ + + | Copper, Serum | Lab | Routin | Peripheral | 1 Occurrences | | | | e | polyneuropathy | starting 04/20/2020 | | | | | | until 04/20/2021 | + +------+--------+ + + | Sedimentation Rate | Lab | Routin | Peripheral | Expected: | | | | e | polyneuropathy | 04/20/2020, Expires: | | | | | | 04/20/2021 | + +------+--------+ + + documented as of this encounter Visit Diagnoses + + | Diagnosis | + + | Peripheral polyneuropathy - Primary Unspecified hereditary and idiopathic peripheral | | neuropathy | + + | Cervical radiculopathy Brachial neuritis or radiculitis nos | + + | Bilateral hand numbness Disturbance of skin sensation | + + | Frequent falls Personal history of fall | + + | Pacemaker reprogramming/check - Primary Fitting and adjustment of cardiac pacemaker | + + | Tachycardia-bradycardia (HCC) Sinoatrial node dysfunction | + + | Pacemaker, Dual Chamber, [employer], MRI Capable, 09/30/19 Rosy Cardiac pacemaker in | | situ | + + documented in this encounter
--- OUTSIDE RECORDS SUMMARY | ~2020-09-13 | XMS | Encounter Summary ---
Demographics + + + | Address | [address] | | | [place] [address] | + + + | Home Phone | | + + + | Preferred Language | Unknown | + + + | Marital Status | Single | + + + | Buddhism Affiliation | [id number] | + + + | Race | White | + + + | Ethnic Group | Not or | + + + Author + + + | Author | [facility] | | | and [place] | + + + | Organization | [facility] | | | and [place] | + + + | Address | Unknown | + + + | Phone | Unavailable | + + + Support + + +---------+ + | Name | Relationship | Address | Phone | + + +---------+ + | Aaron Calvert | ECON | Unknown | | + + +---------+ + Care Team Providers + +------+ + | Care Handle Sander Operator Name | Role | Phone | [...] + + | Closed | Specialty | Home Health | Diagnoses | [place], | | | | Services | Services | Morbid | Hernesto Nava MD | | | | Required | | obesity | [address] | | | | | | ([facility]) | [address] | | | | | | Closed | [place], | | | | | | fracture | [place] | | | | | | dislocation | [address] | | | | | | of left | Phone: | | | | | | ankle, | [phone] | | | | | | initial | Fax: | | | | | | encounter | [phone] | | +--------+ + + + + + Reason for Visit + + + | Reason | Comments | + + + | Ankle Injury (Major) | | + + + Auth/Cert +--------+--------+ + + + + | [...] + + + + | 06/13/ | Emergency | [facility] | Reese Hernandez, | Closed right ankle | | 2019 - | | MED [facility] | MD [address] | fracture, initial | | | | [address] [place] | DONOVAN SANCHEZ | encounter (Primary | | 06/14/ | | [place] [address] | [id number] | Dx); Anticoagulated; | | 2019 | | [phone] | | Essential | | | | | Adelfo Mckenzie, | hypertension; | | | | | DO [address] | Hypothyroidism, | | | | | [place], [place] | unspecified type; | | | | | [address] | Morbid obesity | | | | | [phone] | ([facility]); Closed | | | | | | fracture dislocation | | | | | | of left ankle, | | | | | | initial encounter | +--------+ + + + + Social [...] + + + | Blood Pressure | 122/60 | 06/14/2019 12:28 PM | | | | | PDT | | + + + + + | Pulse | 79 | 06/14/2019 12:28 PM | | | | | PDT | | + + + + + | Temperature | 36.8 C (98.2 F) | 06/14/2019 12:28 PM | | | | | PDT | | + + + + + | Respiratory Rate | 17 | 06/14/2019 12:28 PM | | | | | PDT | | + + + + + | Oxygen Saturation | 93% | 06/14/2019 12:28 PM | | | | | PDT | | + + + + + | Inhaled Oxygen | - | - | | | Concentration | | | | + + + + + | Weight | 120 kg (264 lb 8.8 | 06/13/2019 7:48 PM | | | | oz) | PDT | | + + + + + | Height | 162.6 cm (5' 4.02") | 06/13/2019 7:48 PM | | | | | PDT | | + + + + + | Body Mass Index | 45.39 | 06/13/2019 7:48 PM | | | | | PDT [...] as of this encounter Discharge Instructions Instructions Adelfo Mckenzie DO - 06/13/2019 Discharge Instructions for Ankle/Foot Surgery You recently had ankle fracture reduction under anesthesia. Be sure to see your doctor for follow-up visits, and return to activity slowly and as directed by your doctor. Home Care You have been prescribed medications for pain - remember never drivewhile taking narco tic pain medication. Take your pain medication exactly as directed. 1. Generally a scheduled narcotic will be prescribed (such as Vicodin or Percocet) to be ta madhu every 4-6 hours routinely as needed. Incision Care Leave your splint on at all times Elevate your right leg above the heart at all times Do not get your splint wet ever Moving Safely 100% non weight bearing on the right leg at all times - use wheelchair for ambulation Arrange your household to keep the items you need within reach. Remove electrical cords, throw rugs, and anything else that may cause you to fall. Use nonslip bath mats, grab bars, an elevated toilet seat, and a shower chair in your ba throom. Follow-Up Follow up with orthopedics in [place] for definitive treatment of the ankle fracture micky del rosario When to Seek Medical Attention Call 911 right awayif you have any of the following: Chest pain Shortness of breath Otherwise, call your doctor immediately if you have any of the following: Increased hip pain Pain or swelling in your calf or leg Fever [id number] shaking chills Excessive swelling, increased drainage or redness around the incision Swelling, tenderness, or cramps in your leg documented in this encounter Medications at Time of [...] + + + +---------+ + + | clonazePAM | Take 0.5 mg by mouth | | 0 | | | | (KLONOPIN) 0.5 mg | 3 times daily as | | | | 9 | | tablet | needed for Anxiety. | | | | | + + [...] + + + +---------+ + + | oxyCODONE | Take 2 tablets by | 30 | 0 | 06/13/20 | | | (ROXICODONE) 5 mg | mouth every 6 hours | tablet | | 19 | 9 | | tablet | as needed for Pain. | | | | | + + + +---------+ + + documented as of this encounter Progress Notes Hernesto Van MD - 06/14/2019 8:54 AM PDTFormatting of this note might be different f rom the original. HOSPITALIST progress NOTE [facility] 06/14/2019 Rounding Physician: Hernesto Van MD Patient Name: Walter Calvert : 1965 Medical Record: [id number] Primary Hospital Problem: (R) ankle frx HPI: Walter Calvert is a 53 y.o.morbidly obese female with a history of atrial fibrillation and ?c ardiomyopathy who presented on 06/13/2019, to [facility] after GLF. Pt reports that she wa s attempting to ambulate to her bathroom but experienced LOC leading to her fall resulting i n a complex right ankle fracture. The pt was transferred to Dr Mckenzie's service for immedi ate repair. She arrived to [facility] ER, aparicio was placed, dilaudid 0.5mg x 1, evaluated by anesthesiology/surgeon. KCentra was administered and the pt was taken to OR where she under went closed reduction of her (R) ankle frx. She reportedly was slow to awaken post op and w as placed on BiPAP at 12/6 via nasal pillows. She states that she has been seen previously for FANG eval but has yet to have either a dx or rx polysomnogram. She further reports that she is claustrophobic and has been unable to tolerate BiPAP/CPAP mask. The pt reports a hx of "cardiomyopathy" altho echo from [facility] in Sep, 2018 revealed grade 2 diastolic dysfunction with LVEF 70% and moderate to severe MR. She also reports tayo t she has been dx'd with autonomic dysfunction s/p tilt table testing in the past. She stat es that she is followed by Dr Morgan from Cardiology. She is now awake, alert and appropriately responsive. She does endorse RLE pain but otherw ise feels well without additional complaints. The pt states that she is to be evaluated by PT later today with discharge pending ortho ev al. OBJECTIVE DATA VITAL SIGNS: BP 130/60 | Pulse 67 | Temp 36.5 C (97.7 F) (Oral) | Resp 16 | Ht 1.62 6 m (5' 4.02") | Wt 120 kg (264 lb 8.8 oz) | SpO2 97% | ? No | BMI 45.39 kg /m Vital sign ranges for last 24hrs: Input and output for last 24hrs: Temp: [36 C (96.8 F)-36.7 C (98.1 F)] 36.5 C (97.7 F) Pulse: [67-114] 67 Resp: [15-19] 16 BP: (103-166)/(56-85) 130/60 SpO2 Av.7 % Min: 91 % Max: 100 % Flow (L/min) Av.6 Min: 2 Max: 4 06/12 1901 - 06/14 0700 In: 960 [P.O.:150; I.V.:810] Out: 700 [Urine:700] Admit Weight: Weight: 120 kg (264 lb 8.8 oz) Current weight: Weight: 120 kg (264 lb 8.8 oz) Intake/Output Summary (Last 24 hours) at 06/14/2019 0854 Last data filed at 06/14/2019 0617 Gross per 24 hour Intake 960 ml Output 700 ml Net 260 ml MEDICATIONS: Scheduled Meds: acetaminophen 1,000 mg Oral 3 times per day albuterol-ipratropium 3 mL Nebulization RT BID allopurinol 300 mg Oral Daily apixaban 5 mg Oral BID atorvaSTATin 40 mg Oral Nightly busPIRone 30 mg Oral BID famotidine 20 mg Intravenous 2 times per day folic acid 1 mg Oral Daily gabapentin 300 mg Oral BID levothyroxine 75 mcg Oral QAM AC sertraline 100 mg Oral Daily Continuous Infusions: PRN Meds:albuterol-ipratropium AND albuterol-ipratropium, HYDROmorphone, melatonin, men thol throat lozenges, metoprolol tartrate, ondansetron, ondansetron, oxyCODONE, prazosin PHYSICAL EXAMINATION: Gen Well developed, morbidly obese female, lying comfortably in bed in NAD Eye Pupils equal, conjugate gaze, no icterus ENT crowded oropharynx, increased neck circumference Neck no JVD or adenopathy Cardiac reg rate and rhythm, 3/6 KANU heard best at 2nd (L) ICS, without gallop Lung unlabored resp effort, some insp crackles at bases otherwise clear Abdomen active BS, obese, non-tender Neuro Moves all extremities, symmetrical face, no dysathria Extremities no edema, erythema, (R) LE splinted, good cap refill great toe RLE Aparicio w dilute yellow clear output DIAGNOSTICS: Labs: Lab Results Component Value Date CREA 0.69 06/14/2019 BUN 8 (L) 06/14/2019 NA 141 06/14/2019 K 3.3 (L) 06/14/2019 CL 101 06/14/2019 CO2 31 06/14/2019 Lab Results Component Value Date WBC 7.0 06/14/2019 HGB 10.7 (L) 06/14/2019 HCT 35.2 06/14/2019 MCV 82.4 (L) 06/14/2019 PLT 249 06/14/2019 No results found for: CKMB, TROPONIN Lab Results Component Value Date INR 1.1 06/14/2019 PROTIME 13.9 06/14/2019 ASSESSMENT AND PLAN 53 y morbidly obese female with a reported hx of recurrent presyncope/syncope/ort hostatic changes. The pt is on apixaban for questionable hx of atrial fibrillation altho do es have hx of sinus belen, now admitted for surgical management of GLF-related fall. Concurr ent subdural hematoma from fall a few days ago, symptomatic. Right complex ankle fracture Wil[place]and repair urgent Pre-op kcentra as pt on apixaban Syncope/frequent falling, recurrent hypotension Subdural hematoma, alert Pt claims (+) tilt table test; unable to check orthostatics 12/27 ankle frx UA unlikely infection BNP 121 TSH 4.9 HTN, Pulm HTN PVD/dyslipidemia/angina/ Moderate-severe MR/MVP, LVEF 60-70%; normal stress study 12/2018 statin Resume metoprolol Afib/bradycardia Baseline HR 44-70s PVCs/PACs Resume apixaban post op For DVT prophy and ?atrial fibrillation Obese/FANG/GERD Famotidine/duonebs Noncompliant w/ CPAP, claustrophobic BIPAP prn post op hypothyroid TSH wnl Continue levothyroxine current dose Renal Normal parameters Hypo-K+; replace Gout Allopurinol Mood Resume all home psychotropics Dispo Hopeful for d/c to home later today pending PT/OT review Electronically signed by: Hernesto Van MD, DATE/TIME: 06/14/2019 8:54 [facility] TEAMElectronically signed by Hernesto Van MD at 019 9:44 AM Pranay Kenney RN - 06/14/2019 12:40 AM PDTWalter complains of moderate t o severe R lower leg pain. Intermittent numbness noted inferior lateral and medial portion o f her leg. Cap refill is < 3 seconds. Skin is warm and pink. Able to wiggle toes. Unable to assess pedal pulse due to cast and wrap. PRN oxy given, along with scheduled tylenol which helped decrease her discomfort and she was able to get some rest. Heart rate tachy with murm er noted. Lungs clear but diminished. Vital signs stable at this time. Will continue to [facility]. documented in t his encounter H&P Notes NaveenAdelfo baires, DO - 06/13/2019 1:10 PM PDT [facility] ORTHOPAEDIC ADMISSION HISTORY AND PHYSICAL Primary Care Physician: August Sanford PATIENT NAME: Walter Calvert : 1965 DOS: 06/13/2019 DATE OF ADMISSION: 06/13/2019 CHIEF COMPLAINT: fall with ankle injury History OF PRESENT ILLNESS: 53 y.o.. Female fell this am and injured the right ankle. She l ost consciousness with the fall and does not remember any other events related to the fall. She was taken to ED in [place] where right ankle fracture dislocation was diagnosed. They called me to transfer care to this hospital. No Known Allergies Prior to Admission medications Medication Sig Start Date End Date Taking? Authorizing Provider albuterol (PROAIR HFA) 90 mcg/puff inhaler Inhale 2 puffs into the lungs every 6 hours as n eeded for Wheezing. Yes Historical Provider, allopurinol (ZYLOPRIM) 300 mg tablet Take 300 mg by mouth Daily. Yes Historical Provider, atorvaSTATin (LIPITOR) 40 mg tablet Take 40 mg by mouth nightly. Yes Historical Provider, busPIRone (BUSPAR) 30 MG tablet take 1 tablet by mouth twice a day 11/20/18 Yes Historical Provider, clonazePAM (KLONOPIN) 0.5 mg tablet Take 0.5 mg by mouth 3 times daily as needed for Anxiet y. Yes Historical Provider, colchicine 0.6 mg tablet Take 0.6 mg by mouth as needed. Yes Historical Provider, ELIQUIS 5 MG tablet 5 mg 2 times daily. 12/14/18 Yes Historical Provider, folic acid 1 mg tablet Take 1 mg by mouth Daily. Yes Historical Provider, furosemide (LASIX) 40 mg tablet take 1 tablet by mouth twice a day for HEART FAILURE; TO BE TAKEN... (REFER TO PRESCRIPTION NOTES). 10/21/18 Yes Historical Provider, gabapentin (NEURONTIN) 300 mg capsule Take 300 mg by mouth 2 times daily. Yes Historical Provider, levothyroxine (SYNTHROID) 75 MCG tablet take 1 tablet by mouth every morning ON AN EMPTY ST OMACH 12/15/18 Yes Historical Provider, magnesium oxide (MAG-OX) 400 mg tablet take 1 tablet by mouth once daily NO REFILLS FROM IS PROVIDER 10/21/18 Yes Historical Provider, MAPAP 500 MG tablet take 1 tablet by mouth every 3 to 6 hours 11/20/18 Historical Provide rMD meclizine (ANTIVERT) 25 mg tablet Take 25 mg by mouth 3 times daily as needed. Yes Histor ical Provider, metoprolol tartrate (LOPRESSOR) 25 mg tablet 25 mg 2 times daily. 12/10/18 Yes Historical Alice self MD nitroglycerin (NITROSTAT) 0.[address] 1 tablet under the tongue every 5 minutes as needed for Chest pain. 12/23/18 Yes Claudine Gallegos MD potassium chloride (KLOR-CON M20) 20 mEq ER tablet take 1 tablet by mouth twice a day with food 11/20/18 Yes Historical Provider, prazosin (MINIPRESS) 2 MG capsule take 1 capsule by mouth at bedtime MAY INCREASE TO 2 caps ules at bedtime 11/20/18 Yes Historical Provider, sertraline (ZOLOFT) 100 mg tablet take 1 tablet by mouth once daily 11/20/18 Yes Historica l ProviderMD zaleplon (SONATA) 10 MG capsule Take 10 mg by mouth nightly. Yes Historical Provider, Past Medical History: Diagnosis Date Hyperlipidemia 12/15/2018 Hypertension 12/15/2018 Hypothyroid 12/15/2018 Past heart attack 12/15/2018 PVC (premature ventricular contraction) 12/15/2018 cardiomyopathy Past Surgical History: Procedure Laterality Date LOOP RECORDER PLACEMENT Left 05/04/2016 [employer] Linq Loop Recorder Dr Duque Nicklaus [facility] [place] SYNCOPE Family History Problem Relation Age of Onset Pacemaker Father Heart disease Mother The pt reports that she has quit smoking. She has never used smokeless tobacco. She report s that she does not drink alcohol or use drugs. Review of Systems A comprehensive review of systems was negative. Except for the ankle pain and bump on her h ead where she hit it in the fall. Physical Exam vital SIGNS: Temp: 36 C (96.8 F) BP: 108/61 Pulse: 112 Resp: 16 SpO2: 97 % Height: Ht Readings from Last 1 Encounters: 01/06/19 1.626 m (5' 4") Weight: Wt Readings from Last 1 Encounters: 06/13/19 120 kg (264 lb 8.8 oz) Body mass index: Body mass index is 45.41 kg/m. General: Obese and deconditioned adult female seen with her brother in the ED. She is awak e and answers questions appropriately. She is aware of the date, time, place and her situati on. HEENT: Head normocephalic, atraumatic. EOMI. Pupils equal and round. Bilateral external ears normal. Cardiovascular: Normal peripheral pulses. Tachycardic. Systolic murmur Respiratory: Breathing unlabored. No respiratory distress. Abdomen: No visible deformities or hernias, obese and non tender, +BS Musculoskeletal: Splint on the right ankle, +swelling and obvious deformity Skin: Warm, dry, intact without lacerations, excoriations - will check under splint in the OR for lesions. Lymph: Not assessed Neurological: A&O x 3. Normal motor function in the toes. Sensation grossly intact to li ght touch in extremities. No focal deficits noted. Psychiatric: Mood normal, affect appropriate. DIAGNOSTIC STUDIES: No results found. No results found for this or any previous visit (from the past 24 hour(s)). @[id number]@ Imaging: Right ankle fracture dislocation Labs: Pending Assessment: 1. Right ankle trimall fracture dislocation that needs urgent reduction in the OR and then decide on internal/external fixation vs casting if too swollen PLAN: 1. Urgent take to or for reduction and internal vs external fixation Electronically signed by: Adelfo Mckenzie DO, 06/13/2019 13:10 documented in this encounter Consult Notes Choco Russell MD - 06/13/2019 1:20 PM PDTFormatting of this note might be different from t osmar original. [facility] [place] HOSPITALIST CONSULT NOTE Patient: Walter Calvert : 1965: Age: 53 y.o. MedRec: [id number] Admission date: 06/13/2019 Hospital day # : 0 Physician author: Choco Russell MD Today: 06/13/2019 ASSESSMENT Active Problem, present on admission: Active Hospital Problems Diagnosis Anticoagulated Resolved Hospital Problems No resolved problems to display. RECOMMENDATIONS 53 y f w/ recurrent presyncope/syncope/hypotension, on eliquis for questionable hx of atria l fibrillation, hospitalized for surgical management of GLF-related fall. Concurrent subdura l hematoma from fall a few days ago, symptomatic. Right complex ankle fracture Wilwand repair urgent intraop k centra / K 20meq Syncope/frequent falling, recurrent hypotension Subdural hematoma, alert Orthostatics UA unlikely infection BNP 121 TSH 4.9 Cortisol pending HTN, Pulm HTN PVD/dyslipidemia/angina/ Moderate-severe MR/MVP, EF 61% normal stress study 12/2018 statin Hold metoprolol/laxis Afib/bradycardia Baseline HR 44-70s PVCs/PACs Resume eliquis awaiting surgeon Obese/FANG/GERD Famotidine/duonebs Noncompliant w/ CPAP, claustrophobic BIPAP prn post op hypothyroid synthroid Gout Allopurinol Mood Resume all home psychotropics Prn ativan DVT Prophylaxis Diet Code Status Disposition Per primary REASON FOR CONSULT: Dr Mckenzie requests evaluation and management of medications HISTORY OF PRESENT ILLNESS: Walter Calvert is a 53 y.o. female with a history of atrial fibrillation/ lasix, presented on 06/13/2019, to [facility] after GLF, ambulated to her bathroom, which was associated LOC, found to have complex right ankle fracture, accepted as direct transfer to Dr Mckenzie's serv ice for immediate repair. She arrived to [facility] ER, aparicio was placed, dilaudid 0.5mg x 1, alert/oriented in pain, unable to urinate, evaluated by anesthesiology/surgeon, transferred to OR. She fell a few days ago and hit her head, as confirmed by CT head from [facility] Last intake of eliquis and medications was yesterday morning. No DVT hx. No cardiac valve o perations. URI/bronchitis 3 weeks ago. No sores. No UTI hx. No change in medications. [facility] data VSS, HR 100s, tele sinus Na 139 K 2.9 Cr 0.79 LFT normal, trop 0.01 glu 144 bicarb 28 WBC 8.6 Hg 12.6 plt 227 S/p fentanyl 100 per EMS, dilaudid 2mg 12/2018 cardiology visit, c/o fatigue, orthopnea, BP 84/50, chest pain relieved w/ nitro. No ncompliant w/ CPAP, attempted previously. Sinus rhythm. WEIGHT 120KG, questionable afib, con sidering dc AC, referral to sleep medicine for FANG. 12/26/18 Persantine EKG is negative. Normal Persantine sestamibi myocardial perfusion imaging study. Normal left ventricular size, wall thickness and motion. Preserved left ventricula r systolic function. LVEF is 61%. 09/2018 Echocardiogram from [facility] left ventricular systolic function is hyperdynamic with estimated EF of >70%. Pseudo-normal LV diastolic filling pattern, consistent with beth vated left atrial pressure and moderate dysfunction (grade 2). The right ventricle is sherrie l in size and function. There is some mild biatrial enlargement. Moderate to severe mitral regurgitation is present. There is mild pulmonary hypertension. The right ventricular sys tolic pressure (pulmonary artery systolic pressure), as measured by doppler is 43 mmHg. REVIEW OF SYSTEMS: Intermittent Right knee pain/chest pain. SOB w/ exertion. PAST MEDICAL and SURGICAL HISTORY: Past Medical History: Diagnosis Date Anxiety Arthritis Atrial fibrillation (HCC) Cardiomyopathy (HCC) Gout Hypercholesterolemia Hyperlipidemia 12/15/2018 Hypertension 12/15/2018 Hypothyroid 12/15/2018 Mitral valve prolapse Past heart attack 12/15/2018 PVC (premature ventricular contraction) 12/15/2018 Past Surgical History: Procedure Laterality Date intestinal perforation LOOP RECORDER PLACEMENT Left 05/04/2016 [employer] Linq Loop Recorder Dr Neto Sanders [facility] SYNCOPE Patient Active Problem List Diagnosis S/P implantable loop recorder [employer] 05/04/2016 Dr Neto Sanders Syncope Encounter for loop recorder check Hypothyroid PVC (premature ventricular contraction) Past heart attack Essential hypertension Mixed hyperlipidemia Paroxysmal atrial fibrillation Chest pain, unspecified HOME MEDICATIONS: PT REPORTED TAKING NOT TAKING Medication Sig Last Dose Dispense Doc. Provider albuterol (PROAIR HFA) 90 mcg/puff inhaler Inhale 2 puffs into the lungs every 6 hours as needed for Wheezing. Taking Historical Provider, allopurinol (ZYLOPRIM) 300 mg tablet Take 300 mg by mouth Daily. Taking Historical Provid erMD atorvaSTATin (LIPITOR) 40 mg tablet Take 40 mg by mouth nightly. Taking Historical Provid er, busPIRone (BUSPAR) 30 MG tablet take 1 tablet by mouth twice a day Taking Historical Prov MD juarez clonazePAM (KLONOPIN) 0.5 mg tablet Take 0.5 mg by mouth 3 times daily as needed for Anxie ty. Taking Historical ProviderMD colchicine 0.6 mg tablet Take 0.6 mg by mouth as needed. Taking Historical Provider, ELIQUIS 5 MG tablet 5 mg 2 times daily. Taking Historical ProviderMD folic acid 1 mg tablet Take 1 mg by mouth Daily. Taking Historical ProviderMD furosemide (LASIX) 40 mg tablet take 1 tablet by mouth twice a day for HEART FAILURE; TO B E TAKEN... (REFER TO PRESCRIPTION NOTES). Taking Historical ProviderMD gabapentin (NEURONTIN) 300 mg capsule Take 300 mg by mouth 2 times daily. Taking Historic al ProviderMD levothyroxine (SYNTHROID) 75 MCG tablet take 1 tablet by mouth every morning ON AN EMPTY S TOMACH Taking Historical ProviderMD magnesium oxide (MAG-OX) 400 mg tablet take 1 tablet by mouth once daily NO REFILLS FROM T HIS PROVIDER Taking Historical ProviderMD MAPAP 500 MG tablet take 1 tablet by mouth every 3 to 6 hours Historical ProviderMD meclizine (ANTIVERT) 25 mg tablet Take 25 mg by mouth 3 times daily as needed. Taking His torical Provider, metoprolol tartrate (LOPRESSOR) 25 mg tablet 25 mg 2 times daily. Taking Historical Bradford tillman MD nitroglycerin (NITROSTAT) 0.[address] 1 tablet under the tongue every 5 minutes as needed for Chest pain. Taking 25 tablet Claudine Gallegos MD potassium chloride (KLOR-CON M20) 20 mEq ER tablet take 1 tablet by mouth twice a day with food Taking Historical ProviderMD prazosin (MINIPRESS) 2 MG capsule take 1 capsule by mouth at bedtime MAY INCREASE TO 2 cap sules at bedtime Taking Historical ProviderMD sertraline (ZOLOFT) 100 mg tablet take 1 tablet by mouth once daily Taking Historical Pro viderMD zaleplon (SONATA) 10 MG capsule Take 10 mg by mouth nightly. Taking Historical ProviderMD ALLERGIES: SOCIAL HISTORY: FAMILY HISTORY: Allergies Allergen Reactions Penicillins Anca reports that she has quit smoking. She has never used smokeless tobacco. She reports that she does not drink alcohol or use drugs. family history includes Heart disease in her mother; Pacemaker in her father. VITAL SIGNS: Temp: 36 C (96.8 F), Pulse: 107, Resp: 16, BP: 120/63, SpO2 98 % on room air at flow ra te 2L/min Temp Min: 36 C (96.8 F) Max: 36 C (96.8 F) Weight: 120 kg (264 lb 8.8 oz) PHYSICAL EXAMINATION: On room air Constitutional NAD / lying flat, in pain, aparicio being placed, cooperative Eye PERRL / EOMI / No scleral icterus, no injected eyes ENT hearing intact / no sinus congestion / NO THRUSH Neck supple Lymph node No overt lymphadenopathy Cardiac S1 S2 present / RRR / no MRG Lung Auscultation CTAB / no RRW / Respiratory effort not labored speaking in full sentences without difficulty Abdomen active BS, Soft, NT / ND, no overt hernias pannus Psych Mood and affect normal, alert and oriented x3 Neuro Moves all extremities, symmetrical face, no dysathria Extremities No mckinney edema bilateral / right lower extremity in splint c.d.i Skin No overt rash / no jaundice / NO INTERTRIGO Aparicio w dilute yellow clear output DIAGNOSTIC STUDIES: Lab results last 24 hours No results found for this or any previous visit (from the past 24 hour(s)). Micro results Microbiology Results (72 hrs) No results found for the last 72 hours. Radiology results No results found. Electronically signed by: Choco Russell MD 06/13/2019 13:20 [facility] initial inpatient hospital time greater than 70 minutes with 1/2 spent on face to face ti me for assessment and plan -Medical Decision Maker Patient. Assessment and Plan were discussed with patient -[facility] Documentation I expect this patient will be hospitalized for 2 or more days and expect the post-hospital plan to be home. -I reviewed relevant imaging, EKG and old records. documented in this encou nter Nursing Notes Hina Arthur, RN - 06/13/2019 1:50 PM PDTPatient's brother, Aaron Calvert is her main contac t # . docufunmilayo coto in this encounter ED Notes Danii Davison RN - 06/13/2019 12:50 PM PDTPt arrives by ambulance from [facility] ED, where she was evaluated for ankle injury. Medics report pt lives at home with her br other and fell when she got up to go to the bathroom this morning. Medics report pt was fou nd to have right ankle fracture and reduction was done under conscious sedation in ED. They state pt was transferred here for orthopedist. Pt arrives on [place] oxygen, due to desat follo wing dilaudid admin at [facility]. She arrives with splint in place.Electronically gene d by Danii Davison RN at 06/13/2019 12:56 PM PDTLakesha Gamez RN - 06/13/20 12:11 PM PDTReport received from BONNIE García. Pt had a syncopal episode this AM while hea ding to the bathroom, pt arrived at [facility] with right ankle external rotation and a closed fracture. ER did conscious sedation to realign, but 2nd x-ray shows that ankle didn't stay in alignment. Saddle splint applied and wrapped with VICTOR MANUEL. Magaly surgical pt, about 3 5-40 mins out. Hx Afib, CHF, and pervious fall 3 days ago (head CT this AM showed small rigo judy, pt taking Eliquis). Last meal was last night. Pt has been getting Dilaudid 1mg for ruth n, requires 3L O2 after pain medication, not usually on O2. documented in this encounter Miscellaneous Notes Plan of Care - Heidi Mendez, DEPARTMENT ASSISTANT - 06/14/2019 5:05 PM PDTDischarge Planning Goal: Pt to be discharged in a safe manner Summary /Intervention: Pt discharged home prior to case management follow up. Telephone call to pt brotherAaron ([phone]). Aaron states they are doing "ok", were a ble to get Walter home safely. They have the wheelchair, bedside commode, bath bench. They were unable to get a sliding b oard but he states he will look for one in [place] tomorrow. Discussed potential cost of DME, explained that [facility] typically requires pre authoriz ation and if the cost of DME is prohibitive, I encouraged Aaron to call case management. I g ave him my direct number and Anya RN CM number. Discussed home health referral. Aaron states that they would find this support beneficial a nd welcome a referral. Telephone call to [facility] ). Spoke with RN family and consumer sciences teacher, Candace. Discussed referral and faxed referral and clinical information (with verification of trans mission). Candace states she will follow up with pt tomorrow Plan: Pt discharged home with family support, DME, and home health Electronically signed by: MICHAEL Brandt 06/14/2019 17:05 lan of Care - Kristina Thomas RN - 06/14/2019 3:35 PM PDTSusan requested PRN pain medication once thi s shift, reported pain relief. Dressing to RLE CDI. Wiggles toes, toes pink and warm with b risk refill. VSS. Moving from bed to wheelchair to commode with lateral transfer. Refused [facility], stated she was a "picky eater" and would have something when she got home. Discharged t o home with assist after education on follow up care and CM for help with DME. lan of Shital - Anya Butts RN - 06/14/2019 11:34 AM PDTCare Transition Assistant F/U Aaron from PT assessed pt on her transfers and recommends a sliding board for transfers.,a b ath bench, a drop arm commode, and the WC which he states has to be 20 "wide and 18" deep. Message left for Elizabeth to see if that equipment is available. Ivy the manager retail for HH notified that he is discharging later today. Friends will transport her home in a [place]. Enc use of the slider board other than manual transfers.Electronically signed by: Anya Butts RN 06/14/2019 11:44 [facility] account retention representative here. Aaron from PT spoke with him regaurding Walter's needs for equipm ent. Orders faxed to [facility] with face sheet, OP note, insurance info. Electronically signed by: Anya Butts RN 06/14/2019 12:53 Brother and [id number] back in visiting Walter. Let them all know the WC will be delive red shortly. Insurance will pay for the WC, but not the commode or slider board. They woul d like to know prices of the equipment. Will make recommendations. Electronically signed by: Anya Butts RN 06/14/2019 13:14 lan of Care - Sil sullivanRome RRT - 06/14/2019 10:43 AM PDTSusan exceeded her IS goal. She took scheduled tx well and did not require PRN tx. BS are clear and she denies SOB. She was 97% on RA with one desaturation earlier. She used hospital BiPAP overnight with nasal prongs, which she tolera chica well. lan of Ca re - KoCali daniels OT - 06/14/2019 10:40 AM PDTFormatting of this note might be differen t from the original. . [facility] Occupational Therapy OPIB Plan of Care Initial Evaluation, Treatment, Discharge Note Patient Name: Walter Calvert Date of Onset of Illness/Injury or Date of Surgery: 06/13/19 Start of Care/Start of Certification Date: 06/14/19 End of Certification Date: 07/15/19 Summary: Walter has been participating in occupational therapy for treatment of decrease d ability to safely perform self care ADLs and functional mobility tasks d/t syncope and fal l resulting in displaced ankle fx. Emphasis of session included evaluation and problem-vangie ving of home safety, DME recommendations, and mobility. Patient demonstrates progress towar ds functional goals as evidenced by participation in care. Walter has shown adequate progres s towards goals and is to discharge OT at this time. Staff to continue to encourage and pro mote independence with ADLs and functional mobility. Identified Problems Needing Skilled Intervention: decreased ability to safely perform self care ADLs and functional mobility tasks d/t syncope and fall resulting in displaced ankle f x Occupational Therapy Discharge Recommendations are: Recommended discharge disposition: home with assist Post discharge occupational therapy recommendation: home health Equipment Recommendations: tub bench, commode (3 in 1), 2 wheeled walker (FWW), wheelchair Planned Interventions:ADL retraining, patient/family education, transfer training, function al endurance training Recommended Frequency: Patient Status/Goals: Reflects last filed data and may be from multiple contributors. ADLs pt demonstrated ability to don L sock, doff both socks. She does not have clothing with her , so she was advised to use nurses supervisor and to dress RLE first and to undress it last when donni ng/doffing pants and underwear LB Dressing, Level of Robeson: moderate assist (50% patient effort) Assistive Device: nurses supervisor LB Dressing Assess/Train, Position: sitting LB Dressing Impairments: strength decreased, decreased flexibility Cognitive grossly WFL Bed Mobility Assistive Device: bed rails, HOB elevated Supine to Sit, Level of Robeson: moderate assist (50% patient effort) Sit to Supine, Level of Robeson: moderate assist (50% patient effort) Impairments: coordination impaired, impaired balance, strength decreased, sensation decreas ed, ROM decreased, decreased flexibility, pain Transfers pt unable to perform sit<>stand or tub bench transfers. Is able to perform lateral, sliding board or partial stand-pivot transfers between bed and w/c Bed-Chair, Level of Robeson: moderate assist (50% patient effort), 1 person + 1 person to manage equipment Chair-Bed, Level of Robeson: moderate assist (50% patient effort), 1 person + 1 person to manage equipment [id number], Assistive Device: wheelchair, sliding board Impairments: decreased flexibility, strength decreased, pain ROM BUE WFL Strength BUE grossly 3-/5 throughout OT Goal Review Date Most Recent Value STG Review Date 06/14/19 at 06/14/2019 1040 Additional Goals #1 OT Most Recent Value STG Status new, met at 06/14/2019 1040 STG pt able to initiate problem-solving of home safety, mobility, and BADLs with OT for di fransicolinwood planning at 06/14/2019 1040 Medicare Functional Limitation Reporting: OT Time Calculation OT Individual Start Time: 924 OT Individual Stop Time: 104 OT Individual Total Time: 75 OT Missed Treatment Time: 0 OT Total Treatment Time: 75 Timed TX Code Minutes: 60 Electronically signed by: Cali Yang OT, 06/14/2019 16:28 ICD-10-CM ICD-9-CM 1. Closed right ankle fracture, initial encounter S82.891A 824.8 DME: Misc wheelchair DME: Misc wheelchair 2. Anticoagulated Z79.01 V58.61 3. Essential hypertension I10 401.9 4. Hypothyroidism, unspecified type E03.9 244.9 5. Morbid obesity (HCC) E66.01 278.01 Referral to Home Health - OUTPATIENT 6. Closed fracture dislocation of left ankle, initial encounter S82.892A 824.8 Referral to Home Health - OUTPATIENT lan of Care - Dl Dyer, PT - 06/14/2019 10:35 AM PDTFormatting of this note might be different fr om the original. [facility] Physical Therapy OPIB Plan of Care Initial Evaluation, Treatment Note Patient Name: Walter Calvert Date of Onset of Illness/Injury or Date of Surgery: 06/13/19 Start of Care/Start of Certification Date: 06/14/19 End of Certification Date: 06/14/19 Summary: Walter presents to physical therapy with recent syncopal fall at home, resulting in R ankle displaced fx. underwent closed reduction under sedation and is now NWB RLE until surgery can be scheduled in her home town per MD notes. She reports she has been unable to a ccess her bathroom tub for almost a year because of weakness and is currently unable to loni d with 2P assist with fww on her unaffected L leg. She is fearfull of falling and has stairs at home that she cannot climb safely. PT measured her for a rental [place] with elevating R legr est, and recommended a slide board and drop arm commode after calling her family and dorys g that her bathroom door is only 23 inches wide at home and she has at least 2 steps to ente r home (and she cannot walk) Family is building her a ramp as instructed by PT today, and sh dean will need addl training for safe use of slide-board for getting into and out of care after family locate and purchases a slide-board for her (DME locations locally are closed for the weekend) . Objective exam reveals impairments with aerobic capacity/endurance, anthropometric characte ristics, ergonomics and body mechanics, functional endurance/activity tolerance, gait, locom otion, and balance, joint integrity and mobility, muscle performance, awareness of safety pr ec, abiltiy and HEP. Barriers to discharge and functional limitations include decreased insight into safety and deficits, decreased functional activity tolerance, decreased bed mobility, decreased functio nal transfers, decreased functional gait distance, decreased gait velocity, stairs at home, not able to navigate stairs, not yet able to mobilize at level safe for home discharge, AMPA C indicating significant impairment with basic functional mobility and medical status. Walter will benefit from therapeutic intervention to address impairments and increase safety and independence with activities necessary for safe discharge. Refer below for specific de tails regarding functional levels. Precautions/Limitations: falls Previous Level of Function: Transferring: independent Ambulation: independent Toileting: independent Bathing: independent Dressing: independent Eating: independent Communication: understands/communicates without difficulty Swallowin-->swallows foods/liquids without difficulty Equipment Currently Used at Home: shower chair, 4 wheeled walker (4WW), cane, straight, sin gle point Prior Functional Level Comment: pt states she couldnt bathe for the last year because she c ant get down into the tub, she has to sit in a chair or bed bath because of leg weakness. Potential available assistance at discharge: Significant Relationships: significant other, other (see comments)(brother in law) Living Environment/Accessibility: Lives With: other relative(s) (specify), significant other(brother in law) Living Arrangements: house Home Accessibility: stairs to enter home Number of Stairs to Enter Home: 4 Stair Railings at Home: none Transportation Available: family or friend will provide Living Environment Comment: brother in law is getting a ramp of some sort according to alysia ent. Patient/Family?s Goals: return home to PLOF Rehabilitation potential: good, to achieve stated therapy goals Identified Problems Needing Skilled Intervention: recent syncopal fall at home, resulting i n R ankle displaced fx. underwent closed reduction under sedation and is now NWB RLE until s charley can be scheduled in her home town per MD notes., aerobic capacity/endurance, anthropo metric characteristics, ergonomics and body mechanics, functional endurance/activity toleran ce, gait, locomotion, and balance, joint integrity and mobility, muscle performance Physical Therapy Discharge Recommendations are: Recommended discharge disposition: home with assist Post discharge physical therapy recommendation: family involved/supportive, will benefit f rom structured setting, ongoing low intensity therapy, home health Equipment Recommendations: wheelchair, wheelchair components (comment), commode (drop arm) , sliding board(elevating R side leg rest, WC configured for jazmin height in 20 inch wide wit h 18 inch seat depth) Planned Interventions: balance training, bed mobility training, gait training, home exerci se program, postural re-education, patient/family education, orthotic fitting/training, neur omuscular re-education, motor coordination training, ROM (Range of Motion), strengthening, s tretching, transfer training, wheelchair management/propulsion training Recommended Frequency: other (see comments)(pt needing addl visit for FT for safety at home ) Patient Status/Goals: Reflects last filed data and may be from multiple contributors. Bed Mobility Assistive Device: bed rails, HOB elevated Supine to Sit, Level of Robeson: moderate assist (50% patient effort) Sit to Supine, Level of Robeson: moderate assist (50% patient effort) Impairments: coordination impaired, impaired balance, strength decreased, sensation decreas ed, ROM decreased, decreased flexibility, pain Transfers Bed-Chair, Level of Robeson: moderate assist (50% patient effort), 1 person + 1 person to manage equipment Chair-Bed, Level of Robeson: moderate assist (50% patient effort), 1 person + 1 person to manage equipment [id number]-[id number], Assistive Device: wheelchair, sliding board Gait scooting to WC only, pt unable to stand unable to ambulate on LLE with FWW, even with 2P as sist is unsafe to stand on LLE and maintain NWB RLE Level of Robeson: minimal assist (75% patient effort), 1 person + 1 person to manage e quipment Assistive Device: wheelchair Stairs Unsafe to attempt Wheelchair Mobility Jazmin height, elevating R leg rest, 20 inch seat width Type: jazmin height manual Surface: indoor, level Distance (feet): 20 Speed: slow Level of Robeson: contact guard assist Propulsion Technique: bilateral UE's, jazmin technique Components: brakes, foot rests/ foot platforms Components Management Assistance: moderate assist (50% patients effort) Balance Fair- Functional Endurance fair ROM ROM is grossly WFL on LLE, RLE not formally tested due to dressings and splint Strength L LE Strength: grossly 3-/5, Unable to stand on LLE R LE Strength: gorssly 2/5 [facility] BASIC MOBILITY Turning from your back to your side while in a flat bed without using bedrails?: min assist , CGA, SBA, Supervision/a little help Moving from lying on your back to sitting on the side of a flat bed without using bedrails? : min assist, CGA, SBA, Supervision/a little help Standing up from a chair using your arms (e.g. wheelchair, or bedside chair)?: dependent/un able Moving to and from a bed to a chair (including a wheelchair)?: mod or max assist/a lot of h elp To walk in a hospital room?: dependent/unable Climbing 3-5 steps with a railing?: dependent/unable Total Basic Mobility Six Click AM-PAC: 11 Completed the [facility] Activity Measure for Post Acute Care (AM-PAC) "6 Clicks" Ba sic Mobility Inpatient Short Form. This version of the AM-PAC is an assessment tool used to measure a person's level of disability in performing basic mobility tasks. Walter's score i ndicates a performance of 72.57% impairment in the functioning of basic mobility. Raw Score - Functional Limitation % (for CMS) - "Severity Modifier" CN 6 - 100.00 CM 7 - 92.36 8 - 86.62 9 - 81.38 CL 10 - 76.75 11 - 72.57 12 - 68.66 13 - 64.91 14 - 61.29 CK 15 - 57.70 16 - 54.16 17 - 50.57 18 - 46.58 19 - 41.77 CJ 20 - 35.83 21 - 28.97 22 - 20.91 CI 23 - 11.2 CH 24 - 0.00 Predicted Discharge During Acute Hospitalization (Raw Score) Home = 20.1 With assist = 17.9 SNF = 14 IRF = 13.6 LTAC = 11.5 Justification for Rental Wheelchair: Walter Calvert has a mobility limitation that significantly impairs her ability to participat e in ambulation, bathing and hygiene, feeding, grooming and toileting (MRADLS). A mobility limitation is one that places Walter at a reasonably determined heighten risk of morbidity or mortality secondary to the attempts to perform an MRADL. Walter's mobility limitation that cannot be sufficiently resolved by the use of a fitted cane or walker. Her home provides ad equate access between rooms (except for the bathroom - which she will use a drop arm BSC to perform toileting), maneuvering space, and surface for use of the manual wheelchair that is provided. The use of a manual wheelchair will significantly benefit Walter's ability to to p articipate in their MRADLs. Family is building a ramp to access the home. She will use it on a regular basis at home and has not expressed an unwillingness to use to wheelchair at home . Walter has sufficient upper extremity function and capabilities that is needed for safe pr opulsion of the wheelchair. Patient Measurements: (all in inches) Weight: 120 kg (264 lb 8.8 oz) Height: 162.6 cm (5' 4.02") Hip width: 19.5 (Recommend seat width of 20 to allow for clothing and keep hips from rubbing on armrest sup ports) Buttock to back of knee (upper leg): 21 (subract 2 inches for a recommended seat depth of 18 preferred) Floor to back of knee (lower leg): 18 with dressings and splint for RLE (will need configur ed for jazmin height for LLE to reach the floor PT Goal Review Date Most Recent Value STG Review Date 06/21/19 at 06/14/2019 0925 All Bed Mobility Goal Most Recent Value STG Status new at 06/14/2019924 STG Robeson Level modified independent at 06/14/2019 09 STG Assistive Device bed rails, HOB elevated at 06/14/2019924 Kxn-Unmea-Stn Goal Most Recent Value STG Status new at 06/14/2019924 STG Robeson Level contact guard assist at 06/14/2019924 STG Assistive Device wheelchair, sliding board at 06/14/2019 0925 Wheelchair Goal Most Recent Value STG Status new at 06/14/2019 0925 STG pt demo mod I from level for 50 ft independent propuslion at 06/14/2019 0925 Medicare Functional Limitation Reporting: Electronically signed by: Dl Morse, PT, 06/14/2019 13:27 ICD-10-CM ICD-9-CM 1. Closed right ankle fracture, initial encounter S82.891A 824.8 DME: Misc wheelchair DME: Misc wheelchair 2. Anticoagulated Z79.01 V58.61 3. Essential hypertension I10 401.9 4. Hypothyroidism, unspecified type E03.9 244.9 5. Morbid obesity (HCC) E66.01 278.01 lan of Care - Juan Carlos Juarez RRT - 06/14/2019 4:26 AM PDTSusan oxygen saturation is SpO2: 100 % on % fiO2 non-invasive ventilation (i.e. bi-level) 10/30 and a heart rate of 73. Breath sounds are clear and post breathing treatment breath sounds are increased . Pt has a nonproductive cough. Pt's respirations are unlabored .alysia ent switch to nasal pillows and tolerated bipap throughout the night, 3L 02 bleed in lan of Kristina Sy RN - 06/13/2019 7:39 PM PDTSusan arrived on unit from PACU at 1520. Spl int/ wrap to RLE intact, toes pink and warm, pulse 1+, brisk refill. Able to wiggle toes. Re ported numbness to medial and lateral aspect of right ankle, burning sensation on anterior a spect. Ice pack applied, scheduled apap given, walter napped for rest of shift. Tachycardic s nisreen arrival in ED, mild HTN, other VSS. PT eval tomorrow, CM working on DME. Planned discha rge home with assist, with surgery in [place] after swelling resolves. Electronically sig andres by Kristinamike Jain RN at 06/13/2019 7:46 PM PDTPlan of Care - Heidi Mendez LI METAL MACHINE SETTER - 06/13/2019 4:28 PM PDTDischarge Planning Goal: Pt to be discharged in a safe manner Summary /Intervention: Met with patient, (Walter) and her brother, Aaron who is at bedside. Pt is in bed, just back from surgery. She appears drowsy but is awake and participates in discussion. Walter lives with her brother and friend who assists with her care.[place] [facility] with 2 steps to enter and "a steep driveway". He had hernia surgery 3 weeks ago and cannot lift. Stated, "we will take care of her, just need to know what to do and how to take care of her ". She is on room air at baseline. Pt states she has a cane and a walker but at baseline, walks without any DME Discussed RX for wheelchair, offered options for DME, pt brother states no preference, "wha tever is available on a week end". Aaron stated that he had been "going around town trying t o find a wheel chair but nothing is open". Explained that CM will assist with acquiring any DME needed prior to discharge. Plan: Anticipate home with family and DME CM revisit after she is seen by PT/OT Electronically signed by: MICHAEL Brandt 06/13/2019 16:29 p Note - Adelfo Romero DO - 06/13/2019 2:42 PM PDT [facility] Operative Note Patient: Walter Calvert Date: 06/13/2019 PREOPERATIVE DIAGNOSIS: Right Ankle Fx/dislocation Postoperative diagnosis: Right ankle fracture dislocation SURGICAL PROCEDURE: Procedure(s) (LRB): CLOSED REDUCTION AND SPLINTING OF RIGHT ANKLE FRACTURE (Right) INDICATIONS: fracture IMPLANTS: * No implants in log * surgeon: Adelfo Mckenzie DO assistant to the dean: None ANESTHESIOLOGIST: Anesthesiologist: Adalid Oconnor MD ANESTHESIA: Choice FLUID: see record Estimated blood loss: 0 complications: None. SPECIMENS: None. TOURNIQUET TIME: none DESCRIPTION OF PROCEDURE: In the preoperative area the right ankle was marked. Patient was then taken to the operative suite and placed into the supine position whereupon all bony pr ominences were well-padded. General anesthetic was then administered through an LMA. After ensuring proper anesthesia, and under fluoroscopy, I reduced the fracture and ascertained t hat it was a fairly stable fracture and could be held reduced using a splint. Therefore at this time the decision was made to splint the patient with the fracture reduced, and allow t he swelling to go down, which will then allow her to have surgery in her own home town. I then wrapped her right lower leg with cast padding. An AO splint with both medial and la teral, as well as posterior plaster splint material was applied. I held the fracture reduce d for approximately 14 minutes until the splint material was hard. Fluoroscopy views were t hen obtained showing that the fracture was well reduced and the splint was holding maintenan ce of the reduction. Next Dr. Oconnor then administered a popliteal block for pain control. She was then awakened and taken to the recovery room in stable condition having tolerated this procedure well. Postoperative plan: Patient will be discharged home, nonweightbearing. She will follow-up with orthopedics in her own home town for definitive treatment once the swelling has gone do wn. This note was dictated using voice recognition software. Please contact me if there are an y questions regarding its content. Electronically signed by: Adelfo Mckenzie DO 06/13/2019 At 14:42 P DTdocumented in this encounter Plan of Treatment +--------+ + + + + | Date | Type | Specialty | Care Team | Description | +--------+ + + + + | 10/10/ | Office | Cardiology | Claudine Gallegos, | | | 2019 | Visit | | MD Mark Garcia | | | | | | [facility] [place], | | | | | | [place] [address] | | | | | | [phone] | | | | | | | | +--------+ + + + + | 11/23/ | Implant | Cardiology | DorcasClaudine land, | Pacemaker | | 2019 | Monitor | | MD Mark Garcia | reprogramming/check | | | | | [facility] [place], | (Primary Dx); | | | | | [place] [address] | Tachycardia-bradycar | | | | | [phone] | samuel (HCC); | | | | [...] [place], | | | | | | [place] [address] | | | | | | [phone] | | | | | | | | +--------+ + + + + + +------+--------+ + + | Name | Type | Priori | Associated Diagnoses | Date/Time | | | | ty | | | + +------+--------+ + + | ED INFORMATION | RUCHI | Routin | | 06/13/2019 12:44 PM | | EXCHANGE | | e | | PDT | + +------+--------+ + + + +------+--------+ + + | Name | Type | Priori | Associated Diagnoses | Order Schedule | | | | ty | | | + +------+--------+ + + | DME: Misc wheelchair | DME | Routin | Closed right ankle | DME 1 Time for 1 | | | | e | fracture, initial | Occurrences starting | | | | | encounter | 06/13/2019 until | | | | | | 06/13/2019 | + +------+--------+ + + + + +--------+ + + | Name | Type | Priori | Associated Diagnoses | Order Schedule | | | | ty | | | + + +--------+ + + | Referral to Home | Outpatient | Routin | Morbid obesity | Ordered: 06/14/2019 | | Health - OUTPATIENT | Referral | e | ([facility]) Closed | | | | | | fracture dislocation | | | | | | of left ankle, | | | | | | initial encounter | | + + +--------+ + + documented as of this encounter Procedures + +--------+ + + + | Procedure Name | Priori | Date/Time | Associated Diagnosis | Comments | | | ty | | | | + +--------+ + + + | ECG 12 LEAD | Routin | 06/14/2019 | | Results for this | | | e | 9:22 AM | | procedure are in the | | | | PDT | | results section. | + +--------+ + + + | PROTIME INR | Routin | 06/14/2019 | | Results for this | | | e | 6:39 AM | | procedure are in the | | | | PDT | | results section. | + +--------+ + + + | MAGNESIUM | Routin | 06/14/2019 | | Results for this | | | e | 6:39 AM | | procedure are in the | | | | PDT | | results section. | + +--------+ + + + | BASIC METABOLIC | Routin | 06/14/2019 | | Results for this | | PANEL | e | 6:39 AM | | procedure are in the | | | | PDT | | results section. | + +--------+ + + + | CORTISOL, AM | Routin | 06/14/2019 | | Results for this | | | e | 6:38 AM | | procedure are in the | | | | PDT | | results section. | + +--------+ + + + | CBC NO DIFFERENTIAL | Routin | 06/14/2019 | | Results for this | | | e | 6:38 AM | | procedure are in the | | | | PDT | | results section. | + +--------+ + + + | EXTRA LAVENDER TOP | Routin | 06/13/2019 | | Results for this | | TUBE | e | 3:40 PM | | procedure are in the | | | | PDT | | results section. | + +--------+ + + + | MAGNESIUM | Routin | 06/13/2019 | | Results for this | | | e | 3:39 PM | | procedure are in the | | | | PDT | | results section. | + +--------+ + + + | BASIC METABOLIC | Routin | 06/13/2019 | | Results for this | | PANEL | e | 3:39 PM | | procedure are in the | | | | PDT | | results section. | + +--------+ + + + | TSH | Routin | 06/13/2019 | | Results for this | | | e | 3:38 PM | | procedure are in the | | | | PDT | | results section. | + +--------+ + + + | B TYPE NATRIURETIC | Routin | 06/13/2019 | | Results for this | | PEPTIDE | e | 3:38 PM | | procedure are in the | | | | PDT | | results section. | + +--------+ + + + | [place] TRACY STATS NO | Routin | 06/13/2019 | | Results for this | | CHARGE | e | 2:33 PM | | procedure are in the | | | | PDT | | results section. | + +--------+ + + + | XR ANKLE RIGHT 1 VW | Routin | 06/13/2019 | | Results for this | | LIMITED | e | 2:32 PM | | procedure are in the | | | | PDT | | results section. | + +--------+ + + + | ORIF ANKLE FRACTURE | | 06/13/2019 | Right Ankle | | | | | 2:07 PM | Fx/dislocation | | | | | PDT | | | + +--------+ + + + | URINALYSIS, REFLEX | Routin | 06/13/2019 | | Results for this | | MICROSCOPIC AND/OR | e | 2:04 PM | | procedure are in the | | CULTURE | | PDT | | results section. | + +--------+ + + + | ED INFORMATION | Routin | 06/13/2019 | | | | EXCHANGE | e | 12:44 PM | | | | | | PDT | | | + +--------+ + + + +---+--------+ | | | | | Proced | | | ure | | | Note - | | | Reilly, | | | Lab In | | | | | | Hlseve | | | n - | | | | | | 2019 | | | 12:45 | | | PM PDT | | | | | | Format | | | ting | | | of | | | this | | | note | | | might | | | be | | | differ | | | ent | | | from | | | the | | | origin | | | al.COL | | | LECTIV | | | E?NOTI | | | FICATI | | | ON?07/ | | | 20/201 | | | 9 | | | 12:44? | | | CALVERT | | | , | | | WALTER? | | | MRN: | | | [id number] | | | [id number] | | | riteri | | | a Met | | | Care | | | Guidel | | | inesSe | | | curity | | | and | | | Safety | | | No | | | recent | | | | | | Securi | | | ty | | | Events | | | | | | curren | | | tly on | | | | | | fileED | | | Care | | | Guidel | | | garrison | | | from | | | [facility] | | | ys - | | | [place] | | | laLast | | | | | | Update | | | d: | | | 7/19/1 | | | 9 9:29 | | | AM | | | Care | | | Coordi | | | nation | | | :Menta | | | l | | | health | | | | | | servic | | | es are | | | being | | | | | | provid | | | ed by | | | [facility] | | | ys.? | | | Please | | | | | | contac | | | t | | | [facility] | | | ys | | | with | | | mental | | | | | | health | | | | | | concer | | | ns.? | | | [place] | | | ton/Mi | | | lton | | | [place] | | | ter: | | | [phone] | | | [phone] | | | ? | | | Hermis | | | ton: | | | [phone] | | | [phone] | | | .These | | | are | | | guidel | | | garrison | | | and | | | the | | | provid | | | er | | | should | | | | | | exerci | | | se | | | clinic | | | al | | | judgme | | | nt | | | when | | | provid | | | ing | | | care.P | | | rescri | | | ption | | | Drug | | | Report | | | (12 | | | Mo.)PD | | | MP | | | query | | | found | | | no | | | report | | | .E.D. | | | Visit | | | Count | | | (12 | | | mo.)Fa | | | cility | | | | | | Visits | | | Low | | | Acuity | | | | | | Provid | | | ence | | | [facility] | | | l | | | Center | | | 1 0 | | | [facility] [place] | | | y | | | Hospit | | | al 5 0 | | | Total | | | 6 0 | | | Note: | | | Visits | | | | | | indica | | | te | | | total | | | known | | | visits | | | . | | | Medica | | | id Low | | | | | | Acuity | | | Dx | | | are | | | the | | | number | | | of | | | primar | | | y | | | diagno | | | ses on | | | the | | | Medica | | | id's | | | Low | | | Acuity | | | dx | | | list. | | | | | | Recent | | | | | | Emerge | | | ncy | | | Depart | | | ment | | | Visit | | | [facility] | | | yDate | | | Facili | | | ty | | | City | | | State | | | Type | | | Diagno | | | ses or | | | Chief | | | | | | Compla | | | int | | | Randal | | | 20, | | | 2019 | | | Provid | | | ence | | | [facility] [place] | | | [place] | | | Emerge | | | ncy | | | | | | wilwan | | | d | | | patien | | | t Randal | | | 20, | | | 2019 | | | [facility] [place] | | | [facility]. | | | [place] | | | [place] | | | Emerge | | | ncy | | | Chief | | | Compla | | | int: | | | RIGHT | | | ANKLE | | | INJURY | | | Randal | | | 17, | | | 2019 | | | [facility] [place] | | | [facility] | | | [place] | | | [place] | | | Emerge | | | ncy | | | | | | Contus | | | ion of | | | | | | unspec | | | ified | | | part | | | of | | | head, | | | initia | | | l | | | encoun | | | ter | | | Fall | | | on | | | same | | | level | | | from | | | slippi | | | ng, | | | trippi | | | ng and | | | | | | stumbl | | | ing | | | with | | | subseq | | | uent | | | striki | | | ng | | | agains | | | t | | | other | | | object | | | , | | | initia | | | l | | | encoun | | | ter | | | | | | Dizzin | | | ess | | | and | | | giddin | | | ess | | | | | | Repeat | | | ed | | | falls | | | | | | Unspec | | | ified | | | atrial | | | | | | fibril | | | lation | | | | | | Hypoth | | | yroidi | | | sm, | | | unspec | | | ified | | | | | | Major | | | depres | | | sive | | | disord | | | er, | | | single | | | | | | episod | | | e, | | | unspec | | | ified | | | | | | Essent | | | ial | | | (prima | | | ry) | | | hypert | | | ension | | | | | | Allerg | | | y | | | status | | | to | | | penici | | | llin | | | | | | Anxiet | | | y | | | disord | | | er, | | | unspec | | | ified | | | Mar | | | 24, | | | 2019 | | | [facility] [place] | | | [facility] | | | [place] | | | [place] | | | Emerge | | | ncy | | | | | | Anxiet | | | y | | | disord | | | er, | | | unspec | | | ified | | | | | | Pure | | | hyperc | | | holest | | | erolem | | | ia, | | | unspec | | | ified | | | | | | Hypoth | | | yroidi | | | sm, | | | unspec | | | ified | | | | | | Cardio | | | myopat | | | hy, | | | unspec | | | ified | | | | | | Unspec | | | ified | | | atrial | | | | | | fibril | | | lation | | | | | | Ventri | | | cular | | | premat | | | ure | | | depola | | | rizati | | | on | | | Allerg | | | y | | | status | | | to | | | penici | | | llin | | | | | | Palpit | | | ations | | | | | | Essent | | | ial | | | (prima | | | ry) | | | hypert | | | ension | | | | | | Other | | | long | | | term | | | (curre | | | nt) | | | drug | | | therap | | | y Wang | | | 28, | | | 2019 | | | [facility] [place] | | | [facility] | | | [place] | | | [place] | | | Emerge | | | ncy | | | Chest | | | pain, | | | | | | unspec | | | ified | | | | | | Pure | | | hyperc | | | holest | | | erolem | | | ia, | | | unspec | | | ified | | | | | | Person | | | al | | | histor | | | y of | | | nicoti | | | ne | | | depend | | | ence | | | | | | Hypoth | | | yroidi | | | sm, | | | unspec | | | ified | | | | | | Unspec | | | ified | | | atrial | | | | | | fibril | | | lation | | | | | | Other | | | long | | | term | | | (curre | | | nt) | | | drug | | | therap | | | y | | | Anxiet | | | y | | | disord | | | er, | | | unspec | | | ified | | | | | | Major | | | depres | | | sive | | | disord | | | er, | | | single | | | | | | episod | | | e, | | | unspec | | | ified | | | | | | Allerg | | | y | | | status | | | to | | | penici | | | llin | | | | | | Essent | | | ial | | | (prima | | | ry) | | | hypert | | | ension | | | Nov | | | 24, | | | 2018 | | | [facility] [place] | | | [facility] | | | [place] | | | [place] | | | Emerge | | | ncy | | | Chief | | | Compla | | | int: | | | SOB | | | Recent | | | | | | Inpati | | | ent | | | Visit | | | [facility] | | | yDate | | | Facili | | | ty | | | City | | | State | | | Type | | | Diagno | | | ses or | | | Chief | | | | | | Compla | | | int | | | Nov | | | 25, | | | 2018 | | | [facility] [place] | | | [facility]. | | | [place] | | | [place] | | | Medica | | | l | | | Surgic | | | al | | | Heart | | | failur | | | e, | | | unspec | | | ified | | | | | | Paroxy | | | smal | | | atrial | | | | | | fibril | | | lation | | | | | | Chroni | | | c pain | | | | | | syndro | | | me | | | Hypoth | | | yroidi | | | sm, | | | unspec | | | ified | | | | | | Other | | | specif | | | ied | | | anxiet | | | y | | | disord | | | ers | | | | | | Hypert | | | ensive | | | heart | | | | | | diseas | | | e with | | | heart | | | | | | failur | | | e | | | Unspec | | | ified | | | osteoa | | | rthrit | | | is, | | | unspec | | | ified | | | site | | | Body | | | mass | | | index | | | (BMI) | | | 45.0-4 | | | 9.9, | | | adult | | | | | | Acute | | | respir | | | atory | | | failur | | | e with | | | | | | hypoxi | | | a | | | Acute | | | on | | | chroni | | | c | | | diasto | | | lic | | | (conge | | | stive) | | | heart | | | | | | failur | | | e | | | Care | | | TeamTh | | | ere | | | are no | | | care | | | provid | | | ers on | | | | | | record | | | at | | | this | | | time. | | | [facility] | | | tive | | | Portal | | | This | | | patien | | | t has | | | regist | | | ered | | | at the | | | | | | Provid | | | ence | | | [facility] | | | l | | | Center | | | | | | Emerge | | | ncy | | | Depart | | | ment | | | For | | | more | | | inform | | | ation | | | visit: | | | | | | https: | | | //secu | | | [email or web address] | | | ecarep | | | [email or web address] | | | m/alysia | | | ent/77 | | | [id number] | | | [phone] | | | [phone] | | | [phone] | | | [phone] | | | [id number] | | | PLEASE | | | NOTE: | | | 1. | | | Any | | | care | | | recomm | | | endati | | | ons | | | and | | | other | | | clinic | | | al | | | inform | | | ation | | | are | | | provid | | | ed as | | | guidel | | | garrison | | | or for | | | | | | histor | | | ical | | | purpos | | | es | | | only, | | | and | | | provid | | | ers | | | should | | | | | | exerci | | | se | | | their | | | own | | | clinic | | | al | | | judgme | | | nt | | | when | | | provid | | | ing | | | care. | | | 2. | | | You | | | may | | | only | | | use | | | this | | | inform | | | ation | | | for | | | purpos | | | es of | | | treatm | | | ent, | | | paymen | | | t or | | | health | | | care | | | operat | | | ions | | | activi | | | ties, | | | and | | | subjec | | | t to | | | the | | | limita | | | tions | | | of | | | applic | | | able | | | Colle[facility] | | | tive | | | Polici | | | es. | | | 3. | | | You | | | should | | | | | | consul | | | t | | | direct | | | ly | | | with | | | the | | | organi | | | zation | | | that | | | provid | | | ed a | | | care | | | guidel | | | ine or | | | other | | | | | | clinic | | | al | | | histor | | | y with | | | any | | | questi | | | ons | | | about | | | additi | | | onal | | | inform | | | ation | | | or | | | accura | | | cy or | | | comple | | | teness | | | of | | | inform | | | ation | | | provid | | | ed.? | | | 2019 | | | [facility] | | | tive | | | Medica | | | l | | | [employer] | | | logies | | | , Inc[employer] | | | - | | | [email or web address] | | | llecti | | | vemedi | | | [email or web address] | | | m | +---+--------+ + +---+ +---+ + | IMAGING REPORT - | | 06/13/2019 | | Results for this | | EXTERNAL SCAN | | 12:00 AM | | procedure are in the | | | | PDT | | results section. | + +---+ +---+ + | IMAGING REPORT - | | 06/13/2019 | | Results for this | | EXTERNAL SCAN | | 12:00 AM | | procedure are in the | | | | PDT | | results section. | + +---+ +---+ + | LABS - EXTERNAL SCAN | | 06/13/2019 | | Results for this | | | | 12:00 AM | | procedure are in the | | | | PDT | | results section. | + +---+ +---+ + documented in this encounter Results ECG 12 lead (06/14/2019 9:22 AM PDT) + + + + + + | Component | Value | Ref Range | Performed | Pathologist | | | | | At | Signature | + + + + + + | VENTRICULAR | 77 | BPM | [facility] | | | RATE EKG | | | | | + + + + + + | ATRIAL RATE | 77 | BPM | [facility] | | + + + + + + | P-R | 154 | ms | [facility] | | | INTERVAL | | | | | + + + + + + | QRS | 86 | ms | [facility] | | | DURATION | | | | | + + + + + + | Q-T | 356 | ms | [facility] | | | INTERVAL | | | | | + + + + + + | Q-T | 402 | ms | [facility] | | | INTERVAL | | | | | | (CORRECTED) | | | | | + + + + + + | P WAVE AXIS | 47 | degrees | [facility] | | + + + + + + | QRS AXIS | 36 | degrees | [facility] | | + + + + + + | T AXIS | -171 | degrees | [facility] | | + + + + + + | INTERPRETAT | Normal sinus | | [facility] | | | ION TEXT | rhythmMarked ST | | | | | | abnormality, possible | | | | | | lateral subendocardial | | | | | | injuryST & T wave | | | | | | abnormality, consider | | | | | | inferior | | | | | | ischemiaAbnormal ECGWhen | | | | | | compared with ECG of | | | | | | 16-DEC-2018 15:19,ST | | | | | | depression in Inferior | | | | | | leads has improvedST | | | | | | now depressed in Lateral | | | | | | leadsConfirmed by | | | | | | ROBYN GARZA MD ([id number]) | | | | | | on 06/15/2019 7:35:28 AM | | | | + + + [...] | | | + +---------+ + + Meenu COYNE (06/14/2019 6:39 AM PDT) + + + + + + | Component | Value | Ref Range | Performed | Pathologist | | | | | At | Signature | + + + + + + | Prothrombin | 13.9 | 11.3 - 13.9 | [facility] | | | Time | | seconds | [facility] | | | | | | [facility] | | | | | | CENTER - | | | | | | LABORATORY | | + + + + + + | INR | 1.1Comment: Usual Oral | 0.9 - 1.1 | [facility] | | | | Anticoagulation Range: | | [facility] | | | | 2.0 - 3.0High | | MEDICAL | | | | Level Oral | | CENTER - | | | | Anticoagulation Range: | | LABORATORY | | | | 2.5 - 3.5 | | | | + + + + + + + + | Specimen | + + | Blood | + + + + + + + | Performing | Address | City/State/Zipcode | Phone Number | | Organization | | | | + + + + + | [facility] | [address] | [place], [place] | [phone] | | [facility] | | [address] | | | - LABORATORY | | | | + + + + + Magnesium (06/14/2019 6:39 AM PDT) + +-------+ + + + | Component | Value | Ref Range | Performed | Pathologist | | | | | At | Signature | + +-------+ + + + | Magnesium | 2.0 | 1.6 - 2.6 mg/dL | [facility] | | | | | | [facility] | | [...] | + + + + + | [facility] | [address] | [place] | [phone] | | [facility] | | [address] | | | - LABORATORY | | | | + + + + + Basic Metabolic Panel (06/14/2019 6:39 AM PDT) + + + + + + | Component | Value | Ref Range | Performed | Pathologist | | | | | At | Signature | + + + + + + | Na | 141 | 136 - 145 | [facility] | | | | | mmol/L | [facility] | | | | | | [facility]ICAL | | | | | | CENTER - | | | | | | LABORATORY | | + + + + + + | K | 3.3 (L) | 3.4 - 5.1 | [facility] | | | | | mmol/L | [facility] | | | | | | MEDICAL | | | | | | CENTER - | | | | | | LABORATORY | | + + + + + + | Cl | 101 | 98 - 107 mmol/L | [facility] | | | | | | [facility] | | | | | | MEDICAL | | | | | | CENTER - | | | | | | LABORATORY | | + + + + + + | CO2 | 31 | 20 - 31 mmol/L | [facility] | | | | | | [facility] | | | | | | MEDICAL | | | | | | CENTER - | | | | | | LABORATORY | | + + + + + + | Anion Gap | 9 | 3 - 16 mmol/L | [facility] | | | | | | [facility] | | | | | | MEDICAL | | | | | | CENTER - | | | | | | LABORATORY | | + + + + + + | Glucose | 98 | 60 - 106 mg/dL | [facility] | | | | | | [facility] | | [facility] | | | MEDICAL | | | | | | CENTER - | | | | | | LABORATORY | | + + + + + + | BUN | 8 (L) | 9 - 23 mg/dL | [facility] | | | | | | [facility] | | | | | | MEDICAL | | | | | | CENTER - | | | | | | LABORATORY | | + + + + + + | Creatinine | 0.69 | 0.55 - 1.02 | [facility] | | | | | mg/dL | [facility] | | | | | | MEDICAL | | | | | | CENTER - | | | | | | LABORATORY | | + + + + + + | eGFR, | >60Comment: GLOMERULAR | >=60 | [facility] | | | non- | FILTRATION | mL/min/1.73m2 | [facility] | | | Lebanese | RATE,ESTIMATED | | MEDICAL | | | | mL/min/1.36n5Xeqe than | | CENTER - | | [...] + + + + | Calcium | 9.0 | 8.7 - 10.4 | [facility] | | | | | mg/dL | [facility] | | | | | | MEDICAL | | | | | | CENTER - | | | | | | LABORATORY | | + + + + + + | BUN/Creatin | 11.6 | | [facility] | | | ine Ratio | | | [facility] | | | | | | MEDICAL [...] + | [facility] | [address] | [place] | [phone] | | [facility] | | [address] | | | - LABORATORY | | | | + + + + + Cortisol, AM (06/14/2019 6:38 AM PDT) + +---------+ + + + | Component | Value | Ref Range | Performed | Pathologist | | | | | At | Signature | + +---------+ + + + | Cortisol, | 3.9 (L) | 5.3 - 22.5 | [facility] | | | AM | | ug/dL | [facility] | | | | | | MEDICAL | | | | | | CENTER - | | | | | | LABORATORY | | + +---------+ + + + + + | Specimen | + + | Blood | + + + + + + + | Performing | Address | City/State/Zipcode | Phone Number | | Organization | | | | + + + + + | [facility] | [address] | [place] | [phone] | | [facility] | | [address] | | | - LABORATORY | | | | + + + + + CBC no Differential (06/14/2019 6:38 AM PDT) + + + + + + | Component | Value | Ref Range | Performed | Pathologist | | | | | At | Signature | + + + + + + | White Blood | 7.0 | 4.0 - 11.0 K/uL | [facility] | | | Cells | | | [facility] | | | | | | MEDICAL | | | | | | CENTER - | | | | | | LABORATORY | | + + + + + + | Red Blood | 4.27 | 3.70 - 5.20 | [facility] | | | Cells | | M/uL | [facility] | | | | | | MEDICAL | | | | | | CENTER - | | | | | | LABORATORY | | + + + + + + | Hemoglobin | 10.7 (L) | 11.5 - 16.0 | [facility] | | | | | g/dL | [facility] | | | | | | MEDICAL | | | | | | CENTER - | | | | | | LABORATORY | | + + + + + + | Hematocrit | 35.2 | 34.0 - 47.0 % | [facility] | | | | | | [facility] | | | | | | MEDICAL | | | | | | CENTER - | | | | | | LABORATORY | | + + + + + + | MCV | 82.4 (L) | 83.0 - 101.0 fL | [facility] | | | | | | [facility] | | | | | | [facility] | | | | | | [facility] - | | | | | | LABORATORY | | + + + + + + | MCH | 25.1 (L) | 28.0 - 35.0 pg | [facility] | | | | | | [facility] | | | | | | [facility] | | | | | | [facility] - | | | | | | LABORATORY | | + + + + + + | MCHC | 30.4 (L) | 32.0 - 36.0 | [facility] | | | | | g/dL | [facility] | | | | | | [facility] | | | | | | CENTER - | | | | | | LABORATORY | | + + + + + + | RDW-CV | 16.8 (H) | <15.0 % | [facility] | [facility] | | | | | | [facility] | | | | | | [facility] - | | | | | | LABORATORY | | + + + + + + | RDW-SD | 50.2 (H) | 35.1 - 46.3 fL | [facility] | [facility] | | [facility] | | | | | | [facility] | | | | | | [facility] - | | | | | | LABORATORY | | + + + + + + | Platelet | 249 | 140 - 440 K/uL | [facility] | | | Count | | | [facility] | | | | | | [facility] | | | | | | CENTER - | | | | | | LABORATORY | | + + + + + + | MPV | 11.8 | 6.5 - 12.4 fL | [facility] | [facility] | | | [facility] | | | | | | [facility] | | [facility] | | | [facility] - | | | | | | LABORATORY | | + + + + + + | % nRBC | 0 | 0 - 2 per 100 | [facility] | | | | | WBCs | [facility] | | | | | | [facility] | | | | | | CENTER - | | | | | | LABORATORY | | + + + + + + | Absolute | 0.00 | 0.00 - 0.01 | [facility] | | | nRBC | | K/uL | [facility] | | | | | | MEDICAL [...] + + | [facility] | [address] | [place] | [phone] | | [facility] | | [id number] | | | - LABORATORY | | | | + + + + + Extra Lavender Top Tube (06/13/2019 3:40 PM PDT) + +-------+ + + + | Component | Value | Ref Range | Performed | Pathologist | | | | | At | Signature | + +-------+ + + + | Extra | Done | | [facility] | | | Lavender | | | [facility] | | | Top Tube | | [...] + | [facility] | [address] | [place] | [phone] | | [facility] | | [address] | | | - LABORATORY | | | | + + + + + Magnesium (06/13/2019 3:39 PM PDT) + +-------+ + + + | Component | Value | Ref Range | Performed | Pathologist | | | | | At | Signature | + +-------+ + + + | Magnesium | 1.7 | 1.6 - 2.6 mg/dL | [facility] | | | | | | [facility] [...] + + | [facility] | [address] | [place], [place] | [phone] | | [facility] | | [address] | | | - LABORATORY | | | | + + + + + Basic Metabolic Panel (06/13/2019 3:39 PM PDT) + + + + + + | Component | Value | Ref Range | Performed | Pathologist | | | | | At | Signature | + + + + + + | Na | 139 | 136 - 145 | [facility] | | | | | mmol/L | [facility] | | | | | | MEDICAL | | | | | | CENTER - | | | | | | LABORATORY | | + + + + + + | K | 2.9 (L) | 3.4 - 5.1 | [facility] | | | | | mmol/L | [facility] | | | | | | MEDICAL | | | | | | CENTER - | | | | | | LABORATORY | | + + + + + + | Cl | 102 | 98 - 107 mmol/L | [facility] | | [facility] | | [facility] | | | | | | MEDICAL | | | | | | CENTER - | | | | | | LABORATORY | | + + + + + + | CO2 | 29 | 20 - 31 mmol/L | [facility] | | [facility] | | | | | | [facility]ICAL | | | | | | CENTER - | | | | | | LABORATORY | | + + + + + + | Anion Gap | 8 | 3 - 16 mmol/L | [facility] | | | [facility] - | | | | | | LABORATORY | | + + + + + + | Glucose | 121 (H) | 60 - 106 mg/dL | [facility] | [facility] | | | | | | [facility] - | | | | | | LABORATORY | | + + + + + + | BUN | 10 | 9 - 23 mg/dL | [facility] | [facility] | [facility] | | | | | | [facility] - | | | | | | LABORATORY | | + + + + + + | Creatinine | 0.83 | 0.55 - 1.02 | [facility] | | | | | mg/dL | [facility] | | [facility] | [facility] | | | | | | CENTER - | | | | | | LABORATORY | | + + + + + + | eGFR, | >60Comment: GLOMERULAR | >=60 | [facility] | | | non- | FILTRATION | mL/min/1.73m2 | [facility] | | | Lebanese | RATE,ESTIMATED | | MEDICAL | | | | mL/min/1.35x4Hvvj than | | CENTER - | | [...] + + + + | Calcium | 9.3 | 8.7 - 10.4 | [facility] | | | | | mg/dL | [facility] | | | | | | MEDICAL | | | | | | CENTER - | | | | | | LABORATORY | | + + + + + + | BUN/Creatin | 12.0 | | [facility] | | | ine Ratio | | | [facility] | | | | | | MEDICAL [...] + | [facility] | [address] | [place] | [phone] | | [facility] | | [address] | | | - LABORATORY | | | | + + + + + TSH (06/13/2019 3:38 PM PDT) + +-------+ + + + | Component | Value | Ref Range | Performed | Pathologist | | | | | At | Signature | + +-------+ + + + | TSH | 4.67 | 0.55 - 4.78 | [facility] | | | | | uIU/mL | [facility] | | | | | | MEDICAL [...] | + + + + + | [facility] | [address] | [place] | [phone] | | [facility] | | [address] | | | - LABORATORY | | | | + + + + + B Type Natriuretic Peptide (06/13/2019 3:38 PM PDT) + +---------+ + + + | Component | Value | Ref Range | Performed | Pathologist | | | | | At | Signature | + +---------+ + + + | BNP | 121 (H) | <100 pg/mL | [facility] | | | | | | [facility] | | | | | | MEDICAL | | | | | | CENTER - | | | | | | LABORATORY | | + +---------+ + + + + + | Specimen | + + | Blood | + + + + + + + | Performing | Address | City/State/Zipcode | Phone Number | | Organization | | | | + + + + + | [facility] | [address] | [place] | [phone] | | [facility] | | [address] | | | - LABORATORY | | | | + + + + + TATY Singh No Sofi (06/13/2019 2:33 PM PDT) + + | Specimen | + + | | + + + + + | Narrative | Performed At | + + + | This exam has been auto-finalized. It was entered for statistical | [facility] | | purposes only. | | + + + + +---------+ + + | Performing | Address | City/State/Zipcode | Phone Number | | Organization | | | | + +---------+ + + | [facility] | | | | + +---------+ + + XR Ankle Right 1 Vw Limited (06/13/2019 2:32 PM PDT) + + | Specimen | + + | | + + + + + | Narrative | Performed At | + + + | XR ANKLE RIGHT 1 VW LIMITED 06/13/2019 2:32 PM HISTORY: right | [facility] | | ankle reduction under fluoro. COMPARISON: None. FINDINGS: | | | Intraoperative x-rays of right ankle. IMPRESSION - Intraoperative | | | x-rays of right ankle. Dictated and Signed by: Lupillo Barr MD | | | Electronically signed: 06/13/2019 2:57 PM | | + + + + + | Procedure Note | + + | Jeromy Nguyen Results In - 06/13/2019 3:00 PM PDT XR ANKLE RIGHT 1 VW LIMITED 06/13/2019 | | 2:32 PMHISTORY: right ankle reduction under fluoro.COMPARISON: | | None.FINDINGS:Intraoperative x-rays of right ankle.IMPRESSION -Intraoperative x-rays of | | right ankle.Dictated and Signed by: Lupillo Barr MD Electronically signed: 06/13/2019 | | 2:57 PM | | | |FINDINGS: | |Intraoperative x-rays of right ankle. | | | |IMPRESSION - | |Intraoperative x-rays of right ankle. | | | |Dictated and Signed by: Lupillo Barr MD | | Electronically signed: 06/13/2019 2:57 PM | + + + +---------+ + + | Performing | Address | City/State/Zipcode | Phone Number | | Organization | | | | + +---------+ + + | [facility] | | | | + +---------+ + + Urinalysis, Reflex Microscopic and/or Culture (06/13/2019 2:04 PM PDT) + + + + + + | Component | Value | Ref Range | Performed | Pathologist | | | | | At | Signature | + + + + + + | Color, | Yellow | Light Yellow, | [facility] | | | Urine | | Yellow, Straw | [facility] | | | | | | MEDICAL | | | | | | CENTER - | | | | | | LABORATORY | | + + + + + + | Clarity, | Clear | Clear | [facility] | | | Urine | | | [facility] | | | | | | MEDICAL | | | | | | CENTER - | | | | | | LABORATORY | | + + + + + + | pH, Urine | 6.0 | 5.0 - 8.0 | [facility] | | | | | [facility] | | | | | | MEDICAL | | | | | | CENTER - | | | | | | LABORATORY | | + + + + + + | Specific | 1.014 | 1.001 - 1.030 | [facility] | | | Catarina, | | | [facility] | | | Urine | | | MEDICAL | | | | | | CENTER - | | | | | | LABORATORY | | + + + + + + | Protein, | Negative | Negative | [facility] | | | Urine | | | [facility] | | | | | | MEDICAL | | | | | | CENTER - | | | | | | LABORATORY | | + + + + + + | Blood, | Small (A) | Negative | [facility] | | | Urine | | | [facility] | | | | | | MEDICAL | | | | | | CENTER - | | | | | | LABORATORY | | + + + + + + | Glucose, | Negative | Negative | [facility] | | | Urine | | | [facility] | | | | | | MEDICAL | | | | | | CENTER - | | | | | | LABORATORY | | + + + + + + | Ketones, | Negative | Negative | [facility] | | | Urine | | | [facility] | | | | | | MEDICAL | | | | | | CENTER - | | | | | | LABORATORY | | + + + + + + | Bilirubin, | Negative | Negative | [facility] | | | Urine | | | [facility] | | | | | | MEDICAL | | | | | | CENTER - | | | | | | LABORATORY | | + + + + + + | Nitrite, | Negative | Negative | [facility] | | | Urine | | | [facility] | | | | | | MEDICAL | | | | | | CENTER - | | | | | | LABORATORY | | + + + + + + | Leukocyte | Negative | Negative | [facility] | | | Esterase, | | | [facility] | | | Urine | | | MEDICAL | | | | | | CENTER - | | | | | | LABORATORY | | + + + + + + | Urobilinoge | Negative | 0.2 mg/dL, 1.0 | [facility] | | | n, Urine | | mg/dL, Negative | [facility] | | | | | | MEDICAL | | | | | | CENTER - | | | | | | LABORATORY | | + + + + + + | White Blood | 0-2 | 0 - 2 /HPF | [facility] | | | Cells, | | | [facility] | | | Urine | | | MEDICAL | | | | | | CENTER - | | | | | | LABORATORY | | + + + + + + | Red Blood | 0-2 | 0 - 2 /HPF | [facility] | | | Cells, | | | [facility] | | | Urine | | | MEDICAL | | | | | | CENTER - | | | | | | LABORATORY | | + + + + + + | Squamous | 10-15 (A) | 0 - 2 /LPF | [facility] | | | Epithelial | | | [facility] | | | Cells, | | | MEDICAL | | | Urine | | | CENTER - | | | | | | LABORATORY | | + + + + + + | Bacteria, | Negative | Negative /HPF | [facility] | | | Urine | | | [facility] | | | | | | MEDICAL | | | | | | CENTER - | | | | | | LABORATORY | | + + + + + + | Mucus, | Present (A) | Negative /LPF | [facility] | | | Urine | | | [facility] | | | | | | MEDICAL | | | | | | CENTER - | | | | | | LABORATORY | | + + + + + + | Hyaline | 2-5 (A) | 0 - 2 /LPF | [facility] | | | Casts, | | | [facility] | | | Urine | | | MEDICAL | | | | | | CENTER - | | | | | | LABORATORY | | + + + + + + | Urine | Urine Culture Not | | [facility] | | | Comment | Indicated | | [facility] | | | | | | MEDICAL | | | | | | CENTER - | | | | | | LABORATORY | | + + + + + + + + | Specimen | + + | Urine - Urine | | specimen (specimen) | + + + + + + + | Performing | Address | City/State/Zipcode | Phone Number | | Organization | | | | + + + + + | [facility] | [address] | [place] | [phone] | | [facility] | | [address] | | | - LABORATORY | | | | + + + + + LABS - EXTERNAL SCAN (06/13/2019 12:00 AM PDT) + + + | Narrative | Performed At | + + + | Ordered by an | | | unspecified provider. | | + + + IMAGING REPORT - EXTERNAL SCAN (06/13/2019 12:00 AM PDT) + + + | Narrative | Performed At | + + + | Ordered by an | | | unspecified provider. | | + + + IMAGING REPORT - EXTERNAL SCAN (06/13/2019 12:00 AM PDT) + + + | Narrative | Performed At | + + + | Ordered by an | | | unspecified provider. | | + + + documented in this encounter Visit Diagnoses + + | Diagnosis | + + | Closed right ankle fracture, initial encounter - Primary | + + | Anticoagulated Encounter for long-term (current) use of anticoagulants | + + | Essential hypertension Unspecified essential hypertension | + + | Hypothyroidism, unspecified type | + + | Morbid obesity (HCC) Morbid obesity | + + | Closed fracture dislocation of left ankle, initial encounter | + + | Pacemaker reprogramming/check - Primary Fitting and adjustment of cardiac pacemaker | + + | Tachycardia-bradycardia (HCC) Sinoatrial node dysfunction | + + | Pacemaker, Dual Chamber, [employer], MRI Capable, 09/30/19 [facility] Cardiac pacemaker in | | situ | + + documented in this encounter Administered Medications + +--------+ + +------+------+ | Medication Order | MAR | Action | Dose | Rate | Site | | | Action | Date | | | | + +--------+ + +------+------+ | acetaminophen (TYLENOL) tablet | Given | 06/14/20 | 1,000 mg | | | | 1,000 mg 1,000 mg, Oral, EVERY 8 | | 19 6:15 | | | | | HOURS (3 times per day), First | | AM PDT | | | | | dose on 06/13/19 at 1545, | | | | | | | Start 8 hours after pre-op dose., | | | | | | | Post-op/Phase II | | | | | | + +--------+ + +------+------+ +-------+ + +---+---+ | Given | 06/13/20 | 1,000 mg | | | | | 19 9:01 | | | | | | PM PDT | | | | +-------+ + +---+---+ | Given | 06/13/20 | 1,000 mg | | | | | 19 5:00 | | | | | | PM PDT | | | | +-------+ + +---+---+ +---+---+ | | | +---+---+ + +-------+ +-------+---+---+ | albuterol-ipratropium 2.5-0.5 | Given | 06/14/20 | 3 mLs | | | | mg/3 mL nebulizer solution 3 mL | | 19 8:30 | | | | | 3 mL, Nebulization, RT BID, First | | AM PDT | | | | | dose on 06/13/19 at 2100 | | | | | | + +-------+ +-------+---+---+ +-------+ +-------+---+---+ | Given | 06/13/20 | 3 mLs | | | | | 19 8:21 | | | | | | PM PDT | | | | +-------+ +-------+---+---+ + +---+ | | | + +---+ | albuterol-ipratropium 2.5-0.5 | | | mg/3 mL nebulizer solution 3 mL | | | 3 mL, Nebulization, RT EVERY 4 | | | HOURS PRN, Wheezing, Shortness of | | | Breath, Starting 06/13/19 at | | | 1526 | | + +---+ | | | + +---+ + +-------+ +--------+---+---+ | allopurinol (ZYLOPRIM) tablet | Given | 06/14/20 | 300 mg | | | | 300 mg 300 mg, Oral, DAILY, | | 19 9:15 | | | | | First dose on 06/14/19 at 0900 | | AM PDT | | | | + +-------+ +--------+---+---+ +---+---+ | | | +---+---+ + +-------+ +------+---+---+ | apixaban (ELIQUIS) tablet 5 mg | Given | 06/14/20 | 5 mg | | | | 5 mg, Oral, 2 TIMES DAILY, First | | 19 9:15 | | | | | dose on 06/14/19 at 0015 | | AM PDT | | | | + +-------+ +------+---+---+ +-------+ +------+---+---+ | Given | 06/14/20 | 5 mg | | | | | 19 2:40 | | | | | | AM PDT | | | | +-------+ +------+---+---+ +---+---+ | | | +---+---+ + +-------+ +-------+---+---+ | atorvaSTATin (LIPITOR) tablet | Given | 06/13/20 | 40 mg | | | | 40 mg 40 mg, Oral, NIGHTLY, | | 19 8:06 | | | | | First dose on 06/13/19 at 2100 | | PM PDT | | | | + +-------+ +-------+---+---+ +---+---+ | | | +---+---+ + +-------+ +-------+---+---+ | busPIRone (BUSPAR) tablet 30 mg | Given | 06/14/20 | 30 mg | | | | 30 mg, Oral, 2 TIMES DAILY, | | 19 9:14 | | | | | First dose on 06/14/19 at 0900 | | AM PDT | | | | + +-------+ +-------+---+---+ +---+---+ | | | +---+---+ + +-------+ +-------+---+---+ | famotidine (PEPCID) injection | Given | 06/14/20 | 20 mg | | | | 20 mg 20 mg, Intravenous, EVERY | | 19 9:13 | | | | | 12 HOURS (2 times per day), First | | AM PDT | | | | | dose on 06/13/19 at 2100, | | | | | | | Dilute 2 mL of famotidine with 8 | | | | | | | mL of normal saline to a final | | | | | | | concentration of 2 mg/mL. | | | | | | | Administer ordered dose over a | | | | | | | period of at least 2 minutes., | | | | | | + +-------+ +-------+---+---+ +-------+ +-------+---+---+ | Given | 06/13/20 | 20 mg | | | | | 19 8:06 | | | | | | PM PDT | | | | +-------+ +-------+---+---+ +---+---+ | | | +---+---+ + +-------+ +------+---+---+ | folic acid tablet 1 mg 1 mg, | Given | 06/14/20 | 1 mg | | | | Oral, DAILY, First dose on Sun | | 19 9:15 | | | | | 06/14/19 at 0900 | | AM PDT | | | | + +-------+ +------+---+---+ +---+---+ | | | +---+---+ + +-------+ +--------+---+---+ | gabapentin (NEURONTIN) capsule | Given | 06/14/20 | 300 mg | | | | 300 mg 300 mg, Oral, 2 TIMES | | 19 9:15 | | | | | DAILY, First dose on 06/13/19 | | AM PDT | | | | | at 2100, Hold for somnolence, | | | | | | + +-------+ +--------+---+---+ +-------+ +--------+---+---+ | Given | 06/13/20 | 300 mg | | | | | 19 8:06 | | | | | | PM PDT | | | | +-------+ +--------+---+---+ +---+---+ | | | +---+---+ + +-------+ +--------+---+---+ | HYDROmorphone (DILAUDID) 1 | Given | 06/13/20 | 0.5 mg | | | | mg/mL injection 0.5 mg 0.5 mg, | | 19 1:54 | | | | | Intravenous, ONCE, 06/13/19 at | | PM PDT | | | | | 1350, For 1 dose | | | | | | + +-------+ +--------+---+---+ +---+---+ | | | +---+---+ + +-------+ +--------+---+---+ | levothyroxine (SYNTHROID) | Given | 06/14/20 | 75 mcg | | | | tablet 75 mcg 75 mcg, Oral, | | 19 6:16 | | | | | DAILY BEFORE BREAKFAST, First | | AM PDT | | | | | dose on 06/14/19 at 0730, Give | | | | | | | before breakfast., | | | | | | + +-------+ +--------+---+---+ +---+---+ | | | +---+---+ + +---------+ +-----+ +---+ | magnesium sulfate 2 g/50 mL | New Bag | 06/13/20 | 2 g | 25 mL/hr | | | IVPB 2 g 2 g, Intravenous, | | 19 9:44 | | | | | Administer over 120 Minutes, | | PM PDT | | | | | ONCE, 06/13/19 at 2030, For 1 | | | | | | | dose, Maximum recommended | | | | | | | infusion rate = 1 gram/hour., | | | | | | + +---------+ +-----+ +---+ + +---+ | | | + +---+ | melatonin tablet 3 mg 3 mg, | | | Oral, NIGHTLY PRN, MAY REPEAT X | | | 1, Insomnia, Starting 06/13/19 | | | at 1526 | | + +---+ | | | + +---+ | metoprolol tartrate (LOPRESSOR) | | | injection 5 mg 5 mg, | | | Intravenous, EVERY 6 HOURS PRN, | | | HR > 120 over 5min after | | | pain-controlled. hold for SBp < | | | 120, Starting 06/13/19 at 1526 | | + +---+ | | | + +---+ + +-------+ +-------+---+---+ | metoprolol tartrate (LOPRESSOR) | Given | 06/14/20 | 25 mg | | | | tablet 25 mg 25 mg, Oral, 2 | | 19 10:51 | | | | | TIMES DAILY, First dose on Sun | | AM PDT | | | | | 06/14/19 at 0945 | | | | | | + +-------+ +-------+---+---+ +---+---+ | | | +---+---+ + +-------+ +-------+---+---+ | oxyCODONE (ROXICODONE) tablet | Given | 06/14/20 | 10 mg | | | | 5-20 mg 5-20 mg, Oral, EVERY 3 | | 19 9:11 | | | | | HOURS PRN, Pain, Starting Sat | | AM PDT | | | | | 06/13/19 at 1526, First dose must | | | | | | | be the lowest dose, can titrate | | | | | | | to effective dose by repeat of | | | | | | | lowest dose every 60 minutes prn | | | | | | | pain, may not exceed maximum dose | | | | | | | ordered per interval. Use Pasero | | | | | | | Sedation Scale., Post-op/Phase | | | | | | | II | | | | | | + +-------+ +-------+---+---+ +-------+ +-------+---+---+ | Given | 06/14/20 | 10 mg | | | | | 19 6:15 | | | | | | AM PDT | | | | +-------+ +-------+---+---+ | Given | 06/13/20 | 5 mg | | | | | 19 9:43 | | | | | | PM PDT | | | | +-------+ +-------+---+---+ +---+---+ | | | +---+---+ + +-------+ +--------+---+---+ | potassium bicarb-citric acid | Given | 06/14/20 | 40 mEq | | | | (EFFER-K) effervescent tablet 40 | | 19 10:50 | | | | | mEq 40 mEq, Oral, ONCE, Sun | | AM PDT | | | | | 06/14/19 at 1000, For 1 dose, | | | | | | | Dissolve 10 mEq tab in 58-85 mL | | | | | | | water. Dissolve 20 mEq tab in | | | | | | | 85-115 mL water., | | | | | | + +-------+ +--------+---+---+ +---+---+ | | | +---+---+ + +---------+ +--------+-------+---+ | potassium chloride 20 mEq in | New Bag | 06/13/20 | 20 mEq | 130 | | | sodium chloride 0.9% 250 mL IVPB | | 19 5:28 | | mL/hr | | | 20 mEq, Intravenous, Administer | | PM PDT | | | | | over 2 Hours, ONCE, 06/13/19 | | | | | | | at 1355, For 1 dose | | | | | | + +---------+ +--------+-------+---+ +---+---+ | | | +---+---+ + +---------+ +--------+-------+---+ | potassium chloride 40 mEq in | New Bag | 06/13/20 | 40 mEq | 130 | | | dextrose 5% 500 mL IVPB 40 mEq, | | 19 9:37 | | mL/hr | | | Intravenous, Administer over 4 | | PM PDT | | | | | Hours, ONCE, 06/13/19 at 2030, | | | | | | | For 1 dose | | | | | | + +---------+ +--------+-------+---+ + +---+ | | | + +---+ | prazosin (MINIPRESS) capsule 2 | | | mg 2 mg, Oral, NIGHTLY PRN, MARCH | | | REPEAT X 1, anxiety, Starting Sat | | | 06/13/19 at 1526 | | + +---+ | | | + +---+ + +-------+ +--------+---+---+ | sertraline (ZOLOFT) tablet 100 | Given | 06/14/20 | 100 mg | | | | mg 100 mg, Oral, DAILY, First | | 19 9:15 | | | | | dose on 06/13/19 at 1545 | | AM PDT | | | | + +-------+ +--------+---+---+ +-------+ +--------+---+---+ | Given | 06/13/20 | 100 mg | | | | | 19 4:59 | | | | | | PM PDT | | | | +-------+ +--------+---+---+ +---+---+ | | | +---+---+ documented in this encounter
--- OUTSIDE RECORDS SUMMARY | ~2020-09-13 | XMS | Encounter Summary ---
Demographics + + + | Address | [address] | | | [place] [address] | + + + | Home Phone | | + + + | Preferred Language | Unknown | + + + | Marital Status | Single | + + + | Voodoo Affiliation | [id number] | + + + [...] Team Providers + +------+ + | Care Floor Nurse Name | Role | Phone | + +------+ + | August Sanford | PCP | | + +------+ + Reason for Visit + +--------+ + | Reason | Onset | Comments | | | Date | | + +--------+ + | Medication Related | 04/29/ | | | | 2020 | | + +--------+ + Encounter Details +--------+ + + + + | Date | Type | Department | Care Team | Description | +--------+ + + + + | 04/29/ | Telephone | [facility] | Claudine Gallegos, | Medication Related | | 2020 | | CARDIOLOGY [address] [place] | | | | | [place], | [place], | | | | | [place] [address] | [place] [address] | | | | | [phone] | [phone] | | | | | | | [...] Telephone Encounter - Humera Beverly RN - 04/29/2020 3:[address] Morgan, patient may take zofran 4 mg one daily as needed for nausea # 20. Patient notifie d ..........................................Humera Beverly RN on 04/29/20 at 3:12 PM elephone Encount er - Siria, Humera Murphy RN - 04/29/2020 2:28 PM PDTPatient called, since starting flecain anuel in the hospital, she has been nauseated. She was given medication in the hospital for it and would like Dr Morgan to prescribe some to take at home. She has taken 3 doses of flecaini de at home. I informed her that I would consult with Dr Morgan and return her call .......... ................................Humera Beverly RN on 04/29/20 at 2:31 PM documented in th is encounter Plan of Treatment +--------+ + + + + | Date | Type | Specialty | Care Team | Description | +--------+ + + + + | 10/10/ | Office | Cardiology | Claudine Gallegos, | | | 2019 | Visit | | MD Mark Garcia | | | | | | [place], | | | | | | [place] [address] | | | | | | [phone] | | | | | | | | +--------+ + + + + | 11/23/ | Implant | Cardiology | Claudine Gallegos, | Pacemaker | | 2019 | Monitor | | MD Mark Phelpsar | reprogramming/check | | | | | [place], | (Primary Dx); | | | | | [place] [address] | Tachycardia-bradycar | | | | | [phone] | samuel (HCC); | | | | | | Pacemaker, Dual | | | | | | Chamber, [employer], | | | | | | MRI Capable, 09/30/19 | | | | | | Rosy | +--------+ + + + + | 03/08/ | Office | Neurology | Amarjit Fisher MD [address] | | | 2020 | Visit | [address] | | | | | | [place], | | | | | | [place] [address] | | | | | | [phone] | | | | | | | | +--------+ + + + + documented as of this encounter Visit Diagnoses Not on filedocumented in this encounter"
--- OUTSIDE RECORDS SUMMARY | ~2020-09-13 | XMS | Encounter Summary ---
Demographics + + + | Address | [address] | | | [place] [address] | + + + | Home Phone | | + + + | Preferred Language | Unknown | + + + | Marital Status | Single | + + + | Confucianism Affiliation | [id number] | + + + | Race | White | + + + | Ethnic Group | Not or | + + + Author + + + | Author | [facility] | | | and [place] | + + + | Organization | [facility] | | | [...] Providers + +------+ + | Care Lead Qa Analyst Name | Role | Phone | + +------+ + | August Sanford | PCP | | + +------+ + Reason for Referral Evaluate & Treat (Routine) + + + + + + + | Status | Reason | Specialty | Diagnoses / | Referred By | Referred To | | | | | Procedures | Contact | Contact | + + + + + + + | Authorized | Specialty | Neurosurgery | Diagnoses | Amarjit Fisher, | [facility] | | | Services | | | MD [address] | Neurosurgery | | | Required | | Spondylolist | [address] | [address] | | | | | hesis of | [address]IVE [address] | [address] | | | | | cervical | D | [address] | | | | | region | [place], | [place], [place] | | | | | | [place] [address] | [address] | | | | | | Phone: | Phone: | | | | | | [phone] | [phone] | | | | | | Fax: | Fax: | | | | | | [phone] | [phone] | + + + + + + + Reason for Visit + + + | Reason | Comments | + + + | Follow-up | follow up | + + + Evaluate & Treat (Routine) + +--------+ + + + + | Status | Reason | Specialty | Diagnoses / | Referred By | Referred To | | | | | Procedures | Contact | Contact | + +--------+ + + + + | Authorized | | Neurology | Diagnoses | Juvenal, | Amarjit Fisher, | | | | | Anesthesia | FRANCO Koch | [address] | | | | | of skin | [address] | [address] | | | | | | [facility] | [address] | | | | | | [address] | [address] [place], | | | | | | [place], | [place] [address] | | | | | | [place] [address] | Phone: | | | | | | Phone: | [phone] | | | | | | [phone] | Fax: | | | | | | Fax: | [phone] | | | | | | [phone] | | + +--------+ + + + + Encounter Details +--------+ + + + + | Date | Type | Department | Care Team | Description | +--------+ + + + + | 05/03/ | Virtual | [facility] | Amarjit Fisher MD [address] | Spondylolisthesis of | | 2019 | Office | NEUROLOGY [address] | cervical region | | | Visit | [address] | [address] [place], | (Primary Dx); | | | | [place], [place] | [place] [address] | Peripheral | | | | [address] | [phone] | polyneuropathy; | | | | [phone] | | Cervical | | | | | | radiculopathy; | | | | | | Frequent falls | +--------+ + + + + [...] Blood Pressure | - | - | | + + + + + | Pulse | - | - | | + [...] Weight | 93.9 kg (207 lb) | 05/03/2020 8:49 AM | patient reported | | | | PDT | | + + + + + | Height | - | - | | + + + + + | Body Mass Index | 35.51 | 04/26/2020 7:17 AM | | | [...] documented as of this encounter Progress Notes Amarjit Fisher MD - 05/03/2020 8:50 AM PDTFormatting of this note might be different from the o clementina. Referring Physician: FRANCO Fernandes PCP: FRANCO Fernandes Date of Encounter: 05/03/2020 Service was provided [id number] with the patient via interactive videoconferencing Video start time 8:50 Video end time 9:06 Total time (in minutes) including non [id number] time (reviewing records, etc..) 25 You have chosen to receive care through the use of telemedicine. Telemedicine enables [facility] care providers at different locations to provide safe, effective and convenient care throu gh the use of technology. As with any health care service, there are risks associated with t he use of telemedicine, including equipment failure, poor image resolution and information s ecurity issues. Do you understand the risks and benefits of telemedicine as I have explained them to you? " Yes" Have your questions regarding telemedicine been answered? "Yes" Patient is currently at home , [place], [place] Do you consent to the use of telemedicine in your medical care today? Yes. Last question, I need to confirm where are you physically located right now? Answer: Patient confirms they are located in a state where I,Amarjit Fisher MD is licensed. SUBJECTIVE Gris Krishnamurthy is a pleasant 54 y.o. female with history of gout, HLD, depression and a nxiety, cardiomyopathy, Afib, pacemaker who presents to the clinic for follow up of numbness . Interval History The patient reports stable symptoms since last visit. EMG showed mild peripheral polyneurop athy of lower extremities and mild chronic right C5-6 radiculopathy. Labs showed B12 386, LAURENCE normal, ESR 5, copper borderline elevated at 161, (80-155), heavy metal wnl, SPEP no monoclonal gammopathy. X-ray of C spine flexion- extension views showed no additional instability. Recap History Patient reports numbness of the feet and fingertips since August. She reports she is not able to feel the heating pad with her feet. Her fingertips are sensitive to touch. Over ti me the numbness has ascended to the proximal lower extremities and to her umbilicus. She fe els her right side slightly worse than the left. Patient has history of frequent falling fo r a couple of years and has been using a walker for a couple of years. She feels mild worse boni of balance problems since August. She had right ankle injury due to a fall in May 14. Patient has chronic low back pain with no radiating pain. She denies neck pain. She d enies bowel or bladder incontinence. MRI of the C and T spine showed multiple level degenerative changes, no severe central ramón l stenosis or cord compression. Though there is misalignment and reversal of cervical cordos is C3 to C5. ALLERGIES Allergies Allergen Reactions Penicillins Hives MEDICATIONS Current Outpatient Medications: allopurinol (ZYLOPRIM) 300 mg [...] mg by mouth nightly., Disp: , Rfl: Family history, social history and past medical history were reviewed and updated as necess maureen. REVIEW OF SYSTEMS In addition to HPI: All other systems were reviewed and negative OBJECTIVE General Exam Vitals: 05/03/20 0849 PainSc: 0 - No pain WDWN, NAD Awake, alert. Speech is clear, fluent and coherent. Face is symmetric. Hearing is intact. ASSESSMENT & PLAN 1. Gait disorder 2. Peripheral polyneuropathy 3. Cervical spondylolisthesis 54 y.o. female who presents with numbness of the feet and fingertips since August 2019, th at has progressive to involve more proximal lower extremities bilaterally to the umbilicus a thuan. The patient has been using a walker for couple of years for unsteady gait. She report s mild worsening of her balance recently. On exam, the patient has brisk reflexes of bilate ral upper extremities with Carmella signs. The patient has had T and C-spine MRI without clear explanation of her symptoms. There was misalignment at C3-5 with reverse curvature, may suggest instability of the cervical spine. EMG showed mild peripheral polyneuropathy of lower extremities. B12 in normal range. Neurop athy work up was unremarkable. Taking allopurinol which may have adverse reaction of periphe ral polyneuropathy Plan: - Will refer to spinal clinic for cervical spondylolisthesis - recommended vitamin B12 supplement 1000 mcg daily - follow with primary doctor to optimize management of gout, follow potential medication si de effect, allopurinol may have side effect of peripheral polyneuropathy - Follow up in 4-6 months and as needed, will see patient in office next time Thank you for allowing me to take care of this patient. Please do not hesitate to contact m e if you have any questions. Cc: FRANCO Fernandes This note was prepared using [employer] voice recognition technology. There may be so und-alike errors even though every effort has been made to ensure accuracy. Electronically s igned by Amarjit Fisher MD at 05/03/2020 12:10 PM PDTdocumented in this encounter Plan of Treatment +--------+ + + + + | Date | Type | Specialty | Care Team | Description | +--------+ + + + + | 10/10/ | Office | Cardiology | Claudine Gallegos, | | | 2019 | Visit | | MD Mark Garcia | | | | | | [place], | | | | | | [place] [address] | | | | | | [phone] | | | | | | | | +--------+ + + + + | 11/23/ | Implant | Cardiology | Claudine Gallegos, | Pacemaker | 2019 | Monitor | | MD Mark Garcia | reprogramming/check | | | | | [place], | (Primary Dx); | | | | | [place] [address] | Tachycardia-bradycar | | | | | [phone] | samuel (HCC); | | | | | | Pacemaker, Dual | | | | | | Chamber, [address] [place], | | | | | | MRI Capable, 11/6/19 | | | | | | Rosy | +--------+ + + + + | 03/08/ | Office | Neurology | Amarjit Fisher MD [address] | | | 2020 | Visit | | [address] | | | | | | [place], | | | | | | [place] [address] | | | | | | [phone] | | | | | | | | +--------+ + + + + + + +--------+ + + | Name | Type | Priori | Associated Diagnoses | Order Schedule | | | | ty | | | + + +--------+ + + | Ambulatory Referral | Outpatient | Routin | Spondylolisthesis | Ordered: 05/03/2020 | | to [facility] | Referral | e | of cervical region | | | Neurosurgery and | | | | | | Orthopedic Spine | | | | | + + +--------+ + + documented as of this encounter Visit Diagnoses + + | Diagnosis | + + | Spondylolisthesis of cervical region - Primary Acquired spondylolisthesis | + + | Peripheral polyneuropathy Unspecified hereditary and idiopathic peripheral neuropathy | + + | Cervical radiculopathy Brachial neuritis or radiculitis nos | + + | Frequent falls Personal [...]
--- OUTSIDE RECORDS SUMMARY | ~2020-09-13 | XMS | Encounter Summary ---
Demographics + + + | Address | [address] | | | [place] [address] | + + + | Home Phone | | + + + | Preferred Language | Unknown | + + + | Marital Status | Single | + + + | Jainism Affiliation | [id number] | + + + [...] Team Providers + +------+ + | Care Parcel Contractor Name | Role | Phone | + +------+ + | August Sanford | PCP | | + +------+ + Reason for Visit + + + | Reason | Comments | + + + | Device Check | billed | | (Remote) | | + + + Encounter Details +--------+ + + + + | Date | Type | Department | Care Team | Description | +--------+ + + + + | 08/24/ | Implant | [facility] [place] | Rosy, Ashan[place], | Pacemaker | | 2020 | Monitor | CARDIOLOGY [address] | MD [address] | reprogramming/check | | | | [place], | [place], | (Primary Dx); | | | | [place] [address] | [place] [address] | Pacemaker, Dual | | | | [phone] | [phone] | Chamber, [address] [place], | | | | | | MRI Capable, 09/30/19 | | | | | | Rosy; | | | | | | Tachycardia-bradycar | | | | | | samuel (HCC) | +--------+ + + + + Social [...] encounter Procedure Notes Claudine Gallegos MD - 08/24/2020 11:59 PM PDTAssociated Order(s): DEVICE INTERROGATION- R EMOTEProcedure(s): DEVICE INTERROGATION- REMOTEPre-Procedure Diagnose(s): Pacemaker reprogra mming/check; Pacemaker; Tachycardia-bradycardia (HCC)Date of Remote Interrogation: 05/31/2020 Refer to [facility] documentation and remote PDF scanned into [facility] for remote interrogation re sults. Data collected by NICOLETTE BA RN Presenting rhythm: atrial paced ventricular sensed with rate at 60 beats. 0 mode switch episodes accounting for 0% of the time. No episodes. 14,000 PVC singles 7,000 PVC singles/month 0 PVC runs 0 PVC runs/month Histogram good Battery longevity 8.8-10.9 years. Apparent normal and stable device function. Device interrogation due in office in 08/2020 Patient notified. documented in this encounter Plan of Treatment +--------+ + + + + | Date | Type | Specialty | Care Team | Description | +--------+ + + + + | 10/10/ | Office | Cardiology | Claudine Gallegos, | | 2019 | Visit | | MD [address] [place] | | | | | | [place], | | | | | | [place] [address] | | | | | | [phone] | | | | | | | | +--------+ + + + + | 11/23/ | Implant | Cardiology | Claudine Gallegos, | Pacemaker | | 2019 | Monitor | | [address] [facility] | reprogramming/check | | | | | [place], | (Primary Dx); | | | | | [place] [address] | Tachycardia-bradycar | | | | | [phone] | samuel (HCC); | | | | [...] [place], | | | | | | [place] [address] | | | | | | [phone] | | | | | | | | +--------+ + + + + documented as of this encounter Procedures + +--------+ + + + | Procedure Name | Priori | Date/Time | Associated Diagnosis | Comments | | | ty | | | | + +--------+ + + + | DEVICE | Routin | 08/24/2020 | Pacemaker | Results for this | | INTERROGATION- | e | 11:59 PM | reprogramming/check | procedure are in the | | REMOTE | | PDT | Pacemaker, Dual | results section. | | | | | Chamber, [place], | | | | | | MRI Capable, 09/30/19 | | | | | | Rosy | | | | | | Tachycardia-bradycar | | | | | | samuel (HCC) | | + +--------+ + + + documented in this encounter Results Device Interrogation - Remote (08/24/2020 11:59 PM PDT) + + + | Narrative | Performed At | + + + | Claudine | [facility] | | MD Rosy 06/08/2020 1:20 PMDate of Remote Interrogation: | | | 05/31/2020 Refer to [facility] documentation and remote PDF scanned into | | | [facility] for remote interrogation results. Data collected by NICOLETTE Moran | | | BONNIE BA Presenting rhythm: atrial paced ventricular sensed with | | | rate at 60 beats. 0 mode switch episodes accounting for 0% of the | | | time.No episodes. 14,000 PVC singles 7,000 PVC singles/month0 | | | PVC runs 0 PVC runs/monthHistogram good | | | Battery longevity 8.8-10.9 years.Apparent normal and stable device | | | function.Device interrogation due in office in 08/2020Patient | | | notified. | | |14,000 PVC singles 7,000 PVC singles/month | | |0 PVC runs 0 PVC runs/month | | |Histogram good Battery longevity 8.8-10.9 years. | | |Apparent normal and stable device function. | | |Device interrogation due in office in 08/2020 | | |Patient notified. | | | | | | | | + + + + +---------+ + + | Performing | Address | City/State/Zipcode | Phone Number | | Organization | | | | + +---------+ + + | [facility] | | | | + +---------+ + + documented in this encounter Visit Diagnoses + + | Diagnosis | + + | Pacemaker reprogramming/check - Primary Fitting and adjustment of cardiac pacemaker | + + | Pacemaker, Dual Chamber, [address] [place], MRI Capable, 09/30/19 Rosy Cardiac pacemaker in | | situ | + + | Tachycardia-bradycardia (HCC) Sinoatrial [...]
--- OUTSIDE RECORDS SUMMARY | ~2020-09-13 | XMS | Encounter Summary ---
Demographics + + + | Address | [address] | | | [place] [address] | + + + | Home Phone [...] Team Providers + +------+ + | Care Crown Pouncer Name | Role | Phone | + [...] | +--------+ + + + + | 06/24/ | Implant | [facility] [place] | Claudine Gallegos, | Remote Device | | 2019 | Monitor | CARDIOLOGY [address] | MD [address] | Interrogation | | | | [place], | [place], | (Primary Dx); [place] | | | | [place] [address] | [place] [address] | implantable loop | | | | [phone] | [phone] | recorder Med[employer] | | | | [...] + documented as of this encounter Procedure Claudine Combs MD - 06/24/2019 11:59 PM PDTAssociated Order(s): DEVICE INTERROGATION- R EMOTEProcedure(s): DEVICE INTERROGATION- REMOTEPre-Procedure Diagnose(s): Encounter for loop recorder check; Status post placement of implantable loop recorder; Syncope, unspecified sy ncope typeDate of Remote Interrogation: 05/26/2019 Refer to [employer] documentation and remote PDF scanned into [facility] for remote interrogation re naa. Data collected by Harmony Padilla RN Presenting rhythm: Sinus rhythm 65-70 beats. Some EGMs unavailable due to storage limitations of the device. 5 Symptom Episodes #483 occurred 05/26/2019 at 4:21 AM. EGM is consistent with sinus rhythm rate 58-94 beats. #482 occurred 05/25/2019 at 3:15 PM. EGM is consistent with sinus rhythm 70-98 beats. #481 occurred 05/22/2019 at 3:31 AM. EGM is consistent with sinus bradycardia to sinus rhyth m 56-66 beats. #480 occurred 05/14/2019 at 4:03 AM. EGM is consistent with sinus bradycardia to sinus rhyt hm 57-67 beats. #478 occurred 04/25/2019 at 1:18 AM. No EGM. 0 Tachy Episodes 0 Pause Episodes 1 Murphy Episodes the longest occurred 04/27/2019 at 4:46 PM for 9 seconds. EGM is consistent with sinus rhythm 62-64 beats with undersensing of the QRS and artifact. 0 AT Episodes 0 AF Episodes % of time in AT/AF 0.0 % Histogram unavailable. Battery ok. Apparent normal and stable function. Device interrogation due in office 06/23/2019. Patient notified via voice message. documented in this encounter Plan of Treatment [...] | | | | | | [place] [address] | | | | | | [phone] | | | | | | | | +--------+ + + + + | 11/23/ | Implant | Cardiology | Claudine Gallegos, | Pacemaker | | 2019 | Monitor | | MD Mark Garcia | reprogramming/check | | | | | [place], | (Primary Dx); | | | | | [place] [address] | Tachycardia-bradycar | | | | | [phone] | samuel (HCC); | | | | [...] [place], | | | | | | [place] [address] | | | | | | [phone] | | | | | | | | +--------+ + + + + documented as of this encounter Procedures + +--------+ + + + | Procedure Name | Priori | Date/Time | Associated Diagnosis | Comments | | | ty | | | | + +--------+ + + + | DEVICE | Routin | 06/02/2019 | Remote Device | Results for this [...] this encounter Results Device Interrogation - Remote (06/02/2019 12:00 AM PDT) + + + | Narrative | Performed At | + + + | Claudine | [facility] | | MD Rosy 06/02/2019 14:39Date of Remote Interrogation: | | | 05/26/2019 Refer to [employer] documentation and remote PDF scanned into | | | [facility] for remote interrogation results. Data collected by Harmony Nolen | | | BONNIE Padilla Presenting rhythm: Sinus rhythm 65-70 beats. Some EGMs | | | unavailable due to storage limitations of the device. 5 Symptom | | | Episodes #483 occurred 05/26/2019 at 4:21 AM. EGM is consistent with | | | sinus rhythm rate 58-94 beats. #482 occurred 05/25/2019 at 3:15 PM. EGM | | | is consistent with sinus rhythm 70-98 beats. #481 occurred 05/22/2019 | | | at 3:31 AM. EGM is consistent with sinus bradycardia to sinus rhythm | | | 56-66 beats. #480 occurred 05/14/2019 at 4:03 AM. EGM is consistent | | | with sinus bradycardia to sinus rhythm 57-67 beats. #478 occurred | | | 04/25/2019 at 1:18 AM. No EGM.0 Tachy Episodes 0 Pause Episodes 1 | | | Murphy Episodes the longest occurred 04/27/2019 at 4:46 PM for 9 seconds. | | | EGM is consistent with sinus rhythm 62-64 beats with undersensing of | | | the QRS and artifact.0 AT Episodes 0 AF Episodes % of time in AT/AF | | | 0.0 %Histogram unavailable. Battery ok.Apparent normal and stable | | | function.Device interrogation due in office 06/23/2019.Patient notified | | | via voice message. | | |0 Tachy Episodes | | |0 Pause Episodes | | |1 Murphy Episodes the longest occurred 04/27/2019 at 4:46 PM for 9 | | |seconds. EGM is consistent with sinus rhythm 62-64 beats with | | |undersensing of the QRS and artifact. | | |0 AT Episodes | | |0 AF Episodes | | |% of time in AT/AF 0.0 % | | |Histogram unavailable. Battery ok. | | |Apparent normal and stable function. | | |Device interrogation due in office 06/23/2019. | | |Patient notified via voice message. | | | | | | | | + + + + + | Procedure Note | + + | Claudine Gallegos MD - 06/24/2019 11:59 PM PDT Date of Remote Interrogation: | | 05/26/2019Refer to [facility] documentation and remote PDF scanned into [facility] for remote | | interrogation results. Data collected by Luis Carlos Rawlsenting rhythm: Sinus | | rhythm 65-70 beats. Some EGMs unavailable due to storage limitations of the device. 5 | | Symptom Episodes #483 occurred 05/26/2019 at 4:21 AM. EGM is consistent with sinus rhythm | | rate 58-94 beats. #482 occurred 05/25/2019 at 3:15 PM. EGM is consistent with sinus rhythm | | 70-98 beats. #481 occurred 05/22/2019 at 3:31 AM. EGM is consistent with sinus | | bradycardia to sinus rhythm 56-66 beats. #480 occurred 05/14/2019 at 4:03 AM. EGM is | | consistent with sinus bradycardia to sinus rhythm 57-67 beats. #478 occurred 04/25/2019 at | | 1:18 AM. No EGM.0 Tachy Episodes 0 Pause Episodes 1 Murphy Episodes the longest | | occurred 04/27/2019 at 4:46 PM for 9 seconds. EGM is consistent with sinus rhythm 62-64 | | beats with undersensing of the QRS and artifact.0 AT Episodes 0 AF Episodes % of time in | | AT/AF 0.0 %Histogram unavailable. Battery ok.Apparent normal and stable | | function.Device interrogation due in office 06/23/2019.Patient notified via voice | | message. | |0 AT Episodes | |0 AF Episodes | |% of time in AT/AF 0.0 % | |Histogram unavailable. Battery ok. | |Apparent normal and stable function. | |Device interrogation due in office 06/23/2019. | |Patient notified via voice message. | + + + +---------+ + + [...]
--- OUTSIDE RECORDS SUMMARY | ~2020-09-13 | XMS | Encounter Summary ---
Demographics + + + | Address | [address] | | | [place] [address] | + + + | Home Phone | | + + + | Preferred Language | Unknown | + + + | Marital Status | Single | + + + | Nondenominational Affiliation | 1073 | + + + | Race | White | + + + | Ethnic Group | Not or | + + + Author + + + | Author | [facility] | | | and [place] | + + + | Organization | [facility] | | [...] Team Providers + +------+ + | Care Formation Testing Operator Name | Role | Phone | + +------+ + | August Sanford | PCP | | + +------+ + Reason for Visit + +--------+ + | Reason | Onset | Comments | | | Date | | + +--------+ + | Lab Order | 08/26/ | Pt due for labs prior to appt. | | | 2018 | | + +--------+ + Encounter Details +--------+ + + + + | Date | Type | Department | Care Team | Description | +--------+ + + + + | 08/26/ | Telephone | [facility] | Claudine Gallegos, | Lab Order (Pt due | | 2019 | | CARDIOLOGY [address] | [address] | for labs prior to | | | | [place], | [place], | appt. ) | | | | [place] [address] | [place] [address] | | | | | [phone] | [phone] | | | | | | | [...] this encounter Miscellaneous Notes Telephone Encounter - Venus Hernandez RN - 08/26/2019 12:34 PM PDTLab Ordered. ...........................................Venus Hernandez RN on 08/26/19 at 12:34 elephone Encounhuber r Madelin Leon, Self Pay Specialist - 08/26/2019 11:54 AM PDTSpoke with patient in regards to their appointment 09/03/19. Patient is due for fasting labs (LIPID PANEL) prio r to their appointment. Orders will be in our system but we can forward them to wherever radha shin would like to have the labs drawn. Patient would like labs done at [facility]. documented in this encounter Plan of Treatment [...] | | | | | | [place] [address] | | | | | | [phone] | | | | | | | | +--------+ + + + + | 11/23/ | Implant | Cardiology | RsoyBrigitteemanuelnhung, | Pacemaker | | 2019 | Monitor | | [address] [facility] | reprogramming/check | | | | | [place], | (Primary Dx); | | | | | [place] [address] | Tachycardia-bradycar | | | | | [phone] | samuel (HCC); | | | | [...] [place], | | | | | | [place] [address] | | | | | | [phone] | | | | | | | | +--------+ + + + + + +------+--------+ + + | Name | Type | Priori | Associated Diagnoses | Order Schedule | | | | ty | | | + +------+--------+ + + | Lipid Panel | Lab | Routin | Mixed | Expected: | | | | e | hyperlipidemia | 08/26/2019, Expires: | | | | | | 08/25/2020 | + +------+--------+ + + documented as of this encounter Visit Diagnoses + + | Diagnosis | + + | Mixed hyperlipidemia - Primary | + + | Pacemaker reprogramming/check - Primary Fitting and adjustment of cardiac pacemaker | + + | Tachycardia-bradycardia (HCC) Sinoatrial node dysfunction | + + | Pacemaker, Dual Chamber, [address] [place], MRI Capable, 09/30/19 Rosy Cardiac pacemaker in | | situ | + + documented in this encounter"
--- OUTSIDE RECORDS SUMMARY | ~2020-09-13 | XMS | Encounter Summary ---
Demographics + + + | Address | [address] | | | [place] [address] | + + + | Home Phone | | + + + | Preferred Language | Unknown | + + + | Marital Status | Single | + + + | Mu-Ism Affiliation | 1073 | + + + | Race | White | + + + | Ethnic Group | Not or | + + + Author + + + | Author | [facility] | | | and [place] | + + + | Organization | [facility] | | | [...] Team Providers + +------+ + | Care Clinic Director Name | Role | Phone | [...] | Specialty | Sleep | Diagnoses | Danette | Rohith John Wa | | | Services | Medicine | Paroxysmal | Conner, MACHINE SHOP INSTRUCTOR | [facility] | | | Required | | atrial | [address] | Disorder [address] | | | | | fibrillation | [address] [place] | [address] | | | | | (HCC) PVC | [place], [place] | [place], | | | | | (premature | [phone] | [place] [address] | | | | | ventricular | Phone: | Phone: | | | | | contraction) | [phone] | [phone] | | | | | Status | Fax: | Fax: | | | | | post | [phone] | [phone] | | | | | placement of [...] | Cardiology | Diagnoses | Juvenal, | Rosy, | | | | | History of | FRANCO Koch | MD Dionisio | | | | | [place] | [address] | | | | | (myocardial | [place] | [address] | | | | | infarction) | [address] | [place], | | | | | Syncope | [place], | [place] [address] | | | | | Presence of | [place] [address] | Phone: | | | | | other | Phone: | [phone] | | | | | cardiac | [phone] | Fax: | | | | | implants and | Fax: | [phone] | | | | | grafts | [phone] | | | | | | Procedures | | | | | | | MARINE STEWARD - NEEDS | | | | | | | IC/THR APPT | | | +--------+--------+ + + + + Encounter Details +--------+---------+ + + + | Date | Type | Department | Care Team | Description | +--------+---------+ + + + | 01/06/ | [facility] | Conner Lieberman, | Paroxysmal atrial | | 2019 | Visit | CARDIOLOGY [address] | MACHINE SHOP INSTRUCTOR [address] | fibrillation (HCC) | | | | [place], | [facility] [place] | (Primary Dx); PVC | | | | [place] [address] | [address] | (premature | | | | [phone] | | ventricular | | | | [...] | Blood Pressure | 106/64 | 01/06/2019 10:51 AM | | | | | PST | | + + + + + | Pulse | 64 | 01/06/2019 10:51 AM | regular | | | | PST | | + + + + + | Temperature | - | - | | + + + + + | Respiratory Rate | 18 | 01/06/2019 10:51 AM | | | | | PST | | + + + + + | Oxygen Saturation | - | - | | + + + + + | Inhaled Oxygen | - | - | | | Concentration | | | | + + + + + | Weight | 119.9 kg (264 lb 5.3 | 01/06/2019 10:51 AM | | | | oz) | PST | | + + + + + | Height | 162.6 cm (5' 4") | 01/06/2019 10:51 AM | | | | | PST | | + + + + + | Body Mass Index | 45.37 | 01/06/2019 10:51 AM | | | | | PST | | + + + + + documented in this encounter Patient Instructions Patient Instructions Kvngneisha ConnerTOOTIE - 01/06/2019 10:30 AM PST 1. We will refer you to [...] You Tube channels like "Yoga with Cici" ([email or web address]). 3. Try to incorporate healthful eating habits, [...] dr inking wine or any other alcohol. documented in this encounter Progress Notes Conner Lieberman ARNP - 01/06/2019 10:30 AM PSTFormatting of this note might be different fr om the original. PATIENT NAME: Gris Krishnamurthy : [...] was seen in the emergency department at [facility] on 12/22/18 for chest pain, shortness of [...] test. This was done on 12/26/18 at [facility] shima copeland a normal myocardial perfusion imaging study. She has had a poor energy level. She tries to stay active. She goes to the [facility] twice per w atka for PT for her knee, and she [...] dagger", constantly. [facility] as she was having [...] ECGs available Confirmed by DIONISIO GALLEGOS MD ([id number]) on 12/16/2018 4:37:50 PM LAB RESULTS reviewed during visit today primarily from [facility]: LIPID Lab Results Component Value Date [...] BNP, BNPEX, NTPROBNP Will obtain records from [facility] emergency department visit from 12/22/18 . RESULTS- I reviewed reports from [facility]: Persantine nuclear medicine stress test 12/26/18 shows Persantine EKG is negative. Normal Per santine sestamibi myocardial perfusion imaging study. Normal left ventricular size, wall th ickness and motion. Preserved left ventricular systolic function. LVEF is 61%. Evidence o f breast/anterior wall soft tissue attenuation. Also reviewed echocardiogram from [facility] read by [facility] on 10/20/18 showing left ventricular systolic function [...] scanned Paceart documentation and device PDF in [employer] for interrogation (without programming changes) perform ed [...] was seen in the emergency department at [facility] on 12/22/18 for chest pain, [...] stress test. This was done on at [facility] showing a normal myocardial perfusion imaging study. [...] [facility] Her risks for stroke include: 0, Congestive Heart Failure/LV dysfunction (1) , Hx of HTN (1), Age >/= 75 Y.O.(2), Diabetes (1), Stroke/TIA/Thrombo-embolism (2), Vascular disease (1), Age 65 to 74 (1) and Female Gender (1). Her [id number] score is [address]ke per year in atrial fibrillation. Her bleeding risks include: ETOH (1). Her HASBLED sc ore is 0-1, which confers a low risk (1-3.4%) risk of bleed per year. She was put on Eliqu is by her fourdrinier tender in [place]. I didn't think that she needs long-term [...] hypertension, and mitral regurgitation: A. Echocardiogram from [facility] read by [facility] on 10/20/18 denise wing left ventricular [...] otherwise addressed today 01/06/2019. A. Diagnosed in [place] in 2017. She tried 3 different masks, at least a m onth each. She believes she only had 90 minutes of sleep. Patient can not uses CPAP mask. Sh gaby reports of feeling claustrophobic. PLAN: 1. She [...] Rubalcava. - LAURA DUONG CMA 01/06/2019 11:02 I, TOOTIE Rubalcava, personally performed the services described in this documentation, as scribed in my presence and it is both accurate and complete. TOOTIE Rubalcava 9 Portions of this chart may have been created with [employer] voice recognition software. Occasi onal wrong-word or sound-alike substitutions may have occurred due to the inherent ryan itations of voice recognition software. Please read the chart carefully and recognize, using context, where these substitutions have occurred. documented in this encounter Procedure Notes Conner Lieberman ARNP - 01/06/2019 10:30 AM PSTAssociated Order(s): DEVICE INTERROGATIONProc edure(s): DEVICE INTERROGATIONPre-Procedure Diagnose(s): Paroxysmal atrial fibrillation (HCC ); Status post placement of implantable loop recorder; Encounter for loop recorder check PATIENT NAME: Gris Krishnamurthy : 1965: AGE: 53 y.o. Device In-office Evaluation Report 01/06/2019 Reason for evaluation: routine Indication for device: Paroxysmal atrial fibrillation (HCC) (I48.0, 427.31); Encounter for loop recorder check (Z4 5.09, V53.39); Status post placement of implantable loop recorder (Z95.818, V45.09) Patient was seated and device was interrogated (with programming changes made). Test was p erformed and interpreted by me. Device parameters, battery status, percentages pacing and si gnificant arrhythmias were reviewed. Heart rate histograms were assessed for adequate heart rate response and any alerts reviewed. Appropriate lead impedance testing was performed. Pac ing impedances were reviewed for any significant changes. Sensing tests were performed by de creasing LRL. Adequacy of pacing thresholds were tested by increasing LRL for each lead and recorded for loss of capture. Final outputs were assessed for adequate safety margins. Summary of findings: Events: No new events since last [facility] [...] bradycardia 54-56 beats per minute. Please see the scanned Paceart report and device PDF for further details. Electronically si gned by TOOTIE Rubalcava at 01/06/2019 12:00 PM PSTdocumented in this encounter Miscellaneous Notes Addendum Note - Conner Lieberman ARNP - 01/06/2019 10:30 AM PST Addended by: CONNER LIEBERMAN on: 01/06/2019 12:00 Modules accepted: Orders documented in this encounter Plan of Treatment +--------+ + + + + | Date | Type | Specialty | Care Team | Description | +--------+ + + + + | 10/10/ | Office | Cardiology | Dionisio Gallegos, | | | 2019 | Visit | | MD Mark [address] | | | | | | [place], | | | | | | [place] [address] | | | | | | [phone] | | | | | | | | +--------+ + + + + | 11/23/ | Implant | Cardiology | Dionisio Gallegos, | Pacemaker | | 2019 | Monitor | | MD Mark Garcia | reprogramming/check | | | | | [place], | (Primary Dx); | | | | | [place] [address] | Tachycardia-bradycar | | | | | [phone] | samuel (HCC); | | | | | | Pacemaker, Dual | | | | | | Chamber, [facility] [place], | | | | | | MRI Capable, 09/30/19 | | | | | | Rosy | +--------+ + + + + | 03/08/ | Office | Neurology | Amarjit Fisher MD [address] | | | 2020 | Visit | | [address] | | | | | | [address] [place], | | | | | | [place] [address] | | | | | | [phone] | | | | | | | | +--------+ + + + + + + +--------+ + + | Name | Type | Priori | Associated Diagnoses | Order Schedule | | | | ty | | | + + +--------+ + + | Device Interrogation | Cardiac | Routin | Paroxysmal atrial | 10 Occurrences | | | Implant | e | fibrillation (HCC) | starting 01/06/2019 | | | | | S/P implantable loop | until 01/06/2020, 1 | | | | | recorder Medtronic | completed | | | | | 05/04/2016 Dr Duque | | | | | | Tommy Encounter | | | | | | for loop recorder | | | | | | check | | + + +--------+ + + + + +--------+ + + | Name | Type | Priori | Associated Diagnoses | Order Schedule | | | | ty | | | + + +--------+ + + | Sleep medicine | Outpatient | Routin | Paroxysmal atrial | Ordered: 01/06/2019 | | consultation | Referral | e | fibrillation (HCC) | | | | | | PVC (premature | | | | | | ventricular | | | | | | contraction) S/P | | | | | | [...] | | | apnea) | | + + +--------+ + + documented as of this encounter Procedures + +--------+ + + + | Procedure Name | Priori | Date/Time | Associated Diagnosis | Comments | | | ty | | | | + +--------+ + + + | DEVICE INTERROGATION | Routin | 01/06/2019 | Paroxysmal atrial | Results for this | | | e | 12:00 AM | fibrillation (HCC) | procedure are in the | | | | PST | S/P implantable loop | results section. [...] for this | | | e | 12:00 AM | fibrillation (HCC) | procedure are in the | | | | PST | S/P implantable loop | results section. | | | | | recorder Medtronic | | | | | | 05/04/2016 Dr Duque | | | | | | Tommy Encounter | | | | | | for loop recorder | | | | | | check | | + +--------+ + + + documented in this encounter Results Device Interrogation (01/06/2019 12:00 AM PST) + + + | Narrative | Performed At | + + + | Conner Lieberman, | PACEART | | MACHINE SHOP INSTRUCTOR 01/06/2019 12:00 PATIENT NAME: Gris Krishnamurthy : [...] longest episode was 12/23/18 at 1331 showing | | | sinus tachycardia with rate of 135 bpm with premature ventricular | | | contractions.4 bradycardia episodes with recent longest event on | | | 01/03/19 lasting 1 minute and 6 seconds showing under sensing, which is | | | consistent with all of the bradycardia events.Heart rate histogram | | | shows good distribution. Battery status: "Good"Current underlying | | | rhythm: Sinus bradycardia 54-56 beats per minute. Please see the | | | scanned Paceart report and device PDF for [...] | Procedure Note | + + | Conner Lieberman ARNP - 01/06/2019 10:30 AM PST PATIENT NAME: Gris Krishnamurthy : | [...] | Paroxysmal atrial fibrillation (HCC) - Primary Atrial fibrillation | + + | PVC (premature ventricular contraction) Other premature beats | + + | S/P implantable loop recorder Medtronic 05/04/2016 Dr Neto Sanders | + + | Encounter for loop recorder check | + + | FANG (obstructive sleep apnea) Obstructive sleep apnea (adult) (pediatric) | + + | Pacemaker reprogramming/check - Primary Fitting and adjustment of cardiac pacemaker | + + | Tachycardia-bradycardia (HCC) Sinoatrial node dysfunction | + + | Pacemaker, Dual Chamber, [place], MRI Capable, 09/30/19 Rosy Cardiac pacemaker in | | situ | + + documented in this encounter
--- OUTSIDE RECORDS SUMMARY | ~2020-09-13 | XMS | Clinical Summary ---
Demographics + + + | Address | [address] | | | [place] [address] | + + + | Home Phone [...] Author + + + | Author | [facility] | | | and [place] | + + + | Organization | [facility] | | [...] Team Providers + +------+ + | Care Clip Coater Name | Role | Phone | + +------+ + | August Sanford | PCP | | + +------+ + Allergies + + + + + + | Active Allergy | Reactions | Severity | Noted | Comments | | | | | Date | | + + + + + + | Penicillins | Hives | Medium | 06/13/20 | | | | | | 19 | | + + + + + + Medications + + + +---------+------+------+-------+ | Medication | Sig | Dispensed | Refills | Star | End | Statu | | | | | | t | Date | s | | | | | | Date | | | + + + +---------+------+------+-------+ | allopurinol | Take 300 mg by mouth | | 0 | | | Activ | | (ZYLOPRIM) 300 mg | Daily. | | | | | e | | tablet | | | | | | | + + + +---------+------+------+-------+ | atorvaSTATin | Take 40 mg by mouth | | 0 | | | Activ | | (LIPITOR) 40 mg | nightly. | | | | | e | | tablet | | | | | | | + + + +---------+------+------+-------+ | folic acid 1 mg | Take 1 mg by mouth | | 0 | | | Activ | | tablet | Daily. | | | | | e | + + + +---------+------+------+-------+ | meclizine | Take 25 mg by mouth | | 0 | | | Activ | | (ANTIVERT) 25 mg | 3 times daily as | | | | | e | | tablet | needed. | | | | | | + + + +---------+------+------+-------+ | metoprolol | 25 mg 2 times daily. | | 0 | 01/1 | | Activ | | tartrate (LOPRESSOR) | | | | 6/20 | | e | | 25 mg tablet | | | | 19 | | | + + + +---------+------+------+-------+ | sertraline | take 1 tablet by | | 0 | 12/2 | | Activ | | (ZOLOFT) 100 mg | mouth once daily | | | 7/20 | | e | | tablet | | | | 18 | | | + + + +---------+------+------+-------+ | levothyroxine | take 1 tablet by | | 0 | /2 | | Activ | | (SYNTHROID) 75 MCG | mouth every morning | | | 12/14 | | e | | tablet | ON AN EMPTY STOMACH | | | 19 | | | + + + +---------+------+------+-------+ | ELIQUIS 5 MG | 5 mg 2 times daily. | | 0 | /2 | | Activ | | tablet | | | | 0 | | e | | | | | | 19 | | | + + + +---------+------+------+-------+ | furosemide (LASIX) | take 1 tablet [...] | | | | + + + +---------+------+------+-------+ | busPIRone (BUSPAR) | take 1 tablet by | | 0 | 12/2 | | Activ | | 30 MG tablet | mouth twice a day | | | 720 | | e | | | | | | 18 | | | + + + +---------+------+------+-------+ | prazosin | take 1 capsule by | | 0 | 12/2 | | Activ | | (MINIPRESS) 2 MG | mouth at bedtime MAY | | | 06/13 | | e | | capsule | INCREASE TO 2 | | | 18 | | | | | capsules at bedtime | | | | | | + + + +---------+------+------+-------+ | potassium chloride | take 1 tablet by | | 0 | 12/2 | | Activ | | (KLOR-CON M20) 20 | mouth twice a day | | | 06/13 | | e | | mEq ER tablet | with food | | | 18 | | | + + + +---------+------+------+-------+ | magnesium oxide | take 1 tablet by | | 0 | 11/2 | | Activ | | (MAG-OX) 400 mg | mouth once daily NO | | | 06/13 | | e | | tablet | REFILLS FROM THIS | | | 18 | | | | | PROVIDER | | | | | | + + + +---------+------+------+-------+ | colchicine 0.6 mg | Take 0.6 mg by mouth | | 0 | | | Activ | | tablet | as needed. | | | | | e | + + + +---------+------+------+-------+ | zaleplon (SONATA) | Take 10 mg by mouth | | 0 | | | Activ | | 10 MG capsule | nightly. | | | | | e | + + + +---------+------+------+-------+ | LORazepam (ATIVAN) | take 1 tablet by | | 0 | 09/0 | | Activ | | 0.5 mg tablet | mouth twice a day if | | | 4/20 | | e | | | needed for anxiety | | | 19 | | | + + + +---------+------+------+-------+ | diclofenac | Take 75 mg by mouth | | 0 | 09/2 | | Activ | | (VOLTAREN) 75 mg EC | 2 times daily. 1 | | | 4/20 | | e | | tablet | tablet by mouth two | | | 19 | | | | | times daily | | | | | | + + + +---------+------+------+-------+ | flecainide | Take 1 tablet by | 60 | 3 | 06/0 | | Activ | | (TAMBOCOR) 100 mg | mouth every 12 | tablet | | 3/20 | | e | | tablet | hours. | | | 20 | | | + + + +---------+------+------+-------+ | ondansetron | Take 1 tablet by | 20 | 0 | 06/0 | | Activ | | (ZOFRAN) 4 mg tablet | mouth Daily as | tablet | | 5/20 | | e | | | needed for Nausea. | | | 20 | | | + + + +---------+------+------+-------+ | gabapentin | Take 1 capsule by | 60 | 6 | 10/0 | | Activ | | (NEURONTIN) 300 mg | mouth 2 times daily. | capsule | | 7/20 | | e | | capsule | | | | 20 | | | + + + +---------+------+------+-------+ | gabapentin | Take 300 mg by mouth | | 0 | | 10/0 | Disco | | (NEURONTIN) 300 mg | 2 times daily. | | | | 7/20 | ntinu | | capsule | | | | | 20 | ed | | | | | | | | (Reor | | | | | | | | layne | | | | | | | | (no | | | | | | | | Cance | | | | | | | | l Rx | | | | | | | | msg)) | + + + +---------+------+------+-------+ Active Problems + + + | Problem | Noted Date | + + + | Tachycardia-bradycardia | 09/30/2019 | + + + + + | Overview: S/P Permanent Pacemaker Placement 09/30/19 by Claudine | | MD Rosy | + + + + + | Pacemaker, Dual Chamber, St Jerry, DESIREE Capable, 09/30/19 Rosy | 09/30/2019 | + + + + + | Overview: Indication: Tachycardia-Bradycardia Syndrome | + + + + + | Anticoagulated | 06/13/2019 | + + + | Closed fracture dislocation of ankle | 06/13/2019 | + + + | Chest pain, [...] + + + | Paroxysmal atrial fibrillation | 12/18/2018 | + + + + [...] | 12/15/2018 | + + + | Syncope | 09/30/2018 | + + + + + | Overview: 24 holter [...] | + + + + + | Pacemaker reprogramming/check | 09/30/2018 | + + + Resolved Problems + + + + | Problem | Noted | Resolved | | | Date | Date | + + + + | S/P implantable loop recorder Medtronic 05/04/2016 Dr Duque | 09/30/20 | | | Tommy | 18 | 9 | + + + + + + | Overview: Medtronic Reveal LINQ Model # [id number] Serial # | | [id number]: syncopeExplanted 09/30/19 by Claudine | | MD Rosy | + + Encounters +--------+ + + + + | Date | Type | Specialty | Care Team | Description | +--------+ + + + + | 09/02/ | Telephone | Cardiology | Claudine Gallegos, | Results ([place]) | | 2019 | | | MD | | +--------+ + + + + | 08/31/ | Office | Neurology | Amarjit Fisher MD | Peripheral | | 2019 | Visit | | | polyneuropathy | | | | | | (Primary Dx); | | | | | | Frequent falls; | | | | | | Neuropathic pain | +--------+ + + + + | 08/29/ | Telephone | Neurology | Amarjit Fisher MD | Follow-up (change to | | 2019 | | | | phone appointment) | +--------+ + + + + | 08/24/ | Implant | Cardiology | Claudine Gallegos, | Pacemaker | 2019 | Monitor | | | reprogramming/check | | | | | | (Primary Dx); | | | | | | Pacemaker, Dual | | | | | | Chamber, [employer] Jerry, | | | | | | MRI Capable, 09/30/19 | | | | | | Rosy; | | | | | | Tachycardia-bradycar | | | | | | samuel (HCC) | +--------+ + + + + from Last 3 Months Immunizations + + + + | Name | Administration Dates | Next Due | + + + + | INFLUENZA PF | 08/27/2018 | | | QUAD(PED/ADOL/ADULT) | | | | ,PSKT or VIAL | | | + + + + Family History + + +------+ + | [...] +------+ + + Social History + +-------+ +--------+ [...] + + + | Blood Pressure | 179/83 | 08/31/2020 12:16 PM | | | | | PDT | | + + + + + | Pulse | 62 | 08/31/2020 12:16 PM | | | | | PDT [...] + | Oxygen Saturation | 93% | 08/31/2020 12:16 PM | | | | | PDT | | + + + + + | Inhaled Oxygen | - | - | | | Concentration | | | | + + + + + | Weight | 93.9 kg (207 lb) | 08/31/2020 12:16 PM | | | | | PDT | | + + + + + | Height | 162.6 cm (5' 4") | 08/31/2020 12:16 PM | | | | | PDT | | + + + + + | Body Mass Index | 35.53 | 08/31/2020 12:16 PM | | | | | PDT | | + + + + + Plan of Treatment +--------+ + + + + | Date | Type | Specialty | Care Team | Description | +--------+ + + + + | 11/16/ | Office | Cardiology | Jacquiadam Ashanhung, | | | 2019 | Visit | | MD Mark Garcia | | | | | | [facility] [place], | | | | | | [place] [address] | | | | | | [phone] | | | | | | | | +--------+ + + + + | 11/23/ | Implant | Cardiology | JacquiadamBrigitteemanuelnhung, | Pacemaker | | 2019 | Monitor | | MD Mark Garcia | reprogramming/check | | | | | [facility], | (Primary Dx); | | | | | [place] [address] | Tachycardia-bradycar | | | | | [phone] | samuel (HCC); | | | | [...] | | | | | | [place] [address] | | | | | | [phone] | | | | | | | | +--------+ + + + + + + + + + | Health Maintenance | Due Date | Last | Comments | | | | Done | | + + + + + | Hepatitis C | | | | | Screening | 4 | | | + + + + + | Med Mgmt: Uric Acid | | | | | | 4 | | | + + + + + | Medication | | | | | Management | 4 | | | + + + + + | Vaccine: | | | | | Pneumococcal 19-64 | 0 | | | | (1 of 1 - PPSV23) | | | | + + [...] | + + + + + | Breast Cancer | | | | | Screening | 9 | | | + + + + + | Med Mgmt: TSH | | 06/13/20 | | | | 0 | 19 | | + + + + + | Med Mgmt: HCT | | 06/14/20 | | | | 0 | 19, | | | | | 12/22/19 | | | | | 19, | | | | | 08/19/20 | | | | | 18 | | + + + + + | Med Mgmt: HGB | | 06/14/20 | | | | 0 | 19, | | | | | 12/22/19 | | | | | 19, | | | | | 08/19/20 | | | | | 18 | | + + + + + | Vaccine: Influenza | | 08/27/20 | | | (#1) | 0 | 18 | | + + + + + | Med Mgmt: BUN | | 04/26/20 | | | | 1 | 20, | | | | | 06/14/20 | | | | | 19, | | | | | 06/13/20 | | | | | 19, | | | | | Addition | | | | | al | | | | | history | | | | | exists | | + + + + + | Med Mgmt: Cr | | 04/26/20 | | | | 1 | 20, | | | | | 06/14/20 | | | | | 19, | | | | | 06/13/20 | | | | | 19, | | | | | Addition | | | | | al | | | | | history | | | | | exists | | + + + + + | Med Mgmt: K | | 04/26/20 | | | | 1 | 20, | | | | | 06/14/20 | | | | | 19, | | | | | 06/13/20 | | | | | 19, | | | | | Addition | | | | | al | | | | | history | | | | | exists | | + + + + + | Med Mgmt: Na | | 04/26/20 | | | | 1 | 20, | | | | | 06/14/20 | | | | | 19, | | | | | 06/13/20 | | | | | 19, | | | | | Addition | | | | | al | | | | | history | | | | | exists | | + + + + + | Med Mgmt: eGFR | | 04/26/20 | | | | 1 | 20, | | | | | 06/14/20 | | | | | 19, | | | | | 06/13/20 | | | | | 19, | | | | | Addition | | | | | al | | | | | history | | | | | exists | | + + + + + Implants + +------+-------+ +--------+--------+--------+ | Implanted | Type | Area | Manufacture | Device | Shelf | Model | | | | | r | | Expira | / | | | | | | Identi | tion | Serial | | | | | | fier | Date | / Lot | + +------+-------+ +--------+--------+--------+ | Lead Tendril Pacing Sts 52cm | Lead | N/A: | [facility] JERRY | [id number] | 07/25/ | [id number] | | - [id number]: Qty: 1 | | Heart | MEDICAL - | [id number] | 2021 | /52 | | on 09/30/2019 by Rosy | | | BUDDY | 87 | | /[id number] | | MD Claudine at [facility] | | | | | | 5099 / | | [facility] | | | | | | | + +------+-------+ +--------+--------+--------+ + + | Description:VENTRICULAR LEAD | | IMPLANTED | + + + +------+-------+ +--------+--------+--------+ | Lead Tendril Pacing Sts 46cm | Lead | N/A: | [facility] JERRY | [id number] | 07/25/ | 2087TC | | - [id number]: Qty: 1 | | Heart | MEDICAL - | [id number] | 2021 | /46 | | on 09/30/2019 by Rosy | | | BUDDY | 70 | | /[id number] | | MD Claudine at [facility] | | | | | | 0779 / | | [facility] | | | | | | | + +------+-------+ +--------+--------+--------+ + + | Description:ATRIAL LEAD | | IMPLANTED | + + + +--------+-------+ +--------+--------+--------+ | Pacer Assurity Mri Dr Rf - | Pacema | N/A: | [facility] | [id number] | 02/22/ | [id number] | | [id number]: Qty: 1 on | ker | Heart | MEDICAL - | [id number] | 2020 | | | 09/30/2019 by Rosy, | | | BUDDY | 89 | | /[id number] | | MD Claudine at [facility] | | | | | | 71 / | | [facility] | | | | | | | + +--------+-------+ +--------+--------+--------+ + + | Description:ASSURITY MRI | | PACEMAKER IMPLANTED,This | | devise and leads are MRI | | conditional at 1.5 Izabela once | | put in mri safe mode by | | Trace raphael 01/19/20 | + + + +--------+--------+ +--------+--------+--------+ | Explanted | Type | Area | Manufacture | Device | Shelf | Model | | | | | r | | Expira | / | | | | | | Identi | tion | Serial | | | | | | fier | Date | / Lot | + +--------+--------+ +--------+--------+--------+ | Implantable Loop | Implan | Left: | MEDTRONIC - | | | [id number] | | Recorder-05/04/2016Implanted: | table | Chest | MEDT | | | | | Qty: 1 on | Loop | Wall | | | | REVEAL | | 05/04/2016Explanted: Qty: 1 | Record | | | | | LINQ | | on 09/30/2019 by Rosy | vandana | | | | | /[id number] | | MD Claudine at [facility] | | | | | | [id number] | | [facility] | | | | | | / | + +--------+--------+ +--------+--------+--------+ + + | Description:Implanted by | | Neto bowen [facility] | | [facility] | + + Procedures + +--------+ + + + | [...] 3 Months Results Device Interrogation - Remote (08/24/2020 11:59 PM PDT) + + + | Narrative | Performed At | + + + | Claudine | [facility] | | MD Rosy 06/08/2020 1:20 PMDate of Remote Interrogation: | | | 05/31/2020 Refer to [facility] documentation and remote PDF scanned into | | | [facility] for remote interrogation results. Data collected [...] + + | Performing | Address | City/State[place] | Phone Number | | Organization | | | | + +---------+ + + | [facility] | | | | + +---------+ + + from Last 3 Months Insurance + +--------+ +--------+ +---------+--------+ | Payer | Benefi | Subscriber | Effect | Phone | Address | Type | | | t Plan | ID | marva | | | | | | / | | Dates | | | | | | Group | | | | | | + +--------+ +--------+ +---------+--------+ | [employer] | MODA | [id number] | | [phone] | | Medica | | MEDICAID HMO | HEALTH | | 018-Pr | 1 | | id | | | MDCD | | esent | | | | | | [place] | | | | | | + +--------+ +--------+ +---------+--------+ | [employer] | MODA | [id number] | 10/13/ | [phone] | | Medica | | MEDICAID HMO | HEALTH | | 2019-P | 1 | | id | | | MDCD | | resent | | | | | | [place] | | | | | | + +--------+ +--------+ +---------+--------+ + +--------+ +--------+ + + | Guarantor Name | Accoun | Relation to | Date | Phone | Billing Address | | | t Type | Patient | of | | | | | | | | | | + +--------+ +--------+ + + | Gris Krishnamurthy | Person | Self [birth year] | [address] | | | al/Fam | | 1965 | [phone] | [place] | | | [place] | | | 6 (Home) | [id number] | + +--------+ +--------+ + + | Gris Krishnamurthy | Person | Self | [birth year] | | [address] | | | al/Jj | | 1965 | [phone] | [place] | | | [place] | | | [address] ([place]) | [address] | + +--------+ +--------+ + + Advance Directives + + + + + | Type | Date Recorded | Patient | Explanation | | | | Surgical Specialist | | + + + + + | Power of | | | | | Environmental Services Lead | | | | + + + + + | Advance | 09/30/2019 7:33 | | | | Directive | AM | | | + + + + + + + + + + | Code Status | Date | Date | Comments | | | Activated | Inactivated | | + + + + + | Full Code | 04/26/2020 | 04/27/2020 | | | | 7:42 AM | 3:55 PM | | + + + + + + + + +---+ | | | | | + + + +---+ | Full Code | 04/19/2020 | 04/19/2020 | | | | 3:20 PM | 3:29 PM | | + + + +---+ + + + +---+ | | | | | + + + +---+ | Full Code | 06/13/2019 | 06/14/2019 | | | | 3:26 PM | 4:53 PM | | + + + +---+
--- OUTSIDE RECORDS SUMMARY | ~2020-09-13 | XMS | Encounter Summary ---
Demographics + + + | Address | [address] | | | [place] [address] | + + + | Home Phone | | + + + | Preferred Language | Unknown | + + + | Marital Status | Single | + + + | Cheondoism Affiliation | 1073 | + + + | Race | White | + + + | Ethnic Group | Not or | + + + Author + + + | Author | [facility] | | | and [place] | + + + | Organization | [facility] | | | [...] Team Providers + +------+ + | Care Java J2Ee Software Engineer Name | Role | Phone | + +------+ + | August Sanford | PCP | | + +------+ + Reason for Visit +---------+--------+ + | Reason | Onset | Comments | | | Date | | +---------+--------+ + | Results | 02/16/ | | | | 2019 | | +---------+--------+ + Encounter Details +--------+ + + + + | Date | Type | Department | Care Team | Description | +--------+ + + + + | 02/16/ | Telephone | [facility] | Claudine Gallegos, | Results | | 2018 | | CARDIOLOGY [address] | MD [address] [place] | | | | | [place], | [place], | | | | | [place] [address] | [place] [address] | | | | | [phone] | [phone] | | | | | | | [...] this encounter Miscellaneous Notes Telephone Encounter - Jurgen, Manda Segundo RN - 02/16/2019 3:02 PM PDTDiscussed 02/15/19 loop rec order report and patients accompanying symptoms with Claudine Gallegos MD. Patient was in [facility] ED 02/15 with PVC's associated with double vision, a sinking feeling in chest, [facility]. She also had a short episode of tachy-belen on 02/10/19 when she felt palpitations. She has had additional symptoms of chest finnegan, dizziness, weakness in legs, shortness of breath and near syncope with other episodes that were not available due to storage limitations of l oop recorder. Per Claudine Gallegos MD, he would like the patient to contact us if she has additional symptoms and we will bring her in sooner than May 2019. Patient is notified. Kita ctronically signed by: Manda Seaman RN 02/16/2019 15:13 documented in this encounter Plan of Treatment [...] | | | | | | [place] [address] | | | | | | [phone] | | | | | | | | +--------+ + + + + | 11/23/ | Implant | Cardiology | Claudine Gallegos, | Pacemaker | | 2019 | Monitor | | MD Mark Garcia | reprogramming/check | | | | | [place], | (Primary Dx); | | | | | [place] [address] | Tachycardia-bradycar | | | | | [phone] | samuel ([facility]); | | | | | | Pacemaker, Dual | | | | | | [facility] Garcia, | | | | | | MRI Capable, 09/30/19 | | | | | | Rosy | +--------+ + + + + | 03/08/ | Office | Neurology | Amarjit Finnegan MD [address] | | | 2020 | Visit | | [address] | | | | | | [place] | | | | | | [place] [address] | | | | | | [phone] | | | | | | | | +--------+ + + + + documented as of this encounter Visit Diagnoses Not on filedocumented in this encounter"
--- OUTSIDE RECORDS SUMMARY | ~2020-09-13 | XMS | Encounter Summary ---
Demographics + + + | Address | [address] | | | [place] [address] | + + + | Home Phone | | + + + | Preferred Language | Unknown | + + + | Marital Status | Single | + + + | Evangelical Affiliation | 1073 | + + + [...] Team Providers + +------+ + | Care Vp Strategic Planning Name | Role | Phone | + +------+ + | August Sanford | PCP | | + +------+ + Encounter Details +--------+ + + + + | Date | Type | Department | Care Team | Description | +--------+ + + + + | 06/14/ | [facility] | [facility] | Cali Yang, | | | 2019 | Encounter | MED CTR THERAPY OT | OT | | | | | ACUTE [address] | | | | | | [place] | | | | | | [address] | | | | | | [phone] | | | +--------+ + + + [...] [place], | | | | | | [place] [address] | | | | | | [phone] | | | | | | | | +--------+ + + + + | 11/23/ | Implant | Cardiology | Claudine Gallegos, | Pacemaker | | 2019 | Monitor | | MD Mark Garcia | reprogramming/check | | | | | [place], | (Primary Dx); | | | | | [place] [address] | Tachycardia-bradycar | | | | | [phone] | samuel (HCC); | | | | [...] | | | | | | [place] [address] | | | | | | [phone] | | | | | | | | +--------+ + + + + documented as of this encounter Visit Diagnoses Not on filedocumented in this encounter"
--- OUTSIDE RECORDS SUMMARY | ~2020-09-13 | XMS | Encounter Summary ---
Demographics + + + | Address | [address] | | | [place] [address] | + + + | Home Phone [...] Author + + + | Author | [facility] | | | and [place] | + + + | Organization | [facility] | | [...] Team Providers + +------+ + | Care Credit Review Manager Name | Role | Phone | + +------+ + | August Sanford | PCP | | + +------+ + Reason for Visit + + + | Reason | Comments | + + + | Follow-up | Myelopathy (HCC) | + + + Evaluate & Treat [...] [address] | | | | | | [address] | | | | | [address] | [place], | | | | | | [place], | [place] [address] | | | | | | [place] [address] | Phone: | | | | | | Phone: | [phone] | | | | | | [phone] | Fax: | | | | | | Fax: | [phone] | | | | | | [phone] | | + +--------+ + + + + Encounter Details +--------+ + + + + | Date | Type | Department | Care Team | Description | +--------+ + + + + | 04/19/ | Virtual | [facility] | Amarjit Fisher MD [address] | Spondylolisthesis, | | 2020 | Office | NEUROLOGY [address] | [email or web address] | cervical region | | | Visit | [address] | [address] [place], | (Primary Dx); | | | | [place], [place] | [place] [address] | Frequent falls; | | | | [id number] | [phone] | Numbness and | | | | [phone] | | tingling of foot | +--------+ + + + + Social [...] encounter Progress Notes Amarjit Fisher MD - 04/19/2020 7:30 AM PDTFormatting of this note might be different from the o clementina. Referring Physician: FRANCO Fernandes PCP: FRANCO Fernandes Date of Encounter: 04/19/2020 Service was provided xege-[id number]-bvnj with the patient via interactive videoconferencing Video start time 7:45 Video end time 8:05 Total time (in minutes) including non elsq-hy-vgff time (reviewing records, etc..) 28 You have chosen to receive care through the use of telemedicine. Telemedicine enables healt h care providers at different locations to provide [...] patient reports stable symptoms since last visit. She did have a fall in February. She was walking to the bathroom, fell without any warning. She had left ankle strain. MRI of the C and T spine showed multiple level degenerative changes, no severe central ramón l stenosis or cord compression. Though there is misalignment and reversal of cervical cordos is C3 to C5. The MRI images were reviewed with the patient. Patient has question that all symptoms start ed after she had the right ankle injury and injection in 06/2019. She wonders if the symptoms are related to the right ankle injury and treatment. Mri Cervical Spine W Wo Contrast 1. Multilevel cervical degenerative disc disease with [...] AM Mri Thoracic Spine W Wo Contrast 1. Thoracic spinal cord is normal in [...] [place], Valentino Sign Date/Time: 0 8:14 AM Recap History Patient reports numbness of the [...] She d enies bowel or bladder incontinence. ALLERGIES Allergies Allergen Reactions Penicillins Hives MEDICATIONS [...] 2 times daily., Disp: , Rfl: 0 folic acid 1 mg tablet, Take 1 [...] 2 times daily., Disp: , Rfl: 0 potassium chloride (KLOR-CON M20) 20 [...] were reviewed and negative OBJECTIVE General Exam There were no vitals filed for this visit. WDWN, NAD Awake, alert. Speech is clear, fluent and coherent. Face is symmetric. Hearing is intact. ASSESSMENT & PLAN 54 y.o. female who presents with numbness [...] bilate ral upper extremities with Carmella signs. She appears to have a sensory level with pinpric k exam at T4. The patient has had T and C-spine MRI without clear explanation of her symptoms. There was misalignment at C3-5 with reverse curvature, may suggest instability of the cervical spine. I would recommend x-ray of the cervical spine with flexion and extension views to further e valuate stability of the cervical spine. We will also plan for EMG to further evaluate poss ible peripheral nerve etiology. We may consider checking B12 and copper, as patient is out of town, will consider labs after EMG results. Plan: - X ray of C spine with flexion and extension views - EMG right upper extremity and right lower extremity - Follow up after the tests Thank you for allowing me to take care of this patient. Please do not hesitate to contact m e if you have any questions. Cc: FRANCO Fernandes This note was prepared using [employer] voice recognition technology. There may be so und-alike errors even though every effort has been made to ensure accuracy. documented in this encounter Plan of Treatment [...] [place], | | | | | | [place] [address] | | | | | | [phone] | | | | | | | | +--------+ + + + + | 11/23/ | Implant | Cardiology | Claudine Gallegos, | Pacemaker | | 2019 | Monitor | | [address] [facility] | reprogramming/check | | | | | [facility] [place], | (Primary Dx); | | | | | [place] [address] | Tachycardia-bradycar | | | | | [phone] | samuel (HCC); | | | | [...] [place], | | | | | | [place] [address] | | | | | | [phone] | | | | | | | | +--------+ + + + + documented as of this encounter Results XR Cervical Spine 2 or 3 Views (04/29/2020 8:53 AM PDT) + + | Specimen | + + | | + + + + + | Impressions | Performed At | + + + | *No acute fracture. *Anterolisthesis of C2 on C3, C3 on C4 and C4 | [facility] | | on C5, similar in flexion and extension. Limited motion of the | | | cervical spine in flexion and extension. *Cervical spondylosis as | | | detailed above. Signed by: Eugene Traylor, Pushkayder Sign | | | Date/Time: 04/29/2020 3:31 PM | | + + + + + + | Narrative | Performed At | + + + | CERVICAL SPINE TWO VIEWS CLINICAL INFORMATION: Neck pain. | [facility] | | COMPARISON: None. FINDINGS: Alignment: Mild (2 mm) | | | anterolisthesis of C2 on C3, similar in flexion and extension. Mild | | | (3 mm) anterolisthesis of C3 on C4 and C4 on C5, similar in flexion | | | and extension. Limited motion of cervical spine in flexion and | | | extension. Vertebrae: No acute fracture. Osteopenia Cervical | | | Disc Levels: Advanced degenerative disc disease at C5-C6 and C6-C7. | | | Moderate degenerative disc disease at C3-C4 and C4-C5. Facets | | | and Posterior Spinal Elements: Uznm-ta-hwwllelv facet joint | | | osteoarthritis throughout the cervical spine. Prevertebral Soft | | | Tissue Contours: No prevertebral soft tissue swelling. | | + + + + + | Procedure Note | + + | Patrick, Rad Results In - 04/29/2020 3:35 PM PDT | | CERVICAL SPINE TWO VIEWS | | | | CLINICAL INFORMATION: | | Neck pain. | | | | COMPARISON: | | None. | | | | FINDINGS: | | Alignment: Mild (2 mm) anterolisthesis of C2 on C3, similar in flexion | | and extension. Mild (3 mm) anterolisthesis of C3 on C4 and C4 on C5, | | similar in flexion and extension. Limited motion of cervical spine in | | flexion and extension. | | | | Vertebrae: No acute fracture. Osteopenia | | | | Cervical Disc Levels: Advanced degenerative disc disease at C5-C6 and | | C6-C7. Moderate degenerative disc disease at C3-C4 and C4-C5. | | | | Facets and Posterior Spinal Elements: Uctz-ia-xnzrzeig facet joint | | osteoarthritis throughout the cervical spine. | | | | Prevertebral Soft Tissue Contours: No prevertebral soft tissue swelling. | | | | IMPRESSION: | | *No acute fracture. | | *Anterolisthesis of C2 on C3, C3 on C4 and C4 on C5, similar in flexion | | and extension. Limited motion of the cervical spine in flexion and | | extension. | | *Cervical spondylosis as detailed above. | | | | | | | | Signed by: Eugene Traylor, Delbert | | Sign Date/Time: 04/29/2020 3:31 PM | + + + +---------+ + + | Performing | Address | City/State/Zipcode | Phone Number | | Organization | | | | + +---------+ + + | [facility] | | | | + +---------+ + + documented in this encounter Visit Diagnoses + + | Diagnosis | + + | Spondylolisthesis, cervical region - Primary | + + | Frequent falls Personal history of fall | + + | Numbness and tingling of foot Disturbance of skin sensation | + + | Pacemaker reprogramming/check - Primary Fitting and adjustment of cardiac pacemaker | + + | Tachycardia-bradycardia (HCC) Sinoatrial node dysfunction | + + | Pacemaker, Dual Chamber, [employer], MRI Capable, 09/30/19 [facility] Cardiac pacemaker in | | situ | + + documented in this encounter
--- OUTSIDE RECORDS SUMMARY | ~2020-09-13 | XMS | Encounter Summary ---
Demographics + + + | Address | [address] | | | [place] [address] | + + + | Home Phone | | + + + | Preferred Language | Unknown | + + + | Marital Status | Single | + + + | Presybeterian Affiliation | [id number] | + + + [...] Providers + +------+ + | Care Clinical Quality Assurance Associate Name | Role | Phone | + [...] Description | +--------+---------+ + + + | 06/13/ | Surgery | HARSHA KRUSE | Adelfo Mckenzie | CLOSED REDUCTION AND | | 2018 | | MED CTR OR INTRA OP | [facility] [address] | SPLINTING OF RIGHT | | | | [address] | [address] [place] | ANKLE FRACTURE | | | | [place] | [address] | | | | | [address] | [phone] | | | | | [phone] | | | +--------+---------+ + + + [...] + + + | Blood Pressure | 103/85 | 06/13/2019 2:00 PM | | | | | PDT | | + + + + + | Pulse | 111 | 06/13/2019 1:59 PM | | | | | PDT | | + + + + + | Temperature | 36 C (96.8 F) | 06/13/2019 12:53 PM | | | | | PDT | | + + + + + | Respiratory Rate | 16 | 06/13/2019 12:53 PM | | | | | PDT | | + + + + + | Oxygen Saturation | 96% | 06/13/2019 1:59 PM | | | | | PDT | | + + + + + | Inhaled Oxygen | - | - | | | Concentration | | | | + + + + + | Weight | 120 kg (264 lb 8.8 | 06/13/2019 12:53 PM | | | | oz) | [...] of this encounter Discharge Instructions Instructions Adelfo Mckenzie, - 06/13/2019 Discharge Instructions for Ankle/Foot Surgery [...] throom. Follow-Up Follow up with orthopedics in [place] for definitive treatment of the ankle fracture surg carin When to Seek Medical Attention Call 911 right awayif you have any of the following: Chest pain Shortness of breath Otherwise, call your doctor immediately if you have any of the following: Increased hip pain Pain or swelling in your calf or leg Fever [id number] shaking chills Excessive swelling, increased drainage or [...] f rom the original. HOSPITALIST progress NOTE [facility] 06/14/2019 Rounding Physician: Hernesto Van MD Patient Name: Walter Calvert : 1965 Medical Record: [id number] Primary Hospital Problem: (R) ankle frx HPI: Walter Calvert is a 53 y.o.morbidly obese female with a history of atrial fibrillation and ?c ardiomyopathy who presented on 06/13/2019, to [facility] after GLF. Pt reports that she wa s attempting to ambulate to her bathroom but experienced LOC leading to her fall resulting i n a complex right ankle fracture. The pt was transferred to Dr Mckenzie's service for immedi ate repair. She arrived to [facility] ER, aparicio was placed, dilaudid 0.5mg x [...] a hx of "cardiomyopathy" altho echo from [facility] in Sep, 2018 revealed grade 2 diastolic [...] tilt table test; unable to check orthostatics / ankle frx UA unlikely infection BNP 121 [...] by: Hernesto Van MD, DATE/TIME: 06/14/2019 8:54 [facility] TEAMElectronically signed by Hernesto Van MD at 019 9:44 AM Pranay Kenney RN - 06/14/2019 12:40 AM PDTSusan complains of moderate t o severe R [...] stable at this time. Will continue to kylie tor. documented in t his encounter H&P Notes Adelfo Mckenzie DO - 06/13/2019 1:10 PM PDT [facility] ORTHOPAEDIC ADMISSION HISTORY AND PHYSICAL Primary [...] fall. She was taken to ED in [place] where right ankle fracture dislocation was diagnosed. [...] by mouth once daily NO REFILLS FROM [facility] PROVIDER 10/21/18 Yes Historical Provider, MAPAP 500 MG tablet take 1 tablet by mouth every 3 to 6 hours 11/20/18 Historical Provide rMD meclizine (ANTIVERT) 25 mg tablet Take 25 mg by mouth 3 times daily as needed. Yes Histor ical ProviderMD metoprolol tartrate (LOPRESSOR) 25 mg tablet 25 mg 2 times daily. 12/10/18 Yes Historical Alice self MD nitroglycerin (NITROSTAT) 0.[address] 1 tablet under the tongue every 5 minutes as needed for Chest pain. 12/23/18 Yes Claudine Gallegos MD potassium chloride (KLOR-CON M20) 20 mEq ER tablet take 1 tablet by mouth twice a day with food 11/20/18 Yes Historical ProviderMD prazosin (MINIPRESS) 2 MG capsule take 1 capsule by mouth at bedtime MAY INCREASE TO 2 caps ules at bedtime 11/20/18 Yes Historical ProviderMD sertraline (ZOLOFT) 100 mg tablet [...] 05/04/[address] Duque [facility] [place] [facility]OPE Family History Problem Relation Age [...] previous visit (from the past 24 hour(s)). @[id number]@ Imaging: Right ankle fracture dislocation Labs: Pending [...] might be different from t osmar original. [place], [place] HOSPITALIST CONSULT NOTE Patient: Walter Calvert : 1965: Age: 53 y.o. MedRec: [id number] Admission date: 06/13/2019 Hospital day # : [...] days ago, symptomatic. Right complex ankle fracture Naveenwajasmyne repair urgent intraop k centra / K [...] atrial fibrillation/ lasix, presented on 06/13/2019, to [facility] after GLF, ambulated to her bathroom, which was associated LOC, found to have complex right ankle fracture, accepted as direct transfer to Dr Mckenzie's serv ice for immediate repair. She arrived to [facility] ER, aparicio was placed, dilaudid 0.5mg x 1, alert/oriented in pain, unable to urinate, evaluated by anesthesiology/surgeon, transferred to OR. She fell a few days ago and hit her head, as confirmed by CT head from [facility] Last intake of eliquis and medications was yesterday morning. No DVT hx. No cardiac valve o perations. URI/bronchitis 3 weeks ago. No sores. No UTI hx. No change in medications. [facility] data VSS, HR 100s, tele sinus Na [...] function. LVEF is 61%. 09/2018 Echocardiogram from [facility] left ventricular systolic function is hyperdynamic with [...] Loop Recorder Dr Neto Sanders [facility] Patient Active Problem List Diagnosis S/P [...] hours as needed for Wheezing. Taking Historical ProviderMD allopurinol (ZYLOPRIM) 300 mg tablet Take 300 mg by mouth Daily. Taking Historical Provid erMD atorvaSTATin (LIPITOR) 40 mg tablet Take 40 mg by mouth nightly. Taking Historical Provid erMD busPIRone (BUSPAR) 30 MG tablet take 1 tablet by mouth twice a day Taking Historical Prov iderMD clonazePAM (KLONOPIN) 0.5 mg tablet Take 0.5 [...] 25 mg 2 times daily. Taking Historical Provi MD layne nitroglycerin (NITROSTAT) 0.[address] [...] HISTORY: FAMILY HISTORY: Allergies Allergen Reactions Penicillins Hives reports that she has quit smoking. She [...] signed by: Choco Russell MD 06/13/2019 13:20 [facility] initial inpatient hospital time greater than 70 minutes with 1/2 spent on face to face ti me for assessment and plan -Medical Decision Maker Patient. Assessment and Plan were discussed with patient -[facility] Documentation I expect this patient will be hospitalized for 2 or more days and expect the post-hospital plan to be home. -I reviewed relevant imaging, EKG and old records. documented in this encou nter Nursing Notes Hina Arthur RN - 06/13/2019 1:50 PM PDTPatient's brother, Aaron Calvert is her main contac t # . documen chica in this encounter ED Notes Danii Davison RN - 06/13/2019 12:50 PM PDTPt arrives by ambulance from [facility] ED, where she was evaluated for [...] to desat follo wing dilaudid admin at [facility]. She arrives with splint in place.Electronically gene d by Danii Davison RN at 06/13/2019 12:56 PM PDTFranco, Lakesha Anderson RN - 06/13/20 12:11 PM PDTReport received from BONNIE García. Pt had a syncopal episode this AM while hea ding to the bathroom, pt arrived at [place] ER with right ankle external rotation and [...] Notes Plan of Care - Heidi Mendez, [facility] - 06/14/2019 5:05 PM PDTDischarge Planning Goal: Pt to be discharged in a safe manner Summary /Intervention: Pt discharged home prior to case management follow up. Telephone call to pt brother, Aaron ([phone]). Aaron states they are doing "ok", were a ble to get Walter home safely. They have the wheelchair, bedside commode, bath bench. They were unable to get a sliding b oard but he states he will look for one in [place] tomorrow. Discussed potential cost of DME, explained that [facility] typically requires pre authoriz ation and if the cost of DME is prohibitive, I encouraged Aaron to call case management. I g ave him my direct number and BONNIE Joyner CM number. Discussed home health referral. Aaron states that they would find this support beneficial a nd welcome a referral. Telephone call to [facility] ). Spoke with RN dixonac operator, Candace. Discussed referral and faxed referral and clinical information (with verification of trans mission). Candace states she will follow up with pt tomorrow Plan: Pt discharged home with family support, DME, and home health Electronically signed by: MCIHAEL Brandt 06/14/2019 17:05 lan of Care - Kristina Thomas RN - 06/14/2019 3:35 PM PDTSusan requested PRN pain medication once thi s shift, reported pain relief. Dressing to RLE CDI. Wiggles toes, toes pink and warm with b risk refill. VSS. Moving from bed to wheelchair to commode with lateral transfer. Refused [facility], stated she was a "picky eater" and would have something when she got home. Discharged t o home with assist after education on follow up care and CM for help with DME. lan of Care - Anya Butts RN - 06/14/2019 11:34 AM PDTCare Potato Chip Sorter F/U Aaron from PT assessed pt on her transfers and recommends a sliding board for transfers.,a b ath bench, a drop arm commode, and the WC which he states has to be 20 "wide and 18" deep. Message left for [employer] to see if that equipment is available. Ivy the insurance manager for notified that he is discharging later today. Friends will transport her home in a [employer] [place]. Enc use of the slider board other than manual transfers.Electronically signed by: Anya Butts RN 06/14/2019 11:44 [employer] wire rope sales representative here. Aaron from PT spoke with him regaurding Walter's needs for equipm ent. Orders faxed to [employer] with face sheet, OP note, insurance info. Electronically signed by: Anya Butts RN 06/14/2019 12:53 Brother and [id number] back in visiting Walter. Let them all know the WC will be delive red shortly. Insurance will pay for the WC, but not the commode or slider board. They woul d like to know prices of the equipment. Will make recommendations. Electronically signed by: Anya Butts RN 06/14/2019 13:14 lan of Care - Sil sullivan, Rome Murrell, FITNESS COORDINATOR - 06/14/2019 10:43 AM PDTSusan exceeded her IS goal. She took scheduled tx well and did not require PRN tx. BS are clear and she denies SOB. She was 97% on RA with one desaturation earlier. She used hospital BiPAP overnight with nasal prongs, which she tolera chica well. lan of Ca re - KocsCali mujica, OT - 06/14/2019 10:40 AM PDTFormatting of this note might be differen t from the original. . [facility] Occupational Therapy OPIB Plan of Care Initial [...] , so she was advised to use information writer and to dress RLE first and to undress it last when donni ng/doffing pants and underwear LB Dressing, Level of [place]: moderate assist (50% patient effort) Assistive Device: information writer LB Dressing Assess/Train, Position: sitting LB Dressing Impairments: strength decreased, decreased flexibility Cognitive grossly WFL Bed Mobility Assistive Device: bed rails, HOB elevated Supine to Sit, Level of [place]: moderate assist (50% patient effort) Sit to Supine, Level of [place]: moderate assist (50% patient effort) Impairments: coordination impaired, impaired balance, strength decreased, sensation decreas ed, ROM decreased, decreased flexibility, pain Transfers pt unable to perform sit<>stand or tub bench transfers. Is able to perform lateral, sliding board or partial stand-pivot transfers between bed and w/c Bed-Chair, Level of [place]: moderate assist (50% patient effort), 1 person + 1 person to manage equipment Chair-Bed, Level of [place]: moderate assist (50% patient effort), 1 person + 1 person to manage equipment [id number]-[id number]-Rst, Assistive Device: wheelchair, sliding board Impairments: decreased flexibility, strength decreased, pain ROM BUE WFL Strength BUE grossly 3-/5 throughout OT Goal Review Date Most Recent Value STG Review Date 06/14/19 at 06/14/2019 1040 Additional Goals #1 OT Most Recent Value STG Status new, met at 06/14/2019 1040 STG pt able to initiate problem-solving of home safety, mobility, and BADLs with OT for di scharge planning at 06/14/2019 1040 Medicare Functional Limitation Reporting: OT Time Calculation OT Individual Start Time: 924 OT Individual Stop Time: 1040 OT Individual Total Time: 75 OT Missed Treatment Time: 0 OT Total Treatment Time: 75 Timed TX Code Minutes: 60 Electronically signed by: Cali Yang, OT, 06/14/2019 16:28 ICD-10-CM ICD-9-CM 1. Closed right ankle fracture, initial encounter S82.891A 824.8 DME: Misc wheelchair DME: Misc wheelchair 2. Anticoagulated Z79.01 V58.61 3. Essential hypertension I10 401.9 4. Hypothyroidism, unspecified type E03.9 244.9 5. Morbid obesity (HCC) E66.01 278.01 Referral to Home Health - OUTPATIENT 6. Closed fracture dislocation of left ankle, initial encounter S82.172A 824.8 Referral to Home Health - OUTPATIENT lan of Care - Dl Dyer, PT - 06/14/2019 10:35 AM PDTFormatting of this note might be different fr om the original. [facility] Physical Therapy OPIB Plan of Care Initial [...] commode after calling her family and dorys copeland that her bathroom door is only 23 inches wide at home and she has at least 2 steps to ente r home (and she cannot walk) Family is building her a ramp as instructed by PT today, and sh e will need addl training for safe use [...] and is now NWB RLE until s urgery can be scheduled in her home town [...] HOB elevated Supine to Sit, Level of [place]: moderate assist (50% patient effort) Sit to Supine, Level of [place]: moderate assist (50% patient effort) Impairments: coordination impaired, impaired balance, strength decreased, sensation decreas ed, ROM decreased, decreased flexibility, pain Transfers Bed-Chair, Level of [place]: moderate assist (50% patient effort), 1 person + 1 person to manage equipment Chair-Bed, Level of [place]: moderate assist (50% patient effort), 1 person + 1 person to manage equipment Fue-Vzizt-Iwf, Assistive Device: wheelchair, sliding board Gait scooting to WC only, pt unable to stand unable to ambulate on LLE with FWW, even with 2P as sist is unsafe to stand on LLE and maintain NWB RLE Level of [place]: minimal assist (75% patient effort), 1 person + 1 person to manage e quipment Assistive Device: wheelchair Stairs Unsafe to attempt Wheelchair Mobility Jazmin height, elevating R leg rest, 20 inch seat width Type: jazmin height manual Surface: indoor, level Distance (feet): 20 Speed: slow Level of [place]: contact guard assist Propulsion Technique: bilateral UE's, jazmin technique Components: brakes, foot rests/ foot platforms Components Management Assistance: moderate assist (50% patients effort) Balance Fair- Functional Endurance fair ROM ROM is grossly WFL on LLE, RLE not formally tested due to dressings and splint Strength L LE Strength: grossly 3-/5, Unable to stand on LLE R LE Strength: gorssly 2/5 [facility] BASIC MOBILITY Turning from your back [...] Mobility Six Click AM-PAC: 11 Completed the [facility] Activity Measure for Post Acute Care (AM-PAC) "6 Clicks" [facility] Mobility Inpatient Short Form. This version of the AM-PAC is an assessment tool used to measure a person's level of disability in performing basic mobility tasks. Walter's score i ndicates a performance of 72.57% impairment in the functioning of basic mobility. Raw Score - Functional Limitation % (for [facility]) - "Severity Modifier" CN 6 - 100.00 [...] Recent Value STG Status new at 06/14/2019 09 STG [place] Level modified independent at 06/14/2019 0925 STG Assistive Device bed rails, HOB elevated at 06/14/2019 09 Veq-Omfbn-Fuj Goal Most Recent Value STG Status new at 06/14/2019 09 STG [place] Level contact guard assist at 06/14/2019 09 STG Assistive Device wheelchair, sliding board at 06/14/2019 0925 Wheelchair Goal Most Recent Value STG Status new at 06/14/2019 09 STG pt demo mod I from WC level for 50 ft independent propuslion at 06/14/2019 09 Medicare Functional Limitation Reporting: Electronically signed by: Dl Morse, PT, 06/14/2019 13:27 ICD-10-CM ICD-9-CM 1. Closed right ankle fracture, initial encounter S82.891A 824.8 DME: Misc wheelchair DME: Misc wheelchair 2. Anticoagulated Z79.01 V58.61 3. Essential hypertension I10 401.9 4. Hypothyroidism, unspecified type E03.9 244.9 5. Morbid obesity (HCC) E66.01 278.01 lan of [facility] FITNESS COORDINATOR - 06/14/2019 4:26 AM PDTSusan oxygen saturation [...] night, 3L 02 bleed in lan of Care Kristina Buck RN - 06/13/2019 7:39 PM PDTSusan arrived [...] rge home with assist, with surgery in [place] after swelling resolves. Electronically sig andres by Kristina Jain, RN at 06/13/2019 7:46 PM PDTPlan of Heidi Laurent LI WATCH ENGINE OPERATOR - 06/13/2019 4:28 PM PDTDischarge Planning Goal: Pt to be discharged in a safe manner Summary /Intervention: Met with patient, (Walter) and her brother, Aaron who is at bedside. Pt is in bed, just back from surgery. She appears drowsy but is awake and participates in discussion. Walter lives with her brother and friend who assists with her care.Their home is single leve l with 2 steps to enter and "a [...] Romero DO - 06/13/2019 2:[address] [facility] Operative Note Patient: Walter Calvert Date: 06/13/2019 PREOPERATIVE DIAGNOSIS: Right Ankle Fx/dislocation Postoperative diagnosis: Right ankle fracture dislocation SURGICAL PROCEDURE: Procedure(s) (LRB): CLOSED REDUCTION AND SPLINTING OF RIGHT ANKLE FRACTURE (Right) INDICATIONS: fracture IMPLANTS: * No implants in log * surgeon: Adelfo Mckenzie DO paralegal assistant: None ANESTHESIOLOGIST: Anesthesiologist: Adalid Oconnor MD ANESTHESIA: [...] | 2019 | Visit | | [address] | | | | | | [place], | | | | | | [place] [address] | | | | | | [phone] | | | | | | | | +--------+ + + + + | 11/23/ | Implant | Cardiology | Claudine Gallegos, | Pacemaker | | 2019 | Monitor | | [address] [facility] | reprogramming/check | | | | | [place], | (Primary Dx); | | | | | [place] [address] | Tachycardia-bradycar | | | | | [phone] | samuel (HCC); | | | | [...] [place], | | | | | | [place] [address] | | | | | | [phone] | | | | | | | [...] - OUTPATIENT | Referral | e | ([facility]) Closed | | | | | | [...] | + +--------+ + + + | RHETT HURTADO TOP | Routin | 06/13/2019 | | [...] - | | | | | | 2018 | | | 12:45 | | | [...] | | | MRN: | | | [id number] | | | [id number] | | | riteri | | | [...] | | | St. | | | [place] | | | y | | | [...] | | | St. | | | [place] | | | y H. | | [...] | | | St. | | | [place] | | | y H. | | [...] | | | St. | | | [place] | | | y H. | | [...] | | | St. | | | [place] | | | y H. | | [...] | | | St. | | | [place] | | | y H. | | [...] | | | St. | | | [place] | | | y H. | | [...] | | | ent/77 | | | [id number] | | | -[id number] | | | [id number] | | | [id number] | | | [id number] | | | [id number] | | | [...] | | | | ROBYN GARZA MD ([id number]) | | | | | | on [...] [address] | [place] | [phone] | | [facility] | | [address] | | | - LABORATORY | | [...] ST. | [address] | [place] | [phone] | | [facility] | | [address] | | | - LABORATORY | | [...] (L) | 9 - 23 mg/dL | [facility] | | | | | [facility] | | | | | | MEDICAL | | | | | | CENTER - | | | | | | LABORATORY | | + + + + + + | Creatinine | 0.69 | 0.55 - 1.02 | [facility] | | | | | mg/dL | [facility] | | | | | | MEDICAL | | | | | | CENTER - | | | | | | LABORATORY | | + + + + + + | eGFR, | >60Comment: GLOMERULAR | >=60 | [facility] | | | non- | FILTRATION | mL/min/1.73m2 | [facility] | | | Stateless | RATE,ESTIMATED | | MEDICAL | | | | mL/min/1.42o1Nhoc than | | CENTER - | | [...] | + + + + + | [facility] | [address] | [place] | [phone] | | [facility] | | [address] | | | - LABORATORY | | [...] | | AM | | ug/dL | [facility] | | | | | [...] + | [facility] | [address] | [place], [place] | [phone] | | [facility] | | [address] | | | - LABORATORY | | [...] | | | Cells | | | [facility] | | | | | | MEDICAL | | | | | | CENTER - | | | | | | LABORATORY | | + + + + + + | Red Blood | 4.27 | 3.70 - 5.20 | [facility] | | | Cells | | M/uL | [facility] | | | | | | MEDICAL | | | | | | CENTER - | | | | | | LABORATORY | | + + + + + + | Hemoglobin | 10.7 (L) | 11.5 - 16.0 | [facility] | | | | | g/dL | [facility] | | | | [...] | | | Count | | | [facility] | | | | | | MEDICAL | | | | | | CENTER - | | | | | | LABORATORY | | + + + + + + | MPV | 11.8 | 6.5 - 12.4 fL | [facility] | | | | | | [facility] | | | | | [...] | 0.00 | 0.00 - 0.01 | [facility] | | | nRBC | | K/uL | [facility] | | | | [...] [address] | [place] | [phone] | | [facility] | | [address] | | | - LABORATORY | | | | + + + + + Extra Stephy Olea Tube (06/13/2019 3:40 PM PDT) + +-------+ + + + | Component | Value | Ref Range | Performed | Pathologist | | | | | At | Signature | + +-------+ + + + | Extra | Done | | [facility] | | | Lavender | | | [facility] | | | Top Tube | [...] [address] | [place] | [phone] | | [facility] | | [address] | | | - LABORATORY | | | | + + + + + Magnesium (06/13/2019 3:39 PM PDT) + +-------+ + + + | Component | Value | Ref Range | Performed | Pathologist | | | | | At | Signature | + +-------+ + + + | Magnesium | 1.7 | 1.6 - 2.6 mg/dL | [facility] | | | | | | [facility] | | | | | [...] | + + + + + | [facility] | [address] | [place] | [phone] | | [facility] | | [address] | | | - LABORATORY | | | | + + + + + Basic Metabolic Panel (06/13/2019 3:39 PM PDT) + + + + + + | Component | Value | Ref Range | Performed | Pathologist | | | | | At | Signature | + + + + + + | Na | 139 | 136 - 145 | [facility] | | | | | mmol/L | [...] 29 | 20 - 31 mmol/L | [facility] | | | | | | [facility] | | | | | | MEDICAL [...] (H) | 60 - 106 mg/dL | [facility] [...] mL/min/1.73m2 | [facility] | | | Stateless | RATE,ESTIMATED | | MEDICAL | | | | mL/min/1.65w1Xdhp than | | CENTER - | | [...] ST. | [address] | [place] | [phone] | | [facility] | | [address] | | | - LABORATORY | | [...] [address] | [place] | [phone] | | [facility] | | [address] | | | - LABORATORY | | | | + + + + + B Type Natriuretic Peptide (06/13/2019 3:38 PM PDT) + +---------+ + + + | Component | Value | Ref Range | Performed | Pathologist | | | | | At | Signature | + +---------+ + + + | BNP | 121 (H) | <100 pg/mL | [facility] | | | | | | [facility] | | | | | [...] | + + + + + | [facility] | [address] | [place] | [phone] | | [facility] | | [address] | | | - LABORATORY | | | | + + + + + [place] Laine-Jack Statmaggi No Charge (06/13/2019 2:33 PM PDT) + + | [...] - 1.030 | [facility] | | | [place], | | | [facility] | | [...] | | Comment | Indicated | | [facility] | | | [...] [address] | [place] | [phone] | | [facility] | | [address] | | | - LABORATORY | | [...] filedocumented in this encounter Administered Medications + +--------+ [...]
--- OUTSIDE RECORDS SUMMARY | ~2020-09-13 | XMS | Encounter Summary ---
Demographics + + + | Address | [address] | | | [place] [address] | + + + | Home Phone | | + + + | Preferred Language | Unknown | + + + | Marital Status | Single | + + + | Advent Affiliation | 1073 | + + + | Race | White | + + + | Ethnic Group | Not or | + + + Author + + + | Author | [facility] | | | and [place] | + + + | Organization | [facility] | | | [...] Team Providers + +------+ + | Care Geriatric Nurse Assistant Name | Role | Phone | + [...] | +--------+ + + + + | 05/24/ | Implant | [facility] [place] | Claudine Gallegos, | Pacemaker | | 2020 | Monitor | CARDIOLOGY [address] | MD [address] | reprogramming/check | | | | [place], | [place], | (Primary Dx); | | | | [place] [address] | [place] [address] | Pacemaker, Dual | | | | [phone] | [phone] | [place], [address] [place], | | | [...] encounter Procedure Notes Claudine Gallegos MD - 05/24/2020 11:59 PM PDTAssociated Order(s): DEVICE INTERROGATION- R EMOTEProcedure(s): DEVICE INTERROGATION- REMOTEPre-Procedure Diagnose(s): Pacemaker reprogra mming/check; Pacemaker; Tachycardia-bradycardia (HCC)Date of Remote Interrogation: 03/01/2020 Refer to Paceart documentation and remote PDF scanned into Everpurse for remote interrogation re sults. Data collected by Manda Seaman RN Presenting rhythm: sinus rhythm atrial sensed ventricular sensed between 60-67 beats. 7 mode switch episodes accounting for <1% of the time. The longest occurred 01/18/2020 at 9: 10 AM for 5 minutes 12 seconds. EGM is consistent with PSVT with rate 114-210 beats. 2 ventricular high rate episodes. The longest occurred 12/26/2019 at 12:10 PM for 2 seconds. EGM is consistent with PSVT 180-200 beats. PVC singles 33,000 PVC singles 11,000/month Histogram good. Battery longevity 8.7-11.0 years. Apparent normal and stable device function. Patient notified and reports she is having about the same amount of symptoms, she had an es pecially bad night 03/28 around 5-7 AM and on 03/13/2020 she passed out, fell and broke her lef t ankle. She is scheduled to be seen 04/19/2020. documented in this encounter Plan of Treatment +--------+ + + + + | Date | Type | Specialty | Care Team | Description | +--------+ + + + + | 10/10/ | Office | Cardiology | Claudine Gallegos, | | | 2019 | Visit | | MD Mark Garcia | | | | | | [place], | | | | | | [place] [address] | | | | | | [phone] | | | | | | | | +--------+ + + + + | 11/23/ | Implant | Cardiology | EddieClaudine hughes, | Pacemaker | | 2019 | Monitor | | MD Mark Garcia | reprogramming/check | | | | | [place], | (Primary Dx); | | | | | [place] [address] | Tachycardia-bradycar | | | | | [phone] | samuel (HCC); | | | | [...] [place], | | | | | | [place] [address] | | | | | | [phone] | | | | | | | | +--------+ + + + + documented as of this encounter Procedures + +--------+ + + + | Procedure Name | Priori | Date/Time | Associated Diagnosis | Comments | | | ty | | | | + +--------+ + + + | DEVICE | Routin | 05/24/2020 | Pacemaker | Results for this | [...] | | | | | | samuel ([facility]) | | + +--------+ + + + documented in this encounter Results Device Interrogation - Remote (05/24/2020 11:59 PM PDT) + + + | Narrative | Performed At | + + + | Claudine | REBEKAH | | MD Rosy 03/28/2020 4:23 PMDate of Remote Interrogation: | | | 03/01/2020 Refer to Paceart documentation and remote PDF scanned into | | | Everpurse for remote interrogation results. Data collected by Manda Segundo | | | BONNIE Seaman Presenting rhythm: sinus rhythm atrial sensed ventricular | | | sensed between 60-67 beats.7 mode switch episodes accounting for <1% | | | of the time. The longest occurred 01/18/2020 at 9:10 AM for 5 minutes | | | 12 seconds. EGM is consistent with PSVT with rate 114-210 beats.2 | | | ventricular high rate episodes. The longest occurred 12/26/2019 at | | | 12:10 PM for 2 seconds. EGM is consistent with PSVT 180-200 | | | beats.PVC singles 33,000 PVC singles | | | 11,000/monthHistogram good. Battery longevity 8.7-11.0 | | | years.Apparent normal and stable device function.Patient notified and | | | reports she is having about the same amount of symptoms, she had an | | | especially bad night 03/28 around 5-7 AM and on 03/13/2020 she passed | | | out, fell and broke her left ankle. She is scheduled to be seen | | | 04/19/2020. | | |Apparent normal and stable device function. | | |Patient notified and reports she is having about the same amount | | |of symptoms, she had an especially bad night 03/28 around 5-7 AM | | |and on 03/13/2020 she passed out, fell and broke her left ankle. | | |She is scheduled to be seen 04/19/2020. | | | | | | | [...]
--- OUTSIDE RECORDS SUMMARY | ~2020-09-13 | XMS | Encounter Summary ---
Demographics + + + | Address | [address] | | | [place] [address] | + + + | Home Phone | | + + + | Preferred Language | Unknown | + + + | Marital Status | Single | + + + | Holiness Affiliation | 1073 | + + + | Race | White | + + + | Ethnic Group | Not or | + + + Author + + + | Author | [facility] | | | and [place] | + + + | Organization | [facility] | | [...] Team Providers + +------+ + | Care Public Service Officer Name | Role | Phone | + [...] [phone] | | | | | ([facility]) | [address] | [address] | | | | | Frequent | [address] | | | | | falls | D | [place], [place] | | | | | Romero sign | [place], | [address] | | | | | present | [place] [address] | Phone: | | | | | Procedures | Phone: | [phone] | | | | | MRI Thoracic | [phone] | Fax: | | | | | Spine w wo | Fax: | [phone] | | | | | Contrast | [phone] | | +--------+--------+ + + + + [...] | | | falls | D | [place], [place] | | | | | Romero sign | [place], | [address] | | | | | present | [place] [address] | Phone: | | | | | Procedures | Phone: | [phone] | | | | | MRI Thoracic | [phone] | Fax: | | | | | Spine w wo | Fax: | [phone] | | | | | Contrast | [phone] | | +--------+--------+ + + + + Encounter Details +--------+ + + + + | Date | Type | Department | Care Team | Description | +--------+ + + + + | 04/14/ | Hospital | [facility] | Amarjit Fisher MD [address] | Myelopathy (HCC); | | 2019 | Encounter | [facility] | [address] | Frequent falls; | | | | [address] | [address] [place], | Heather sign present | | | | [place] | [place] [address] | | | | | [address] | [phone] | | | | | [phone] | | | +--------+ + + + [...] | | | | | | [place] [address] | | | | | | [phone] | | | | | | | | +--------+ + + + + | 11/23/ | Implant | Cardiology | Claudine Gallegos, | Pacemaker | | 2019 | Monitor | | MD Mark Garcia | reprogramming/check | | | | | [place], | (Primary Dx); | | | | | [place] [address] | Tachycardia-bradycar | | | | | [phone] | samuel ([facility]); | | | | | | [...] | | | | | | [place] [address] | | | | | | [phone] | | | | | | | | +--------+ + + + + documented as of this encounter Procedures + +--------+ + + + | Procedure Name | Priori | Date/Time | Associated Diagnosis | Comments | | | ty | | | | + +--------+ + + + | MRI THORACIC SPINE W | Routin | 04/14/2020 | Myelopathy (HCC) | Results for this | | WO CONTRAST | e | 3:43 PM | Frequent falls | procedure are in the | | | | PDT | Heather sign present | results section. | + +--------+ + + + documented in this encounter Results MRI Thoracic Spine w wo Contrast (04/14/2020 3:43 PM PDT) + + | Specimen | + + | | + + + + + | Impressions | Performed At | + + + | 1. Thoracic spinal cord is normal in signal intensity and morphology | [facility] | | with no evidence of myelopathy, syrinx or hydromyelia. 2. Slightly | | | increased thoracic kyphosis noted centered at the T6-7 level. As a | | | result the cord is draped over the posterior margins of T6 and T7. | | | Tiny disc bulges at these levels abut the anterior cord perhaps | | | causing minimal indentation without canal stenosis. 3. A 2 x 4 mm | | | right paramidline disc protrusion is seen at T9-10 which does not | | | abut or indent the cord. Signed by: Erica Guadarrama Edward | | | Sign Date/Time: 04/15/2020 8:14 AM | | + + + + + + | Narrative | Performed At | + + + | MRI THORACIC SPINE WITHOUT AND WITH CONTRAST CLINICAL | [facility] | | INFORMATION: Myelopathy. Frequent falls. Romero sign. | | | COMPARISON: None PROCEDURE: Sagittal T2, axial T2, sagittal T1, | | | axial T1, sagittal STIR, axial T1 enhanced, and sagittal T1 enhanced | | | sequences. Contrast: 9 ml gadavist IV. FINDINGS: Alignment: | | | Slightly increased thoracic kyphosis is noted centered at the T6-7 | | | level. Vertebrae and vertebral marrow signal: Normal. Thoracic | | | cord: The thoracic cord is normal in size and signal intensity | | | showing no evidence of myelopathy. No areas of abnormal enhancement | | | are seen in the cord or exiting nerve roots. There is no evidence | | | of syrinx or hydromyelia. The thoracic spinal canal is patent at | | | all levels. Thoracic disc levels: The thoracic discs show mild | | | narrowing at T6-7, T7-8. The posterior contours of these discs show | | | minimal bulges. Due to the mild kyphosis, the cord is draped over | | | the posterior margins of the T6 and T7 vertebral bodies allowing | | | these minimal disc bulges to slightly indent the anterior cord at | | | these levels without cord signal change or significant canal | | | stenosis. A 2 x 4 mm right paramidline disc protrusion is seen at | | | T9-10 which does not abut or indent the cord, image 8 series 12, | | | image 6 series 6. The neural foramina are patent at all levels in | | | the thoracic spine. The facet joints are normal at all levels. | | | Paraspinal musculature and paravertebral soft tissues: Normal. The | | | coronal T2 series shows a normal appearance of the heart, lungs, | | | liver, spleen, adrenal glands. The kidneys demonstrate a simple 9 mm | | | cyst in the right kidney and extrarenal pelves bilaterally. | | + + + + + | Procedure Note | + + | Patrick, Rad Results In - 04/15/2020 8:18 AM PDT | | MRI THORACIC SPINE WITHOUT AND WITH CONTRAST | | | | CLINICAL INFORMATION: | | Myelopathy. Frequent falls. Rom[place] sign. | | | | COMPARISON: | | None | | | | PROCEDURE: | | Sagittal T2, axial T2, sagittal T1, axial T1, sagittal STIR, axial T1 | | enhanced, and sagittal T1 enhanced sequences. | | | | Contrast: 9 ml gadavist IV. | | | | FINDINGS: | | Alignment: Slightly increased thoracic kyphosis is noted centered at | | the T6-7 level. | | | | Vertebrae and vertebral marrow signal: Normal. | | | | Thoracic cord: The thoracic cord is normal in size and signal intensity | | showing no evidence of myelopathy. No areas of abnormal enhancement | | are seen in the cord or exiting nerve roots. There is no evidence of | | syrinx or hydromyelia. The thoracic spinal canal is patent at all | | levels. | | | | Thoracic disc levels: The thoracic discs show mild narrowing at T6-7, | | T7-8. The posterior contours of these discs show minimal bulges. Due | | to the mild kyphosis, the cord is draped over the posterior margins of | | the T6 and T7 vertebral bodies allowing these minimal disc bulges to | | slightly indent the anterior cord at these levels without cord signal | | change or significant canal stenosis. A 2 x 4 mm right paramidline | | disc protrusion is seen at T9-10 which does not abut or indent the | | cord, image 8 series 12, image 6 series 6. The neural foramina are | | patent at all levels in the thoracic spine. The facet joints are | | normal at all levels. | | | | Paraspinal musculature and paravertebral soft tissues: Normal. | | | | The coronal T2 series shows a normal appearance of the heart, lungs, | | liver, spleen, adrenal glands. The kidneys demonstrate a simple 9 mm | | cyst in the right kidney and extrarenal pelves bilaterally. | | | | IMPRESSION: | | 1. Thoracic spinal cord is normal in signal intensity and morphology | | with no evidence of myelopathy, syrinx or hydromyelia. | | 2. Slightly increased thoracic kyphosis noted centered at the T6-7 | | level. As a result the cord is draped over the posterior margins of T6 | | and T7. Tiny disc bulges at these levels abut the anterior cord | | perhaps causing minimal indentation without canal stenosis. | | 3. A 2 x 4 mm right paramidline disc protrusion is seen at T9-10 which | | does not abut or indent the cord. | | | | | | | | | | Signed by: Erica Guadarrama Edward | | Sign Date/Time: 04/15/2020 8:14 AM | + + + +---------+ + [...]
--- OUTSIDE RECORDS SUMMARY | ~2020-09-13 | XMS | Encounter Summary ---
Demographics + + + | Address | [address] | | | [place] [address] | + + + | Home Phone | | + + + | Preferred Language | Unknown | + + + | Marital Status | Single | + + + | Christian Affiliation | 1073 | + + + | Race | White | + + + | Ethnic Group | Not or | + + + Author + + + | Author | [facility] | | | and [place] | + + + | Organization | [facility] | | | [...] Team Providers + +------+ + | Care Railroad Brake Repairer Name | Role | Phone | + +------+ + | August Sanford | PCP | | + +------+ + Reason for Visit +--------+--------+ + | Reason | Onset | Comments | | | Date | | +--------+--------+ + | LABS | 04/22/ | returning medical assistants call | | | 2020 | | +--------+--------+ + Encounter Details +--------+ + + + + | Date | Type | Department | Care Team | Description | +--------+ + + + + | 04/22/ | Telephone | [facility] | Amarjit Fisher MD [address] | LABS (returning | | 2019 | | NEUROLOGY [address] | [facility] | medical assistants | | | | [place] | [address] [facility], | call) | | | | [place], [place] | [place] [address] | | | | | [address] | [phone] | | | | | [phone] | | | +--------+ + + + [...] Miscellaneous Notes Telephone Encounter - Donnie Klein, Hot Saw Helper - 04/22/2020 11:07 AM PDTFaxed f or results elephone Encounter - Lilly Almaguer - 04/22/2020 10:36 AM PDTSusaadam, is calling [employer] (returning medical assistants call) and would like a call back. Additional Call Details: Message for Glenn. Patient had blood drawn at [facility] number If this is a symptom based call, was patient offered triage? Not Applicable If this is a symptom based call and you were unable to immediately transfer the call to a p aramis cut to length operator was caller made aware that if at [...] | | | | | | [place], | | | | | | [place] [address] | | | | | | [phone] | | | | | | | | +--------+ + + + + | 11/23/ | Implant | Cardiology | Jacquiadam Brigitteemanuelnhung, | Pacemaker | | 2019 | Monitor | | MD Mark Garcia | reprogramming/check | | | | | [place], | (Primary Dx); | | | | | [place] [address] | Tachycardia-bradycar | | | | | [phone] | samuel (HCC); | | | | [...] [place], | | | | | | [place] [address] | | | | | | [phone] | | | | | | | | +--------+ + + + + documented as of this encounter Visit Diagnoses Not on filedocumented in this encounter"
--- OUTSIDE RECORDS SUMMARY | ~2020-09-13 | XMS | Encounter Summary ---
Demographics + + + | Address | [address] | | | [place] [address] | + + + | Home Phone | | + + + | Preferred Language | Unknown | + + + | Marital Status | Single | + + + | Roman Catholic Affiliation | 1073 | + + + | Race | White | + + + | Ethnic Group | Not or | + + + Author + + + | Author | [facility] | | | and [place] | + + + | Organization | [facility] | | | and [...] Team Providers + +------+ + | Care Complaint Inspector Name | Role | Phone | + [...] + + | 12/26/ | Hospital | [facility] | Claudine Gallegos, | Chest pain, | | 2019 | Encounter | MED CTR NUCLEAR | MD [address] | unspecified type | | | | MEDICINE [address], | | | | | [place], | [place] [address] | | | | | [place] [address] | [phone] | | | | | [phone] | | | | | | | [facility] | | +--------+ + + + + [...] Weight | 115.7 kg (255 lb) | 12/26/2018 2:00 PM | | | | | PST | | + + + + + | Height | - | - | | + + + + + | Body Mass Index | 43.77 | 12/16/2018 3:14 PM | | | | | PST | | + + + + + documented in this encounter Medications at Time [...] 1 tablet by | | 0 | 11/20/ | | | 30 MG tablet | [...] | | | | | | [place] [address] | | | | | | [phone] | | | | | | | | +--------+ + + + + | 11/23/ | Implant | Cardiology | Claudine Gallegos, | Pacemaker | | 2019 | Monitor | | [address] | reprogramming/check | | | | | [place], | (Primary Dx); | | | | | [place] [address] | Tachycardia-bradycar | | | | | [phone] | samuel (HCC); | | | | [...] [place], | | | | | | [place] [address] | | | | | | [phone] | | | | | | | [...] aminophylline injection 75 mg | Given | 12/26/19 | 75 mg | | | | 75 mg, Intravenous, ONCE PRN, | | 19 2:01 | | | | | protocol, Starting 12/26/18 at | | PM PST | | | | | 1400, For 1 dose, Nuclear | | | | | | | Medicine | | | | | | + +--------+ +-------+------+------+ +---+---+ | | | +---+---+ + +-------+ + +--------+---+ | dipyridamole (PERSANTINE) 60mg | Given | 12/26/19 | 16.4294 | 657.2 | | | in 40 mL NS syringe 0.142 | | 19 2:30 | mg/min | mL/hr | | | mg/kg/min | | PM PST | | | | | 115.7 [...] TC-99M sestamibi | Given | 12/26/19 | 32.3 | | | | (CARDIOLITE) injection 32.3 | | 19 2:01 | millicur | | | | millicurie 32.3 millicurie, | | PM PST | ies | | | | Intravenous, ONCE PRN, Other, | | | | | | | Starting Sat12/26/18 at 1400, For | | | | | | | 1 dose, Nuclear Medicine | | | | | | + +-------+ + +---+---+ +---+---+ | | | +---+---+ documented in this encounter"
--- OUTSIDE RECORDS SUMMARY | ~2020-09-13 | XMS | Encounter Summary ---
Demographics + + + | Address | [address] | | | [place] [address] | + + + | Home Phone [...] Team Providers + +------+ + | Care Cement Kiln Operator Name | Role | Phone | [...] | | CARDIOLOGY [address] | [address] | | | | | [place], | [place], | | | | | [place] [address] | [place] [address] | | | | | [phone] | [phone] | | | | | | | [...] | | | | | | [place] [address] | | | | | | [phone] | | | | | | | | +--------+ + + + + | 11/23/ | Implant | Cardiology | Claudine Gallegos, | Pacemaker | | 2019 | Monitor | | MD Mark Garcia | reprogramming/check | | | | | [place], | (Primary Dx); | | | | | [place] [address] | Tachycardia-bradycar | | | | | [phone] | samuel ([facility]); | | | | | | [...] | | | | | | [place] [address] | | | | | | [phone] | | | | | | | | +--------+ + + + + documented as of this encounter Visit Diagnoses Not on filedocumented in this encounter"
--- OUTSIDE RECORDS SUMMARY | ~2020-09-13 | XMS | Encounter Summary ---
Demographics + + + | Address | [address] | | | [place] [address] | + + + | Home Phone [...] Author + + + | Author | [facility] | | | and [place] | + + + | Organization | [facility] | | | and [...] Team Providers + +------+ + | Care Aviation Maintenance Instructor Name | Role | Phone | + +------+ + | August Sanford | PCP | | + +------+ + Reason for Visit + + + | Reason | Comments | + + + | Follow-up | | + + + | Atrial Fibrillation | | + + + Follow Up (Routine) +--------+--------+ + + + + | Status | Reason | Specialty | Diagnoses / | Referred By | Referred To | | | | | Procedures | Contact | Contact | +--------+--------+ + + + + | Closed | | Cardiology | Diagnoses | Juvenal, | Rosy, | | | | | Ventricular | FRANCO Koch | MD Claudine | | | | | premature | [address] | | | | | depolarizati | [place] | [address] | | | | | on | [address] | [place], | | | | | Paroxysmal | [place], | [place] [address] | | | | | atrial | [place] [address] | Phone: | | | | | fibrillation | Phone: | [phone] | | | | | ([facility]) | [phone] | Fax: | | | | | Syncope and | Fax: | [phone] | | | | | collapse | [phone] | | | | | | Presence [...] + + | 04/19/ | Virtual | [facility] | Claudine Gallegos, | Tachycardia-bradycar | | 2019 | Office | CARDIOLOGY [address] | samuel ([facility]) (Primary | | | Visit | [address] [place], | [place], | Dx); [place] | | | | [place] [address] | [place] [address] | syncope; Paroxysmal | | | | [phone] | [phone] | atrial fibrillation | | | | | | ([facility]) | +--------+ + + + + Social [...] this encounter Last Filed Vital Signs + +---------+ + + | Vital Sign | Reading | Time Taken | Comments | + +---------+ + + | Blood Pressure | 130/82 | 04/19/2020 2:17 PM | | | | | PDT | | + +---------+ + + | Pulse | 78 | 04/19/2020 2:17 PM | | | | | PDT | | + +---------+ + + | Temperature | - | - | | + +---------+ + + | Respiratory Rate | - | - | | + +---------+ + + | Oxygen Saturation | - | - | | + +---------+ + + | Inhaled Oxygen | - | - | | | Concentration | | | | + +---------+ + + | Weight | - | - | | + +---------+ + + | Height | - | - | | + +---------+ + + | Body Mass Index | - | - | | + +---------+ + + documented in this encounter Functional [...] + documented as of this encounter Progress Claudine Combs MD - 04/19/2020 2:30 PM PDTFormatting of this note might be different f rom the original. This exam was initially conducted via a secure 256-bit AES encrypted bidirectional video alphacityguideson. Service was provided zjsd-[id number] with the patient via interactive videoconferencing Video start time 2:21 PM Video end time 2:29 PM Total time (in minutes) including non eoza-ga-hvwp time (reviewing records, documentation, etc..) 15 minutes You have chosen to receive care through the use of telemedicine. Telemedicine enables [facility] care providers at different locations to provide [...] your questions regarding telemedicine been answered? "Yes" Participant is currently at home Do you consent to the use of telemedicine in your medical care today? Yes. Last question, I need to confirm where are you physically located right now? Answer: Patient confirms they are located in a state where I, Claudine Gallegos MD am lice nsed. PATIENT NAME: Gris Krishnamurthy : 1965: AGE: 54 y.o. PRIMARY CARE: FRANCO Fernandes OUTPATIENT FOLLOW UP VISIT Date of Service: 04/19/2020 HISTORY OF PRESENT ILLNESS: Gris Krishnamurthy is a 54 y.o. female with a history of paroxysmal atrial fibrillation, PV D, hypertension, hyperlipidemia, and obstructive sleep apnea. She is being seen today for v irtual visit. She was last seen 09/03/2019 at which time patient was scheduled for loop recorder explanta tion and dual chamber pacemaker implantation. Since that time, on March 12 patient mention ed passing out on her way to the bathroom and braking her left ankle. Today, she reports feeling palpitations and flutters that keep her from sleeping. She repor ts having palpiations that happen daily. She has leg swelling and takes furosemide. Patient is physically inactive due to recent left ankle injury. There is no chest pain or chest disc omfort both at rest and on exertion. Patient denies breathlessness. There is no dizziness or lightheadedness. Patient can sleep on one pillow at night without difficulty breathing. MEDICAL, SURGICAL, AND PERSONAL HISTORY Past Medical, Surgical, Family, and Social History are reviewed in EPIC. CURRENT PROBLEMS Patient Active Problem List Diagnosis Syncope Pacemaker reprogramming/check Hypothyroid PVC (premature ventricular contraction) Past heart attack Essential hypertension Mixed hyperlipidemia Paroxysmal atrial fibrillation Chest pain, unspecified Anticoagulated Closed fracture dislocation of ankle Tachycardia-bradycardia Pacemaker, Dual Chamber, [place], MRI Capable, 09/30/19 Rosy CURRENT MEDICATIONS Current Outpatient Medications Medication Sig [...] 2 times daily. 1 tablet by mo uth two times daily ELIQUIS 5 MG tablet [...] Reactions Penicillins Hives ROS Review of Systems Respiratory: Negative for shortness of breath. Cardiovascular: Positive for palpitations and leg swelling. Negative for chest pain. Neurological: Negative for dizziness and weakness. Lightheaded = No OBJECTIVE: PHYSICAL EXAM BP 130/82 | Pulse 78 | LMP 08/29/2007 Physical Exam Constitutional: She is oriented to person, place, and time. She appears well-developed and well-nourished. No distress. Female individual, no acute distress. Pulmonary/Chest: Effort normal. No respiratory distress. Musculoskeletal: General: No edema. Neurological: She is alert and oriented to person, place, and time. Gait normal. Psychiatric: She has a normal mood and affect. Her mood appears not anxious. She does not e xhibit a depressed mood. LAB RESULTS reviewed during visit today primarily from [facility]: LIPID Lab Results Component Value Date CHOLHDL [...] 12/22/2018 PLT 249 06/14/2019 PLTEX 238 12/22/2018 I reviewed records from Amarjit Fisher MD for [facility] visit on 04/18/2020. Above data and testing is reviewed this visit; testing below is historical data unless othe rwise specified. ASSESSMENT: 1. Symptomatic paroxsymal supraventricular tachycardia A. Today, she reports feeling palpitations and flutters that keep her from sleeping. She r eports having palpiations that happen daily. She has leg swelling and takes furosemide. Yolanda ent is physically inactive due to recent left ankle injury. Due to her symptomatology, options of oral anti-rhythmic agents versus PSVT ablation were discussed in detail. Patient prefers oral antiarrhythmic agents at this time. 2. Paroxysmal atrial fibrillation, symptomatic tachycardia/bradycardia syndrome: [...] Successful loop recorder implantation on 05/04/16 at [facility]. D. Successful permanent pacemaker implantation and loop recorder explantation o n 09/30/2019 by Claudine Gallegos MD Her risks for stroke include: 0, Congestive Heart Failure/LV dysfunction (1), Hx of HTN (1 ), Age >/= 75 Y.O.(2), Diabetes (1), Stroke/TIA/Thrombo-embolism (2), Vascular disease (1 ), Age 65 to 74 (1) and Female Gender (1). Her [id number] score is 0 risk of stroke per ye ar in atrial fibrillation. Her bleeding risks include: ETOH (1). Her HASBLED score is 0-1, which confers a low risk (1-3.4%) risk of bleed per year. She was put on Eliquis by her c ardiologist in [place]. I didn't think that she needs long-term use oral anticoagulant rob use she has no risk factors. 2. Noncardiac chest pain: A. She was seen in the emergency department at [facility] on 12/22/18 for chest pain, sh [...] stress test. This was done on at [facility] showing a normal myocardial perfusion imaging study. B. Persantine nuclear medicine stress test 12/26/18 shows Persantine EKG is negative. Normal Persantine sestamibi myocardial perfusion imaging study. Normal left ventricular size, wal l thickness and motion. Preserved left ventricular systolic function. LVEF is 61%. Eviden ce of breast/anterior wall soft tissue attenuation. C. Today, she is asymptomatic. 3. Hypertension, essential: A. Today, her blood pressure is within target. 4. Hyperlipidemia, mixed: A. Patient is taking atorvastatin 40 mg. 5. Pulmonary hypertension, and mitral regurgitation: Not addressed today. A. Echocardiogram from [facility] read by [facility] on 10/20/18 denise wing left ventricular [...] Patient is scheduled with sleep specialist at [facility]. 6. PAD, carotid stenosis: Not addressed today. A. Carotid imaging on 05/02/16 shows 0-39% stenosis of right ICA, 0-39% stenosis of left ICA. By Mike Downey MD. 6. Hypothyroid. A. She is on thyroid supplement. 7. Obstructive sleep apnea. Not addressed today. A. Diagnosed in [place] in 2017. She tried 3 different masks, at least a m onth each. She believes she only had 90 minutes of sleep. Patient can not uses CPAP mask. Sh e reports of feeling claustrophobic. PLAN: 1. I spend time at length talking about natural course, treatment and prognosis of PSVT. 2. Initiate flecainide 100 mg twice a day to suppress PSVT. 3. I recommend a therapeutic lifestyle change including walking 30 minutes a day, choosing healthy choices of diet and 7 hours of high quality sleep a night. 4. Follow-up in three to four months. I, Diana Noe, am acting as a scribe on behalf of, and in the presence of Claudine land MD. I have reviewed and edited this note. Diana Noe, Bond Trader 04/19/2020 I, Claudine Gallegos MD, personally performed the services described in this documentation, as scribed in my presence and it is both accurate and complete. Diana Noe, Med Ass t 04/19/2020 2:19 PM Electronically signed by: Claudine Gallegos MD [facility] 04/19/2020 Portions of this chart may have been created with SwingShot voice recognition software. Occasi onal wrong-word or sound-alike substitutions may have occurred due to the inherent ryan itations of voice recognition software. Please read the chart carefully and recognize, using context, where these substitutions have occurred documented in this encounter Plan of Treatment +--------+ + + + + | Date | Type | Specialty | Care Team | Description | +--------+ + + + + | 10/10/ | Office | Cardiology | Claudine Gallegos, | | 2019 | Visit | | [address] [place] [address] | | | | | | [place], | | | | | | [place] [address] | | | | | | [phone] | | | | | | | | +--------+ + + + + | 11/23/ | Implant | Cardiology | Claudine Gallegos, | Pacemaker | | 2019 | Monitor | | [address] | reprogramming/check | | | | | [place], | (Primary Dx); | | | | | [place] [address] | Tachycardia-bradycar | | | | | [phone] | samuel (HCC); | | | | | | Pacemaker, Dual | | | | | | Chamber, [address] [place], | | | | | | MRI Capable, 09/30/19 | | | | | | Rosy | +--------+ + + + + | 03/08/ | Office | Neurology | Amarjit Fisher MD [address] | | | 2020 | Visit | | [address] | | | | | | [address] [place], | | | | | | [place] [address] | | | | | | [phone] | | | | | | | | +--------+ + + + + documented as of this encounter Visit Diagnoses + + | Diagnosis | + + | Tachycardia-bradycardia (HCC) - Primary Sinoatrial node dysfunction | + + | [place] syncope Conduction disorder, unspecified | + + | Paroxysmal atrial fibrillation [...]
--- OUTSIDE RECORDS SUMMARY | ~2020-09-13 | XMS | Encounter Summary ---
Demographics + + + | Address | [address] | | | [place] [address] | + + + | Home Phone [...] Team Providers + +------+ + | Care Auto Vinyl Top Installer Name | Role | Phone | + +------+ + | August Sanford | PCP | | + +------+ + Reason for Visit +---------+--------+ + | Reason | Onset | Comments | | | Date | | +---------+--------+ + | Results | 06/02/ | Loop recorder | | | 2019 | | +---------+--------+ + Encounter Details +--------+ + + + + | Date | Type | Department | Care Team | Description | +--------+ + + + + | 06/02/ | Telephone | [facility] [place] | Claudine Gallegos, | Results (Loop | | 2019 | | CARDIOLOGY [address] | MD [address] | recorder) | | | | [place], | [place], | | | | | [place] [address] | [place] [address] | | | | | [phone] | [phone] | | | | | | | [...] Telephone Encounter - Harmony Padilla RN - 06/02/2019 2:31 PM PDTLeft voice message with patient regarding loop recorder transmission from 05/26/2019. 5 symptom episodes with 4 charley rdings available. No arrhythmia/concerns. All recordings showing sinus bradycardia to sinu s rhythm 50-70's. No ectopy noted. Request that patient please [facility] associated symptoms. Electronically signed by: Harmony Padilla RN 06/02/2019 14:34 documented in this e ncounter Plan of [...] | | | | | | [place] [address] | | | | | | [phone] | | | | | | | | +--------+ + + + + | 11/23/ | Implant | Cardiology | Claudine Gallegos, | Pacemaker | | 2019 | Monitor | | MD Mark Garcia | reprogramming/check | | | | | [place], | (Primary Dx); | | | | | [place] [address] | Tachycardia-bradycar | | | | | [phone] | samuel (HCC); | | | | [...] | | | | | | [place] [address] | | | | | | [phone] | | | | | | | | +--------+ + + + + documented as of this encounter Visit Diagnoses Not on filedocumented in this encounter"
--- OUTSIDE RECORDS SUMMARY | ~2020-09-13 | XMS | Encounter Summary ---
Demographics + + + | Address | [address] | | | [place] [address] | + + + | Home Phone [...] | Author | [facility] | | | and [place] | + + + | Organization | [facility] | | | [...] Team Providers + +------+ + | Care Materials Mgmt Tech Name | Role | Phone | + [...] | Cardiology | Diagnoses | Juvenal, | Rosy | | | | | History of | FRANCO Koch | MD Dionisio | | | | | [place] | [address] | | | | | (myocardial | [place] | [address] | | | | | infarction) | [address] | [place], | | | | | Syncope | [place], | [place] [address] | | | | | Presence of | [place] [address] | Phone: | | | | | other | Phone: | [phone] | | | | | cardiac | [phone] | Fax: | | | | | implants and | Fax: | [phone] | | | | | grafts | [phone] | | | | | | Procedures | | | | | | | FINISH INSPECTOR - NEEDS | | | | | | | IC/THR APPT | | | +--------+--------+ + + + + Encounter Details +--------+---------+ + + + | Date | Type | Department | Care Team | Description | +--------+---------+ + + + | 12/16/ | Office | [facility] | Dionisio Gallegos, | Encounter for loop | | 2019 | Visit | CARDIOLOGY [address] | [address] | recorder check | | | | [place], | [place], | (Primary Dx); [place] | | | | [place] [address] | [place] [address] | implantable loop | | | | [phone] | [phone] | recorder Medtronic | | | | [...] + | Blood Pressure | 130/72 | 12/16/2018 3:14 PM | | | | | PST | | + + + + + | Pulse | 74 | 12/16/2018 3:14 PM | | | | | PST | | + + + + + | Temperature | - | - | | + + + + + | Respiratory Rate | 18 | 12/16/2018 3:14 PM | | | | | PST | | + + + + + | Oxygen Saturation | - | - | | + + + + + | Inhaled Oxygen | - | - | | | Concentration | | | | + + + + + | Weight | 115.9 kg (255 lb 8.2 | 12/16/2018 3:14 PM | | | | oz) | PST | | + + + + + | Height | 162.6 cm (5' 4") | 12/16/2018 3:14 PM | | | | | PST | | + + + + + | Body Mass Index | 43.86 | 12/16/2018 3:14 PM | | | | | PST | | + + + + + documented in this encounter Progress Notes Dionisio Gallegos MD - 12/16/2018 2:30 PM PSTFormatting of this note might be different f [...] servere chest pains at her home in [place]. She mentions her nonexertional, no n-radiating sharp chest pains episode would happen constantly. Patient reports having cindy re chest pains on November 29, , and of this year. Patient describes her sharp chest pain as, " an arrow shooting right through her right sided shoulder" that usually happens when s he laid down the left side. Patient recently moved to [place] on 06/25/2018. Today, patient complains of occasional [...] Medtronic Linq Loop Recorder Dr Neto Sanders [facility] Family History Problem Relation Age of [...] Successful loop recorder implantation on 05/04/16 at [facility]. Today, patient complains of occasional palpitations. Patient is physically inactive du e knee pain. There is no signs and symptoms of overt congestive heart failure. She is in a class I of [employer] [employer] functional class. There is no fluid retention on phys ical examination. Loop recorder reveals a normal stable functioning device. Her risks for stroke include: 0, Congestive Heart Failure/LV dysfunction (1), Hx of HTN (1 ), Age >/= 75 y.o.(2), Diabetes (1), Stroke/TIA/Thrombo-embolism (2), Vascular disease (1 ), Age 65 to 74 (1) and Female Gender (1). Her [id number] score is 0 risk of stroke per ye ar in atrial fibrillation. Her bleeding risks include: ETOH (1). Her HASBLED score is 0-1, which confers a low risk (1-3.4%) risk of bleed per year. She was put on Eliquis by her c ardiologist in [place]. I didn't think that she needs long-term [...] bradycardia episode. 5. Obtain echo report from [facility] in [place] which was done in September,. 6. Follow up in six months for OC/thresh to discuss stopping Eliquis if there is no eviden ce of further atrial fibrillation. I, Madelin Valera, am acting as a scribe on behalf of, and in the presence of Dionisio medina MD. I have reviewed and edited this note. Madelin Valera, Jewelry Casting Model Maker Apprentice 12/16/2018 I, Dionisio Gallegos MD, personally performed the services described in this documentation, as scribed in my presence and it is both accurate and complete. Madelin Valera Jewelry Casting Model Maker Apprentice 15:23 Electronically signed by: Dionisio Gallegos MD [facility] 12/16/2018 Portions of this chart may have been created with Visual IQ voice recognition software. Occasi onal wrong-word or sound-alike substitutions may have occurred due to the inherent ryan itations of voice recognition software. Please read the chart carefully and recognize, using context, where these substitutions have occurred. documented in this encounter Procedure Notes Dionisio Gallegos MD - 12/16/2018 2:30 PM PSTAssociated Order(s): DEVICE INTERROGATIONPro cedure(s): DEVICE INTERROGATIONPre-Procedure Diagnose(s): Encounter for loop recorder check; Status post placement of implantable loop recorder; Syncope, unspecified syncope type PATIENT NAME: Gris Krishnamurthy : 1965: AGE: 53 y.o. Loop Recorder Evaluation Report December 16, 2018 Reason for evaluation: routine Indication for loop [...] for further details. Data collected by Manda Seaman RN Presenting rhythm: sinus rhythm at 80 with PVCs. 105 Symptom Episodes 443 occurred 12-12-18 at 5:01 AM. EGM is consistent with sinus rhythm 60-70 beats. Patient r eports pain into Left arm. 442 occurred 12-08-18 at 11:19 PM. EGM is consistent with sinus rhythm 60-70 beats. 441 occurred 12-08-18 at 9:03 PM. EGM is consistent with sinus rhythm in the 60s. 440 occurred 11-29-18 at 2:42 AM. EGM is consistent with sinus rhythm in the 60s. 0 Tachy Episodes 1 Pause Episodes #388 occurred 08/25/18 at 4:42 PM for 4 seconds. EGM is consistent with sinus bradycardia 35 -56 with a 4 second pause. 0 Murphy Episodes 0 AT Episodes 0 AF Episodes % of time in AT/AF 0.0 % Histogram good with bradycardia noted . Battery ok. Apparent normal and stable function. Device interrogation due in office in 1 year. documented in this encounter Plan of Treatment [...] [place], | | | | | | [place] [address] | | | | | | [phone] | | | | | | | | +--------+ + + + + | 11/23/ | Implant | Cardiology | Dionisio Gallegos, | Pacemaker | | 2019 | Monitor | | MD Mark Garcia | reprogramming/check | | | | | [place], | (Primary Dx); | | | | | [place] [address] | Tachycardia-bradycar | | | | | [phone] | samuel (HCC); | | | | | | Pacemaker, Dual | | | | | | Chamber, [address] [place], | | | | | | MRI Capable, 09/30/19 | | | | | | Rosy | +--------+ + + + + | 03/08/ | Office | Neurology | Amarjit Fisher MD [address] | | | 2020 | Visit | | [address] | | | | | | [place], | | | | | | [place] [address] | | | | | | [phone] | | | | | | | [...] for this | | | e | 3:19 PM | ventricular | procedure are in the | | | | PST | contraction) | results section. | + +--------+ + + + | DEVICE INTERROGATION | Routin | 12/16/2018 | Encounter for loop | Results for this | | | e | 2:30 PM | recorder check S/P | procedure are in the | | | | PST | implantable loop | [...] this encounter Results ECG 12 lead (12/16/2018 3:19 PM PST) + + + + + + | Component | Value | Ref Range | Performed | Pathologist | | | | | At | Signature | + + + + + + | VENTRICULAR | 74 | BPM | [facility] | | | RATE EKG | | | | | + + + + + + | ATRIAL RATE | 74 | BPM | [facility] | | + + + + + + | P-R | 150 | ms | [facility] | | | INTERVAL | | | | | + + + + + + | QRS | 90 | ms | [facility] | | | DURATION | | | | | + + + + + + | Q-T | 388 | ms | [facility] | | | INTERVAL | | | | | + + + + + + | Q-T | 430 | ms | [facility] | | | INTERVAL | | | | | | (CORRECTED) | | | | | + + + + + + | P WAVE AXIS | 67 | degrees | [facility] | | + + + + + + | QRS AXIS | 75 | degrees | [facility] | | + + + + + + | T AXIS | -135 | degrees | [facility] | | + + + + + + | INTERPRETAT | Normal sinus | | [facility] | | | ION TEXT | rhythmPossible Left | | | | | | atrial enlargementST & T | | | | | | wave abnormality, | | | | | | consider inferolateral | | | | | | ischemiaAbnormal ECGNo | | | | | | previous ECGs | | | | | | availableConfirmed by | | | | | | DIONISIO GALLEGOS MD | | | | | | ([id number]) on 12/16/2018 | | | | | | 4:37:50 PM | | | | + + [...] + +---------+ + + Device Interrogation (12/16/2018 2:30 PM PST) + + + | Narrative | Performed At | + + + | Dionisio | [facility] | | MD Rosy 12/16/2018 16:12 PATIENT NAME: Gris Krishnamurthy | | | : 1965: AGE: 53 y.o. Loop Recorder Evaluation | | | Report December 16, 2018 Reason for evaluation: routineIndication for | | | loop recorder: Encounter for loop recorder check (Z45.09, V53.39); | | | Status post placement of implantable loop [...] for further details. Data collected by Manda Seaman RN Presenting | | | rhythm: sinus rhythm at 80 with PVCs.105 Symptom Episodes 443 occurred | | | 12-12-18 at 5:01 AM. EGM is consistent with sinus rhythm 60-70 beats. | | | Patient reports pain into Left arm. 442 occurred 12-08-18 at 11:19 PM. | | | EGM is consistent with sinus rhythm 60-70 beats. 441 occurred 12-08-18 | | | at 9:03 PM. EGM is consistent with sinus rhythm in the 60s. 440 | | | occurred 11-29-18 at 2:42 AM. EGM is consistent with sinus rhythm in the | | | 60s. 0 Tachy Episodes 1 Pause Episodes #388 occurred 08/25/18 at | | | 4:42 PM for 4 seconds. EGM is consistent with sinus bradycardia 35-56 | | | with a 4 second pause.0 Murphy Episodes 0 AT Episodes 0 AF Episodes % | | | of time in AT/AF 0.0 %Histogram good with bradycardia noted . | | | Battery ok.Apparent normal and stable function.Device interrogation | | | due in office in 1 year. | [...] Other premature beats | + + | Pacemaker reprogramming/check - Primary Fitting and adjustment of cardiac pacemaker | + + | Tachycardia-bradycardia (HCC) Sinoatrial node dysfunction | + + | Pacemaker, Dual Chamber, [facility] [place], MRI Capable, 09/30/19 [facility] Cardiac pacemaker in | | situ | + + documented in this encounter
--- OUTSIDE RECORDS SUMMARY | ~2020-09-13 | XMS | Encounter Summary ---
Demographics + + + | Address | [address] | | | [place] [address] | + + + | Home Phone | | + + + | Preferred Language | Unknown | + + + | Marital Status | Single | + + + | Quaker Affiliation | 1073 | + + + | Race | White | + + + | Ethnic Group | Not or | + + + Author + + + | Author | [facility] | | | and [place] | + + + | Organization | [facility] | | | and [...] Team Providers + +------+ + | Care Senior Catering Sales Manager Name | Role | Phone | [...] [address] | | | | | ([facility]) | [address] | [address] | | | | | Frequent | [address] | [address] | | | | | falls | D | [place], [place] | | | | | Romero sign | [place], | [address] | | | | | present | [place] [address] | Phone: | | | | | Procedures | Phone: | [phone] | | | | | MRI Thoracic | [phone] | Fax: | | | | | Spine w wo | Fax: | [phone] | | | | | Contrast | [phone] | | +--------+--------+ + + + + Diagnostic/Screening (Routine) +--------+--------+ + + + + [...] [address] | | | | | ([facility]) | WES | [address] | | | | | Frequent | [address] | [address] | | | | | falls | D | [place], [place] | | | | | Romero sign | [place], | [address] | | | | | present | [place] [address] | Phone: | | | | | Procedures | Phone: | [phone] | | | | | MRI Cervical | [phone] | Fax: | | | | | Spine w wo | Fax: | [phone] | | | | | Contrast | [phone] | | +--------+--------+ + + + + Reason for Visit + + + | Reason | Comments | + + + | Follow-up | anethrsia of skin | + + + Evaluate & Treat (Routine) + +--------+ + + + + | Status | Reason | Specialty | Diagnoses / | Referred By | Referred To | | | | | Procedures | Contact | Contact | + +--------+ + + + + | Authorized | | Neurology | Diagnoses | Juvenal, | Aamrjit Fisher, | | | | | Anesthesia | FRANCO Koch | [address] | | | | | of skin | [address] | [address] | | | | | | [address] | [address] | | | | | | [address] | [place], | | | | | | [facility], | [place] [address] | | | | | | [place] [address] | Phone: | | | | | | Phone: | [phone] | | | | | | [phone] | Fax: | | | | | | Fax: | [phone] | | | | | | [phone] | | + +--------+ + + + + Encounter Details +--------+---------+ + + + | Date | Type | Department | Care Team | Description | +--------+---------+ + + + | 01/26/ | Office | [facility] | Amarjit Fisher MD [address] | Myelopathy (HCC) | | 2020 | Visit | NEUROLOGY [address] | [facility] | (Primary Dx); | | | | [address] | [address] [place], | Frequent falls; | | | | [place], [place] | [place] [address] | Numbness and | | | | [address] | [phone] | tingling of foot; | | | | [phone] | | Romero sign present | +--------+---------+ + + + Social History [...] + + + | Blood Pressure | 160/90 | 01/27/2020 8:33 AM | | | | | PST | | + + + + + | Pulse | 74 | 01/27/2020 8:33 AM | | | | | PST | | + + + + + | Temperature | - | - | | + + + + + | Respiratory Rate | - | - | | + + + + + | Oxygen Saturation | 94% | 01/27/2020 8:33 AM | | | | | PST | | + + + + + | Inhaled Oxygen | - | - | | | Concentration | | | | + + + + + | Weight | 95.3 kg (210 lb) | 01/27/2020 8:33 AM | | | | | PST | | + + + + + | Height | 162.6 cm (5' 4") | 01/27/2020 8:33 AM | | | | | PST | | + + + + + | Body Mass Index | 36.05 | 01/27/2020 8:33 AM | | | | | PST [...] this encounter Patient Instructions Patient Instructions Donnie Klein Medical Assistant - 01/27/2020 8:30 AM PSTImaging Information Your provider has ordered an MRI *Please let us know if you are claustrophobic BEFORE your imaging appointment so the approp riate medication can be ordered* Depending on your insurance it may take several days for them to approve this order. Please allow 3 business days before contacting [facility] Outpatient Imaging department, they will be able to let you know if your testing has been approved or denied. To schedule your appointment or if you have question about your insurance authorization or please call documented in this encounter Progress Notes Amarjit Fisher MD - 01/27/2020 8:30 AM PSTFormatting of this note might be different from the o riginal. Referring Physician: FRANCO Fernandes PCP: FRANCO Fernandes Date of Encounter: 01/27/2020 CHIEF COMPLAINT: numbness HISTORY OF PRESENT ILLNESS Gris Krishnamurthy is a pleasant 54 y.o. female with history of gout, HLD, depression and a nxiety, cardiomyopathy, Afib, pacemaker who presents to the clinic today for numbness. The patient was accompanied by her brother and [id number]. Patient reports numbness of the feet and [...] mouth once daily, Disp: , Rfl: 0 traMADol (ULTRAM) 50 mg tablet, , Disp: , Rfl: zaleplon (SONATA) 10 MG capsule, Take 10 mg by mouth nightly., Disp: , Rfl: PAST MEDICAL HISTORY Past Medical History: Diagnosis Date Anxiety Arthritis Atrial fibrillation (HCC) Cardiomyopathy (HCC) Gout Hypercholesterolemia Hyperlipidemia 12/15/2018 Hypertension 12/15/2018 Hypothyroid 12/15/2018 Mitral valve prolapse Past heart attack 12/15/2018 PVC (premature ventricular contraction) 12/15/2018 Sleep apnea; no cPAP use at this time Wears dentures; full Wears glasses FAMILY HISTORY Family History Problem Relation Age [...] Last attempt to quit: 11/25/2015 Years since quittin.1 Smokeless tobacco: Never Used Substance and Sexual Activity Alcohol use: Not Currently Drug use: Never Comment: tried marijuana once for broken ankle pain 08/2019 Sexual activity: Not on file Lifestyle Physical activity: Days per week: Not on file Minutes per session: Not on file Stress: Not on file Relationships Social connections: Talks on phone: Not on file Gets together: Not on file Attends denominational service: Not on file Active member of [...] place, brother also lives in same home REVIEW OF SYSTEMS A comprehensive 12 system ROS was performed with intake form, in addition to HPI, ROS also revealed: Constitutional: Positive for malaise/fatigue. Cardiovascular: Positive for palpitations and leg swelling. Gastrointestinal: Positive for nausea. Musculoskeletal: Positive for falls and joint pain. Neurological: Positive for dizziness, tingling, weakness and headaches. Endo/Heme/Allergies: Bruises/bleeds easily. Psychiatric/Behavioral: Positive for depression. The patient is nervous/anxious and has ins omnia. All other systems reviewed and are negative. PHYSICAL EXAM General Exam Vitals: 01/27/20 0833 BP: 160/90 Pulse: 74 PainSc: 7 PainLoc: Generalized WDWN, NAD Lungs are clear. Heart is regular Neuro Exam MS Awake, alert, oriented x3. Cooperative and appropriate during the encounter. Speech is ashley r, fluent and coherent. CN Fundus difficult to view through natural nondilated pupils. VFF to confrontation. EOMI. PERRLA. Facial sensation is intact. Face is symmetric. Hearing is intact. Palate elevation is symmetric. Shoulder shrug 5/5. Tongue protrusion is midline. Motor Bulk and Tone: normal Muscle strength: full in all extremities DTR 3+ in the upper and 2+ in lower extremities. Romero's sign present bilaterally. Planta r reflexes: flexor. Sensory Reduced to sensation to pinprick, there appears to be a sensory level at T4. Coordination FNF intact Gait Wide based, unsteady. DATA Results for orders placed or performed during the hospital encounter of 09/30/19 ECG 12 lead Result Value Ref Range VENTRICULAR RATE EKG 66 BPM ATRIAL RATE 66 BPM P-R INTERVAL 166 ms QRS DURATION 86 ms Q-T INTERVAL 438 ms Q-T INTERVAL (CORRECTED) 459 ms P WAVE AXIS 50 degrees QRS AXIS 49 degrees T AXIS -137 degrees INTERPRETATION TEXT Normal sinus rhythm Possible Left atrial enlargement ST & T wave abnormality, consider inferior ischemia Abnormal ECG When compared with ECG of 14-JUN-2019 09:22, T wave inversion less evident in Anterolateral leads QT has lengthened Confirmed by DIONISIO GALLEGOS MD ([id number]) on 09/30/2019 2:41:34 PM ECG 12 lead Result Value Ref Range VENTRICULAR RATE EKG 85 BPM ATRIAL RATE 65 BPM P-R INTERVAL 118 ms QRS DURATION 102 ms Q-T INTERVAL 444 ms Q-T INTERVAL (CORRECTED) 528 ms P WAVE AXIS 1 degrees QRS AXIS 49 degrees T AXIS -94 degrees INTERPRETATION TEXT Sinus rhythm with frequent AV dual-paced complexes Possible Left atrial enlargement Inferior infarct , age undetermined Abnormal ECG When compared with ECG of 30-SEP-2019 11:04, (Unconfirmed) Electronic ventricular pacemaker has replaced Sinus rhythm Confirmed by DIONISIO GALLEGOS MD ([id number]) on 09/30/2019 2:41:37 PM ASSESSMENT & PLAN 54-year-old female who presents with numbness of the feet and fingertips since August 2019 , that has progressive to involve more proximal lower extremities bilaterally to the umbilic us area. The patient has been using a walker for couple of years for unsteady gait. She re ports mild worsening of her balance recently. On exam, the patient has brisk reflexes of bi lateral upper extremities with Carmella signs. She appears to have a sensory level with pin prick exam at T4. Her symptoms and exam are concerning for a myelopathy. We will plan for MRI of the C and T-spine to further evaluate. Other differential diagnosis may include terry pheral neuropathy or other systemic condition. Pending MRI, we may consider labs, or EMG if no clear etiology reviewed. Plan: - MRI C and T spine - Follow up after the tests Thank you for allowing me to take care of this patient. Please do not hesitate to contact m e if you have any questions. Cc: FRANCO Fernandes This note was prepared using [employer] voice recognition technology. There may be so und-alike errors even though every effort has been made to ensure accuracy. Donnie Neely Medical A ssistant - 01/27/2020 8:30 AM PSTReview of Systems Constitutional: Positive for malaise/fatigue. Cardiovascular: Positive for palpitations and leg swelling. Gastrointestinal: Positive for nausea. Musculoskeletal: Positive for falls and joint pain. Neurological: Positive for dizziness, tingling, weakness and headaches. Endo/Heme/Allergies: Bruises/bleeds easily. Psychiatric/Behavioral: Positive for depression. The patient is nervous/anxious and has ins omnia. All other systems reviewed and are negative. Kay mented in this encounter Plan of Treatment +--------+ + + + + | Date | Type | Specialty | Care Team | Description | +--------+ + + + + | 10/10/ | Office | Cardiology | Dionisio Gallegos, | | 2019 | Visit | | MD Mark Michaud [address] | | | | | | [place], | | | | | | [place] [address] | | | | | | [phone] | | | | | | | | +--------+ + + + + | 11/23/ | Implant | Cardiology | RosyDionisio, | Pacemaker | | 2019 | Monitor | | [address] [facility] [address] | reprogramming/check | | | | | [place], | (Primary Dx); | | | | | [place] [address] | Tachycardia-bradycar | | | | | [phone] | samuel (HCC); | | | | [...] [place], | | | | | | [place] [address] | | | | | | [phone] | | | | | | | | +--------+ + + + + + +------+--------+ + + | Name | Type | Priori | Associated Diagnoses | Order Schedule | | | | ty | | | + +------+--------+ + + | Creatinine | Lab | Routin | Myelopathy (HCC) | 1 Occurrences | | | | e | Frequent falls | starting 01/27/2020 | | | | | Romero sign present | until 01/26/2021 | + +------+--------+ + + documented as of this encounter Results MRI Thoracic Spine w [...] + | Patrick, Rad Results In 04/15/2020 8:18 AM PDT | | MRI [...] | | | + +---------+ + + MRI Cervical Spine w wo Contrast (04/14/2020 [...] C4-5. Signed by: | | | Erica Guadarrama Edward Sign Date/Time: 04/15/2020 8:35 AM | | [...] Diagnosis | + + | Myelopathy (HCC) - Primary Unspecified disease of spinal cord | + + | Frequent falls Personal history of fall | + + | Numbness and tingling of foot Disturbance of skin sensation | + + | Romero sign present | + + | Pacemaker reprogramming/check - Primary Fitting and adjustment of cardiac pacemaker | + + | Tachycardia-bradycardia (HCC) Sinoatrial node dysfunction | + + | Pacemaker, Dual Chamber, St Jerry, MRI Capable, 09/30/19 Rosy Cardiac pacemaker in | | situ | + + documented in this encounter
--- OUTSIDE RECORDS SUMMARY | ~2020-09-13 | XMS | Encounter Summary ---
Demographics + + + | Address | [address] | | | [place] [address] | + + + | Home Phone | | + + + | Preferred Language | Unknown | + + + | Marital Status | Single | + + + | Zoroastrianism Affiliation | 1073 | + + + | Race | White | + + + | Ethnic Group | Not or | + + + Author + + + | Author | [facility] | | | and [place] | + + + | Organization | [facility] | | | [...] Team Providers + +------+ + | Care Pier Master Assistant Name | Role | Phone | + +------+ + | August Sanford | PCP | | + +------+ + Reason for Visit + + + | Reason | Comments | + + + | Follow-up | Spondylolisthesis of cervical region | + + + Evaluate & Treat [...] [place], | | | | | | [place], | [place] [address] | | | | | | [place] [address] | Phone: | | | | | | Phone: | [phone] | | | | | | [phone] | Fax: | | | | | | Fax: | [phone] | | | | | | [phone] | | + +--------+ + + + + Encounter Details +--------+---------+ + + + | Date | Type | Department | Care Team | Description | +--------+---------+ + + + | 08/31/ | Office | [facility] | Amarjit Fisher MD [address] | Peripheral | | 2020 | Visit | NEUROLOGY [address] | [address] | polyneuropathy | | | | [address] | [address], | (Primary Dx); | | | | [place], [place] | [place] [address] | Frequent falls; | | | | [address] | [phone] | Neuropathic pain | | | | [phone] | | | +--------+---------+ + + + [...] of this encounter Patient Instructions Patient Instructions Amarjit Fisher MD - 08/31/2020 12:10 PM PDTRestart gabapentin 300 mg daily for a few days then 300 mg two times a day Recommend vitamin B12 1000 mcg daily Follow up in 6 months documented in this encounter Progress Notes Amarjit Fisher MD - 08/31/2020 12:10 PM PDTFormatting of this note might be different from the o riginal. Referring Physician: FRANCO Fernandes PCP: FRANCO Fernandes Date of Encounter: 08/31/2020 SUBJECTIVE Gris Krishnamurthy is a pleasant 54 y.o. female with history of gout, HLD, depression and a nxiety, cardiomyopathy, Afib, pacemaker who presents to the clinic for follow up of numbness . Interval History Since last visit, the patient continues to reports numbness in the feet. She reports more pain. She ran out of gabapentin, has not been taking medication for a while. She is intere sted in restarting gabapentin for pain management. She has not started B12 supplement as recommended. Her gout is under control with allopuri nol. Recap History Patient reports numbness of the [...] of cervical cordos is C3 to C5. X-ray of C spine flexion- extension views showed no additional instability. Case was reviewed by neurosurgery, recommendation was to monitor. EMG showed mild peripheral polyneuropathy of lower extremities and mild chronic right C5-6 radiculopathy. Labs showed B12 386, LAURENCE normal, ESR 5, copper borderline elevated at 161, (80-155), heavy metal wnl, SPEP no monoclonal gammopathy. ALLERGIES Allergies Allergen Reactions Penicillins Hives MEDICATIONS [...] reviewed and negative OBJECTIVE General Exam Vitals: 08/31/20 1216 BP: 179/83 Pulse: 62 PainSc: 9 PainLoc: Generalized WDWN, NAD Heart is regular Neuro Exam MS Awake, alert, oriented x3. Cooperative and appropriate during the encounter. Speech is ashley r, fluent and coherent. CN VFF to confrontation. EOMI. Hearing is intact. Motor Bulk and Tone: normal Muscle strength: full in all extremities DTR 3+ in the upper and 2+ in lower extremities. Romero's sign present bilaterally. Planta r reflexes: flexor. Sensory Reduced to vibration at the feet compared to the knees, rated as 2 seconds at the right med ial malleolus with 108 Hz tuning fork Coordination FNF intact Gait Wide based, unsteady. ASSESSMENT & PLAN 1. Gait disorder 2. Peripheral polyneuropathy 3. Cervical spondylolisthesis Continues to have numbness, most prominent in the feet. Exam stable with hyperreflexia. Will restart gabapentin due to foot pain. Plan: - start vitamin B12 supplement 1000 mcg daily - restart gabapentin 300 mg daily then increase to 300 mg bid after a few days. - discussed realistic expectation of pain management. - follow with primary doctor to optimize management of gout, follow potential medication si de effect, allopurinol may have side effect of peripheral polyneuropathy - Follow up in 6 months and as needed Thank you for allowing me to take care of this patient. Please do not hesitate to contact m e if you have any questions. Cc: FRANCO Fernandes This note was prepared using [employer] voice recognition technology. There may be so und-alike errors even though every effort has been made to ensure accuracy. Electronically s igned by Amarjit Fisher MD at 08/31/2020 2:52 PM PDTdocumented in this encounter Plan of [...] | | | | | | [place] [address] | | | | | | [phone] | | | | | | | | +--------+ + + + + | 11/23/ | Implant | Cardiology | Claudine Gallegos, | Pacemaker | | 2019 | Monitor | | MD Mark Garcia | reprogramming/check | | | | | [facility], | (Primary Dx); | | | | | [place] [address] | Tachycardia-bradycar | | | | | [phone] | samuel (HCC); | | | | | | Pacemaker, Dual | | | | | | Chamber, St Jerry, | | | | | | MRI Capable, 09/30/19 | | | | | | Rosy | +--------+ + + + + | 03/08/ | Office | Neurology | Amarjit Fisher MD [address] | | | 2020 | Visit | | [address] | | | | | | [place], | | | | | | [place] [address] | | | | | | [phone] | | | | | | | | +--------+ + + + + documented as of this encounter Visit Diagnoses + + | Diagnosis | + + | Peripheral polyneuropathy - Primary Unspecified hereditary and idiopathic peripheral | | neuropathy | + + | Frequent falls Personal history of fall | + + | Neuropathic pain Neuralgia, neuritis, and radiculitis, unspecified | + + | Pacemaker reprogramming/check - Primary Fitting and adjustment of cardiac pacemaker | + + | Tachycardia-bradycardia (HCC) Sinoatrial node dysfunction | + + | Pacemaker, Dual Chamber, St Jerry, MRI Capable, 09/30/19 Rosy Cardiac pacemaker in | | situ | + + documented in this encounter
--- OUTSIDE RECORDS SUMMARY | ~2020-09-13 | XMS | Encounter Summary ---
Demographics + + + | Address | [address] | | | [place] [address] | + + + | Home Phone | | + + + | Preferred Language | Unknown | + + + | Marital Status | Single | + + + | Zoroastrian Affiliation | 1073 | + + + | Race | White | + + + | Ethnic Group | Not or | + + + Author + + + | Author | [facility] | | | and [place] | + + + | Organization | [facility] | | [...] Team Providers + +------+ + | Care Emergency Management Specialist Name | Role | Phone | + +------+ + | August Sanford | PCP | | + +------+ + Encounter Details +--------+ + + + + | Date | Type | Department | Care Team | Description | +--------+ + + + + | 04/29/ | Hospital | [facility] | Amarjit Fisher MD [address] | Spondylolisthesis, | | 2020 | Encounter | [facility] | [address] | cervical region | | | | [address] | [address] [place], | | | | | [address] [place], [place] | [place] [address] | | | | | [address] | [phone] | | | | | [phone] | | | +--------+ + + + [...] tablet by | 60 | 3 | 04/27/20 | | | (TAMBOCOR) 100 mg | [...] + + + +---------+ + + | ondansetron | Take 1 tablet by | 20 | 0 | 04/29/20 | | | (ZOFRAN) 4 mg tablet | mouth Daily as | tablet | | 20 | | | | needed for Nausea. | | | | | + + [...] | | | | | | [place] [address] | | | | | | [phone] | | | | | | | | +--------+ + + + + | 11/23/ | Implant | Cardiology | EddieClaudine hughes, | Pacemaker | | 2019 | Monitor | | MD Mark Garcia | reprogramming/check | | | | | [facility], | (Primary Dx); | | | | | [place] [address] | Tachycardia-bradycar | | | | | [phone] | samuel (HCC); | | | | [...] | | | | | | [place] [address] | | | | | | [phone] | | | | | | | | +--------+ + + + + documented as of this encounter Procedures + +--------+ + + + | Procedure Name | Priori | Date/Time | Associated Diagnosis | Comments | | | ty | | | | + +--------+ + + + | XR CERVICAL SPINE 2 | Routin | 04/29/2020 | Spondylolisthesis, | Results for this | | OR 3 VIEWS | e | 8:53 AM | cervical region | procedure are in the | | | | PDT | | results section. | + +--------+ + + + documented in this encounter Results XR Cervical Spine 2 [...] | detailed above. Signed by: Eugene Traylor, Pushpender Sign | | | Date/Time: 04/29/2020 3:31 [...] | | | and Posterior Spinal Elements: Lcep-nx-ljcsdlww facet joint | | | osteoarthritis throughout the cervical spine. Prevertebral Soft | | | Tissue Contours: No prevertebral soft tissue swelling. | | + + + + + | Procedure Note | + + | Patrick, Rad Results In 04/29/2020 3:35 PM PDT | | CERVICAL [...] | | Facets and Posterior Spinal Elements: Uqsa-vq-pjdmiyew facet joint | | osteoarthritis throughout the [...] + + | Performing | Address | City/State/[facility] | Phone Number | | Organization | | | | + +---------+ + + | [facility] | | | | + +---------+ + + documented in this encounter Visit Diagnoses + + | Diagnosis | + + | Spondylolisthesis, cervical region | + + | Pacemaker reprogramming/check - Primary Fitting and adjustment of cardiac pacemaker | + + | Tachycardia-bradycardia (HCC) Sinoatrial node dysfunction | + + | Pacemaker, Dual Chamber, St Jerry, MRI Capable, 09/30/19 Rosy Cardiac pacemaker in | | situ | + + documented in this encounter"
--- OUTSIDE RECORDS SUMMARY | ~2020-09-13 | XMS | Encounter Summary ---
Demographics + + + | Address | [address] | | | [place] [address] | + + + | Home Phone | | + + + | Preferred Language | Unknown | + + + | Marital Status | Single | + + + | Taoist Affiliation | [id number] | + + + | Race | White | + + + | Ethnic Group | Not or | + + + Author + + + | Author | [facility] | | | and [place] | + + + | Organization | [facility] | | [...] Team Providers + +------+ + | Care Olive Grader Name | Role | Phone | + [...] Closed | | Radiology | Diagnoses | Bryson | Victoria Mri | | | | | Closed | Francisco Myles, | [address] | | | | | displaced | MD [address] | | | | | trimalleolar | Shiva Lamar | [place], [place] | | | | | fracture of | [place], | [address] | | | | | right lower | [place] | Phone: | | | | | leg with | [address] | [phone] | | | | | routine | Phone: | Fax: | | | | | healing | [phone] | [phone] | | | | | Bilateral | Fax: | | | | | | tibialis | [phone] | | | | | | tendinitis | | | | | | | Procedures | | | | | | | MRI Ankle | | | | | | | Right wo | | | | | | | Contrast | | | +--------+--------+ + + + + Reason for Visit Diagnostic/Screening (Routine) +--------+--------+ + + + + | Status | Reason | Specialty | Diagnoses / | Referred By | Referred To | | | | | Procedures | Contact | Contact | +--------+--------+ + + + + | Closed | | Radiology | Diagnoses | Bryson | Victoria Mri | | | | | Closed | Francisco Myles, | Callie[address] | | | | | displaced | MD [address] | | | | | trimalleolar | Shiva Lamar | [place] | | | | | fracture of | [place], | [address] | | | | | right lower | [place] | Phone: | | | | | leg with | [address] | [phone] | | | | | routine | Phone: | Fax: | | | | | healing | [phone] | [phone] | | | | | Bilateral | Fax: | | | | | | tibialis | [phone] | | | | | | tendinitis | | | | | | | Procedures | | | | | | | MRI Ankle | | | | | | | Right wo | | | | | | | Contrast | | | +--------+--------+ + + + + Encounter Details +--------+ + + + + | Date | Type | Department | Care Team | Description | +--------+ + + + + | 04/14/ | Hospital | [facility] | Francisco Massey, | Closed displaced | | 2019 | Encounter | [facility] | [address] | trimalleolar | | | | [address] | [address] [place], [place] | fracture of right | | | | [place], [place] | [address] | lower leg with | | | | [address] | [phone] | routine healing; | | | | [phone] | | Bilateral tibialis | | | | | | tendinitis | +--------+ + + + + Social [...] | 2019 | Visit | | [address] | | | | | | [place], | | | | | | [place] [address] | | | | | | [phone] | | | | | | | | +--------+ + + + + | 11/23/ | Implant | Cardiology | JacquiadamClaudine, | Pacemaker | | 2019 | Monitor | | [address] [facility] | reprogramming/check | | | | | [place], | (Primary Dx); | | | | | [place] [address] | Tachycardia-bradycar | | | | | [phone] | samuel (HCC); | | | | | | Pacemaker, Dual | | | | | | Chamber, St Jerry, | | | | | | MRI Capable, 09/30/19 | | | | | | Eddieellen | +--------+ + + + + | 03/08/ | Office | Neurology | Amarjit Fisher MD [address] | | | 2020 | Visit | | [address] | | | | | | [address] [place], | | | | | | [place] [address] | | | | | | [phone] | | | | | | | | +--------+ + + + + documented as of this encounter Procedures + +--------+ + + + | Procedure Name | Priori | Date/Time | Associated Diagnosis | Comments | | | ty | | | | + +--------+ + + + | MRI ANKLE RIGHT WO | Routin | 04/14/2020 | Closed displaced | Results for this | | CONTRAST | e | 3:01 PM | trimalleolar | procedure are in the | | | | PDT | fracture of right | results section. | | | | | lower leg with | | | | | | routine healing | | | | | | Bilateral tibialis | | | | | | tendinitis | | + +--------+ + + + documented in this encounter Results MRI Ankle Right wo Contrast (04/14/2020 3:01 PM PDT) + + | Specimen | + + | | + + + + + | Impressions | Performed At | + + + | 1. Extensor, flexor and peroneal tendons are intact. Achilles | [facility] | | tendon is intact. 2. Surgical fixation hardware of the distal tibia | | | and fibula causing significant susceptibility artifact, limiting | | | evaluation at the ankle joint and distal tibiofibular syndesmosis. | | | 3. Normal alignment of the hindfoot and midfoot. 4. Other findings as | | | above. Signed by: Eugene Vicente, Sukhdeep Sign Date/Time: | | | 04/14/2020 3:50 PM | | + + + + + + | Narrative | Performed At | + + + | MRI RIGHT ANKLE WITHOUT CONTRAST CLINICAL INFORMATION: | [facility] | | Closed displaced trimalleolar fracture of right lower leg with routine | | | healing COMPARISON: None PROCEDURE: Sagittal T1 and STIR. | | | Axial T2 and PD. Coronal T2. Sedation: None. FINDINGS: There | | | is metallic surgical fixation of the distal tibia and fibula with | | | associated susceptibility artifact causing limitation at the distal | | | tibiofibular syndesmosis and the ankle joint. Distal tibial | | | fracture line is partially visualized on the sagittal images. | | | Joint Spaces: Small ankle joint effusion. Articular Cartilage: No | | | full-thickness chondral loss of the hindfoot or midfoot. Cartilage | | | at the ankle joint is difficult to evaluate due to susceptibility | | | artifact. Extensor Tendons: Tibialis anterior, extensor digitorum | | | longus, and extensor hallucis longus tendons are intact Peroneal | | | Tendons: Peroneus longus and peroneal brevis tendons are intact. | | | Medial Flexor Tendons: Tibialis posterior, flexor digitorum longus, | | | and flexor hallucis longus tendons are intact Achilles Tendon: | | | Intact Deltoid Ligament Complex: Not well evaluated due to | | | susceptibility artifact. Lateral Ligament Complex: Not well | | | evaluated due to susceptibility artifact. Sinus Tarsi: | | | Nonspecific edema of the sinus tarsi. Tarsal Tunnel: Tibial nerve | | | normal. Posterior tibial vessels normal. No mass. Miscellaneous: | | | Plantar fascia is intact. | | + + + + + | Procedure Note | + + | Patrick, Rad Results In 04/14/2020 3:53 PM PDT | | MRI RIGHT ANKLE WITHOUT CONTRAST | | | | CLINICAL INFORMATION: | | Closed displaced trimalleolar fracture of right lower leg with routine | | healing | | | | COMPARISON: | | None | | | | PROCEDURE: | | Sagittal T1 and STIR. Axial T2 and PD. Coronal T2. | | | | Sedation: None. | | | | FINDINGS: | | There is metallic surgical fixation of the distal tibia and fibula with | | associated susceptibility artifact causing limitation at the distal | | tibiofibular syndesmosis and the ankle joint. | | | | Distal tibial fracture line is partially visualized on the sagittal | | images. | | | | Joint Spaces: Small ankle joint effusion. | | Articular Cartilage: No full-thickness chondral loss of the hindfoot or | | midfoot. Cartilage at the ankle joint is difficult to evaluate due to | | susceptibility artifact. | | | | Extensor Tendons: Tibialis anterior, extensor digitorum longus, and | | extensor hallucis longus tendons are intact | | | | Peroneal Tendons: Peroneus longus and peroneal brevis tendons are | | intact. | | Medial Flexor Tendons: Tibialis posterior, flexor digitorum longus, and | | flexor hallucis longus tendons are intact | | | | Achilles Tendon: Intact | | | | Deltoid Ligament Complex: Not well evaluated due to susceptibility | | artifact. | | Lateral Ligament Complex: Not well evaluated due to susceptibility | | artifact. | | | | Sinus Tarsi: Nonspecific edema of the sinus tarsi. | | Tarsal Tunnel: Tibial nerve normal. Posterior tibial vessels normal. No | | mass. | | | | Miscellaneous: Plantar fascia is intact. | | | | IMPRESSION: | | 1. Extensor, flexor and peroneal tendons are intact. Achilles tendon | | is intact. | | 2. Surgical fixation hardware of the distal tibia and fibula causing | | significant susceptibility artifact, limiting evaluation at the ankle | | joint and distal tibiofibular syndesmosis. | | 3. Normal alignment of the hindfoot and midfoot. | | 4. Other findings as above. | | | | | | | | | | Signed by: Eugene Vicente, Sukhdeep | | Sign Date/Time: 04/14/2020 3:50 PM | + + + +---------+ + + | Performing | Address | City/State/Zipcode | Phone Number | | Organization | | | | + +---------+ + + | [facility] | | | | + +---------+ + + documented in this encounter Visit Diagnoses + + | Diagnosis | + + | Closed displaced trimalleolar fracture of right lower leg with routine healing | | Aftercare for healing traumatic fracture of lower leg | + + | Bilateral tibialis tendinitis | + + | Pacemaker reprogramming/check - Primary Fitting and adjustment of cardiac pacemaker | + + | Tachycardia-bradycardia (HCC) Sinoatrial node dysfunction | + + | Pacemaker, Dual Chamber, [facility] Jerry, MRI Capable, 09/30/19 Rosy Cardiac pacemaker in | | situ | + + documented in this encounter"
--- OUTSIDE RECORDS SUMMARY | 2020-09-13 21:08 | XMS ---
PreManage Notification: WALTER CALVERT Security Racebook Writer Events No recent Security Events currently on file CRITERIA MET - [facility] - Has Care Guidelines CARE PROVIDERS Aliza Yuen Corner Trimmer Operator/Tax Processor 06/25/2020-Current PHONE: [phone] VANIA LEE Physician Heel Turner 06/15/2019-Current PHONE: [phone] Guidelines Source: [facility] Guidelines Date: 06/12/2019 Care Coordination: Mental health services are being provided by [employer].\T\nbsp; Please contact [employer] with mental health concerns.\T\nbsp; Pamela/Curt Cummings: [phone]\T\nbsp; Rut: [phone]. Care History Medical/Surgical 03/14/2020 [facility] - PATIENT HAS A NEUROLOGIST DR MATTHEW INGRAM-NEUROLOGIST AT [facility]- - PATIENT WAS LAST SEEN BY NEUROLOGIST ON 01/27/2020 AND FOLLOW UP APT WILL BE ON 04/04/2020. 07/08/2019 [facility] RECEIVING HOME HEALTH THROUGH [facility].\T\nbs; [phone]. 06/15/2019 [facility] - [place] REFERRAL MADE- DUE TO CONCERNS OF FALLS AT HOME. Jerome VISIT COUNT (12 MO.) 3 [facility] T[facility] 3 NOTE: Visits indicate total known visits. ED/UCC VISIT TRACKING (12 MO.) 09/13/2020 21:05 [facility] [place] TYPE: Emergency COMPLAINT: - DIFFICULTY BREATHING 05/04/2020 14:41 ZOEY Baker [place] TYPE: Emergency COMPLAINT: - FELL, HURT BOTH LEGS DIAGNOSES: - Hypothyroidism, unspecified - Anxiety disorder, unspecified - Allergy status to penicillin - Sprain of unspecified ligament of left ankle, initial encount - ferry terminal agent (current) use of anticoagulants - Other vermin exterminator (current) drug therapy - Unspecified atrial fibrillation - Essential (primary) hypertension - Personal history of nicotine dependence - Unspecified fall, initial encounter - Major depressive disorder, single episode, unspecified - Abrasion, right thigh, initial encounter - Pain in right foot 03/13/2020 00:26 ZOE[facility] Baker [place] TYPE: Emergency [...] malleolus of left tibia, initial - Other vermin exterminator (current) drug therapy - Major depressive disorder, single episode, unspecified INPATIENT VISIT TRACKING (12 MO.) 04/26/2020 06:52 [facility]. Mary Elaina MAN TYPE: Medical Surgical DIAGNOSES: - flecainide initiation 09/30/2019 07:35 [facility] Elaina MAN TYPE: Surgical Services DIAGNOSES: - Sick sinus syndrome - Conduction disorder, unspecified - tachybrady syndrome, loop recorder explantation, Dual chamber St Jerry PM implantation, Mateo (REP) [email or web address]
[2020-09-13] MEDS ORDERED: OMEPRAZOLE20 MG PO (21:30)
--- NOTE | 2020-09-15 09:14 | EKG ---
[facility] [address] [facility] [address] [place] [address] Signed Poor data quality Normal sinus rhythm Possible Left atrial enlargement ST \T\ T wave abnormality, consider lateral ischemia Abnormal ECG When compared with ECG of 13-MAR-2020 00:33, premature supraventricular complexes are no longer present QT has shortened Confirmed by IVELISSE KELLY MD ([id number]) on 09/15/2020 9:14:12 AM Electronically Signed By: IVELISSE KELLY MD 09/15/20 0914 PATIENT NAME: WALTER CALVERT Electrocardiogram DATE OF : 63 PHYSICIAN: IVELISSE KELLY MD REPORT #: [id number] REPORT IS CONFIDENTIAL AND NOT TO BE RELEASED WITHOUT AUTHORIZATION
== END 2020-09-13 23:47 | disposition home or self-care (01) ==
LOC: ED 21:04
DX: I11.0 Hypertensive heart disease with heart failure (principal); I50.9 Heart failure, unspecified; I48.91 Unspecified atrial fibrillation; F32.9 Major depressive disorder, single episode, unspecified; F41.9 Anxiety disorder, unspecified; E78.00 Pure hypercholesterolemia, unspecified; E03.9 Hypothyroidism, unspecified; Z87.891 Personal history of nicotine dependence; Z88.0 Allergy status to penicillin; Z79.899 Other long term (current) drug therapy
CPT/HCPCS: 71045; 80053; 83735; 83880; 84484; 85025; 93005; 93010; 96374; 99285-25; J1940

== ENCOUNTER 2021-03-06 21:39 | Emergency (ER) | payer OTHER ==
[~2021-03-06] VITALS: Ht 162.6 cm; Wt 103.4 kg
--- OUTSIDE RECORDS SUMMARY | 2021-03-06 21:42 | XMS ---
PreManage Notification: WALTER CALVERT Security Nut Roaster Helper Events No recent Security Events currently on file CRITERIA MET - [facility] Alpa Aliza Rope Coiling Machine Operator/First Helper 12/26/2020-Current PHONE: [phone] VANIA LEE Physician 06/15/2019-Current PHONE: [phone] Care Guidelines exist for the following facilities: [facility] ( 01/09/2021 ) Care History Medical/Surgical 03/14/2020 [facility] - PATIENT HAS A NEUROLOGIST DR MATTHEW INGRAM-NEUROLOGIST AT [facility]- - PATIENT WAS LAST SEEN BY NEUROLOGIST ON 01/27/2020 AND FOLLOW UP APT WILL BE ON 04/04/2020. 07/08/2019 [facility] RECEIVING HOME HEALTH THROUGH [facility].\T\nbsp; [phone]. 06/15/2019 [facility] - [place] REFERRAL MADE- DUE TO CONCERNS OF FALLS AT HOME. [place] VISIT COUNT (12 MO.) [facility] NOTE: Visits indicate total known visits. ED/UCC VISIT TRACKING (12 MO.) 03/06/2021 21:39 [facility] [place] TYPE: Emergency COMPLAINT: - DIFFICULTY BREATHING 09/13/2020 21:05 [facility] [place] TYPE: Emergency COMPLAINT: - DIFFICULTY BREATHING DIAGNOSES: - Hypertensive heart disease with heart failure - Allergy status to penicillin - Other usp (current) drug therapy - Unspecified atrial fibrillation - Anxiety disorder, unspecified - Heart failure, unspecified - Personal history of nicotine dependence - Shortness of breath - Major depressive disorder, single episode, unspecified - Pure hypercholesterolemia, unspecified - Hypothyroidism, unspecified 05/04/2020 14:41 [facility] [place] TYPE: Emergency COMPLAINT: - FELL, HURT BOTH LEGS DIAGNOSES: - Hypothyroidism, unspecified - Anxiety disorder, unspecified - Allergy status to penicillin - Sprain of unspecified ligament of left ankle, initial encounter - FPC (current) use of anticoagulants - Other lining machine operator (current) drug therapy - Unspecified atrial fibrillation [...] of medial malleolus of left tibia, initial encounter for closed fracture - Other lining machine operator (current) drug therapy - Major depressive disorder, single episode, unspecified INPATIENT VISIT TRACKING (12 MO.) 04/26/2020 06:52 [facility] Elaina MAN TYPE: Medical Surgical DIAGNOSES: - flecainide initiation [email or web address]
[2021-03-08] MEDS ORDERED: HYDROCODON-ACE1 EA10 PO (01:38)
--- NOTE | 2021-03-08 13:56 | EKG ---
[facility] [address] [place], [place] [address] Signed Atrial-paced rhythm with prolonged AV conduction Nonspecific ST abnormality Abnormal ECG When compared with ECG of 13-SEP-2020 22:11, Electronic atrial pacemaker has replaced Sinus rhythm ST less depressed in Lateral leads T wave inversion less evident in Lateral leads QT has lengthened Confirmed by FRANKIE PILLAI DO ([id number]) on 03/08/2021 1:55:57 PM Electronically Signed By: FRANKIE PILLAI DO 03/08/21 1356 PATIENT NAME: WALTER CALVERT Electrocardiogram DATE OF : 63 PHYSICIAN: FRANKIE PILLAI DO REPORT #: [id number] REPORT IS CONFIDENTIAL AND NOT TO BE RELEASED WITHOUT AUTHORIZATION
== END 2021-03-07 00:25 | disposition home or self-care (01) ==
LOC: ED 21:39
DX: I11.0 Hypertensive heart disease with heart failure (principal); I50.9 Heart failure, unspecified; Z20.822 Contact with and (suspected) exposure to COVID-19; I48.91 Unspecified atrial fibrillation; E78.00 Pure hypercholesterolemia, unspecified; E03.9 Hypothyroidism, unspecified; Z87.891 Personal history of nicotine dependence; Z88.0 Allergy status to penicillin; Z79.899 Other long term (current) drug therapy
CPT/HCPCS: 70450; 71045; 80053; 83735; 83880; 84484; 85025; 85379; 93005; 93010; 96374; 99285-25; C9803; J1940; U0003

== ENCOUNTER 2021-03-07 21:53 | Emergency (ER) | payer OTHER ==
[~2021-03-07] VITALS: Ht 162.6 cm; Wt 103.4 kg
--- OUTSIDE RECORDS SUMMARY | 2021-03-07 21:56 | XMS ---
PreManage Notification: WALTER CALVERT Security Content Coordinator Events No recent Security Events currently on file CRITERIA MET - [facility] - 2 Visits in 30 Days CARE PROVIDERS Aliza Yuen Maintenance Worker/Nut Chopper 12/26/2020-Current PHONE: [phone] VANIA LEE Physician Catalogue Compiler 06/15/2019-Current PHONE: [phone] Care Guidelines exist for the following facilities: [facility] ( 01/09/2021 ) Care History Medical/Surgical 03/14/2020 [facility] - PATIENT HAS A NEUROLOGIST DR MATTHEW INGRAM-NEUROLOGIST AT [facility]- [phone] - PATIENT WAS LAST SEEN BY NEUROLOGIST ON 01/27/2020 AND FOLLOW UP APT WILL BE ON 04/04/2020. 07/08/2019 [facility] RECEIVING HOME HEALTH THROUGH [facility].\T\nbsp; [phone]. 06/15/2019 [facility] - [place] REFERRAL MADE- DUE TO CONCERNS OF FALLS AT HOME. [place] VISIT COUNT (12 MO.) [address] [facility] [address] [place] TOTAL 5 NOTE: Visits indicate total known visits. ED/UCC VISIT TRACKING (12 MO.) 03/07/2021 21:53 [facility] [place] [facility] Emergency COMPLAINT: - DIFFICULTY BREATHING 03/06/2021 21:39 [facility] [place] TYPE: Emergency COMPLAINT: - DIFFICULTY BREATHING 09/13/2020 21:05 [facility] [place] TYPE: Emergency COMPLAINT: - DIFFICULTY BREATHING DIAGNOSES: - Hypertensive heart disease with heart failure - Allergy status to penicillin - Other mcfp (current) drug therapy - Unspecified atrial fibrillation [...] FPC (current) use of anticoagulants - Other mcfp (current) drug therapy - Unspecified atrial fibrillation - Essential (primary) hypertension - Personal history of nicotine dependence - Unspecified fall, initial encounter - Major depressive disorder, single episode, unspecified - Abrasion, right thigh, initial encounter - Pain in right foot 03/13/2020 00:26 [facility] TYPE: Emergency COMPLAINT: - FALL DIAGNOSES: - [...] initial encounter for closed fracture - Other terminal carman (current) drug therapy - Major depressive disorder, single episode, unspecified INPATIENT VISIT TRACKING (12 MO.) 04/26/2020 06:[address] [facility] MAN TYPE: Medical Surgical DIAGNOSES: - flecainide initiation [email or web address]
[2021-03-08] MEDS ORDERED: HYDROCODON-ACE1 EA10 PO (01:38)
--- NOTE | 2021-03-08 13:57 | EKG ---
[facility] [address] [place], [place] [address] Signed Atrial-paced rhythm ST \T\ T wave abnormality, consider lateral ischemia Prolonged QT Abnormal ECG When compared with ECG of 06-MAR-2021 21:54, (Unconfirmed) Nonspecific T wave abnormality, worse in Anterior leads Confirmed by FRANKIE PILLAI DO ([id number]) on 03/08/2021 1:56:56 PM Electronically Signed By: FRANKIE PILLAI DO 03/08/21 1357 PATIENT NAME: WALTER CALVERT Electrocardiogram DATE OF : 63 PHYSICIAN: FRANKIE PILLAI DO REPORT #: [id number] REPORT IS CONFIDENTIAL AND NOT TO BE RELEASED WITHOUT AUTHORIZATION
== END 2021-03-08 01:54 | disposition home or self-care (01) ==
LOC: ED 21:53
DX: I11.0 Hypertensive heart disease with heart failure (principal); I50.9 Heart failure, unspecified; E87.6 Hypokalemia; I48.91 Unspecified atrial fibrillation; E78.00 Pure hypercholesterolemia, unspecified; E03.9 Hypothyroidism, unspecified; Z87.891 Personal history of nicotine dependence; Z88.0 Allergy status to penicillin; Z79.899 Other long term (current) drug therapy
CPT/HCPCS: 71045; 80048; 80053; 83880; 84484; 85025; 85379; 96365; 96366; 96375; 96376; 99285-25; J2270; J2405; J3480

== ENCOUNTER 2021-07-02 21:41 | Emergency (ER) | payer OTHER ==
[~2021-07-02] VITALS: Ht 162.6 cm; Wt 103.4 kg
[~2021-07-02 21:41] MED LIST changes: +HYDROCODON-ACE1 EA10 PO
--- OUTSIDE RECORDS SUMMARY | 2021-07-02 21:42 | XMS ---
PreManage Notification: WALTER CALVERT Security Disk Operator Events No recent Security Events currently on file CRITERIA MET - [facility] CARE PROVIDERS Alpa Aliza Meat Grading Machine Operator/Broth Mixer 06/25/2021-Current PHONE: [phone] VANIA LEE Physician 06/15/2019-Current PHONE: [phone] Care Guidelines exist for the following facilities: [facility] ( 01/09/2021 ) Care History Medical/Surgical 03/08/2021 [facility] PATIENT HAS A INTERNAL AFFAIRS COMMANDER IN MONUMENT- DR GERMAN- [phone] [place] NOTIFIED INTERNAL AFFAIRS COMMANDER OFFICE OF RECENT ED VISITS- THEY WILL REVIEW RECORDS AND CONTACT PATIENT FOR A FOLLOW UP APT. 03/14/2020 [facility] - PATIENT HAS A NEUROLOGIST DR MATTHEW INGRAM-NEUROLOGIST AT [facility]- - PATIENT WAS LAST SEEN BY NEUROLOGIST ON 01/27/2020 AND FOLLOW UP APT WILL BE ON 04/04/2020. 07/08/2019 [facility] RECEIVING HOME HEALTH TH[facility]OUGH [facility].\T\nbsp; [phone]. [place]. VISIT COUNT (12 MO.) 4 [facility] TOTAL 4 NOTE: Visits indicate total known visits. ED/UCC VISIT TRACKING (12 MO.) 07/02/2021 21:41 [facility] [place] TYPE: Emergency COMPLAINT: - DIFFICULTY SWALLOWING 03/07/2021 21:53 [facility] [place] TYPE: Emergency COMPLAINT: - DIFFICULTY BREATHING DIAGNOSES: - Shortness of breath - Pure hypercholesterolemia, unspecified - Hypokalemia - Hypothyroidism, unspecified - Allergy status to penicillin - Heart failure, unspecified - Personal history of nicotine dependence - Unspecified atrial fibrillation - Hypertensive heart disease with heart failure - Other snf (current) drug therapy 03/06/2021 21:39 [facility] [place] TYPE: Emergency COMPLAINT: - DIFFICULTY BREATHING DIAGNOSES: - Unspecified atrial fibrillation - Shortness of breath - Personal history of nicotine dependence - Other snf (current) drug therapy - Hypertensive heart disease with heart failure - Heart failure, unspecified - Pure hypercholesterolemia, unspecified - Hypothyroidism, unspecified - Allergy status to penicillin 09/13/2020 21:05 [facility] [place] TYPE: Emergency COMPLAINT: - DIFFICULTY BREATHING DIAGNOSES: - Hypertensive heart disease with heart failure - Allergy status to penicillin - Other predatory animal exterminator (current) drug therapy - Unspecified atrial fibrillation - Anxiety disorder, unspecified - Heart failure, unspecified - Personal history of nicotine dependence - Shortness of breath - Major depressive disorder, single episode, unspecified - Pure hypercholesterolemia, unspecified - Hypothyroidism, unspecified INPATIENT VISIT TRACKING (12 MO.) No inpatient visits to display in this time frame [email or web address]
[2021-07-03] MEDS ORDERED: CEPHALEXIN500 MG PO (00:54)
== END 2021-07-03 01:09 | disposition home or self-care (01) ==
LOC: ED 21:41
DX: J02.9 Acute pharyngitis, unspecified (principal); I48.91 Unspecified atrial fibrillation; I10 Essential (primary) hypertension; M10.9 Gout, unspecified; E78.00 Pure hypercholesterolemia, unspecified; E03.9 Hypothyroidism, unspecified; Z87.891 Personal history of nicotine dependence; Z88.0 Allergy status to penicillin; Z79.899 Other long term (current) drug therapy
CPT/HCPCS: 87081; 99283; A9270

== ENCOUNTER 2021-09-11 05:40 | Day surgery (SDC) | payer OTHER ==
--- NOTE | 2021-08-29 13:38 | NUR ---
DOS: 09/11/21 STAIRS: HAS 10 AT THE FRONT OF THE HOUSE AND 2 FOR THE BACK OF THE HOUSE WALKER: HAS A FWW AND WAS INSTRUCTED TO BRING WITH HER ON HER SURGERY DAY TO PRACTICE STAIRS AND MAKE SURE IT IS ADJUSTED CORRECTLY FOR HER. TOILET: THEY ARE LOW, BUT HAS A RISER FOR HER TO USE SHOWER: STEP OVER SHOWER AND HAS A SHOWER CHAIR FREE STANDING APPOINTMENT & PHYSICAL THERAPY: PT LIVES WITH HER MATY AND [id number] AND BETWEEN THEM BOTH THEY WILL MAKE SURE SHE IS SAFE AT HOME AND GET HER TO THE APPOINTMENTS AND PHYSICAL THERAPY.
[~2021-09-11] VITALS: Ht 162.6 cm; Wt 104.5 kg
[~2021-09-11 05:40] MED LIST changes: +CEPHALEXIN500 MG PO; +LATUDA40 MG PO
[2021-09-11] MEDS ORDERED: ZESTRIL40 MG PO (06:04)
[2021-09-11] MEDS ORDERED: FLECAINIDE ACET50 MG PO (06:05)
[2021-09-11] MEDS ORDERED: GABAPENTIN300 MG PO (08:35)
[2021-09-11] MEDS ORDERED: OXYCODONE HCL5 MG PO (08:35)
--- NOTE | 2021-09-11 09:01 | NUR ---
09/11/21 0901 Sheets,Jessica 0802 PT ARRIVED TO PACU ON 6L VIA MASK, VSS. PT SLEEP. 0843 P WAKES TO VERBAL STIMULI AND O2 REMOVED. PT REORIENTED TO PACU AND DENIES PAIN AND NAUSEA. PT REPORTS NUMBNESS IN TOES AND SPINAL EDUCATION GIVEN. 0858 2L NC PLACED DUE TO O2 SAT DECREASED TO 88%, DEEP BREATHING AND COUGHING ENCOURAGED.
--- NOTE | 2021-09-11 09:31 | NUR ---
PATIENT BACK TO ROOM FROM PACU. RECEIVED REPORT FROM CASTRO NICOLE. PATIENT IS ON 2L OF O2 WITH SATS IN THE HIGH 90'S. RATES PAIN 1/10. DENIES NAUSEA. DRESSING IS CLEAN, DRY, AND INTACT. CYRO CUFF IN PLACE. PROVIDED PATIENT WITH WATER, CRACKERS, AND PUDDING. CALL LIGHT WITHIN REACH.
--- NOTE | 2021-09-11 10:07 | NUR ---
[id number] PAIN A 02/01. PAIN MEDICATION GIVEN PER JAN.
--- NOTE | 2021-09-11 10:53 | NUR ---
[id number] AWAKE AND RESTING IN BED. VSS, PATIENT IS ON ROOM AIR WITH SATS AROUND 95. RATES PAIN 02/01, MDICATIONS GIVEN PER JAN. DENIES NAUSEA. DRESSING IS CLEAN, DRY, AND INTACT. CRYO CUFF IN PLACE. CALL LIGHT WITHIN REACH. [id number] UP TO BEDSIDE COMMODE WITH 1 RN ASSIST. GAIT UNSTEADY BUT TOLERATED WELL. PATIENT VOIDED 300ML.
--- NOTE | 2021-09-11 12:54 | NUR ---
PATIENT RESTING COMFORTABLY IN BED. VSS. RATES PAIN 1/10. DENIES NAUSEA. DRESSING IS CLEAN, DRY, AND INTACT. CRYO CUFF IN PLACE. CALL LIGHT WITHIN REACH.
--- NOTE | 2021-09-11 13:04 | NUR ---
PHYSICAL THERAPY IN PATIENT'S ROOM.
--- NOTE | 2021-09-11 14:16 | NUR ---
1405-PATEINT BACK TO ROOM FROM PT. RATES PAIN 7/10. PAIN MEDICATION GIVEN PER JAN. 1415-PATIENT RESTING IN BED. RATES PAIN 7/10. DENIES NAUSEA. VSS. DRESSING HAS A SMALL AMOUNT OF RED DRAINAGE. CRYO CUFF IN PLACE. CALL LIGHT WITHIN REACH.
--- NOTE | 2021-09-11 15:25 | NUR ---
PROVIDED PATIENT WITH DISCHARGE INSTRUCTIONS. PATIENT VERBALIZED UNDERSTANDING AND ALL QUESTIONS ANSWERED. PATIENT RATES PAIN 1/10. DRESSING WITH SMALL AMOUNT OF RED DRAINAGE. PATIENT AMBULATES TO WHEELCHAIR AND TAKEN TO FRONT OF HOSPITAL WHERE HER BROTHER WAS WAITING. PATIENT THEN AMBULATES TO CAR.
== END 2021-09-11 15:25 | disposition home or self-care (01) ==
LOC: DS 05:40
PROVIDERS: ATTEND Specialist
PROC: 0SRC0JZ Replacement of Right Knee Joint with Synthetic Substitute, Open Approach (ICD-10-PCS; principal; 2021-09-11 06:45)
DX: M17.11 Unilateral primary osteoarthritis, right knee (principal); G89.18 Other acute postprocedural pain; E03.9 Hypothyroidism, unspecified; I25.2 Old myocardial infarction; E78.2 Mixed hyperlipidemia; I48.0 Paroxysmal atrial fibrillation; I47.1 Supraventricular tachycardia; I11.0 Hypertensive heart disease with heart failure; I50.9 Heart failure, unspecified; I27.20 Pulmonary hypertension, unspecified; I34.0 Nonrheumatic mitral (valve) insufficiency; I73.9 Peripheral vascular disease, unspecified; I65.29 Occlusion and stenosis of unspecified carotid artery; G47.33 Obstructive sleep apnea (adult) (pediatric); F32.A Depression, unspecified; F41.9 Anxiety disorder, unspecified; K21.9 Gastro-esophageal reflux disease without esophagitis; Z88.0 Allergy status to penicillin; Z87.891 Personal history of nicotine dependence; Z79.01 Long term (current) use of anticoagulants; Z95.810 Presence of automatic (implantable) cardiac defibrillator
CPT/HCPCS: 01402; 64447; 64450; 76942; 97110; 97116; 97161; C1713; C1776; J0690; J1100; J1885; J2001; J2250; J2704; J2795; J7040; J7121

== ENCOUNTER 2022-01-16 14:15 | Emergency (ER) | payer OTHER ==
[~2022-01-16] VITALS: Ht 162.6 cm; Wt 104.3 kg
[~2022-01-16 14:15] MED LIST changes: +FLECAINIDE ACET50 MG PO; +ZESTRIL40 MG PO
--- OUTSIDE RECORDS SUMMARY | 2022-01-16 14:26 | XMS ---
PreManage Notification: WALTER CALVERT [employer] Incentive Selector Events No recent Security Events currently on file CRITERIA MET - PDMP CARE PROVIDERS VANIA LEE Physician Leader Tier 07/04/2021-Current PHONE: [phone] Care Guidelines exist for the following facilities: [facility] ( 01/09/2021 ) Care History Medical/Surgical 03/08/2021 [facility] PATIENT HAS A CAN RUNNER IN [place]- DR GERMAN- [phone] [facility] NOTIFIED CAN RUNNER OFFICE OF RECENT ED VISITS- THEY WILL REVIEW RECORDS AND CONTACT PATIENT FOR A FOLLOW UP APT. 03/14/2020 [facility] - PATIENT HAS A NEUROLOGIST DR MATTHEW INGRAM-NEUROLOGIST AT [facility]- - PATIENT WAS LAST SEEN BY NEUROLOGIST ON 01/27/2020 AND FOLLOW UP APT WILL BE ON 04/04/2020. 07/08/2019 [facility] RECEIVING HOME HEALTH THROUGH [facility].\T\nbsp; [phone]. E.D. VISIT COUNT (12 MO.) [address] [facility] [place] TOTAL 4 NOTE: Visits indicate total known visits. ED/UCC VISIT TRACKING (12 MO.) 01/16/2022 14:16 [facility] [place] TYPE: Emergency COMPLAINT: - ABDOMINAL PAIN 07/02/2021 21:[address] [facility] [place] TYPE: Emergency COMPLAINT: - DIFFICULTY SWALLOWING DIAGNOSES: - Gout, unspecified - Allergy status to penicillin - Pure hypercholesterolemia, unspecified - Acute pharyngitis, unspecified - Hypothyroidism, unspecified - Unspecified atrial fibrillation - Essential (primary) hypertension - Other long term care social worker (current) drug therapy - Personal history of nicotine dependence 03/07/2021 21:53 [facility] [place] TYPE: Emergency COMPLAINT: - DIFFICULTY BREATHING DIAGNOSES: - Shortness of breath - Pure hypercholesterolemia, unspecified - Hypokalemia - Hypothyroidism, unspecified - Allergy status to penicillin - Heart failure, unspecified - Personal history of nicotine dependence - Unspecified atrial fibrillation - Hypertensive heart disease with heart failure - Other long term care social worker (current) drug therapy 03/06/2021 21:39 [facility] [place] TYPE: Emergency COMPLAINT: - DIFFICULTY BREATHING DIAGNOSES: - Unspecified atrial fibrillation - Shortness of breath - Personal history of nicotine dependence - Other long term care social worker (current) drug therapy - Hypertensive heart disease with heart failure - Heart failure, unspecified - Pure hypercholesterolemia, unspecified - Hypothyroidism, unspecified - Allergy status to penicillin INPATIENT VISIT TRACKING (12 MO.) No inpatient visits to display in this time frame [email or web address]
== END 2022-01-16 18:24 | disposition home or self-care (01) ==
LOC: ED 14:15
DX: R10.31 Right lower quadrant pain (principal); I48.91 Unspecified atrial fibrillation; I10 Essential (primary) hypertension; M10.9 Gout, unspecified; E78.00 Pure hypercholesterolemia, unspecified; E03.9 Hypothyroidism, unspecified; M19.90 Unspecified osteoarthritis, unspecified site; Z87.891 Personal history of nicotine dependence; Z88.0 Allergy status to penicillin; Z79.899 Other long term (current) drug therapy; Z79.01 Long term (current) use of anticoagulants
CPT/HCPCS: 36415; 74177; 80053; 81001; 83690; 85025; 96374; 99284-25; J1885